=== PATIENT | female | born 1965 | race Hispanic/Latino ===

== ENCOUNTER 2017-06-19 18:30 | Inpatient (IN) | payer OTHER, SELFPAY ==
--- OUTSIDE RECORDS SUMMARY | 2017-06-19 18:32 | XMS | Clinical Summary ---
:1965 Author Organization [facility] Address [address] [place] [address] Phone Care Team Providers Name Role Phone , Primary Care Provider Unavailable Allergies Not on File Current Medications Not on file Active Problems Not on file Social History Tobacco Use Types Packs/Day Years Used Date Never Assessed Sex Assigned at Date Recorded Not on file Last Filed Vital Signs Not on file Plan of Treatment Not on file Results Not on filefrom Last 3 Months
[2017-06-19] MEDS ORDERED: Albuterol Sulfate 2.5 mg/3 ml Neb ONE (21:19)
[2017-06-19] MEDS ORDERED: Magnesium Sulfate 2 GM/100 ML BAG ONE (21:36)
[2017-06-19] MEDS ORDERED: methylPREDNISolone Sod Succ/PF 125 MG/2 ML VIAL ONE (21:37)
[2017-06-19] MEDS ORDERED: Sterile Water 0 ML ONE (21:38)
[2017-06-19] MEDS ORDERED: Water For Inject, Bacteriostat 30 ML ONE (21:38)
[2017-06-19 21:39] LABS: #Eosinphils 0.2 thou/uL (0.0-0.7); #Lymphocytes 1.5 thou/uL (1.20-3.40); #Monocytes 0.5 thou/uL (0.11-0.59); #Neutrophils 4.4 thou/uL (1.40-6.50); %Basophils 0.4 % (0.0-1.0); %Eosinophils 2.8 % (0.0-10.0); %Lymphocytes 22.6 % (21.0-51.0); %Monocytes 7.9 % (0.0-10.0); Mean Platelet Volume 8.4 fL (7.4-10.4); Red Blood Cell (RBC) Count 5.31 mill/uL (4.20-5.40); White Blood Cell (WBC) Count 6.6 thou/uL (4.8-10.8)
[2017-06-19 22:03] LABS: ALT (SGPT) 18 U/L (8-55); AST (SGOT) 8 U/L (5-34); Alkaline Phosphatase 103 U/L (40-150); Anion Gap 15 mmol/L (10-20); BUN (Urea Nitrogen) 7 mg/dL (9.8-20.1); Bilirubin, Total 0.6 mg/dL (0.2-1.2); Calc. Creatinine Clearance 0 mL/min (70-130); Calcium 9.9 mg/dL (7.8-10.44); Carbon Dioxide 27 mmol/L (22-29); Chloride 104 mmol/L (98-107); Estimated GFR-MDRD 79; Globulin 3.3 g/dL (2.4-3.5); Magnesium 1.9 mg/dL (1.6-2.6); Protein, Total 7.3 g/dL (6.0-8.3)
[2017-06-19 22:07] LABS: Troponin I Less than 0.010 ng/mL (< 0.028)
--- NOTE | 2017-06-19 22:16 | RAD ---
PORTABLE AP CHEST: Date: 06-19-17 History: Cough, dyspnea, wheezing. Comparison: 01-02-17 FINDINGS: Cardiac silhouette is stable in size. Post-surgical changes related to CABG are again noted. Pulmona ry vasculature is within normal limits and the lungs are clear. There has been resolution of bilater al pleural and parenchymal changes on the prior study, likely related to resolution of bilateral ple ural effusions. No other interval change. IMPRESSION: No acute cardiopulmonary process. POS: MIRIAM
[2017-06-20] MEDS ORDERED: Acetaminophen 325 MG TAB ONE (01:14)
[2017-06-20 01:25] LABS: Troponin I Less than 0.010 ng/mL (< 0.028)
[2017-06-20] MEDS ORDERED: Ondansetron HCl/PF 4 MG/2 ML Vial IVP PRN ×2 (02:23→03:30)
[2017-06-20] MEDS ORDERED: Acetaminophen 325 MG TAB PO PRN (02:23)
[2017-06-20] MEDS ORDERED: Ondansetron ODT 4 MG TAB SL PRN (02:23)
[2017-06-20] MEDS ORDERED: Albuterol Sulfate 2.5 mg/3 ml Neb NEB PRN (02:24)
[2017-06-20] MEDS ORDERED: Dextrose 5% in Water 1,000 ML IV PRN (03:22)
[2017-06-20] MEDS ORDERED: Dextrose 50% Abboject 50 ML SYRINGE SLOW IVP PRN (03:22)
[2017-06-20] MEDS ORDERED: Nitroglycerin 0.4 MG TAB (25 Tab Bottle) PO PRN (03:22)
[2017-06-20] MEDS ORDERED: Calcium Carbonate 500 MG ChewTAB PO PRN (03:26)
[2017-06-20] MEDS ORDERED: Eucerin (Mineral Oil/Petrolatum,White) 30 gm Jar TOP PRN (03:26)
[2017-06-20] MEDS ORDERED: cloNIDine HCl 0.1 MG TAB PO PRN (03:26)
[2017-06-20] MEDS ORDERED: Polyethylene Glycol 3350 17 GM Packet PO PRN (03:26)
[2017-06-20] MEDS ORDERED: Diabetic Tussin 200 MG/10 ML UDCUP PO PRN (03:26)
[2017-06-20] MEDS ORDERED: Ondansetron ODT 4 MG TAB PO PRN (03:30)
[2017-06-20] MEDS ORDERED: Mag-Al 1200 mg/1200 mg/30 ML UDCUP PO PRN (03:30)
[2017-06-20] MEDS ORDERED: Senokot 8.6 MG TAB PO PRN (03:30)
--- NOTE | 2017-06-20 04:04 | HP ---
DATE OF ADMISSION: 06/20/2017 PRIMARY CARE PHYSICIAN: Ida Nascimento. CHIEF COMPLAINT: Shortness of breath of 2 days duration. HISTORY OF PRESENT ILLNESS: Patient is a 52-year-old female with COPD, coronary artery disease stat us post CABG, diabetes, and hypertension, who presented to the emergency room with above complaints. Over the last two days, the patient has gradual worsening shortness of breath along with chest tight ness and wheezing. This started after getting a flu shot. Shortness of breath has progressively go t worse to the extent that patient was short of breath at rest. She denies any fever; however, had chills. She also felt generally weak and fatigued. She had some cough, which was essentially nonpr oductive. She denies any sick contacts. She has a history of asthma/COPD and uses an inhaler, mayb e once in 1-2 weeks. She had a similar episode in November of this year when she was admitted at [facility]. In the emergency room, her initial vital signs showed a temperature of 98.1, respiration of 22, puls e rate of 94, blood pressure of 130/92 with O2 saturation of 98% on 2 liters nasal cannula. The pat ient was in moderate respiratory distress in the emergency room. Chest x-ray was negative for infil trate. EKG showed sinus rhythm with some nonspecific ST-T wave changes in the lateral leads. She r eceived DuoNebs, Tylenol, 2 grams magnesium, and 125 Solu-Medrol in the emergency room. PAST MEDICAL HISTORY: 1. Asthma/COPD. 2. Former smoker. 3. Coronary artery disease status post CABG (3-vessel 4 years ago). 4. History of myocardial infarction. 5. Diabetes mellitus, type 2. 6. Hypertension. PAST SURGICAL HISTORY: 1. Coronary artery bypass grafting x3. 2. Cholecystectomy. 3. 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 4. Colonoscopy. ALLERGIES: No known drug allergies. CURRENT HOME MEDICATIONS: 1. Aspirin 81 mg daily. 2. Lipitor 10 mg at bedtime. 3. Plavix 75 mg daily. 4. Flexeril 5 mg 3 times daily as needed. 5. Lasix 40 mg daily. 6. Gabapentin 300 mg b.i.d. 7. Methocarbamol 750 mg every 8 hourly as needed. 8. Niacin 500 mg daily. 9. Omeprazole 20 mg daily. 10. Potassium chloride 20 mEq daily. 11. Zocor 40 mg daily. 12. Metformin 500 mg b.i.d. SOCIAL HISTORY: Patient is a former smoker. She currently lives at home with family. Drinks alcoh ol socially. FAMILY HISTORY: Negative for premature coronary artery disease. REVIEW OF SYSTEMS: The following complete review of systems was negative, unless otherwise mentione d in the HPI or below: Constitutional: Weight loss or gain, ability to conduct usual activities. Skin: Rash, itching. Eyes: Double vision, pain. ENT/Mouth: Nose bleeding, neck stiffness, pain, tenderness. Cardiovascular: Palpitations, dyspnea on exertion, orthopnea. Respiratory: Shortness of breath, wheezing, cough, hemoptysis, fever or night sweats. Gastrointestinal: Poor appetite, abdominal pain, heartburn, nausea, vomiting, constipation, or diar sybil. Genitourinary: Urgency, frequency, dysuria, nocturia. Musculoskeletal: Pain, swelling. Neurologic/Psychiatric: Anxiety, depression. Allergy/Immunologic: Skin rash, bleeding tendency. PHYSICAL EXAMINATION: VITAL SIGNS: As discussed above. GENERAL: A 52-year-old female in moderate respiratory distress. Able to complete short phrases. HEENT: Head atraumatic, normocephalic. Sclerae are anicteric. Moist mucous membrane, no oral lesi on. NECK: Supple, no JVD, no carotid bruit. LUNGS: Showed diffuse expiratory wheezing with rhonchi. No definite rales appreciated. Lungs were symmetrical. HEART: S1, S2 present. Regular rate and rhythm. Healed midline scar from previous CABG. No rubs or gallops. ABDOMEN: Soft, nontender, bowel sounds present. EXTREMITIES: No edema or calf tenderness. NEUROLOGIC: Grossly nonfocal, moves all four extremities. PSYCHIATRY: Alert, awake, oriented x3. SKIN: Warm and dry. LYMPH NODES: No palpable lymph nodes in the neck. PERIPHERAL VASCULAR: Radial pulses palpable bilaterally. MUSCULOSKELETAL: No joint swelling or tenderness. LABORATORY FINDINGS: 1. CBC showed WBC of 6.6 with hemoglobin 16.6, hematocrit 50, platelet count of 204. 2. test was negative. 3. Chemistries showed sodium 142, potassium 4, chloride 104, bicarbonate 27, BUN 7, creatinine 0.77 . 4. Cardiac enzymes were normal. EKG and chest x-ray by my review as discussed above. 5. Influenza testing was negative. IMPRESSION: 1. Chronic obstructive pulmonary disease/asthma exacerbation. 2. Suspected community-acquired pneumonia. 3. Diabetes mellitus, type 2. 4. Hypertension. 5. Coronary artery disease, status post myocardial infarction and coronary artery bypass grafting. 6. Hypertension. 7. Chronic kidney disease, stage 2. 8. Former smoker. 9. Dyslipidemia. 10. Obesity with a BMI of 32.5. PLAN: 1. The patient will be monitored on the telemetry unit. We will continue to monitor her closely. If she deteriorates, we will transfer her to intermediate care unit. We will continue oxygen, nebul izer treatment, steroids with addition of antibiotics. We will also consult Pulmonary, Dr. Kim. We will start her on insulin sliding scale. Resume other selected home medications. 2. The patient will require at least 2-3 days for stabilization.
[2017-06-20] MEDS: cefTRIAXone\\ROCEPHIN 1 GM in Sodium Chloride 0.9% 100 ML IVPB SCH (04:05)
[2017-06-20] MEDS: Azithromycin 500 MG in Sodium Chloride 0.9% 250 ML 250 ML IVPB SCH (05:22)
[2017-06-20 06:01] LABS: Troponin I Less than 0.010 ng/mL (< 0.028)
[2017-06-20] MEDS: Insulin Regular 300 UNITS/3 ML VIAL SC PRN ×4 (06:05→21:21)
[2017-06-20] MEDS: Acetaminophen 325 MG TAB PO PRN (08:47)
[2017-06-20] MEDS: Calcium Carbonate + Vit D 1 TAB PO SCH ×2 (08:48→16:26)
[2017-06-20] MEDS: Furosemide 40 MG TAB PO SCH (08:48)
[2017-06-20] MEDS: guaiFENesin ER 600 MG TAB PO SCH ×2 (08:48→21:12)
[2017-06-20] MEDS: Clopidogrel Bisulfate 75 MG TAB PO SCH (08:48)
[2017-06-20] MEDS: Heparin 5,000 UNITS/ML VIAL SC SCH ×2 (08:48→21:15)
[2017-06-20] MEDS: Aspirin 81 mg Enteric Coated Tablet PO SCH (08:48)
[2017-06-20] MEDS: Gabapentin 300 MG CAP PO SCH ×2 (08:48→21:12)
[2017-06-20] MEDS: Potassium Chloride 20 MEQ TAB PO SCH (08:49)
[2017-06-20] MEDS ORDERED: Famotidine 20 MG TAB PO SCH (09:00)
[2017-06-20] MEDS ORDERED: Magnesium Sulfate 4 GM in Sodium Chloride 0.9% 250 ML 250 ML IVPB SCH (09:30)
[2017-06-20] MEDS ORDERED: Magnesium 2 GM/NS 0.9% 100 ML 4 GM in Premix Bag 1 BAG IVPB SCH (09:30)
--- NOTE | 2017-06-20 12:03 | CON ---
DATE OF CONSULTATION: 06/20/2017 CONSULTING PHYSICIAN: Dr. Fitzpatrick. REASON FOR CONSULTATION: Asthma exacerbation. HISTORY OF PRESENT ILLNESS: This is a 52-year-old female, who says she became congestion and shortn ess of breath after getting a flu shot on Monday. She has had difficulty with shortness of breath, wheezing, and she has had a productive cough. She is a smoker, still smoking intermittently previously pack per day. She has an asthma inhaler at home but has not been using them. PAST MEDICAL HISTORY: 1. Asthma/COPD. 2. Coronary artery disease. 2. Myocardial infarction. 3. Diabetes mellitus type 2. 4. Hypertension. PAST SURGICAL HISTORY: 1. Coronary artery bypass grafting surgery. 2. Cholecystectomy. 3. Laparoscopic right colectomy for a cecal tumor. 4. Colonoscopy. ALLERGIES: None. MEDICATIONS PRIOR TO ADMISSION: Aspirin 81 mg daily, Lipitor 10 mg daily, Plavix 75 mg daily, Flexe ril 5 mg 3 times daily as needed, Lasix 40 mg daily, gabapentin 300 mg b.i.d., Soma 750 mg every 8 h ours as needed, niacin 500 mg daily, omeprazole 20 mg daily, potassium chloride 20 mEq daily, Zocor 40 mg daily, metformin 500 mg b.i.d. She is also on albuterol as needed. SOCIAL HISTORY: Formerly smoked heavily, but is now intermittently smoking. She drinks alcohol gian ly. FAMILY MEDICAL HISTORY: Unremarkable for asthma or emphysema. REVIEW OF SYSTEMS: She denies fever or chills. She has had some nausea, no vomiting. No hematemes is, melena or hematochezia. No hematuria or dysuria. PHYSICAL EXAMINATION: VITAL SIGNS: Temperature 97.4, pulse 74, respirations 24, O2 sat 95% on 2 liters, blood pressure 10 9/71. HEENT: Unremarkable. LUNGS: Coarse breath sounds audible from her lungs after that region. Lungs have diffused bilatera l expiratory wheezing with prolonged expiratory phase. CARDIOVASCULAR: S1, S2 regular. No murmur. ABDOMEN: Soft and nontender. EXTREMITIES: No clubbing, cyanosis, or edema. Her chest x-ray shows no profound infiltrate that I can visualize. LABORATORY DATA: Sodium 142, potassium 4.0, chloride 104, CO2 27, BUN 7, creatinine 0.7, glucose 10 9. BNP was 46. White blood cell count 6.6, hematocrit 50.0, platelet count 204. ASSESSMENT: 1. Chronic obstructive pulmonary disease/asthma with exacerbation. 2. Acute respiratory failure secondary to #1. 3. History of coronary artery disease. 4. Tobacco abuse. PLAN: 1. Oxygen. 2. Intravenous steroids. 3. IV antibiotics. 4. Aggressive nebulization therapy. 5. Smoking cessation has been advised.
--- NOTE | 2017-06-20 13:04 | PDOC.PN ---
- Subjective Encounter Start Date: 06/20/17 Encounter Start Time: 13:00 Subjective: Feels SOB with non-productive cough. No fever or chills. Admits to recent -: Influenza vax in last 4 days. - Objective Resuscitation Status: Resuscitation Status FULL:Full Resuscitation MAR Reviewed: Yes Vital Signs & Weight: Vital Signs (12 hours) Temp Pulse Resp BP Pulse Ox 06/20/17 11:33 97.5 F L 77 24 H 110/69 97 06/20/17 10:10 77 16 97 06/20/17 08:00 97.4 F L 74 24 H 109/71 95 06/20/17 06:12 99 06/20/17 06:09 81 16 99 06/20/17 04:22 98.2 F 64 18 100/57 L 95 06/20/17 03:22 96 06/20/17 02:26 97.8 F 81 16 99 I&O: 06/19/17 06/20/17 06/21/17 06:59 06:59 06:59 Intake Total 350 Balance 350 Result Diagrams: 06/19/17 21:25 06/19/17 21:25 Additional Labs: Accuchecks 06/20/17 06/20/17 10:50 05:59 POC Glucose 256 H 229 H EKG Reviewed by me: Yes (Tele - SR in 80's) Phys Exam - Physical Examination Constitutional: NAD HEENT: PERRLA, oral pharynx no lesions Neck: no JVD, supple coarse bilaterally, exp wheezing Cardiovascular: RRR Gastrointestinal: soft, non-tender, no distention, positive bowel sounds Musculoskeletal: no edema, pulses present Neurological: normal sensation, moves all 4 limbs Psychiatric: A&O x 3 Skin: normal turgor, cap refill <2 seconds Dx/Plan (1) Acute exacerbation of chronic obstructive pulmonary disease (COPD) Code(s): J44.1 - CHRONIC OBSTRUCTIVE PULMONARY DISEASE W (ACUTE) EXACERBATION Status: Acute Comment: Continue bronchodilators, Add Dulera 2 puffs BID, continue Solumedrol, Zithromax and Rocephin (2) Acute respiratory failure with hypoxia Code(s): J96.01 - ACUTE RESPIRATORY FAILURE WITH HYPOXIA Status: Acute Comment: See #1 above (3) CAD (coronary artery disease) Code(s): I25.10 - ATHSCL HEART DISEASE OF [place] CORONARY ARTERY W/O ANG PCTRS Status: Chronic Qualifiers: Coronary Disease-Associated Artery/Lesion type: bypass graft [place] vs. 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
[2017-06-20] MEDS ORDERED: Montelukast Sodium 10 mg Tablet PO SCH (13:15)
[2017-06-20] MEDS: Mometasone/Formoterol 120 PUFF INHALER INH SCH ×2 (14:29→19:27)
[2017-06-20] MEDS ORDERED: Ketorolac Tromethamine 30 MG/ML VIAL IVP PRN (19:27)
[2017-06-20] MEDS ORDERED: Atorvastatin Calcium 10 MG TAB PO SCH (21:00)
[2017-06-20] MEDS: Simvastatin 40 MG TAB PO SCH (21:13)
[2017-06-21] MEDS: cefTRIAXone\\ROCEPHIN 1 GM in Sodium Chloride 0.9% 100 ML IVPB SCH (03:08)
[2017-06-21] MEDS: Azithromycin 500 MG in Sodium Chloride 0.9% 250 ML 250 ML IVPB SCH (04:03)
[2017-06-21 05:30] LABS: #Lymphocytes 0.6 thou/uL (1.20-3.40); #Monocytes 0.3 thou/uL (0.11-0.59); #Neutrophils 11.2 thou/uL (1.40-6.50); %Basophils 0.3 % (0.0-1.0); %Eosinophils 0.1 % (0.0-10.0); %Lymphocytes 4.8 % (21.0-51.0); %Monocytes 2.3 % (0.0-10.0); Hematocrit 41.9 % (36.0-47.0); Mean Platelet Volume 9.1 fL (7.4-10.4); Red Blood Cell (RBC) Count 4.43 mill/uL (4.20-5.40); White Blood Cell (WBC) Count 12.1 thou/uL (4.8-10.8)
[2017-06-21 05:48] LABS: Anion Gap 15 mmol/L (10-20); BUN (Urea Nitrogen) 16 mg/dL (9.8-20.1); BUN/Creatinine Ratio 19.51; Calc. Creatinine Clearance 109 mL/min (70-130); Calcium 9.5 mg/dL (7.8-10.44); Carbon Dioxide 21 mmol/L (22-29); Chloride 103 mmol/L (98-107); Estimated GFR-MDRD 73; Phosphorus 3.6 mg/dL (2.3-4.7)
[2017-06-21] MEDS: Insulin Regular 300 UNITS/3 ML VIAL SC PRN ×4 (06:05→21:43)
[2017-06-21] MEDS: Mometasone/Formoterol 120 PUFF INHALER INH SCH ×2 (06:18→19:10)
[2017-06-21] MEDS: Potassium Chloride 20 MEQ TAB PO SCH (08:56)
[2017-06-21] MEDS: Furosemide 40 MG TAB PO SCH (08:56)
[2017-06-21] MEDS: Clopidogrel Bisulfate 75 MG TAB PO SCH (08:56)
[2017-06-21] MEDS: Gabapentin 300 MG CAP PO SCH ×2 (08:56→21:44)
[2017-06-21] MEDS: Calcium Carbonate + Vit D 1 TAB PO SCH ×2 (08:56→16:45)
[2017-06-21] MEDS: Aspirin 81 mg Enteric Coated Tablet PO SCH (08:56)
[2017-06-21] MEDS: guaiFENesin ER 600 MG TAB PO SCH ×2 (08:56→21:44)
[2017-06-21] MEDS: Heparin 5,000 UNITS/ML VIAL SC SCH ×2 (08:57→21:43)
[2017-06-21] MEDS ORDERED: Benzonatate 100 MG CAP PO PRN (09:42)
--- NOTE | 2017-06-21 09:46 | PDOC.PN ---
- Subjective Encounter Start Date: 06/21/17 Encounter Start Time: 09:45 still wheezing and coughing no f/c no n/v - Objective Resuscitation Status: Resuscitation Status FULL:Full Resuscitation MAR Reviewed: Yes Vital Signs & Weight: Vital Signs (12 hours) Temp Pulse Resp BP Pulse Ox 06/21/17 07:57 97.8 F 67 18 103/57 L 97 06/21/17 06:27 97 06/21/17 06:18 84 24 H 98 06/21/17 06:16 84 24 H 98 06/21/17 04:00 97.5 F L 61 20 101/51 L 98 06/21/17 03:46 78 18 99 06/21/17 01:00 76 20 97 06/21/17 00:00 97.5 F L 89 20 106/61 97 06/20/17 22:09 80 22 H 98 Weight Weight 189 lb 9.561 oz I&O: 06/20/17 06/21/17 06/22/17 06:59 06:59 06:59 Intake Total 350 1833 Balance 350 1833 Result Diagrams: 06/21/17 05:08 06/21/17 05:08 Additional Labs: Accuchecks 06/21/17 06/20/17 06/20/17 05:34 21:12 16:55 POC Glucose 259 H 271 H 270 H 06/20/17 10:50 POC Glucose 256 H Phys Exam - Physical Examination Constitutional: NAD HEENT: PERRLA Neck: no JVD Respiratory: wheezing present Cardiovascular: no significant murmur Gastrointestinal: non-tender Musculoskeletal: pulses present Neurological: normal sensation Psychiatric: A&O x 3 Dx/Plan (1) Tobacco abuse Code(s): Z72.0 - TOBACCO USE Status: Acute (2) Acute exacerbation of chronic obstructive pulmonary disease (COPD) Code(s): J44.1 - CHRONIC OBSTRUCTIVE PULMONARY DISEASE W (ACUTE) EXACERBATION Status: Acute Comment: Continue bronchodilators, Add Dulera 2 puffs BID, continue Solumedrol, Zithromax and Rocephin (3) Acute respiratory failure with hypoxia Code(s): J96.01 - ACUTE RESPIRATORY FAILURE WITH HYPOXIA Status: Acute Comment: See #1 above (4) CAD (coronary artery disease) Code(s): I25.10 - ATHSCL HEART DISEASE OF [place] CORONARY ARTERY W/O ANG PCTRS Status: Chronic Qualifiers: Coronary Disease-Associated Artery/Lesion type: bypass graft [place] vs. transplanted heart: [place] heart Associated angina: without angina Qualified Code(s): I25.810 - Atherosclerosis of coronary artery bypass graft(s) without angina pectoris Comment: cabg 2014, resume home meds, stable currently (5) DM type 2 (diabetes mellitus, type 2) Status: Chronic Qualifiers: Diabetes mellitus complication status: without complication Diabetes mellitus jail insulin use: without jail use Qualified Code(s): E11.9 - Type 2 diabetes mellitus without complications Comment: Resume Metformin 500mg BID, ISS (6) Dyslipidemia Code(s): E78.5 - HYPERLIPIDEMIA, UNSPECIFIED Status: Chronic (7) Obesity (BMI 30-39.9) Code(s): E66.9 - OBESITY, UNSPECIFIED Status: Chronic - Plan * cont current mx * pulm input appreciated
--- NOTE | 2017-06-21 14:05 | PRG ---
DATE OF SERVICE: 06/21/2017 She says she feels a little better than yesterday. She is still quite bronchospastic. She says it started approximately 3 days after getting a flu shot. She said this did not happen last year with the flu shot. PHYSICAL EXAMINATION: VITAL SIGNS: She is afebrile, heart rate 82, respiratory rate 24, oximetry is 100%. Blood pressure 131/65. LUNGS: Remarkable for diffuse wheezes. HEART: Regular rhythm. ABDOMEN: Soft. IMPRESSION: 1. Asthma exacerbation with ? of chronic obstructive pulmonary disease. 2. History of coronary disease. 3. History of diabetes. 4. History of hypertension. 5. History of coronary artery bypass grafting. PLAN: Continue current care. She is not a candidate to be discharged at this point. She will prob ably be in the hospital several more days. She has no evidence of a pneumonia. I would switch her to p.o. antimicrobial therapy.
[2017-06-21] MEDS: Acetaminophen 325 MG TAB PO PRN (14:13)
[2017-06-21] MEDS: Simvastatin 40 MG TAB PO SCH (21:44)
[2017-06-21] MEDS: Montelukast Sodium 10 mg Tablet PO SCH (21:44)
[2017-06-21] MEDS: Cefuroxime Axetil 250 MG TAB PO SCH (21:44)
[2017-06-21] MEDS: Ketorolac Tromethamine 30 MG/ML VIAL IVP PRN (22:21)
[2017-06-22] MEDS: Ketorolac Tromethamine 30 MG/ML VIAL IVP PRN ×3 (04:47→23:53)
[2017-06-22] MEDS: Azithromycin 500 MG in Sodium Chloride 0.9% 250 ML 250 ML IVPB SCH (04:47)
[2017-06-22] MEDS: Mometasone/Formoterol 120 PUFF INHALER INH SCH ×2 (06:10→19:04)
[2017-06-22] MEDS ORDERED: glipiZIDE 5 MG TAB PO SCH (08:15)
--- NOTE | 2017-06-22 08:24 | PRG ---
DATE OF SERVICE: 06/22/2017 SUMMARY: A 52-year-old female with asthma/questionable COPD, presented on 06/20/2017 with shortness of breath of 2 days duration. Her workup was consistent with asthma/questionable COPD exacerbation . She was started on broad spectrum antibiotics along with steroids. Pulmonary team was consulted. SUBJECTIVE: The patient continues to have shortness of breath and wheezing. She is coughing up sma ll amount of thick phlegm. She denies any other symptoms. No fevers or chills reported. CURRENT MEDICATIONS: Reviewed. The patient is currently on IV steroids with azithromycin IV and or al Ceftin. She is also on her home medications including aspirin and Plavix. Heparin 5000 b.i.d. f or DVT prophylaxis. She is also on Dulera and Singulair that was started this hospitalization. PHYSICAL EXAMINATION: VITAL SIGNS: Temperature 97.7, respirations of 20, pulse of 77, O2 saturation of 99% on 2 liter magdaleno al cannula, blood pressure 113/61. Intake of 730, output unavailable. GENERAL: A 52-year-old female in mild respiratory distress. Audible wheezing heard. NECK: Supple. No JVD, no carotid bruit. LUNGS: Showed expiratory wheezing with rhonchi. HEART: S1, S2 present. Regular rate and rhythm. ABDOMEN: Soft, nontender, bowel sounds present. EXTREMITIES: No edema or calf tenderness. NEUROLOGIC: Grossly nonfocal. LABORATORY DATA AND X-RAY FINDINGS: 1. Sodium yesterday was 135 with BUN 16 and creatinine 0.82. 2. Accu-Chek yesterday was 259, 260, 259, and 237. 3. Chest x-ray on admission was negative for infiltrate. IMPRESSION: 1. Asthma/questionable chronic obstructive pulmonary disease exacerbation. We will continue antibi otics, steroids with nebulizer treatments. Pulmonary team is following. 2. Questionable community-acquired pneumonia. 3. Diabetes mellitus type 2. We will continue sliding scale. We will add low dose glipizide while on steroids. 4. Hypertension. We will continue to monitor. 5. Hyperlipidemia. We will continue statins. 6. Former smoker. 7. Dyslipidemia. 8. Chronic kidney disease stage 2. 9. Obesity with a body mass index of 32.5. DISPOSITION: Probably in next 2-3 days. We will discontinue telemetry and transfer to medical. I reviewed the telemetry strips for the last 2-3 days. No significant arrhythmias were noted.
[2017-06-22] MEDS: Gabapentin 300 MG CAP PO SCH ×2 (08:31→21:10)
[2017-06-22] MEDS: guaiFENesin ER 600 MG TAB PO SCH ×2 (08:31→21:11)
[2017-06-22] MEDS: Potassium Chloride 20 MEQ TAB PO SCH (08:31)
[2017-06-22] MEDS: Calcium Carbonate + Vit D 1 TAB PO SCH ×2 (08:31→16:39)
[2017-06-22] MEDS: Furosemide 40 MG TAB PO SCH (08:31)
[2017-06-22] MEDS: Cefuroxime Axetil 250 MG TAB PO SCH ×2 (08:32→21:10)
[2017-06-22] MEDS: Aspirin 81 mg Enteric Coated Tablet PO SCH (08:32)
[2017-06-22] MEDS: Heparin 5,000 UNITS/ML VIAL SC SCH (08:32)
[2017-06-22] MEDS: Clopidogrel Bisulfate 75 MG TAB PO SCH (08:32)
[2017-06-22] MEDS: Insulin Regular 300 UNITS/3 ML VIAL SC PRN ×2 (16:41→21:12)
[2017-06-22] MEDS: Acetaminophen 325 MG TAB PO PRN (16:42)
[2017-06-22] MEDS ORDERED: Magnesium Sulfate 3 GM in Sodium Chloride 0.9% 100 ML IVPB SCH (18:30)
--- NOTE | 2017-06-22 19:29 | PRG ---
DATE OF SERVICE: 06/22/2017 SUBJECTIVE: Rudi Tolentino says she feels a little better. OBJECTIVE: VITAL SIGNS: She is afebrile, heart rate 87, respiratory rate 16, oximetry is 93. Blood pressure 1 50/72. LUNGS: Still remarkable for diffuse coarse, wheezes. HEART: Regular rhythm. ABDOMEN: Soft. She has a good call for clearing her secretions. IMPRESSION: 1. Asthma, ? chronic obstructive pulmonary disease. 2. History of coronary artery bypass grafting. 3. Ongoing bronchospasm. PLAN: We would encourage her to drink fluids and we will try a dose of magnesium IV to see if this helps. She is complaining of headaches, the tramadol was not helping. We would avoid high dose opi ates. She may continue with her diabetes medicines. She probably several days away been stable enough to consider discharge.
[2017-06-22] MEDS: HYDROcodone/Acetaminophen 5/325 mg Tablet PO PRN (19:42)
[2017-06-22] MEDS ORDERED: Sterile Water 10 ML ONE (20:58)
[2017-06-22] MEDS: Montelukast Sodium 10 mg Tablet PO SCH (21:11)
[2017-06-22] MEDS: Simvastatin 40 MG TAB PO SCH (21:11)
[2017-06-22] MEDS: guaiFENesin/Codeine Phosphate 200 mg/20 mg 10 ml UD Cup PO PRN (23:54)
[2017-06-23] MEDS ORDERED: Sterile Water 10 ML ONE ×2 (04:07→21:23)
[2017-06-23 04:09] LABS: #Lymphocytes 0.8 thou/uL (1.20-3.40); #Monocytes 0.6 thou/uL (0.11-0.59); #Neutrophils 11.5 thou/uL (1.40-6.50); %Eosinophils 0.1 % (0.0-10.0); %Lymphocytes 6.2 % (21.0-51.0); %Monocytes 4.3 % (0.0-10.0); Mean Platelet Volume 9.1 fL (7.4-10.4); Red Blood Cell (RBC) Count 4.24 mill/uL (4.20-5.40); White Blood Cell (WBC) Count 12.9 thou/uL (4.8-10.8)
[2017-06-23] MEDS: HYDROcodone/Acetaminophen 5/325 mg Tablet PO PRN ×3 (04:17→18:30)
[2017-06-23 04:34] LABS: Anion Gap 13 mmol/L (10-20); BUN (Urea Nitrogen) 18 mg/dL (9.8-20.1); Calc. Creatinine Clearance 113 mL/min (70-130); Calcium 9.1 mg/dL (7.8-10.44); Carbon Dioxide 25 mmol/L (22-29); Chloride 102 mmol/L (98-107); Estimated GFR-MDRD 76
[2017-06-23] MEDS: Azithromycin 500 MG in Sodium Chloride 0.9% 250 ML 250 ML IVPB SCH (05:06)
[2017-06-23] MEDS: Insulin Regular 300 UNITS/3 ML VIAL SC PRN ×4 (05:13→21:54)
[2017-06-23] MEDS: guaiFENesin/Codeine Phosphate 200 mg/20 mg 10 ml UD Cup PO PRN ×3 (05:55→19:03)
[2017-06-23] MEDS: Ketorolac Tromethamine 30 MG/ML VIAL IVP PRN ×3 (05:57→19:03)
[2017-06-23] MEDS: Mometasone/Formoterol 120 PUFF INHALER INH SCH ×2 (07:19→19:11)
[2017-06-23] MEDS ORDERED: glipiZIDE 5 MG TAB PO SCH (07:30)
[2017-06-23] MEDS: Clopidogrel Bisulfate 75 MG TAB PO SCH (08:34)
[2017-06-23] MEDS: Gabapentin 300 MG CAP PO SCH ×2 (08:35→20:44)
[2017-06-23] MEDS: glipiZIDE 5 MG TAB PO SCH ×2 (08:35→16:41)
[2017-06-23] MEDS: Aspirin 81 mg Enteric Coated Tablet PO SCH (08:35)
[2017-06-23] MEDS: Furosemide 40 MG TAB PO SCH (08:36)
[2017-06-23] MEDS: Potassium Chloride 20 MEQ TAB PO SCH (08:36)
[2017-06-23] MEDS: guaiFENesin ER 600 MG TAB PO SCH ×2 (08:37→20:44)
[2017-06-23] MEDS: Calcium Carbonate + Vit D 1 TAB PO SCH ×2 (08:38→16:41)
--- NOTE | 2017-06-23 08:54 | PRG ---
DATE OF SERVICE: 06/23/2017 SUBJECTIVE: She says she feels a little bit better. PHYSICAL EXAMINATION: VITAL SIGNS: She is afebrile, heart rate is 71, respiratory rate 16, oximetry is 94%, blood pressur e 141/69. LUNGS: She has more air movement, but still has bilateral diffuse coarse wheezes. HEART: Regular rhythm. ABDOMEN: Soft. NEUROLOGY: She is speaking in longer sentences now. LABORATORY DATA: White count is 12.9, hemoglobin is 13.2, platelets 193. Electrolytes are normal. Glucose is elevated at 329. IMPRESSION: 1. Asthma exacerbation/chronic obstructive pulmonary disease. 2. History of coronary artery bypass grafting in the past at a young age. 3. Diabetes. 4. History of tobacco use, up until earlier this year. PLAN: Continue steroids, nebulizer treatments, truly no reason for her to be on Zithromax and p.o. cephalosporins. We have stopped her Zithromax. Her steroid dose can probably be decreased, and thi s hopefully will help facilitate better glucose control. She needs to remain in the hospital.
[2017-06-23] MEDS: Cefuroxime Axetil 250 MG TAB PO SCH ×2 (11:03→20:44)
[2017-06-23] MEDS ORDERED: Chloraseptic Spray 180 ml Bottle PO PRN (13:03)
--- NOTE | 2017-06-23 13:18 | PDOC.PN ---
- Subjective Encounter Start Date: 06/23/17 Encounter Start Time: 09:00 Patient seen and examined. Intractable cough +. No overnight events - Objective Resuscitation Status: Resuscitation Status FULL:Full Resuscitation MAR Reviewed: Yes Vital Signs & Weight: Vital Signs (12 hours) Temp Pulse Resp BP Pulse Ox 06/23/17 13:07 66 16 06/23/17 10:06 96 20 06/23/17 07:25 97.6 F 71 16 141/69 H 94 L 06/23/17 07:19 72 20 06/23/17 07:13 98 06/23/17 07:09 72 20 06/23/17 04:03 72 20 98 06/23/17 03:35 97.7 F 77 24 H 142/75 H 100 06/23/17 01:16 100 Weight Weight 189 lb I&O: 06/22/17 06/23/17 06/24/17 06:59 06:59 06:59 Intake Total 730 740 Balance 730 740 Result Diagrams: 06/23/17 03:42 06/23/17 03:42 Additional Labs: Accuchecks 06/23/17 06/23/17 06/22/17 10:43 05:05 20:13 POC Glucose 173 H 268 H 250 H 06/22/17 16:17 POC Glucose 165 H Phys Exam - Physical Examination Constitutional: NAD Respiratory: no rhonchi, wheezing present Cardiovascular: RRR, no rub Gastrointestinal: soft, non-tender, positive bowel sounds Musculoskeletal: no edema Neurological: moves all 4 limbs Dx/Plan - Plan IMPRESSION: 1. Asthma/questionable chronic obstructive pulmonary disease exacerbation. 2. Questionable community-acquired pneumonia. 3. Diabetes mellitus type 2. on sliding scale. 4. Hypertension. 5. Hyperlipidemia. 6. Former smoker. 7. Dyslipidemia. 8. Chronic kidney disease stage 2. 9. Obesity with a body mass index of 32.5. PLAN: * Cont nebs/antitussives/antibiotic * Pulmonary following * Cont current meds as below Review of Systems - Review of Systems Constitutional: negative: Fever, Chills, Sweats, Weakness, Malaise, Other Respiratory: Cough, Dry, SOB with Excertion, Wheezing. negative: Shortness of Breath, Hemoptysis, Pleuritic Pain, Sputum Cardiovascular: negative: Chest Pain, Palpitations, Orthopnea, Paroxysmal Noc. Dyspnea, Edema, Light Headedness, Other Gastrointestinal: negative: Nausea, Vomiting, Abdominal Pain, Diarrhea, Constipation, Melena, Hematochezia, Other Neurological: negative: Weakness, Numbness, Incoordination, Change in Speech, Confusion, Seizures, Other - Medications/Allergies Allergies/Adverse Reactions: Allergies Allergy/AdvReac Type Severity Reaction Status Date / Time No Known Drug Allergies Allergy Verified 06/20/17 02:57 Medications: Current Medications Acetaminophen (Tylenol) 650 mg PO Q4H PRN PRN Reason: Headache/Fever or Pain Last Admin: 06/22/17 16:42 Dose: 650 mg Hydrocodone Bitart/Acetaminophen ([place] 5/325) 1 tab PO Q6H PRN PRN Reason: Moderate Pain (4-6) Last Admin: 06/23/17 11:17 Dose: 1 tab Al Hydroxide/Mg Hydroxide (Maalox) 30 ml PO Q6H PRN PRN Reason: Heartburn or Indigestion Albuterol/Ipratropium (Duoneb) 3 ml NEB [id number] PRN PRN Reason: SOB &/or Wheezing Albuterol/Ipratropium (Duoneb) 3 ml NEB [id number] [facility] Last Admin: 06/23/17 13:07 Dose: 3 ml Aspirin (Ecotrin) 81 mg PO DAILY [facility] Last Admin: 06/23/17 08:35 Dose: 81 mg Benzonatate (Tessalon) 200 mg PO TID PRN PRN Reason: Cough Calcium Carbonate (Tums) 1,000 mg PO Q4H PRN PRN Reason: Heartburn or Indigestion Calcium/Vitamin D (Caltrate 600 + Vit D) 1 tab PO BID-WM [facility] Last Admin: 06/23/17 08:38 Dose: 1 tab Cefuroxime Axetil (Ceftin) 250 mg PO Q12HR [facility] Last Admin: 06/23/17 11:03 Dose: 250 mg Clonidine HCl (Catapres) 0.1 mg PO Q4H PRN PRN Reason: Systolic BP > 180/ DBP >100 Clopidogrel Bisulfate (Plavix) 75 mg PO DAILY [facility] Last Admin: 06/23/17 08:34 Dose: 75 mg Cyclobenzaprine HCl (Flexeril) 5 mg PO TIDPRN PRN PRN Reason: Muscle Spasm Dextrose/Water (Dextrose 50%) 25 gm SLOW IVP PRN PRN PRN Reason: Hypoglycemia Furosemide (Lasix) 20 mg PO DAILY [facility] Gabapentin (Neurontin) 300 mg PO BID [facility] Last Admin: 06/23/17 08:35 Dose: 300 mg Glipizide (Glucotrol) 5 mg PO BID-AC [facility] Last Admin: 06/23/17 08:35 Dose: 5 mg Guaifenesin (Robitussin Sf) 200 mg PO Q4H PRN PRN Reason: Cough Guaifenesin (Mucinex) 600 mg PO Q12HR [facility] Last Admin: 06/23/17 08:37 Dose: 600 mg Guaifenesin/Codeine Phosphate (Robitussin Ac) 10 ml PO Q6H PRN PRN Reason: Cough Last Admin: 06/23/17 12:58 Dose: 10 ml Hydralazine HCl (Apresoline) 10 mg SLOW IVP Q4H PRN PRN Reason: SBP Greater Than 180 Dextrose/Water (D5w) 1,000 mls @ 0 mls/hr IV .Q0M PRN; As Directed PRN Reason: Hypoglycemia Insulin Human Regular (Humulin R) 0 units SC .MILD SLIDING SCALE PRN PRN Reason: Mild Correctional Scale Last Admin: 06/23/17 12:28 Dose: 2 units Insulin Human Regular (Humulin R) 0 units SC .BEDTIME SLIDING SC PRN PRN Reason: Bedtime Correctional Scale Last Admin: 06/22/17 21:12 Dose: 2 unit Ketorolac Tromethamine (Toradol) 15 mg IVP Q6H PRN PRN Reason: PAIN 4-6 Stop: 06/26/17 22:13 Last Admin: 06/23/17 12:58 Dose: 15 mg Metformin HCl (Glucophage) 500 mg PO BID-WM [facility] Last Admin: 06/23/17 08:35 Dose: 500 mg Methylprednisolone Sodium Succinate (Solu-Medrol) 20 mg IVP 0400,1000,1600, 2200 [facility] Last Admin: 06/23/17 11:03 Dose: 20 mg Mineral Oil/White Petrolatum (Eucerin Cream) 0 gm TOP BIDPRN PRN PRN Reason: Dry Skin Mometasone Furoate/Formoterol Fumar (Dulera 200 Mcg/5 Mcg Inhaler) 2 puff INH BID-RT [facility] Last Admin: 06/23/17 07:19 Dose: 2 puff Montelukast Sodium (Singulair) 10 mg PO QPM [facility] Last Admin: 06/22/17 21:11 Dose: 10 mg Nitroglycerin (Nitrostat) 0.4 mg PO Q5MIN PRN PRN Reason: Chest Pain Ondansetron HCl (Zofran Odt) 4 mg PO Q6H PRN PRN Reason: Nausea/Vomiting Ondansetron HCl (Zofran) 4 mg IVP Q6H PRN PRN Reason: Nausea/Vomiting Pantoprazole Sodium (Protonix) 40 mg PO DAILY [facility] Last Admin: 06/23/17 08:36 Dose: 40 mg Phenol (Chloraseptic [place] 180 Ml Bot) 0 ml PO BIDPRN PRN PRN Reason: Sore Throat Polyethylene Glycol (Miralax) 17 gm PO DAILY PRN PRN Reason: Constipation Senna (Senokot) 2 tab PO HSPRN PRN PRN Reason: Constipation Simvastatin (Zocor) 40 mg PO QPM [facility] Last Admin: 06/22/17 21:11 Dose: 40 mg Sodium Chloride (Flush - Normal Saline) 10 ml IVF Q12HR [facility] Last Admin: 06/23/17 08:37 Dose: 10 ml Sodium Chloride (Flush - Normal Saline) 10 ml IVF PRN PRN PRN Reason: Saline Flush Last Admin: 06/21/17 03:08 Dose: 10 ml Throat Lozenges (Cepastat Lozenges) 1 tripp PO Q2H PRN PRN Reason: Sore Throat
--- NOTE | 2017-06-23 14:59 | EKG ---
Test Reason : SOB Blood Pressure : / mmHG Vent. Rate : 092 BPM Atrial Rate : 092 BPM P-R Int : 126 ms QRS Dur : 088 ms QT Int : 372 ms P-R-T Axes : 040 016 040 degrees QTc Int : 460 ms Normal sinus rhythm Inferior infarct , age undetermined Possible Anterolateral infarct , age undetermined Q waves II, III, aVF, old T wave inversion V3-V5, old Abnormal ECG Confirmed by ANGELA CRANE D.O. ([id number]), editor & co founder LUCI URENA ([id number] on 06/23/2017 2:59:02 PM Referred By: ROSA MARIA Confirmed By:ANGELA CRANE D.O.
[2017-06-23] MEDS: Cepastat Lozenges 1 LOZ PO PRN ×2 (16:31→21:58)
[2017-06-23] MEDS: Montelukast Sodium 10 mg Tablet PO SCH (20:44)
[2017-06-23] MEDS: Simvastatin 40 MG TAB PO SCH (20:45)
[2017-06-24] MEDS: guaiFENesin/Codeine Phosphate 200 mg/20 mg 10 ml UD Cup PO PRN ×3 (01:19→14:09)
[2017-06-24] MEDS: HYDROcodone/Acetaminophen 5/325 mg Tablet PO PRN ×3 (01:19→19:25)
[2017-06-24] MEDS: Ketorolac Tromethamine 30 MG/ML VIAL IVP PRN ×3 (04:22→21:09)
[2017-06-24] MEDS: Insulin Regular 300 UNITS/3 ML VIAL SC PRN ×2 (06:12→17:43)
[2017-06-24] MEDS: Cepastat Lozenges 1 LOZ PO PRN (06:13)
[2017-06-24] MEDS: glipiZIDE 5 MG TAB PO SCH ×2 (07:56→17:46)
[2017-06-24] MEDS: Aspirin 81 mg Enteric Coated Tablet PO SCH (07:57)
[2017-06-24] MEDS: Calcium Carbonate + Vit D 1 TAB PO SCH ×2 (07:57→17:45)
[2017-06-24] MEDS: Clopidogrel Bisulfate 75 MG TAB PO SCH (07:58)
[2017-06-24] MEDS: guaiFENesin ER 600 MG TAB PO SCH ×2 (07:59→20:27)
[2017-06-24] MEDS: Furosemide 20 MG TAB PO SCH (08:00)
[2017-06-24] MEDS: Gabapentin 300 MG CAP PO SCH ×2 (08:00→20:27)
[2017-06-24] MEDS: Mometasone/Formoterol 120 PUFF INHALER INH SCH ×2 (08:01→19:37)
--- NOTE | 2017-06-24 09:02 | PDOC.PN ---
- Subjective Encounter Start Date: 06/24/17 Encounter Start Time: 08:59 Patient seen and examined. Cough +. Foot pain. No overnight events - Objective Resuscitation Status: Resuscitation Status FULL:Full Resuscitation MAR Reviewed: Yes Vital Signs & Weight: Vital Signs (12 hours) Temp Pulse Resp BP Pulse Ox 06/24/17 08:01 96 16 06/24/17 08:00 97.9 F 96 20 06/24/17 07:42 86 20 96 06/24/17 07:28 97.9 F 64 20 145/70 H 97 06/24/17 04:04 74 16 99 06/24/17 04:00 97.9 F 60 16 130/60 98 06/24/17 01:04 87 20 99 06/24/17 00:58 100 06/23/17 23:29 98.2 F 75 12 123/65 99 06/23/17 22:15 61 16 100 Weight Weight 192 lb 5 oz I&O: 06/23/17 06/24/17 06/25/17 06:59 06:59 06:59 Intake Total 740 950 Balance 740 950 Result Diagrams: 06/23/17 03:42 06/23/17 03:42 Additional Labs: Accuchecks 06/24/17 06/23/17 06/23/17 06:03 21:49 16:20 POC Glucose 208 H 209 H 179 H 06/23/17 10:43 POC Glucose 173 H Phys Exam - Physical Examination Constitutional: NAD Respiratory: no rales, wheezing present Cardiovascular: RRR, no rub Gastrointestinal: soft, non-tender, positive bowel sounds Musculoskeletal: no edema Neurological: moves all 4 limbs Dx/Plan - Plan IMPRESSION: 1. Asthma/questionable chronic obstructive pulmonary disease exacerbation. slowly improving. 2. Questionable community-acquired pneumonia. 3. Diabetes mellitus type 2. on sliding scale. on Glipizide. 4. Hypertension. 5. Hyperlipidemia. 6. Former smoker. 7. Dyslipidemia. 8. Chronic kidney disease stage 2. 9. Obesity with a body mass index of 32.5. PLAN: * Cont nebs/antitussives/antibiotic * Pulmonary following * Cont current meds as below * Consult wound care * Change Tessalon to scheduled Review of Systems - Review of Systems Respiratory: Cough, Dry, Wheezing. negative: Shortness of Breath, Hemoptysis, SOB with Excertion, Pleuritic Pain, Sputum Cardiovascular: negative: Chest Pain, Palpitations, Orthopnea, Paroxysmal Noc. Dyspnea, Edema, Light Headedness, Other Gastrointestinal: negative: Nausea, Vomiting, Abdominal Pain, Diarrhea, Constipation, Melena, Hematochezia, Other - Medications/Allergies Allergies/Adverse Reactions: Allergies Allergy/AdvReac Type Severity Reaction Status Date / Time No Known Drug Allergies Allergy Verified 06/20/17 02:57 Medications: Current Medications Acetaminophen (Tylenol) 650 mg PO Q4H PRN PRN Reason: Headache/Fever or Pain Last Admin: 06/22/17 16:42 Dose: 650 mg Hydrocodone Bitart/Acetaminophen ([place] 5/325) 1 tab PO Q6H PRN PRN Reason: Moderate Pain (4-6) Last Admin: 06/24/17 01:19 Dose: 1 tab Al Hydroxide/Mg Hydroxide (Maalox) 30 ml PO Q6H PRN PRN Reason: Heartburn or Indigestion Albuterol/Ipratropium (Duoneb) 3 ml NEB [id number] PRN PRN Reason: SOB &/or Wheezing Albuterol/Ipratropium (Duoneb) 3 ml NEB [id number] [facility] Last Admin: 06/24/17 07:42 Dose: 3 ml Aspirin (Ecotrin) 81 mg PO DAILY [facility] Last Admin: 06/24/17 07:57 Dose: 81 mg Benzonatate (Tessalon) 200 mg PO TID PRN PRN Reason: Cough Last Admin: 06/24/17 07:59 Dose: 200 mg Calcium Carbonate (Tums) 1,000 mg PO Q4H PRN PRN Reason: Heartburn or Indigestion Calcium/Vitamin D (Caltrate 600 + Vit D) 1 tab PO BID-[facility] Last Admin: 06/24/17 07:57 Dose: 1 tab Cefuroxime Axetil (Ceftin) 250 mg PO Q12HR [facility] Last Admin: 06/23/17 20:44 Dose: 250 mg Clonidine HCl (Catapres) 0.1 mg PO Q4H PRN PRN Reason: Systolic BP > 180/ DBP >100 Clopidogrel Bisulfate (Plavix) 75 mg PO DAILY [facility] Last Admin: 06/24/17 07:58 Dose: 75 mg Cyclobenzaprine HCl (Flexeril) 5 mg PO TIDPRN PRN PRN Reason: Muscle Spasm Dextrose/Water (Dextrose 50%) 25 gm SLOW IVP PRN PRN PRN Reason: Hypoglycemia Furosemide (Lasix) 20 mg PO DAILY [facility] Last Admin: 06/24/17 08:00 Dose: 20 mg Gabapentin (Neurontin) 300 mg PO BID [facility] Last Admin: 06/24/17 08:00 Dose: 300 mg Glipizide (Glucotrol) 5 mg PO BID-AC [facility] Last Admin: 06/24/17 07:56 Dose: 5 mg Guaifenesin (Robitussin Sf) 200 mg PO Q4H PRN PRN Reason: Cough Guaifenesin (Mucinex) 600 mg PO Q12HR [facility] Last Admin: 06/24/17 07:59 Dose: 600 mg Guaifenesin/Codeine Phosphate (Robitussin Ac) 10 ml PO Q6H PRN PRN Reason: Cough Last Admin: 06/24/17 08:03 Dose: 10 ml Hydralazine HCl (Apresoline) 10 mg SLOW IVP Q4H PRN PRN Reason: SBP Greater Than 180 Dextrose/Water (D5w) 1,000 mls @ 0 mls/hr IV .Q0M PRN; As Directed PRN Reason: Hypoglycemia Insulin Human Regular (Humulin R) 0 units SC .MILD SLIDING SCALE PRN PRN Reason: Mild Correctional Scale Last Admin: 06/24/17 06:12 Dose: 3 units Insulin Human Regular (Humulin R) 0 units SC .BEDTIME SLIDING SC PRN PRN Reason: Bedtime Correctional Scale Last Admin: 06/23/17 21:54 Dose: 2 unit Ketorolac Tromethamine (Toradol) 15 mg IVP Q6H PRN PRN Reason: PAIN 4-6 Stop: 06/26/17 22:13 Last Admin: 06/24/17 04:22 Dose: 15 mg Metformin HCl (Glucophage) 500 mg PO BID-[facility] Last Admin: 06/24/17 07:56 Dose: 500 mg Methylprednisolone Sodium Succinate (Solu-Medrol) 20 mg IVP 0400,1000,1600, 2200 [facility] Last Admin: 06/24/17 04:23 Dose: 20 mg Mineral Oil/White Petrolatum (Eucerin Cream) 0 gm TOP BIDPRN PRN PRN Reason: Dry Skin Mometasone Furoate/Formoterol Fumar (Dulera 200 Mcg/5 Mcg Inhaler) 2 puff INH BID-RT [facility] Last Admin: 06/24/17 08:01 Dose: 2 puff Montelukast Sodium (Singulair) 10 mg PO QPM [facility] Last Admin: 06/23/17 20:44 Dose: 10 mg Nitroglycerin (Nitrostat) 0.4 mg PO Q5MIN PRN PRN Reason: Chest Pain Ondansetron HCl (Zofran Odt) 4 mg PO Q6H PRN PRN Reason: Nausea/Vomiting Ondansetron HCl (Zofran) 4 mg IVP Q6H PRN PRN Reason: Nausea/Vomiting Pantoprazole Sodium (Protonix) 40 mg PO DAILY [facility] Last Admin: 06/24/17 07:59 Dose: 40 mg Phenol (Chloraseptic [place] 180 Ml Bot) 0 ml PO BIDPRN PRN PRN Reason: Sore Throat Polyethylene Glycol (Miralax) 17 gm PO DAILY PRN PRN Reason: Constipation Senna (Senokot) 2 tab PO HSPRN PRN PRN Reason: Constipation Simvastatin (Zocor) 40 mg PO QPM [facility] Last Admin: 06/23/17 20:45 Dose: 40 mg Sodium Chloride (Flush - Normal Saline) 10 ml IVF Q12HR [facility] Last Admin: 06/24/17 08:01 Dose: 10 ml Sodium Chloride (Flush - Normal Saline) 10 ml IVF PRN PRN PRN Reason: Saline Flush Last Admin: 06/23/17 19:03 Dose: 10 ml Throat Lozenges (Cepastat Lozenges) 1 tripp PO Q2H PRN PRN Reason: Sore Throat Last Admin: 06/24/17 06:13 Dose: 1 tripp
--- NOTE | 2017-06-24 10:54 | PRG ---
DATE OF SERVICE: 06/24/2017 SUBJECTIVE: She is still having difficulty with shortness of breath and wheezing. PHYSICAL EXAMINATION: VITAL SIGNS: Temperature is 97.9, pulse 96, respirations 16, O2 sat 96% on 2 liters, blood pressure 145/70. HEENT: Unremarkable. NECK: No JVD. CHEST: With diffuse wheezing. CARDIAC: S1 and S2 regular. ABDOMEN: Soft. EXTREMITIES: No edema. LABORATORY DATA: No new labs were obtained today. ASSESSMENT: Chronic obstructive pulmonary disease with severe exacerbation. PLAN: 1. Continue steroids and nebs. 2. Ambulate. 3. Nicotine patch. 4. Would anticipate her being in the hospital for several more days given the severity of her wheez ing.
[2017-06-24] MEDS: Cefuroxime Axetil 250 MG TAB PO SCH ×2 (12:55→20:28)
[2017-06-24] MEDS: Benzonatate 100 MG CAP PO SCH ×2 (14:09→20:27)
[2017-06-24] MEDS: Acetaminophen 325 MG TAB PO PRN (19:29)
[2017-06-24] MEDS: Montelukast Sodium 10 mg Tablet PO SCH (20:27)
[2017-06-24] MEDS: Simvastatin 40 MG TAB PO SCH (20:28)
[2017-06-25] MEDS: HYDROcodone/Acetaminophen 5/325 mg Tablet PO PRN ×3 (01:54→20:05)
[2017-06-25] MEDS: Insulin Regular 300 UNITS/3 ML VIAL SC PRN ×3 (06:23→20:13)
[2017-06-25] MEDS: Mometasone/Formoterol 120 PUFF INHALER INH SCH ×2 (07:48→19:57)
[2017-06-25] MEDS: Calcium Carbonate + Vit D 1 TAB PO SCH ×2 (08:23→17:15)
[2017-06-25] MEDS: Aspirin 81 mg Enteric Coated Tablet PO SCH (08:23)
[2017-06-25] MEDS: glipiZIDE 5 MG TAB PO SCH ×2 (08:23→17:14)
[2017-06-25] MEDS: Benzonatate 100 MG CAP PO SCH ×3 (08:25→20:08)
[2017-06-25] MEDS: Clopidogrel Bisulfate 75 MG TAB PO SCH (08:25)
[2017-06-25] MEDS: Cefuroxime Axetil 250 MG TAB PO SCH ×2 (08:25→20:06)
[2017-06-25] MEDS: Furosemide 20 MG TAB PO SCH (08:25)
[2017-06-25] MEDS: Gabapentin 300 MG CAP PO SCH ×2 (08:26→20:06)
[2017-06-25] MEDS: guaiFENesin ER 600 MG TAB PO SCH ×2 (08:26→20:06)
--- NOTE | 2017-06-25 09:24 | PDOC.PN ---
- Subjective Encounter Start Date: 06/25/17 Encounter Start Time: 09:22 Patient seen and examined. No new complaints. No overnight events. Coughing gradually improving. - Objective Resuscitation Status: Resuscitation Status FULL:Full Resuscitation MAR Reviewed: Yes Vital Signs & Weight: Vital Signs (12 hours) Temp Pulse Resp BP Pulse Ox 06/25/17 07:56 97 F L 61 18 135/71 98 06/25/17 07:48 69 20 06/25/17 07:40 97 06/25/17 07:38 69 20 06/25/17 04:30 94 L 06/25/17 04:00 97.7 F 77 14 129/71 99 06/25/17 01:48 95 06/24/17 23:50 98.0 F 81 16 136/63 99 06/24/17 23:05 95 06/24/17 23:04 95 Weight Admit Weight 189 lb 3.2 oz Weight 192 lb I&O: 06/24/17 06/25/17 06/26/17 06:59 06:59 06:59 Intake Total 950 1210 Balance 950 1210 Result Diagrams: 06/23/17 03:42 06/23/17 03:42 Additional Labs: Accuchecks 06/25/17 06/24/17 06/24/17 05:47 19:42 16:39 POC Glucose 266 H 142 H 255 H 06/24/17 11:40 POC Glucose 120 H Phys Exam - Physical Examination Constitutional: NAD Respiratory: no rales, wheezing present Cardiovascular: RRR, no rub Gastrointestinal: soft, non-tender, positive bowel sounds Musculoskeletal: no edema Neurological: non-focal, moves all 4 limbs Psychiatric: A&O x 3 Dx/Plan - Plan DVT proph w/SCDs IMPRESSION: 1. Asthma/questionable chronic obstructive pulmonary disease exacerbation. slowly improving. 2. ?Community-acquired pneumonia. on PO Atbx 3. Diabetes mellitus type 2. on sliding scale/Glipizide. 4. Hypertension. 5. Hyperlipidemia. 6. Former smoker. 7. Dyslipidemia. 8. Chronic kidney disease stage 2. 9. Obesity with a body mass index of 32.5. 10. Left arm numbness that started today morning. PLAN: * EKG and CE x 1 due to cardiac history * Cont nebs/antitussives/antibiotic/steroids * Pulmonary following * Cont current meds as below Review of Systems - Review of Systems Constitutional: negative: Fever, Chills, Sweats, Weakness, Malaise, Other Respiratory: Cough, Dry, SOB with Excertion, Wheezing. negative: Shortness of Breath, Hemoptysis, Pleuritic Pain, Sputum Cardiovascular: negative: Chest Pain, Palpitations, Orthopnea, Paroxysmal Noc. Dyspnea, Edema, Light Headedness, Other Gastrointestinal: negative: Nausea, Vomiting, Abdominal Pain, Diarrhea, Constipation, Melena, Hematochezia, Other Genitourinary: negative: Dysuria, Frequency, Incontinence, Hematuria, Retention , Other - Medications/Allergies Allergies/Adverse Reactions: Allergies Allergy/AdvReac Type Severity Reaction Status Date / Time No Known Drug Allergies Allergy Verified 06/20/17 02:57 Medications: Current Medications Acetaminophen (Tylenol) 650 mg PO Q4H PRN PRN Reason: Headache/Fever or Pain Last Admin: 06/24/17 19:29 Dose: 650 mg Hydrocodone Bitart/Acetaminophen ([place] 5/325) 1 tab PO Q6H PRN PRN Reason: Moderate Pain (4-6) Last Admin: 06/25/17 01:54 Dose: 1 tab Al Hydroxide/Mg Hydroxide (Maalox) 30 ml PO Q6H PRN PRN Reason: Heartburn or Indigestion Albuterol/Ipratropium (Duoneb) 3 ml NEB [id number] PRN PRN Reason: SOB &/or Wheezing Albuterol/Ipratropium (Duoneb) 3 ml NEB [id number] [facility] Last Admin: 06/25/17 07:38 Dose: 3 ml Aspirin (Ecotrin) 81 mg PO DAILY [facility] Last Admin: 06/25/17 08:23 Dose: 81 mg Benzonatate (Tessalon) 200 mg PO TID [facility] Last Admin: 06/25/17 08:25 Dose: 200 mg Calcium Carbonate (Tums) 1,000 mg PO Q4H PRN PRN Reason: Heartburn or Indigestion Calcium/Vitamin D (Caltrate 600 + Vit D) 1 tab PO BID-WM [facility] Last Admin: 06/25/17 08:23 Dose: 1 tab Cefuroxime Axetil (Ceftin) 250 mg PO Q12HR [facility] Last Admin: 06/25/17 08:25 Dose: 250 mg Clonidine HCl (Catapres) 0.1 mg PO Q4H PRN PRN Reason: Systolic BP > 180/ DBP >100 Clopidogrel Bisulfate (Plavix) 75 mg PO DAILY [facility] Last Admin: 06/25/17 08:25 Dose: 75 mg Cyclobenzaprine HCl (Flexeril) 5 mg PO TIDPRN PRN PRN Reason: Muscle Spasm Dextrose/Water (Dextrose 50%) 25 gm SLOW IVP PRN PRN PRN Reason: Hypoglycemia Furosemide (Lasix) 20 mg PO DAILY [facility] Last Admin: 06/25/17 08:25 Dose: 20 mg Gabapentin (Neurontin) 300 mg PO BID [facility] Last Admin: 06/25/17 08:26 Dose: 300 mg Glipizide (Glucotrol) 5 mg PO BID-AC [facility] Last Admin: 06/25/17 08:23 Dose: 5 mg Guaifenesin (Mucinex) 600 mg PO Q12HR [facility] Last Admin: 06/25/17 08:26 Dose: 600 mg Guaifenesin/Codeine Phosphate (Robitussin Ac) 10 ml PO Q6H PRN PRN Reason: Cough Last Admin: 06/24/17 14:09 Dose: 10 ml Hydralazine HCl (Apresoline) 10 mg SLOW IVP Q4H PRN PRN Reason: SBP Greater Than 180 Dextrose/Water (D5w) 1,000 mls @ 0 mls/hr IV .Q0M PRN; As Directed PRN Reason: Hypoglycemia Insulin Human Regular (Humulin R) 0 units SC .MILD SLIDING SCALE PRN PRN Reason: Mild Correctional Scale Last Admin: 06/25/17 06:23 Dose: 4 units Insulin Human Regular (Humulin R) 0 units SC .BEDTIME SLIDING SC PRN PRN Reason: Bedtime Correctional Scale Last Admin: 06/23/17 21:54 Dose: 2 unit Metformin HCl (Glucophage) 500 mg PO BID-WM [facility] Last Admin: 06/25/17 08:23 Dose: 500 mg Methylprednisolone Sodium Succinate (Solu-Medrol) 20 mg IVP 0400,1000,1600, 2200 [facility] Last Admin: 06/25/17 03:52 Dose: 20 mg Mineral Oil/White Petrolatum (Eucerin Cream) 0 gm TOP BIDPRN PRN PRN Reason: Dry Skin Mometasone Furoate/Formoterol Fumar (Dulera 200 Mcg/5 Mcg Inhaler) 2 puff INH BID-RT [facility] Last Admin: 06/25/17 07:48 Dose: 2 puff Montelukast Sodium (Singulair) 10 mg PO QPM [facility] Last Admin: 06/24/17 20:27 Dose: 10 mg Nicotine (Nicoderm Patch) 21 mg TD DAILY [facility] Nitroglycerin (Nitrostat) 0.4 mg PO Q5MIN PRN PRN Reason: Chest Pain Ondansetron HCl (Zofran Odt) 4 mg PO Q6H PRN PRN Reason: Nausea/Vomiting Ondansetron HCl (Zofran) 4 mg IVP Q6H PRN PRN Reason: Nausea/Vomiting Pantoprazole Sodium (Protonix) 40 mg PO DAILY [facility] Last Admin: 06/25/17 08:26 Dose: 40 mg Phenol (Chloraseptic [place] 180 Ml Bot) 0 ml PO BIDPRN PRN PRN Reason: Sore Throat Polyethylene Glycol (Miralax) 17 gm PO DAILY PRN PRN Reason: Constipation Senna (Senokot) 2 tab PO HSPRN PRN PRN Reason: Constipation Simvastatin (Zocor) 40 mg PO QPM [facility] Last Admin: 06/24/17 20:28 Dose: 40 mg Sodium Chloride (Flush - Normal Saline) 10 ml IVF Q12HR [facility] Last Admin: 06/25/17 08:26 Dose: 10 ml Sodium Chloride (Flush - Normal Saline) 10 ml IVF PRN PRN PRN Reason: Saline Flush Last Admin: 06/23/17 19:03 Dose: 10 ml Throat Lozenges (Cepastat Lozenges) 1 tripp PO Q2H PRN PRN Reason: Sore Throat Last Admin: 06/24/17 06:13 Dose: 1 tripp
[2017-06-25] MEDS: Nicotine 21 MG PATCH TD SCH (09:32)
[2017-06-25] MEDS: Acetaminophen 325 MG TAB PO PRN ×2 (09:41→17:21)
[2017-06-25 09:54] LABS: Troponin I Less than 0.010 ng/mL (< 0.028)
--- NOTE | 2017-06-25 10:44 | PRG ---
DATE OF SERVICE: 06/25/2017 SUBJECTIVE: She is still having difficulty with wheezing and shortness of breath. OBJECTIVE: VITAL SIGNS: Temperature 97.0, pulse 61, respirations 18, O2 sat 98% and blood pressure 135/71. HEENT: Unremarkable. NECK: No JVD. LUNGS: Diffuse expiratory wheezing. CARDIAC: S1 and S2 regular. ABDOMEN: Soft. EXTREMITIES: Trace edema. ASSESSMENT: Chronic obstructive pulmonary disease exacerbation. PLAN: Continue antibiotics, IV steroids and aggressive nebulization therapy. I think she needs sev eral more days in the hospital.
[2017-06-25] MEDS: Cyclobenzaprine 10 MG TAB PO PRN ×2 (12:37→22:40)
[2017-06-25] MEDS: guaiFENesin/Codeine Phosphate 200 mg/20 mg 10 ml UD Cup PO PRN ×2 (13:24→20:05)
[2017-06-25] MEDS: Cepastat Lozenges 1 LOZ PO PRN ×2 (14:40→17:15)
[2017-06-25] MEDS: Montelukast Sodium 10 mg Tablet PO SCH (20:06)
[2017-06-25] MEDS: Simvastatin 40 MG TAB PO SCH (20:07)
[2017-06-25] MEDS ORDERED: FLU VACC QS2017-18 36 mo. & older 0.5 ML SYRINGE IM ONE (21:00)
[2017-06-25] MEDS ORDERED: Sterile Water 10 ML ONE (22:36)
[2017-06-26] MEDS ORDERED: Sterile Water 10 ML ONE (04:13)
[2017-06-26] MEDS: Insulin Regular 300 UNITS/3 ML VIAL SC PRN ×4 (06:15→20:36)
[2017-06-26] MEDS: HYDROcodone/Acetaminophen 5/325 mg Tablet PO PRN ×3 (06:19→22:25)
[2017-06-26] MEDS: guaiFENesin/Codeine Phosphate 200 mg/20 mg 10 ml UD Cup PO PRN ×3 (06:20→22:24)
[2017-06-26] MEDS: Calcium Carbonate + Vit D 1 TAB PO SCH ×2 (07:45→16:33)
[2017-06-26] MEDS: glipiZIDE 10 MG TAB PO SCH (07:45)
[2017-06-26] MEDS: Aspirin 81 mg Enteric Coated Tablet PO SCH (07:45)
[2017-06-26] MEDS: Furosemide 20 MG TAB PO SCH (07:47)
[2017-06-26] MEDS: Mometasone/Formoterol 120 PUFF INHALER INH SCH ×2 (07:47→19:14)
[2017-06-26] MEDS: Cefuroxime Axetil 250 MG TAB PO SCH ×2 (07:48→20:35)
[2017-06-26] MEDS: Clopidogrel Bisulfate 75 MG TAB PO SCH (07:48)
[2017-06-26] MEDS: Benzonatate 100 MG CAP PO SCH ×3 (07:48→20:34)
[2017-06-26] MEDS: Gabapentin 300 MG CAP PO SCH ×2 (07:49→20:35)
[2017-06-26] MEDS: guaiFENesin ER 600 MG TAB PO SCH ×2 (07:49→20:36)
[2017-06-26] MEDS: Nicotine 21 MG PATCH TD SCH (07:51)
[2017-06-26] MEDS: Acetaminophen 325 MG TAB PO PRN ×2 (08:45→16:53)
--- NOTE | 2017-06-26 09:33 | PRG ---
DATE OF SERVICE: 06/26/2017 The patient is still having difficulty with shortness of breath. PHYSICAL EXAMINATION: VITAL SIGNS: Temperature is 98.0, pulse 61, respirations 20, O2 sat 96%, blood pressure 140/73. HEENT: Unremarkable. NECK: No JVD. LUNGS: Diffuse bilateral wheezing. CARDIAC: S1 and S2 regular. ABDOMEN: Soft. EXTREMITIES: No edema. ASSESSMENT: Asthma/chronic obstructive pulmonary disease with exacerbation. PLAN: 1. Increase steroid dose. 2. Change nebs to EzPAP. 3. Add Pulmicort to nebs. 4. Keep in the hospital until wheezing significantly better than it is right now.
[2017-06-26] MEDS: methylPREDNISolone Sod Succ/PF 125 MG/2 ML VIAL IVP SCH ×3 (10:25→22:24)
[2017-06-26] MEDS: Cyclobenzaprine 10 MG TAB PO PRN ×2 (10:29→19:00)
[2017-06-26] MEDS: Cepastat Lozenges 1 LOZ PO PRN (11:46)
--- NOTE | 2017-06-26 12:56 | PDOC.PN ---
- Subjective Encounter Start Date: 06/26/17 Encounter Start Time: 08:15 Patient seen and examined. SOB/wheezing +. Coughing slightly better. No overnight events - Objective Resuscitation Status: Resuscitation Status FULL:Full Resuscitation MAR Reviewed: Yes Vital Signs & Weight: Vital Signs (12 hours) Temp Pulse Resp BP Pulse Ox 06/26/17 11:50 98.1 F 85 18 135/76 06/26/17 10: 95 18 97 06/26/17 08:00 98.0 F 61 20 96 06/26/17 07:44 98.0 F 61 20 148/73 H 96 06/26/17 07:33 99 18 99 06/26/17 05:25 99 06/26/17 02:59 99 06/26/17 02:35 99 Weight Admit Weight 189 lb 3.2 oz Weight 185 lb I&O: 06/25/17 06/26/17 06/27/17 06:59 06:59 06:59 Intake Total 1210 730 Balance 1210 730 Result Diagrams: 06/27/17 03:46 06/27/17 03:46 Additional Labs: Accuchecks 06/26/17 06/26/17 06/25/17 11:36 05:36 20:12 POC Glucose 206 H 258 H 204 H 06/25/17 15:50 POC Glucose 261 H Trop - negative EKG Reviewed by me: Yes (No new changes) Phys Exam - Physical Examination Constitutional: NAD Respiratory: no rales, wheezing present Cardiovascular: RRR, no rub Gastrointestinal: soft, non-tender, positive bowel sounds Musculoskeletal: no edema Neurological: non-focal, moves all 4 limbs Psychiatric: A&O x 3 Dx/Plan - Plan DVT proph w/SCDs IMPRESSION: 1. Asthma/?chronic obstructive pulmonary disease exacerbation. slowly improving. 2. ?Community-acquired pneumonia. on PO Atbx 3. Diabetes mellitus type 2. on sliding scale/Glipizide. 4. Hypertension. 5. Hyperlipidemia. 6. Former smoker. 7. Dyslipidemia. 8. Chronic kidney disease stage 2. 9. Obesity with a body mass index of 32.5. PLAN: * Steroid dose increase today per Pulmonary * Cont nebs/antitussives/antibiotic/steroids * Pulmonary following * Cont current meds as below Review of Systems - Review of Systems Constitutional: negative: Fever, Chills, Sweats, Weakness, Malaise, Other Cardiovascular: negative: Chest Pain, Palpitations, Orthopnea, Paroxysmal Noc. Dyspnea, Edema, Light Headedness, Other Gastrointestinal: negative: Nausea, Vomiting, Abdominal Pain, Diarrhea, Constipation, Melena, Hematochezia, Other - Medications/Allergies Allergies/Adverse Reactions: Allergies Allergy/AdvReac Type Severity Reaction Status Date / Time No Known Drug Allergies Allergy Verified 06/20/17 02:57 Medications: Current Medications Acetaminophen (Tylenol) 650 mg PO Q4H PRN PRN Reason: Headache/Fever or Pain Last Admin: 06/26/17 08:45 Dose: 650 mg Hydrocodone Bitart/Acetaminophen ([place] 5/325) 1 tab PO Q6H PRN PRN Reason: Moderate Pain (4-6) Last Admin: 06/26/17 06:19 Dose: 1 tab Al Hydroxide/Mg Hydroxide (Maalox) 30 ml PO Q6H PRN PRN Reason: Heartburn or Indigestion Albuterol/Ipratropium (Duoneb) 3 ml NEB [id number] PRN PRN Reason: SOB &/or Wheezing Albuterol/Ipratropium (Duoneb) 3 ml EZPAP [id number] [facility] Last Admin: 06/26/17 10:17 Dose: 3 ml Aspirin (Ecotrin) 81 mg PO DAILY [facility] Last Admin: 06/26/17 07:45 Dose: 81 mg Benzonatate (Tessalon) 200 mg PO TID [facility] Last Admin: 06/26/17 07:48 Dose: 200 mg Budesonide (Pulmicort Neb Solution) 0.5 mg INH BID-RT [facility] Calcium Carbonate (Tums) 1,000 mg PO Q4H PRN PRN Reason: Heartburn or Indigestion Calcium/Vitamin D (Caltrate 600 + Vit D) 1 tab PO BID-WM [facility] Last Admin: 06/26/17 07:45 Dose: 1 tab Cefuroxime Axetil (Ceftin) 250 mg PO Q12HR [facility] Last Admin: 06/26/17 07:48 Dose: 250 mg Clonidine HCl (Catapres) 0.1 mg PO Q4H PRN PRN Reason: Systolic BP > 180/ DBP >100 Clopidogrel Bisulfate (Plavix) 75 mg PO DAILY [facility] Last Admin: 06/26/17 07:48 Dose: 75 mg Cyclobenzaprine HCl (Flexeril) 5 mg PO TIDPRN PRN PRN Reason: Muscle Spasm Last Admin: 06/26/17 10:29 Dose: 5 mg Dextrose/Water (Dextrose 50%) 25 gm SLOW IVP PRN PRN PRN Reason: Hypoglycemia Furosemide (Lasix) 20 mg PO DAILY [facility] Last Admin: 06/26/17 07:47 Dose: 20 mg Gabapentin (Neurontin) 300 mg PO BID [facility] Last Admin: 06/26/17 07:49 Dose: 300 mg Glipizide (Glucotrol) 10 mg PO DAILY-AC [facility] Last Admin: 06/26/17 07:45 Dose: 10 mg Glipizide (Glucotrol) 5 mg PO 1630 [facility] Last Admin: 06/25/17 17:14 Dose: 5 mg Guaifenesin (Mucinex) 600 mg PO Q12HR [facility] Last Admin: 06/26/17 07:49 Dose: 600 mg Guaifenesin/Codeine Phosphate (Robitussin Ac) 10 ml PO Q6H PRN PRN Reason: Cough Last Admin: 06/26/17 06:20 Dose: 10 ml Hydralazine HCl (Apresoline) 10 mg SLOW IVP Q4H PRN PRN Reason: SBP Greater Than 180 Dextrose/Water (D5w) 1,000 mls @ 0 mls/hr IV .Q0M PRN; As Directed PRN Reason: Hypoglycemia Insulin Human Regular (Humulin R) 0 units SC .BEDTIME SLIDING SC PRN PRN Reason: Bedtime Correctional Scale Last Admin: 06/25/17 20:13 Dose: 2 unit Insulin Human Regular (Humulin R) 0 units SC .MODERATE SLIDING SC PRN PRN Reason: Moderate Correctional Scale Metformin HCl (Glucophage) 500 mg PO BID-WM [facility] Last Admin: 06/26/17 07:45 Dose: 500 mg Methylprednisolone Sodium Succinate (Solu-Medrol) 60 mg IVP Q6H [facility] Last Admin: 06/26/17 10:25 Dose: 60 mg Mineral Oil/White Petrolatum (Eucerin Cream) 0 gm TOP BIDPRN PRN PRN Reason: Dry Skin Mometasone Furoate/Formoterol Fumar (Dulera 200 Mcg/5 Mcg Inhaler) 2 puff INH BID-RT [facility] Last Admin: 06/26/17 07:47 Dose: 2 puff Montelukast Sodium (Singulair) 10 mg PO QPM [facility] Last Admin: 06/25/17 20:06 Dose: 10 mg Nicotine (Nicoderm Patch) 21 mg TD DAILY [facility] Last Admin: 06/26/17 07:51 Dose: 21 mg Nitroglycerin (Nitrostat) 0.4 mg PO Q5MIN PRN PRN Reason: Chest Pain Ondansetron HCl (Zofran Odt) 4 mg PO Q6H PRN PRN Reason: Nausea/Vomiting Ondansetron HCl (Zofran) 4 mg IVP Q6H PRN PRN Reason: Nausea/Vomiting Pantoprazole Sodium (Protonix) 40 mg PO DAILY [facility] Last Admin: 06/26/17 07:49 Dose: 40 mg Phenol (Chloraseptic [place] 180 Ml Bot) 0 ml PO BIDPRN PRN PRN Reason: Sore Throat Polyethylene Glycol (Miralax) 17 gm PO DAILY PRN PRN Reason: Constipation Senna (Senokot) 2 tab PO HSPRN PRN PRN Reason: Constipation Simvastatin (Zocor) 40 mg PO QPM [facility] Last Admin: 06/25/17 20:07 Dose: 40 mg Sodium Chloride (Flush - Normal Saline) 10 ml IVF Q12HR [facility] Last Admin: 06/26/17 07:50 Dose: 10 ml Sodium Chloride (Flush - Normal Saline) 10 ml IVF PRN PRN PRN Reason: Saline Flush Last Admin: 06/26/17 04:19 Dose: 10 ml Throat Lozenges (Cepastat Lozenges) 1 tripp PO Q2H PRN PRN Reason: Sore Throat Last Admin: 06/26/17 11:46 Dose: 1 tripp
[2017-06-26] MEDS: glipiZIDE 5 MG TAB PO SCH (16:33)
[2017-06-26] MEDS: Budesonide 0.5 MG/2 ML NEB INH SCH (19:20)
[2017-06-26] MEDS: Montelukast Sodium 10 mg Tablet PO SCH (20:36)
[2017-06-26] MEDS: Insulin Detemir 100 UNITS/ML 10 UNITS in Pre-Filled Syringe 1 EACH SC SCH (20:36)
[2017-06-26] MEDS: Simvastatin 40 MG TAB PO SCH (20:36)
[2017-06-27] MEDS: Acetaminophen 325 MG TAB PO PRN (03:48)
[2017-06-27] MEDS: methylPREDNISolone Sod Succ/PF 125 MG/2 ML VIAL IVP SCH ×4 (03:49→22:03)
[2017-06-27] MEDS: guaiFENesin/Codeine Phosphate 200 mg/20 mg 10 ml UD Cup PO PRN ×3 (03:49→22:56)
[2017-06-27 04:02] LABS: #Lymphocytes 0.9 thou/uL (1.20-3.40); #Monocytes 0.4 thou/uL (0.11-0.59); #Neutrophils 10.4 thou/uL (1.40-6.50); %Basophils 0.2 % (0.0-1.0); %Eosinophils 0.1 % (0.0-10.0); %Lymphocytes 7.7 % (21.0-51.0); %Monocytes 3.4 % (0.0-10.0); Hematocrit 44.6 % (36.0-47.0); Mean Platelet Volume 8.8 fL (7.4-10.4); Red Blood Cell (RBC) Count 4.69 mill/uL (4.20-5.40); White Blood Cell (WBC) Count 11.8 thou/uL (4.8-10.8)
[2017-06-27 04:19] LABS: Anion Gap 15 mmol/L (10-20); BUN (Urea Nitrogen) 20 mg/dL (9.8-20.1); BUN/Creatinine Ratio 20.83; Calc. Creatinine Clearance 91 mL/min (70-130); Calcium 9.2 mg/dL (7.8-10.44); Carbon Dioxide 26 mmol/L (22-29); Chloride 101 mmol/L (98-107); Estimated GFR-MDRD 61; Phosphorus 3.8 mg/dL (2.3-4.7)
[2017-06-27] MEDS: Insulin Regular 300 UNITS/3 ML VIAL SC PRN ×3 (06:31→18:38)
[2017-06-27] MEDS: Budesonide 0.5 MG/2 ML NEB INH SCH ×2 (07:36→18:21)
[2017-06-27] MEDS: Mometasone/Formoterol 120 PUFF INHALER INH SCH ×2 (07:40→18:22)
[2017-06-27] MEDS: guaiFENesin ER 600 MG TAB PO SCH ×2 (08:19→20:44)
[2017-06-27] MEDS: Calcium Carbonate + Vit D 1 TAB PO SCH ×2 (08:19→18:31)
[2017-06-27] MEDS: Gabapentin 300 MG CAP PO SCH ×2 (08:19→20:44)
[2017-06-27] MEDS: Clopidogrel Bisulfate 75 MG TAB PO SCH (08:19)
[2017-06-27] MEDS: Furosemide 20 MG TAB PO SCH (08:19)
[2017-06-27] MEDS: glipiZIDE 10 MG TAB PO SCH (08:19)
[2017-06-27] MEDS: Nicotine 21 MG PATCH TD SCH (08:19)
[2017-06-27] MEDS: Aspirin 81 mg Enteric Coated Tablet PO SCH (08:20)
[2017-06-27] MEDS: Benzonatate 100 MG CAP PO SCH ×3 (08:20→20:43)
[2017-06-27] MEDS: Cefuroxime Axetil 250 MG TAB PO SCH ×2 (08:26→20:44)
[2017-06-27] MEDS: Insulin Detemir 100 UNITS/ML 10 UNITS in Pre-Filled Syringe 1 EACH SC SCH ×2 (08:30→20:44)
--- NOTE | 2017-06-27 08:46 | PRG ---
DATE OF SERVICE: 06/27/2017 She is moderately better today. PHYSICAL EXAMINATION: VITAL SIGNS: Temperature 97.6, pulse 69, respiration rate 18, O2 sat 96%, blood pressure 157/77. HEENT: Unremarkable. NECK: No JVD. LUNGS: A few expiratory wheezes. CARDIAC: S1 and S2 regular. ABDOMEN: Soft. EXTREMITIES: No edema. LABORATORY DATA: White blood cell count 11.8, hematocrit 44, platelet count 212. Sodium 130, potas sium 4.1, chloride 101, CO2 26, BUN 20, creatinine 0.9, glucose 302. ASSESSMENT: Chronic obstructive pulmonary disease/asthma with exacerbation. PLAN: Continue aggressive nebulization treatments, high-dose steroids and antibiotics. I think she will continue to need a few more days in the hospital.
[2017-06-27] MEDS ORDERED: methylPREDNISolone Sod Succ/PF 125 MG/2 ML VIAL IVP SCH (10:00)
[2017-06-27] MEDS: HYDROcodone/Acetaminophen 5/325 mg Tablet PO PRN ×2 (13:54→18:39)
[2017-06-27] MEDS: Cyclobenzaprine 10 MG TAB PO PRN ×2 (16:06→22:56)
--- NOTE | 2017-06-27 16:52 | PDOC.PN ---
- Subjective Encounter Start Date: 06/27/17 Encounter Start Time: 09:00 Patient seen and examined. SOB +. No overnight events - Objective Resuscitation Status: Resuscitation Status FULL:Full Resuscitation MAR Reviewed: Yes Vital Signs & Weight: Vital Signs (12 hours) Temp Pulse Resp BP Pulse Ox 06/27/17 16:03 90 22 H 96 06/27/17 13:00 78 16 98 06/27/17 09:29 74 16 99 06/27/17 08:00 97.6 F 66 18 98 06/27/17 07:40 18 96 06/27/17 07:38 69 18 96 06/27/17 07:36 69 18 96 06/27/17 07:17 97.6 F 66 18 157/77 H 98 Weight Admit Weight 189 lb 3.2 oz Weight 185 lb I&O: 06/26/17 06/27/17 06/28/17 06:59 06:59 06:59 Intake Total 730 1320 Balance 730 1320 Result Diagrams: 06/27/17 03:46 06/27/17 03:46 Additional Labs: Accuchecks 06/27/17 06/27/17 06/27/17 16:24 10:21 06:31 POC Glucose 223 H 309 H 279 H 06/26/17 06/26/17 19:41 16:30 POC Glucose 235 H 237 H Phys Exam - Physical Examination Constitutional: NAD Respiratory: no rhonchi, wheezing present Cardiovascular: RRR, no rub Gastrointestinal: soft, non-tender, positive bowel sounds Musculoskeletal: no edema Neurological: moves all 4 limbs Dx/Plan - Plan DVT proph w/SCDs IMPRESSION: 1. Asthma/?chronic obstructive pulmonary disease exacerbation. slowly improving. 2. ?Community-acquired pneumonia. on PO Atbx 3. Diabetes mellitus type 2. on sliding scale/Glipizide. 4. Hypertension. 5. Hyperlipidemia. 6. Former smoker. 7. Dyslipidemia. 8. Chronic kidney disease stage 2. 9. Obesity with a body mass index of 32.5. PLAN: * Pulmonary following * Cont nebs/antitussives/antibiotic/steroids * Cont current meds as below * Increase Levemir 10 units BID Review of Systems - Review of Systems Constitutional: negative: Fever, Chills, Sweats, Weakness, Malaise, Other Respiratory: Cough, Dry, Sputum, Wheezing. negative: Shortness of Breath, Hemoptysis, SOB with Excertion, Pleuritic Pain Cardiovascular: negative: Chest Pain, Palpitations, Orthopnea, Paroxysmal Noc. Dyspnea, Edema, Light Headedness, Other Gastrointestinal: negative: Nausea, Vomiting, Abdominal Pain, Diarrhea, Constipation, Melena, Hematochezia, Other - Medications/Allergies Allergies/Adverse Reactions: Allergies Allergy/AdvReac Type Severity Reaction Status Date / Time No Known Drug Allergies Allergy Verified 06/20/17 02:57 Medications: Current Medications Acetaminophen (Tylenol) 650 mg PO Q4H PRN PRN Reason: Headache/Fever or Pain Last Admin: 06/27/17 03:48 Dose: 650 mg Hydrocodone Bitart/Acetaminophen ([place] 5/325) 1 tab PO Q6H PRN PRN Reason: Moderate Pain (4-6) Last Admin: 06/27/17 13:54 Dose: 1 tab Al Hydroxide/Mg Hydroxide (Maalox) 30 ml PO Q6H PRN PRN Reason: Heartburn or Indigestion Albuterol/Ipratropium (Duoneb) 3 ml NEB [id number] PRN PRN Reason: SOB &/or Wheezing Albuterol/Ipratropium (Duoneb) 3 ml EZPAP [id number] [facility] Last Admin: 06/27/17 16:03 Dose: 3 ml Aspirin (Ecotrin) 81 mg PO DAILY [facility] Last Admin: 06/27/17 08:20 Dose: 81 mg Benzonatate (Tessalon) 200 mg PO TID [facility] Last Admin: 06/27/17 13:54 Dose: 200 mg Budesonide (Pulmicort Neb Solution) 0.5 mg INH BID-RT [facility] Last Admin: 06/27/17 07:36 Dose: 0.5 mg Calcium Carbonate (Tums) 1,000 mg PO Q4H PRN PRN Reason: Heartburn or Indigestion Calcium/Vitamin D (Caltrate 600 + Vit D) 1 tab PO BID-WM [facility] Last Admin: 06/27/17 08:19 Dose: 1 tab Cefuroxime Axetil (Ceftin) 250 mg PO Q12HR [facility] Last Admin: 06/27/17 08:26 Dose: 250 mg Clonidine HCl (Catapres) 0.1 mg PO Q4H PRN PRN Reason: Systolic BP > 180/ DBP >100 Clopidogrel Bisulfate (Plavix) 75 mg PO DAILY [facility] Last Admin: 06/27/17 08:19 Dose: 75 mg Cyclobenzaprine HCl (Flexeril) 5 mg PO TIDPRN PRN PRN Reason: Muscle Spasm Last Admin: 06/27/17 16:06 Dose: 5 mg Dextrose/Water (Dextrose 50%) 25 gm SLOW IVP PRN PRN PRN Reason: Hypoglycemia Furosemide (Lasix) 20 mg PO DAILY [facility] Last Admin: 06/27/17 08:19 Dose: 20 mg Gabapentin (Neurontin) 300 mg PO BID [facility] Last Admin: 06/27/17 08:19 Dose: 300 mg Glipizide (Glucotrol) 10 mg PO DAILY-AC [facility] Last Admin: 06/27/17 08:19 Dose: 10 mg Glipizide (Glucotrol) 5 mg PO 1630 [facility] Last Admin: 06/26/17 16:33 Dose: 5 mg Guaifenesin (Mucinex) 600 mg PO Q12HR [facility] Last Admin: 06/27/17 08:19 Dose: 600 mg Guaifenesin/Codeine Phosphate (Robitussin Ac) 10 ml PO Q6H PRN PRN Reason: Cough Last Admin: 06/27/17 11:11 Dose: 10 ml Hydralazine HCl (Apresoline) 10 mg SLOW IVP Q4H PRN PRN Reason: SBP Greater Than 180 Dextrose/Water (D5w) 1,000 mls @ 0 mls/hr IV .Q0M PRN; As Directed PRN Reason: Hypoglycemia Insulin Detemir 10 units/ (Miscellaneous Medication) 0.1 mls @ 0 mls/hr SC HS [facility] Last Admin: 06/26/17 20:36 Dose: 0.1 mls Insulin Detemir 10 units/ (Miscellaneous Medication) 0.1 mls @ 0 mls/hr SC QAM [facility] Last Admin: 06/27/17 08:30 Dose: 0.1 mls Insulin Human Regular (Humulin R) 0 units SC .BEDTIME SLIDING SC PRN PRN Reason: Bedtime Correctional Scale Last Admin: 06/26/17 20:36 Dose: 2 unit Insulin Human Regular (Humulin R) 0 units SC .MODERATE SLIDING SC PRN PRN Reason: Moderate Correctional Scale Last Admin: 06/27/17 11:11 Dose: 8 unit Metformin HCl (Glucophage) 500 mg PO BID-WM [facility] Last Admin: 06/27/17 08:19 Dose: 500 mg Methylprednisolone Sodium Succinate (Solu-Medrol) 60 mg IVP Q6H [facility] Last Admin: 06/27/17 10:55 Dose: 60 mg Mineral Oil/White Petrolatum (Eucerin Cream) 0 gm TOP BIDPRN PRN PRN Reason: Dry Skin Mometasone Furoate/Formoterol Fumar (Dulera 200 Mcg/5 Mcg Inhaler) 2 puff INH BID-RT [facility] Last Admin: 06/27/17 07:40 Dose: 2 puff Montelukast Sodium (Singulair) 10 mg PO QPM [facility] Last Admin: 06/26/17 20:36 Dose: 10 mg Nicotine (Nicoderm Patch) 21 mg TD DAILY [facility] Last Admin: 06/27/17 08:19 Dose: 21 mg Nitroglycerin (Nitrostat) 0.4 mg PO Q5MIN PRN PRN Reason: Chest Pain Ondansetron HCl (Zofran Odt) 4 mg PO Q6H PRN PRN Reason: Nausea/Vomiting Ondansetron HCl (Zofran) 4 mg IVP Q6H PRN PRN Reason: Nausea/Vomiting Pantoprazole Sodium (Protonix) 40 mg PO DAILY [facility] Last Admin: 06/27/17 08:19 Dose: 40 mg Phenol (Chloraseptic [place] 180 Ml Bot) 0 ml PO BIDPRN PRN PRN Reason: Sore Throat Polyethylene Glycol (Miralax) 17 gm PO DAILY PRN PRN Reason: Constipation Senna (Senokot) 2 tab PO HSPRN PRN PRN Reason: Constipation Simvastatin (Zocor) 40 mg PO QPM [facility] Last Admin: 06/26/17 20:36 Dose: 40 mg Sodium Chloride (Flush - Normal Saline) 10 ml IVF Q12HR [facility] Last Admin: 06/27/17 10:54 Dose: 10 ml Sodium Chloride (Flush - Normal Saline) 10 ml IVF PRN PRN PRN Reason: Saline Flush Last Admin: 06/26/17 04:19 Dose: 10 ml Throat Lozenges (Cepastat Lozenges) 1 tripp PO Q2H PRN PRN Reason: Sore Throat Last Admin: 06/26/17 11:46 Dose: 1 tripp
[2017-06-27] MEDS: glipiZIDE 5 MG TAB PO SCH (18:31)
[2017-06-27] MEDS: Simvastatin 40 MG TAB PO SCH (20:45)
[2017-06-27] MEDS: Montelukast Sodium 10 mg Tablet PO SCH (20:45)
[2017-06-27] MEDS ORDERED: Sterile Water 10 ML ONE (21:58)
[2017-06-28] MEDS ORDERED: Sterile Water 10 ML ONE ×2 (04:04→22:23)
[2017-06-28] MEDS: methylPREDNISolone Sod Succ/PF 125 MG/2 ML VIAL IVP SCH (04:10)
[2017-06-28] MEDS: HYDROcodone/Acetaminophen 5/325 mg Tablet PO PRN ×3 (04:11→18:24)
[2017-06-28] MEDS: Insulin Regular 300 UNITS/3 ML VIAL SC PRN ×3 (05:48→20:53)
[2017-06-28] MEDS: Budesonide 0.5 MG/2 ML NEB INH SCH ×2 (06:13→18:09)
[2017-06-28] MEDS: Mometasone/Formoterol 120 PUFF INHALER INH SCH ×2 (06:14→18:26)
[2017-06-28] MEDS: Calcium Carbonate + Vit D 1 TAB PO SCH ×2 (08:50→17:09)
[2017-06-28] MEDS: Aspirin 81 mg Enteric Coated Tablet PO SCH (08:50)
[2017-06-28] MEDS: Clopidogrel Bisulfate 75 MG TAB PO SCH (08:50)
[2017-06-28] MEDS: Benzonatate 100 MG CAP PO SCH ×3 (08:50→20:51)
[2017-06-28] MEDS: Nicotine 21 MG PATCH TD SCH (08:51)
[2017-06-28] MEDS: glipiZIDE 10 MG TAB PO SCH (08:51)
[2017-06-28] MEDS: Cepastat Lozenges 1 LOZ PO PRN (08:51)
[2017-06-28] MEDS: Cefuroxime Axetil 250 MG TAB PO SCH (08:51)
[2017-06-28] MEDS: guaiFENesin ER 600 MG TAB PO SCH ×2 (08:51→20:52)
[2017-06-28] MEDS: Gabapentin 300 MG CAP PO SCH ×2 (08:51→20:52)
[2017-06-28] MEDS: Furosemide 20 MG TAB PO SCH (08:51)
[2017-06-28] MEDS: guaiFENesin/Codeine Phosphate 200 mg/20 mg 10 ml UD Cup PO PRN ×2 (08:51→17:18)
--- NOTE | 2017-06-28 09:53 | PRG ---
DATE OF SERVICE: 06/28/2017 She feels a little better. She is still having some chest tightness. PHYSICAL EXAMINATION: VITAL SIGNS: Temperature 96.0, pulse 66, respiration 20, O2 sat 97, blood pressure 129/84. HEENT: Unremarkable. NECK: No JVD. LUNGS: Expiratory wheezing with better air movement than yesterday. CARDIAC: S1 and S2 regular. ABDOMEN: Soft. EXTREMITIES: No edema. ASSESSMENT: Chronic obstructive pulmonary disease exacerbation. PLAN: 1. I am going to back off on her nebs to q.4 h. 2. Increase activity as tolerated. 3. Begin to wean methylprednisolone. 4. Likely will need 1-2 more days in the hospital.
[2017-06-28] MEDS: Insulin Detemir 100 UNITS/ML 10 UNITS in Pre-Filled Syringe 1 EACH SC SCH (10:21)
[2017-06-28] MEDS: Cyclobenzaprine 10 MG TAB PO PRN ×2 (13:39→22:27)
--- NOTE | 2017-06-28 14:02 | PDOC.PN ---
- Subjective Encounter Start Date: 06/28/17 Encounter Start Time: 08:30 Patient seen and examined. SOB on exertion/ Cough. No overnight events - Objective Resuscitation Status: Resuscitation Status FULL:Full Resuscitation MAR Reviewed: Yes Vital Signs & Weight: Vital Signs (12 hours) Temp Pulse Resp BP Pulse Ox 06/28/17 13:17 72 16 99 06/28/17 10:43 63 16 99 06/28/17 08:00 96 F L 66 20 129/84 97 06/28/17 06:14 57 L 16 99 06/28/17 06:13 57 L 16 99 06/28/17 06:11 57 L 16 99 06/28/17 03:52 71 20 99 Weight Admit Weight 189 lb 3.2 oz Weight 192 lb 6.4 oz I&O: 06/27/17 06/28/17 06/29/17 06:59 06:59 06:59 Intake Total 1320 1700 Balance 1320 1700 Result Diagrams: 06/27/17 03:46 06/27/17 03:46 Additional Labs: Accuchecks 06/28/17 06/28/17 06/27/17 11:24 05:07 19:36 POC Glucose 284 H 255 H 164 H 06/27/17 16:24 POC Glucose 223 H Phys Exam - Physical Examination Constitutional: NAD Respiratory: no rales, wheezing present Cardiovascular: RRR, no rub Gastrointestinal: soft, non-tender, positive bowel sounds Musculoskeletal: no edema Neurological: moves all 4 limbs Dx/Plan - Plan cont current plan of care, DVT proph w/SCDs IMPRESSION: 1. Asthma/?chronic obstructive pulmonary disease exacerbation. slowly improving. 2. ?Community-acquired pneumonia. Atbx completed 3. Diabetes mellitus type 2. on sliding scale/Glipizide. 4. Hypertension. 5. Hyperlipidemia. 6. Former smoker. 7. Dyslipidemia. 8. Chronic kidney disease stage 2. 9. Obesity with a body mass index of 32.5. PLAN: * Pulmonary following * Steroid and Nebs dose reduced today * Cont nebs/antitussives/steroids * Cont current meds as below * Increase Levemir 15 units BID * Not stable for discharge Review of Systems - Review of Systems Constitutional: negative: Fever, Chills, Sweats, Weakness, Malaise, Other Respiratory: Cough, Dry, SOB with Excertion, Wheezing. negative: Shortness of Breath, Hemoptysis, Pleuritic Pain, Sputum Cardiovascular: negative: Chest Pain, Palpitations, Orthopnea, Paroxysmal Noc. Dyspnea, Edema, Light Headedness, Other Gastrointestinal: negative: Nausea, Vomiting, Abdominal Pain, Diarrhea, Constipation, Melena, Hematochezia, Other Neurological: negative: Weakness, Numbness, Incoordination, Change in Speech, Confusion, Seizures, Other - Medications/Allergies Allergies/Adverse Reactions: Allergies Allergy/AdvReac Type Severity Reaction Status Date / Time No Known Drug Allergies Allergy Verified 06/20/17 02:57 Medications: Current Medications Acetaminophen (Tylenol) 650 mg PO Q4H PRN PRN Reason: Headache/Fever or Pain Last Admin: 06/27/17 03:48 Dose: 650 mg Hydrocodone Bitart/Acetaminophen ([place] 5/325) 1 tab PO Q6H PRN PRN Reason: Moderate Pain (4-6) Last Admin: 06/28/17 11:32 Dose: 1 tab Al Hydroxide/Mg Hydroxide (Maalox) 30 ml PO Q6H PRN PRN Reason: Heartburn or Indigestion Albuterol/Ipratropium (Duoneb) 3 ml EZPAP [id number] [facility] Last Admin: 06/28/17 13:17 Dose: 3 ml Aspirin (Ecotrin) 81 mg PO DAILY [facility] Last Admin: 06/28/17 08:50 Dose: 81 mg Benzonatate (Tessalon) 200 mg PO TID [facility] Last Admin: 06/28/17 13:41 Dose: 200 mg Budesonide (Pulmicort Neb Solution) 0.5 mg INH BID-RT [facility] Last Admin: 06/28/17 06:13 Dose: 0.5 mg Calcium Carbonate (Tums) 1,000 mg PO Q4H PRN PRN Reason: Heartburn or Indigestion Calcium/Vitamin D (Caltrate 600 + Vit D) 1 tab PO BID-WM [facility] Last Admin: 06/28/17 08:50 Dose: 1 tab Clonidine HCl (Catapres) 0.1 mg PO Q4H PRN PRN Reason: Systolic BP > 180/ DBP >100 Clopidogrel Bisulfate (Plavix) 75 mg PO DAILY [facility] Last Admin: 06/28/17 08:50 Dose: 75 mg Cyclobenzaprine HCl (Flexeril) 5 mg PO TIDPRN PRN PRN Reason: Muscle Spasm Last Admin: 06/28/17 13:39 Dose: 5 mg Dextrose/Water (Dextrose 50%) 25 gm SLOW IVP PRN PRN PRN Reason: Hypoglycemia Furosemide (Lasix) 20 mg PO DAILY [facility] Last Admin: 06/28/17 08:51 Dose: 20 mg Gabapentin (Neurontin) 300 mg PO BID [facility] Last Admin: 06/28/17 08:51 Dose: 300 mg Glipizide (Glucotrol) 10 mg PO DAILY-AC [facility] Last Admin: 06/28/17 08:51 Dose: 10 mg Glipizide (Glucotrol) 5 mg PO 1630 [facility] Last Admin: 06/27/17 18:31 Dose: 5 mg Guaifenesin (Mucinex) 600 mg PO Q12HR [facility] Last Admin: 06/28/17 08:51 Dose: 600 mg Guaifenesin/Codeine Phosphate (Robitussin Ac) 10 ml PO Q6H PRN PRN Reason: Cough Last Admin: 06/28/17 08:51 Dose: 10 ml Hydralazine HCl (Apresoline) 10 mg SLOW IVP Q4H PRN PRN Reason: SBP Greater Than 180 Dextrose/Water (D5w) 1,000 mls @ 0 mls/hr IV .Q0M PRN; As Directed PRN Reason: Hypoglycemia Insulin Detemir 15 units/ (Miscellaneous Medication) 0.15 mls @ 0 mls/hr SC BID [facility] Insulin Human Regular (Humulin R) 0 units SC .BEDTIME SLIDING SC PRN PRN Reason: Bedtime Correctional Scale Last Admin: 06/26/17 20:36 Dose: 2 unit Insulin Human Regular (Humulin R) 0 units SC .MODERATE SLIDING SC PRN PRN Reason: Moderate Correctional Scale Last Admin: 06/28/17 11:31 Dose: 6 unit Metformin HCl (Glucophage) 500 mg PO BID-WM [facility] Last Admin: 06/28/17 08:51 Dose: 500 mg Methylprednisolone Sodium Succinate (Solu-Medrol) 40 mg IVP 0400,1000,1600, 2200 [facility] Last Admin: 06/28/17 10:25 Dose: 40 mg Mineral Oil/White Petrolatum (Eucerin Cream) 0 gm TOP BIDPRN PRN PRN Reason: Dry Skin Mometasone Furoate/Formoterol Fumar (Dulera 200 Mcg/5 Mcg Inhaler) 2 puff INH BID-RT [facility] Last Admin: 06/28/17 06:14 Dose: 2 puff Montelukast Sodium (Singulair) 10 mg PO QPM [facility] Last Admin: 06/27/17 20:45 Dose: 10 mg Nicotine (Nicoderm Patch) 21 mg TD DAILY [facility] Last Admin: 06/28/17 08:51 Dose: 21 mg Nitroglycerin (Nitrostat) 0.4 mg PO Q5MIN PRN PRN Reason: Chest Pain Ondansetron HCl (Zofran Odt) 4 mg PO Q6H PRN PRN Reason: Nausea/Vomiting Ondansetron HCl (Zofran) 4 mg IVP Q6H PRN PRN Reason: Nausea/Vomiting Pantoprazole Sodium (Protonix) 40 mg PO DAILY [facility] Last Admin: 06/28/17 08:50 Dose: 40 mg Phenol (Chloraseptic [place] 180 Ml Bot) 0 ml PO BIDPRN PRN PRN Reason: Sore Throat Polyethylene Glycol (Miralax) 17 gm PO DAILY PRN PRN Reason: Constipation Senna (Senokot) 2 tab PO HSPRN PRN PRN Reason: Constipation Simvastatin (Zocor) 40 mg PO QPM [facility] Last Admin: 06/27/17 20:45 Dose: 40 mg Sodium Chloride (Flush - Normal Saline) 10 ml IVF Q12HR [facility] Last Admin: 06/28/17 10:25 Dose: 10 ml Sodium Chloride (Flush - Normal Saline) 10 ml IVF PRN PRN PRN Reason: Saline Flush Last Admin: 06/28/17 10:25 Dose: 10 ml Throat Lozenges (Cepastat Lozenges) 1 tripp PO Q2H PRN PRN Reason: Sore Throat Last Admin: 06/28/17 08:51 Dose: 1 tripp
[2017-06-28] MEDS: glipiZIDE 5 MG TAB PO SCH (17:09)
[2017-06-28] MEDS: Insulin Detemir 100 UNITS/ML 15 UNITS in Pre-Filled Syringe 1 EACH SC SCH (20:51)
[2017-06-28] MEDS: Montelukast Sodium 10 mg Tablet PO SCH (20:52)
[2017-06-28] MEDS: Simvastatin 40 MG TAB PO SCH (20:52)
[2017-06-29] MEDS ORDERED: Sterile Water 10 ML ONE (04:05)
[2017-06-29] MEDS: HYDROcodone/Acetaminophen 5/325 mg Tablet PO PRN ×4 (04:48→23:31)
[2017-06-29] MEDS: Insulin Regular 300 UNITS/3 ML VIAL SC PRN ×4 (04:51→21:53)
[2017-06-29] MEDS: guaiFENesin/Codeine Phosphate 200 mg/20 mg 10 ml UD Cup PO PRN ×3 (05:14→21:52)
[2017-06-29] MEDS: Budesonide 0.5 MG/2 ML NEB INH SCH ×2 (07:13→19:09)
[2017-06-29] MEDS: Mometasone/Formoterol 120 PUFF INHALER INH SCH ×2 (07:14→19:06)
[2017-06-29] MEDS: Gabapentin 300 MG CAP PO SCH ×2 (09:37→21:33)
[2017-06-29] MEDS: Nicotine 21 MG PATCH TD SCH (09:37)
[2017-06-29] MEDS: Benzonatate 100 MG CAP PO SCH ×3 (09:37→21:33)
[2017-06-29] MEDS: guaiFENesin ER 600 MG TAB PO SCH ×2 (09:38→21:33)
[2017-06-29] MEDS: Furosemide 20 MG TAB PO SCH (09:38)
[2017-06-29] MEDS: Calcium Carbonate + Vit D 1 TAB PO SCH ×2 (09:38→16:38)
[2017-06-29] MEDS: Aspirin 81 mg Enteric Coated Tablet PO SCH (09:38)
[2017-06-29] MEDS: Clopidogrel Bisulfate 75 MG TAB PO SCH (09:38)
[2017-06-29] MEDS: glipiZIDE 10 MG TAB PO SCH (09:38)
[2017-06-29] MEDS: Insulin Detemir 100 UNITS/ML 15 UNITS in Pre-Filled Syringe 1 EACH SC SCH (09:45)
--- NOTE | 2017-06-29 10:02 | PRG ---
DATE OF SERVICE: 06/29/2017 The patient continues to complain of chest congestion and chest pressure. PHYSICAL EXAMINATION: VITAL SIGNS: Temperature 97.7, pulse 80, respiration 20, O2 sat 99%. HEENT: Unremarkable. NECK: No JVD. LUNGS: Bilateral harsh expiratory wheezing. CARDIAC: S1 and S2 regular. ABDOMEN: Soft. EXTREMITIES: No edema. ASSESSMENT: 1. Chronic obstructive pulmonary disease with exacerbation - very slow to resolve. 2. History of coronary bypass grafting surgery in the past. PLAN: I am going to go ahead and check an echocardiogram just to make sure we are not missing anyth ing cardiac that would suggest that maybe cardiomyopathy might be contributing to the problem. We w ill continue the steroids and nebulization treatments. I would hold discharge until she is better.
[2017-06-29 12:28] LABS: Hematocrit 49.1 % (36.0-47.0)
[2017-06-29 12:53] LABS: Anion Gap 12 mmol/L (10-20); BUN (Urea Nitrogen) 22 mg/dL (9.8-20.1); Calc. Creatinine Clearance 103 mL/min (70-130); Calcium 8.8 mg/dL (7.8-10.44); Carbon Dioxide 30 mmol/L (22-29); Chloride 96 mmol/L (98-107); Estimated GFR-MDRD 67
[2017-06-29 12:59] LABS: Troponin I Less than 0.010 ng/mL (< 0.028)
[2017-06-29] MEDS: glipiZIDE 5 MG TAB PO SCH (16:38)
[2017-06-29] MEDS: Cepastat Lozenges 1 LOZ PO PRN ×2 (16:43→21:56)
--- NOTE | 2017-06-29 18:06 | PDOC.PN ---
- Subjective Encounter Start Date: 06/29/17 Encounter Start Time: 09:00 Patient seen and examined. SOB/wheezing +. No overnight events - Objective Resuscitation Status: Resuscitation Status FULL:Full Resuscitation MAR Reviewed: Yes Vital Signs & Weight: Vital Signs (12 hours) Temp Pulse Resp BP Pulse Ox 06/29/17 13:41 89 20 99 06/29/17 09:53 96.2 F L 64 18 137/74 95 06/29/17 08:00 96.2 F L 64 18 95 06/29/17 07:14 99 Weight Admit Weight 189 lb 3.2 oz Weight 192 lb 3 oz I&O: 06/28/17 06/29/17 06/30/17 06:59 06:59 06:59 Intake Total 1700 2220 Balance 1700 2220 Result Diagrams: 06/29/17 12:13 06/29/17 12:13 Additional Labs: Accuchecks 06/29/17 06/29/17 06/29/17 16:39 11:39 04:47 POC Glucose 203 H 267 H 235 H 06/28/17 06/28/17 20:50 17:13 POC Glucose 260 H 97 Radiology Reviewed by me: No (Echo - normal EF) Phys Exam - Physical Examination Constitutional: NAD Respiratory: no rales, wheezing present Cardiovascular: RRR, no rub Gastrointestinal: soft, non-tender, positive bowel sounds Musculoskeletal: no edema Neurological: moves all 4 limbs Dx/Plan - Plan cont current plan of care, out of bed/ambulate, DVT proph w/SCDs IMPRESSION: 1. Asthma/?chronic obstructive pulmonary disease exacerbation. slowly improving. 2. ?Community-acquired pneumonia. Atbx completed 3. Diabetes mellitus type 2. on sliding scale/Glipizide. 4. Hypertension. 5. Hyperlipidemia. 6. Former smoker. 7. Dyslipidemia. 8. Chronic kidney disease stage 2. 9. Obesity with a body mass index of 32.5. PLAN: * Pulmonary following * Echo - normal EF * Labs repeated today * Cont nebs/antitussives/steroids * Cont current meds as below * Increase Levemir 18 units BID with sliding scale * Not stable for discharge Review of Systems - Review of Systems Constitutional: negative: Fever, Chills, Sweats, Weakness, Malaise, Other Respiratory: Cough, Dry, Sputum, Wheezing. negative: Shortness of Breath, Hemoptysis, SOB with Excertion, Pleuritic Pain Cardiovascular: negative: Chest Pain, Palpitations, Orthopnea, Paroxysmal Noc. Dyspnea, Edema, Light Headedness, Other Gastrointestinal: negative: Nausea, Vomiting, Abdominal Pain, Diarrhea, Constipation, Melena, Hematochezia, Other Neurological: negative: Weakness, Numbness, Incoordination, Change in Speech, Confusion, Seizures, Other - Medications/Allergies Allergies/Adverse Reactions: Allergies Allergy/AdvReac Type Severity Reaction Status Date / Time No Known Drug Allergies Allergy Verified 06/20/17 02:57 Medications: Current Medications Acetaminophen (Tylenol) 650 mg PO Q4H PRN PRN Reason: Headache/Fever or Pain Last Admin: 06/27/17 03:48 Dose: 650 mg Hydrocodone Bitart/Acetaminophen ([place] 5/325) 1 tab PO Q6H PRN PRN Reason: Moderate Pain (4-6) Last Admin: 06/29/17 11:57 Dose: 1 tab Al Hydroxide/Mg Hydroxide (Maalox) 30 ml PO Q6H PRN PRN Reason: Heartburn or Indigestion Albuterol/Ipratropium (Duoneb) 3 ml EZPAP [id number] [facility] Last Admin: 06/29/17 13:41 Dose: 3 ml Aspirin (Ecotrin) 81 mg PO DAILY [facility] Last Admin: 06/29/17 09:38 Dose: 81 mg Benzonatate (Tessalon) 200 mg PO TID [facility] Last Admin: 06/29/17 16:38 Dose: 200 mg Budesonide (Pulmicort Neb Solution) 0.5 mg INH BID-RT [facility] Last Admin: 06/29/17 07:13 Dose: Not Given Calcium Carbonate (Tums) 1,000 mg PO Q4H PRN PRN Reason: Heartburn or Indigestion Calcium/Vitamin D (Caltrate 600 + Vit D) 1 tab PO BID-WM [facility] Last Admin: 06/29/17 16:38 Dose: 1 tab Clonidine HCl (Catapres) 0.1 mg PO Q4H PRN PRN Reason: Systolic BP > 180/ DBP >100 Clopidogrel Bisulfate (Plavix) 75 mg PO DAILY [facility] Last Admin: 06/29/17 09:38 Dose: 75 mg Cyclobenzaprine HCl (Flexeril) 5 mg PO TIDPRN PRN PRN Reason: Muscle Spasm Last Admin: 06/28/17 22:27 Dose: 5 mg Dextrose/Water (Dextrose 50%) 25 gm SLOW IVP PRN PRN PRN Reason: Hypoglycemia Gabapentin (Neurontin) 300 mg PO BID [facility] Last Admin: 06/29/17 09:37 Dose: 300 mg Glipizide (Glucotrol) 10 mg PO DAILY-AC [facility] Last Admin: 06/29/17 09:38 Dose: 10 mg Guaifenesin (Mucinex) 600 mg PO Q12HR [facility] Last Admin: 06/29/17 09:38 Dose: 600 mg Guaifenesin/Codeine Phosphate (Robitussin Ac) 10 ml PO Q6H PRN PRN Reason: Cough Last Admin: 06/29/17 14:05 Dose: 10 ml Hydralazine HCl (Apresoline) 10 mg SLOW IVP Q4H PRN PRN Reason: SBP Greater Than 180 Dextrose/Water (D5w) 1,000 mls @ 0 mls/hr IV .Q0M PRN; As Directed PRN Reason: Hypoglycemia Insulin Detemir 18 units/ (Miscellaneous Medication) 0.18 mls @ 0 mls/hr SC BID [facility] Insulin Human Regular (Humulin R) 0 units SC .BEDTIME SLIDING SC PRN PRN Reason: Bedtime Correctional Scale Last Admin: 06/28/17 20:53 Dose: 3 unit Insulin Human Regular (Humulin R) 0 units SC .MILD SLIDING SCALE PRN PRN Reason: Mild Correctional Scale Last Admin: 06/29/17 11:57 Dose: 4 unit Metformin HCl (Glucophage) 500 mg PO BID-WM [facility] Last Admin: 06/29/17 16:38 Dose: 500 mg Methylprednisolone Sodium Succinate (Solu-Medrol) 40 mg IVP 0400,1000,1600, 2200 [facility] Last Admin: 06/29/17 16:38 Dose: 40 mg Mineral Oil/White Petrolatum (Eucerin Cream) 0 gm TOP BIDPRN PRN PRN Reason: Dry Skin Mometasone Furoate/Formoterol Fumar (Dulera 200 Mcg/5 Mcg Inhaler) 2 puff INH BID-RT [facility] Last Admin: 06/29/17 07:14 Dose: 2 puff Montelukast Sodium (Singulair) 10 mg PO QPM [facility] Last Admin: 10/04/17 20:52 Dose: 10 mg Nicotine (Nicoderm Patch) 21 mg TD DAILY [facility] Last Admin: 06/29/17 09:37 Dose: 21 mg Nitroglycerin (Nitrostat) 0.4 mg PO Q5MIN PRN PRN Reason: Chest Pain Ondansetron HCl (Zofran Odt) 4 mg PO Q6H PRN PRN Reason: Nausea/Vomiting Ondansetron HCl (Zofran) 4 mg IVP Q6H PRN PRN Reason: Nausea/Vomiting Pantoprazole Sodium (Protonix) 40 mg PO DAILY [facility] Last Admin: 06/29/17 09:37 Dose: 40 mg Phenol (Chloraseptic [place] 180 Ml Bot) 0 ml PO BIDPRN PRN PRN Reason: Sore Throat Polyethylene Glycol (Miralax) 17 gm PO DAILY PRN PRN Reason: Constipation Senna (Senokot) 2 tab PO HSPRN PRN PRN Reason: Constipation Simvastatin (Zocor) 40 mg PO QPM [facility] Last Admin: 06/28/17 20:52 Dose: 40 mg Sodium Chloride (Flush - Normal Saline) 10 ml IVF Q12HR [facility] Last Admin: 06/29/17 09:38 Dose: 10 ml Sodium Chloride (Flush - Normal Saline) 10 ml IVF PRN PRN PRN Reason: Saline Flush Last Admin: 06/28/17 10:25 Dose: 10 ml Throat Lozenges (Cepastat Lozenges) 1 tripp PO Q2H PRN PRN Reason: Sore Throat Last Admin: 06/29/17 16:43 Dose: 1 tripp
[2017-06-29] MEDS: Simvastatin 40 MG TAB PO SCH (21:33)
[2017-06-29] MEDS: Montelukast Sodium 10 mg Tablet PO SCH (21:33)
[2017-06-29] MEDS: Insulin Detemir 100 UNITS/ML 18 UNITS in Pre-Filled Syringe 1 EACH SC SCH (21:33)
[2017-06-29] MEDS: Cyclobenzaprine 10 MG TAB PO PRN (21:52)
[2017-06-30] MEDS: Insulin Regular 300 UNITS/3 ML VIAL SC PRN (06:06)
[2017-06-30] MEDS: Budesonide 0.5 MG/2 ML NEB INH SCH ×2 (06:40→19:08)
[2017-06-30] MEDS: Mometasone/Formoterol 120 PUFF INHALER INH SCH ×2 (06:43→19:05)
[2017-06-30] MEDS: Aspirin 81 mg Enteric Coated Tablet PO SCH (08:23)
[2017-06-30] MEDS: Gabapentin 300 MG CAP PO SCH ×2 (08:23→21:33)
[2017-06-30] MEDS: glipiZIDE 10 MG TAB PO SCH (08:23)
[2017-06-30] MEDS: guaiFENesin ER 600 MG TAB PO SCH ×2 (08:23→21:33)
[2017-06-30] MEDS: Clopidogrel Bisulfate 75 MG TAB PO SCH (08:23)
[2017-06-30] MEDS: Calcium Carbonate + Vit D 1 TAB PO SCH ×2 (08:23→16:03)
[2017-06-30] MEDS: Nicotine 21 MG PATCH TD SCH (08:24)
[2017-06-30] MEDS: Benzonatate 100 MG CAP PO SCH ×3 (08:26→21:32)
[2017-06-30] MEDS: HYDROcodone/Acetaminophen 5/325 mg Tablet PO PRN (08:35)
[2017-06-30] MEDS: Insulin Detemir 100 UNITS/ML 18 UNITS in Pre-Filled Syringe 1 EACH SC SCH (08:38)
--- NOTE | 2017-06-30 08:43 | PDOC.PN ---
- Subjective Encounter Start Date: 06/30/17 Encounter Start Time: 08:38 Patient seen and examined. No new complaints. No overnight events. - Objective Resuscitation Status: Resuscitation Status FULL:Full Resuscitation MAR Reviewed: Yes Vital Signs & Weight: Vital Signs (12 hours) Temp Pulse Resp BP Pulse Ox 06/30/17 07:15 97.7 F 56 L 16 130/63 93 L 06/30/17 06:43 66 16 97 06/30/17 06:42 66 18 97 06/30/17 06:40 66 18 97 06/30/17 03:11 96 06/29/17 23:00 98 Weight Admit Weight 189 lb 3.2 oz Weight 192 lb 3 oz I&O: 06/29/17 06/30/17 07/01/17 06:59 06:59 06:59 Intake Total 2220 1880 Balance 2220 1880 Result Diagrams: 06/29/17 12:13 06/29/17 12:13 Additional Labs: Accuchecks 06/30/17 06/29/17 06/29/17 06:03 21:31 16:39 POC Glucose 211 H 264 H 203 H 06/29/17 11:39 POC Glucose 267 H Radiology Reviewed by me: No (Echo - normal EF) Phys Exam - Physical Examination Constitutional: NAD Respiratory: no rales, wheezing present (improving) Cardiovascular: RRR, no rub Gastrointestinal: soft, non-tender, positive bowel sounds Musculoskeletal: no edema Neurological: moves all 4 limbs Dx/Plan - Plan DVT proph w/SCDs IMPRESSION: 1. Asthma/?chronic obstructive pulmonary disease exacerbation. 2. ?Community-acquired pneumonia. Atbx completed 3. Diabetes mellitus type 2. on Levemir/sliding scale/Glipizide. 4. Hypertension. 5. Hyperlipidemia. 6. Former smoker. 7. Dyslipidemia. 8. Chronic kidney disease stage 2. 9. Obesity with a body mass index of 32.5. PLAN: * Cont nebs/antitussives/steroids * Pulmonary following * Cont current meds as below * Cont Levemir 18 units BID with sliding scale Review of Systems - Review of Systems Respiratory: Cough, Dry, Wheezing. negative: Shortness of Breath, Hemoptysis, SOB with Excertion, Pleuritic Pain, Sputum Gastrointestinal: negative: Nausea, Vomiting, Abdominal Pain, Diarrhea, Constipation, Melena, Hematochezia, Other Genitourinary: negative: Dysuria, Frequency, Incontinence, Hematuria, Retention , Other - Medications/Allergies Allergies/Adverse Reactions: Allergies Allergy/AdvReac Type Severity Reaction Status Date / Time No Known Drug Allergies Allergy Verified 06/20/17 02:57 Medications: Current Medications Acetaminophen (Tylenol) 650 mg PO Q4H PRN PRN Reason: Headache/Fever or Pain Last Admin: 06/27/17 03:48 Dose: 650 mg Hydrocodone Bitart/Acetaminophen ([place] 5/325) 1 tab PO Q6H PRN PRN Reason: Moderate Pain (4-6) Last Admin: 06/30/17 08:35 Dose: 1 tab Al Hydroxide/Mg Hydroxide (Maalox) 30 ml PO Q6H PRN PRN Reason: Heartburn or Indigestion Albuterol/Ipratropium (Duoneb) 3 ml EZPAP [id number] [facility] Last Admin: 06/30/17 06:42 Dose: 3 ml Aspirin (Ecotrin) 81 mg PO DAILY [facility] Last Admin: 06/30/17 08:23 Dose: 81 mg Benzonatate (Tessalon) 200 mg PO TID [facility] Last Admin: 06/30/17 08:26 Dose: 200 mg Budesonide (Pulmicort Neb Solution) 0.5 mg INH BID-RT [facility] Last Admin: 06/30/17 06:40 Dose: 0.5 mg Calcium Carbonate (Tums) 1,000 mg PO Q4H PRN PRN Reason: Heartburn or Indigestion Calcium/Vitamin D (Caltrate 600 + Vit D) 1 tab PO BID-WM [facility] Last Admin: 06/30/17 08:23 Dose: 1 tab Clonidine HCl (Catapres) 0.1 mg PO Q4H PRN PRN Reason: Systolic BP > 180/ DBP >100 Clopidogrel Bisulfate (Plavix) 75 mg PO DAILY [facility] Last Admin: 06/30/17 08:23 Dose: 75 mg Cyclobenzaprine HCl (Flexeril) 5 mg PO TIDPRN PRN PRN Reason: Muscle Spasm Last Admin: 06/29/17 21:52 Dose: 5 mg Dextrose/Water (Dextrose 50%) 25 gm SLOW IVP PRN PRN PRN Reason: Hypoglycemia Gabapentin (Neurontin) 300 mg PO BID [facility] Last Admin: 06/30/17 08:23 Dose: 300 mg Glipizide (Glucotrol) 10 mg PO DAILY-AC [facility] Last Admin: 06/30/17 08:23 Dose: 10 mg Guaifenesin (Mucinex) 600 mg PO Q12HR [facility] Last Admin: 06/30/17 08:23 Dose: 600 mg Guaifenesin/Codeine Phosphate (Robitussin Ac) 10 ml PO Q6H PRN PRN Reason: Cough Last Admin: 06/29/17 21:52 Dose: 10 ml Hydralazine HCl (Apresoline) 10 mg SLOW IVP Q4H PRN PRN Reason: SBP Greater Than 180 Dextrose/Water (D5w) 1,000 mls @ 0 mls/hr IV .Q0M PRN; As Directed PRN Reason: Hypoglycemia Insulin Detemir 18 units/ (Miscellaneous Medication) 0.18 mls @ 0 mls/hr SC BID [facility] Last Admin: 06/29/17 21:33 Dose: 0.18 mls Insulin Human Regular (Humulin R) 0 units SC .BEDTIME SLIDING SC PRN PRN Reason: Bedtime Correctional Scale Last Admin: 06/29/17 21:53 Dose: 3 unit Insulin Human Regular (Humulin R) 0 units SC .MILD SLIDING SCALE PRN PRN Reason: Mild Correctional Scale Last Admin: 06/30/17 06:06 Dose: 3 unit Metformin HCl (Glucophage) 500 mg PO BID-WM [facility] Last Admin: 06/30/17 08:23 Dose: 500 mg Methylprednisolone Sodium Succinate (Solu-Medrol) 40 mg IVP 0400,1000,1600, 2200 [facility] Last Admin: 06/30/17 03:36 Dose: 40 mg Mineral Oil/White Petrolatum (Eucerin Cream) 0 gm TOP BIDPRN PRN PRN Reason: Dry Skin Mometasone Furoate/Formoterol Fumar (Dulera 200 Mcg/5 Mcg Inhaler) 2 puff INH BID-RT [facility] Last Admin: 06/30/17 06:43 Dose: 2 puff Montelukast Sodium (Singulair) 10 mg PO QPM [facility] Last Admin: 06/29/17 21:33 Dose: 10 mg Nicotine (Nicoderm Patch) 21 mg TD DAILY [facility] Last Admin: 06/30/17 08:24 Dose: 21 mg Nitroglycerin (Nitrostat) 0.4 mg PO Q5MIN PRN PRN Reason: Chest Pain Ondansetron HCl (Zofran Odt) 4 mg PO Q6H PRN PRN Reason: Nausea/Vomiting Ondansetron HCl (Zofran) 4 mg IVP Q6H PRN PRN Reason: Nausea/Vomiting Pantoprazole Sodium (Protonix) 40 mg PO DAILY [facility] Last Admin: 06/30/17 08:23 Dose: 40 mg Phenol (Chloraseptic [place] 180 Ml Bot) 0 ml PO BIDPRN PRN PRN Reason: Sore Throat Polyethylene Glycol (Miralax) 17 gm PO DAILY PRN PRN Reason: Constipation Senna (Senokot) 2 tab PO HSPRN PRN PRN Reason: Constipation Simvastatin (Zocor) 40 mg PO QPM [facility] Last Admin: 06/29/17 21:33 Dose: 40 mg Sodium Chloride (Flush - Normal Saline) 10 ml IVF Q12HR [facility] Last Admin: 06/30/17 08:30 Dose: 10 ml Sodium Chloride (Flush - Normal Saline) 10 ml IVF PRN PRN PRN Reason: Saline Flush Last Admin: 06/28/17 10:25 Dose: 10 ml Throat Lozenges (Cepastat Lozenges) 1 tripp PO Q2H PRN PRN Reason: Sore Throat Last Admin: 06/29/17 21:56 Dose: 1 tripp
[2017-06-30] MEDS: guaiFENesin/Codeine Phosphate 200 mg/20 mg 10 ml UD Cup PO PRN (10:05)
--- NOTE | 2017-06-30 11:18 | PDOC.EVN ---
Event Note - Event Note Event Note: Patient developed sudden onset of RUQ abd pain with lightheadedness. h/o ailyn in the past. Will get stat labs/CT ab with contrast. IVF. Pain control. Transfer to tele.
[2017-06-30] MEDS ORDERED: Sodium Chloride 0.9% 1,000 ML IV SCH (11:30)
[2017-06-30 11:53] LABS: Hematocrit 51.6 % (36.0-47.0); Mean Platelet Volume 8.2 fL (7.4-10.4); Red Blood Cell (RBC) Count 5.42 mill/uL (4.20-5.40); White Blood Cell (WBC) Count 24.6 thou/uL (4.8-10.8)
[2017-06-30 12:01] LABS: Metamyelocyte 1 % (0-0); Neutrophil 88 % (42-75); Reactive Lymphocytes 1 % (0-10)
[2017-06-30 12:03] LABS: ALT (SGPT) 115 U/L (8-55); AST (SGOT) 213 U/L (5-34); Alkaline Phosphatase 73 U/L (40-150); Anion Gap 11 mmol/L (10-20); BUN (Urea Nitrogen) 20 mg/dL (9.8-20.1); Bilirubin, Total 0.6 mg/dL (0.2-1.2); Calc. Creatinine Clearance 118 mL/min (70-130); Carbon Dioxide 28 mmol/L (22-29); Chloride 101 mmol/L (98-107); Estimated GFR-MDRD 79; Globulin 2.5 g/dL (2.4-3.5); Lipase Less than 4 U/L (8-78)
[2017-06-30 12:07] LABS: Troponin I Less than 0.010 ng/mL (< 0.028)
[2017-06-30] MEDS ORDERED: Pantoprazole 40 MG VIAL IVP SCH (12:30)
[2017-06-30] MEDS: Meropenem 1 GM in Sodium Chloride 0.9% 100 ML IVPB SCH ×2 (12:38→21:31)
[2017-06-30] MEDS: Sodium Chloride 0.9% 1,000 ML IV SCH ×2 (12:40→21:33)
[2017-06-30 13:55] LABS: Bilirubin Negative (Negative); Blood, Urine Negative (Negative); Glucose, Urine (Dipstick) 500 mg/dL (Negative); Ketone, Urine Negative (Negative); Nitrite Negative (Negative); Protein, Urine (Dipstick) Negative (Neg-Trace)
[2017-06-30 13:59] LABS: Bacteria/HPF None Seen HPF (None Seen); Hyaline Casts/LPF 0-3 HYALINE CAST LPF (0-3 Hyaline); RBC/HPF 0-3 HPF (0-3); Squamous Epithelial None Seen HPF (0-3); WBC/HPF None Seen HPF (0-3)
[2017-06-30 15:43] LABS: Troponin I Less than 0.010 ng/mL (< 0.028)
[2017-06-30] MEDS ORDERED: Sterile Water 10 ML ONE (15:44)
--- NOTE | 2017-06-30 16:00 | PRG ---
DATE OF SERVICE: 06/30/2017 SUBJECTIVE: Ms. Grijalva is still in the hospital. She was last seen by me a week ago, and my par tner has examined her while she was here. She says today she woke up feeling lightheaded when she g ot up to take a shower. She was moved to telemetry. OBJECTIVE: VITAL SIGNS: She is afebrile, heart rate in the 60s, respiratory rate is 18, oximetry is 93-100. B lood pressure 150/88, she was 130/63 this morning at 07:15. LUNGS: Dramatically improved compared to a week ago. HEART: Regular rhythm. ABDOMEN: Nondistended. She reports pain in her right upper quadrant, this started this morning, bu t she has minimal tenderness to palpation in her right upper quadrant. IMAGING DATA: CT of her abdomen was ordered by the [facility] physicians. She has seen Dr. Conroy in the past when he did colon surgery. She says her discomfort is similar to discomfort that she has had in the past prior to his operation . I have asked him to looking on her while she is here. We will await CT exam. With her history of vascular problems, I am always concerned about mesenteric vascular issues, which she certainly does not have an exam consistent with bowel at this time. She does not have an anion gap this morning on lab work that was done at 11:30. Her alkaline phosph atase is normal. She has mildly elevated liver enzymes. This is a new abnormality compared to 05/27.
[2017-06-30] MEDS ORDERED: GoLYTELY 4,000 ml Bottle PO SCH (16:45)
--- NOTE | 2017-06-30 17:24 | CT ---
CONTRAST ENHANCED CT OF THE ABDOMEN AND PELVIS: 06/30/17 HISTORY: Dizziness, abdominal pain. Contrast enhanced CT images of the abdomen obtained after the administration of IV and oral contrast . Pelvis was not performed per order of Dr. Zackery Fitzpatrick. Technologist called and was told that no pe lvis was ordered. Bibasilar areas of lung scarring seen. The liver, spleen and pancreas are unremarkable. The gallbladder has been surgically removed. Adrena l glands and kidneys are unremarkable. No evidence of periaortic lymphadenopathy seen. A larger amount of stool is seen in the entire colon filling the ascending, transverse and descendin g colon. The pelvis was not evaluated per order of referring doctor. Descending colonic diverticula are seen. IMPRESSION: 1. Large amount of stool in the colon. 2. Nonvisualization of the pelvis. POS: MIRIAM
[2017-06-30] MEDS ORDERED: Insulin Detemir 100 UNITS/ML 10 UNITS in Pre-Filled Syringe SC SCH (21:00)
[2017-06-30] MEDS: Senokot S 8.6-50 MG TAB PO SCH (21:22)
[2017-06-30] MEDS: Pantoprazole 40 MG VIAL IVP SCH (21:31)
[2017-06-30] MEDS: Montelukast Sodium 10 mg Tablet PO SCH (21:32)
[2017-06-30] MEDS: Simvastatin 40 MG TAB PO SCH (21:33)
--- NOTE | 2017-06-30 22:59 | CON ---
GI INPATIENT CONSULTATION NOTE DATE OF CONSULTATION: 06/30/2017 REQUESTING PHYSICIAN: Zackery Fitzpatrick M.D. REASON FOR CONSULTATION: Right upper quadrant pain. HISTORY OF PRESENT ILLNESS: Ms. Randa rGijalva is a 52-year-old woman whom I met earlier this lalita lawson in 12/2016. At that time, she was hospitalized with nausea, vomiting and diarrhea. She had had some hematemesis and hematochezia at that time and we performed EGD and colonoscopy. The EGD on 01/2017 was normal. The colonoscopy was also normal with the exception of a very large flat polyp i n the cecum and ascending colon. Dr. 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 The patient has been hospitalized here again for the past week since 06/20/2017 initially with short ness of breath and cough and has been treated for COPD exacerbation with antibiotics and steroids. Throughout the past week hospitalized, she had minimal improvement with her respiratory status, real ly seems to be waxing and waning. Then, this morning, she describes she felt some acute dizziness a nd nausea and then started having severe right upper quadrant pain shooting through to her back. Th is has persisted for several hours. It is a bit better at this point. Dr. Fitzpatrick ordered stat labs, which demonstrated a spike in the white count up to 24.6 and also new LFT elevation with AST 213, A LT 115. Note, alkaline phosphatase and total bilirubin are normal, but her LFTs were all normal on admission a week ago. Amylase and lipase are normal. The patient also had a CT of the abdomen perf ormed this afternoon and this demonstrates a large amount of stool in the colon, normal appearing li rachel, spleen and pancreas and absent gallbladder. The patient has been started on a GoLYTELY bowel p rep by Dr. Conroy who saw her earlier. Note, the patient had a cholecystectomy about a year and jonathan f ago. REVIEW OF SYSTEMS: Full review of systems including constitutional, head, eyes, ears, nose, throat, GI, , cardiovascular, respiratory, musculoskeletal and neurologic systems are negative except as noted in the HPI. 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 FAMILY HISTORY: Noncontributory. SOCIAL HISTORY: No drug use. Alcohol use is social. She is a tobacco user. ALLERGIES: No known drug allergies. INPATIENT MEDICATIONS: Zocor, nicotine patch, morphine p.r.n., Singulair, Dulera, IV methylpredniso lone 40 mg q.6 hours, meropenem IV, sliding scale insulin, insulin detemir, Robitussin AC, Mucinex, Neurontin, Flexeril, Plavix 75 mg daily, calcium/vitamin D, Pulmicort, Tessalon Per[place], aspirin 81 m g daily, DuoNebs, [place] and Tylenol. PHYSICAL EXAMINATION: VITAL SIGNS: Temperature 97.7, blood pressure 150/88, pulse 77 and 98% oxygen saturation on room ai r. GENERAL: A 52-year-old woman lying in bed comfortably in no distress. SKIN: No jaundice, no rashes were palpable. EYES: No scleral icterus. Extraocular movements are intact. ENT: Mucous membranes are moist. No oral lesions. LYMPH: No submandibular or supraclavicular lymphadenopathy. THYROID: Nontender to palpation. HEART: Regular rate and rhythm. LUNGS: Clear to auscultation bilaterally. ABDOMEN: Nondistended, bowel sounds present, soft, tender to palpation in the right upper quadrant. No guarding or rebound tenderness. EXTREMITIES: No peripheral edema. VESSELS: Radial pulses are 2+ bilaterally. NEUROLOGICAL: Cranial nerves II-XII intact bilaterally. No focal deficits. LABORATORY STUDIES: WBC up to 24.6, hemoglobin 16.5 and platelets 287. Troponin negative x2. Urin alysis negative. Amylase 25 and lipase 4. Total bilirubin 0.6, alkaline phosphatase 73, AST elevat ed to 13, ALT 115, albumin 3.5, BUN 20, creatinine 0.77, sodium 136 and potassium 3.8. IMAGING STUDIES: CT of the abdomen and pelvis demonstrates absent gallbladder, normal appearing sarah er, spleen and pancreas and a large amount of stool in the colon. ASSESSMENT AND PLAN: 1. Right upper quadrant pain, acute, recurrent. 2. Elevated liver function tests, acute this admission. 3. Constipation. 4. History of cholecystectomy a year and a half ago. Interestingly, the patient really denies any symptoms of constipation and says she has continued to have bowel movements daily or multiple times per day for the past several months and throughout this admission. This is despite narcotic pain me dication use. She has been started on a gallon of GoLYTELY and I agree with this. We will see how she does with her pain once she is cleaned out. I do note the liver function tests elevation, which is new since her admission a week ago. She is p ost-cholecystectomy. We will trend the liver function tests tomorrow. We will also get viral hepat itis serologies just to rule this out. If the liver function tests continue to trend up, then I wou ld probably get an MRCP tomorrow to better evaluate the bile ducts and rule out retained stone. Thank you for the consultation. Please call back with questions or concerns.
--- NOTE | 2017-06-30 23:52 | HP ---
HISTORY OF PRESENT ILLNESS: Randa Grijalva is a 52-year-old female, who I saw in December for a cec al tumor that was not endoscopically retrievable requiring laparoscopic right colectomy on 7. 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 Nodes wer e negative. I saw her postoperatively in my office and she complained of right upper quadrant pain. She reported frequent bowel movements. Stools were submitted for cultures, C. difficile, all of w hich were negative. It was recommended that she see Gastroenterology which she could not for financ ial reasons. The patient is now admitted for what she describes as flu-like symptoms. She has had intractable coughing and has been given Tylenol with codeine for that coughing as well as muscle rel axants. This led, because of recurrent chronic complaints of right upper quadrant pain with back ra diation, even though she is having 3-4 bowel movements a day, a CAT scan of abdomen was obtained, pe lvis was not included, but all of her symptoms are right upper quadrant. This CAT scan revealed sig nificant stool in the transverse left colon. Pelvis not include to assess the sigmoid colon. The jhoana shannon has been seen by Hospitalist and Dr. River. Of note is that she had pain of this nature in t he past prior to her operation endoscopically patient was found to have a cecal tumor. This probabl y did not reflect the etiology of her pain, but was an incidental finding, she continues to have the pain that she had before. She is status post cholecystectomy and on 12/27/2016 prior to her operat ion, ultrasound of the abdomen was normal. Bile duct was 5 mm. Her liver function tests continued to be normal with AST of 213, ALT of 115, patient's bilirubin is 0.6, alkaline phosphatase is normal . Lipase is normal. ALLERGIES: None. TOBACCO: None. ALCOHOL: None. PAST MEDICAL HISTORY: Asthma, COPD, past history of tobacco abuse, history of coronary artery disea se with coronary artery bypass grafting, history of myocardial infarction, diabetes mellitus and hyp ertension. PAST SURGICAL HISTORY: Coronary artery bypass grafting x3, cholecystectomy, laparoscopic right hortensia ctomy December of this year, colonoscopy by Dr. Medrano in the past. Chest x-ray on 06/19/2017, no acute pulmonary process. Dr. River seen her felt that she has COPD, a sthma exacerbation and she has been treated with steroids, oxygen, and nebulizers and he recommended tobacco cessation, the patient reports intermittent smoking. PHYSICAL EXAMINATION: VITAL SIGNS: Pulse 77, respiratory rate 20, blood pressure 150/88. HEAD, EARS, EYES, NOSE AND THROAT: Unremarkable. LUNGS: Clear to auscultation. CARDIAC: Regular rate and rhythm without murmur or gallop. ABDOMEN: Soft, well-healed incision. No hernias. Mild tenderness in the right upper quadrant. No guarding or rebound. EXTREMITIES: Unremarkable. ASSESSMENT AND PLAN: Chronic right upper quadrant pain with back radiation. She has a past history of cholecystectomy. Her bile duct has normal caliber. Haja liver function tests have been normal in the past. AST and ALT are mildly elevated this hospitalization. The patient presented with this similar pain before her surgery. The workup of her pain at that time revealed a cecal tumor, which was an incidental finding and not accounting for pain at that time. She continues with the same pa in. At this point, I am not sure the etiology of the pain. Despite her frequent bowel movements, s he is constipated on today's CAT scan. Would recommend GoLYTELY bowel prep today, resumption of her diabetic diet, increase activity, fluid consumption and observation. I have no immediate solution for her chronic pain, right upper quadrant. There is no radiological abnormality. This may be musc uloskeletal. We will treat her constipation seen on CAT scan and see if this helps, although I am n ot optimistic that this will resolve her problem. Consideration for Gastroenterology input could be given, especially in light of her AST, ALT elevation, but we will leave that to the medical service .
[2017-07-01] MEDS: HYDROcodone/Acetaminophen 5/325 mg Tablet PO PRN ×4 (00:34→22:56)
[2017-07-01] MEDS: guaiFENesin/Codeine Phosphate 200 mg/20 mg 10 ml UD Cup PO PRN ×2 (00:34→12:37)
[2017-07-01] MEDS: Meropenem 1 GM in Sodium Chloride 0.9% 100 ML IVPB SCH (04:58)
[2017-07-01 05:14] LABS: #Lymphocytes 0.9 thou/uL (1.20-3.40); #Monocytes 0.8 thou/uL (0.11-0.59); #Neutrophils 14.7 thou/uL (1.40-6.50); %Basophils 0.2 % (0.0-1.0); %Eosinophils 0.3 % (0.0-10.0); %Lymphocytes 5.2 % (21.0-51.0); %Monocytes 4.6 % (0.0-10.0); Hematocrit 44.1 % (36.0-47.0); Mean Platelet Volume 8.6 fL (7.4-10.4); Red Blood Cell (RBC) Count 4.64 mill/uL (4.20-5.40); White Blood Cell (WBC) Count 16.4 thou/uL (4.8-10.8)
[2017-07-01 05:26] LABS: ALT (SGPT) 84 U/L (8-55); AST (SGOT) 8 U/L (5-34); Alkaline Phosphatase 68 U/L (40-150); Anion Gap 12 mmol/L (10-20); BUN (Urea Nitrogen) 15 mg/dL (9.8-20.1); Bilirubin, Total 0.4 mg/dL (0.2-1.2); Calc. Creatinine Clearance 109 mL/min (70-130); Carbon Dioxide 25 mmol/L (22-29); Chloride 104 mmol/L (98-107); Estimated GFR-MDRD 72; Globulin 2.1 g/dL (2.4-3.5); Magnesium 2.1 mg/dL (1.6-2.6); Phosphorus 2.3 mg/dL (2.3-4.7)
[2017-07-01 05:31] LABS: ALT (SGPT) 83 U/L (8-55); AST (SGOT) 7 U/L (5-34); Alkaline Phosphatase 67 U/L (40-150); Bilirubin, Direct 0.2 mg/dL (0.1-0.3); Bilirubin, Total 0.4 mg/dL (0.2-1.2)
[2017-07-01] MEDS: Mometasone/Formoterol 120 PUFF INHALER INH SCH ×2 (07:35→18:54)
[2017-07-01] MEDS: Budesonide 0.5 MG/2 ML NEB INH SCH ×2 (07:37→18:52)
[2017-07-01] MEDS: Calcium Carbonate + Vit D 1 TAB PO SCH ×2 (09:11→16:35)
[2017-07-01] MEDS: Aspirin 81 mg Enteric Coated Tablet PO SCH (09:11)
[2017-07-01] MEDS: Benzonatate 100 MG CAP PO SCH ×3 (09:12→21:33)
[2017-07-01] MEDS: Senokot S 8.6-50 MG TAB PO SCH ×2 (09:12→21:34)
[2017-07-01] MEDS: Polyethylene Glycol 3350 17 GM Packet PO SCH (09:12)
[2017-07-01] MEDS: Gabapentin 300 MG CAP PO SCH ×2 (09:12→21:34)
[2017-07-01] MEDS: guaiFENesin ER 600 MG TAB PO SCH ×2 (09:12→21:34)
[2017-07-01] MEDS: Clopidogrel Bisulfate 75 MG TAB PO SCH (09:12)
[2017-07-01] MEDS: Nicotine 21 MG PATCH TD SCH (09:12)
[2017-07-01] MEDS: Pantoprazole 40 MG VIAL IVP SCH (09:13)
[2017-07-01] MEDS: Insulin Detemir 100 UNITS/ML 18 UNITS in Pre-Filled Syringe 1 EACH SC SCH ×2 (09:24→21:35)
[2017-07-01] MEDS: Sodium Chloride 0.9% 1,000 ML IV SCH (09:40)
--- NOTE | 2017-07-01 12:02 | PRG ---
DATE OF SERVICE: 07/01/2017 SUBJECTIVE: Ms. Grijalva continues to have pain in the right upper quadrant, wrapping around to th e back. She says that she has had some minimal improvement in this since yesterday. She is tolerat ing her diet. She ate normally just fine. She drank a whole gallon of GoLYTELY yesterday and had a lot of bowel movements, but says it did not really affect the pain. LFTs have significantly declin ed today from yesterday. OBJECTIVE: VITAL SIGNS: Temperature 98.7, pulse 69, blood pressure 156/70, 95% oxygen saturation on room air. GENERAL: No acute distress. HEART: Regular rate and rhythm. LUNGS: Clear to auscultation bilaterally. ABDOMEN: Bowel sounds present, soft, tender to palpation in the right upper quadrant. No guarding or rebound tenderness. EXTREMITIES: No peripheral edema. LABORATORY STUDIES: WBC down to 16.4, hemoglobin 14.1, platelets 222. Sodium 137, potassium 3.8, B UN 15, creatinine 0.83, glucose 231, phosphorus 2.3, magnesium 2.1, total bilirubin 0.4, alkaline ph osphatase 67, AST down to 7 from 213 yesterday, ALT down to 83 from 115 yesterday. ASSESSMENT AND PLAN: 1. Right upper quadrant abdominal pain. 2. Elevated liver function tests, now improving, acute. 3. Constipation, resolved. This does seem to be more chronic right upper quadrant abdominal pain w ith negative exam including ultrasound imaging several months ago. However, the acute spike in LFTs yesterday suggests possible ongoing biliary process. Sphincter of Oddi dysfunction or retained com mon bile duct stone or sludge are considerations. I would like to get better imaging of the biliary system. We will go ahead and order an MRCP and see what that shows.
[2017-07-01] MEDS: Insulin Regular 300 UNITS/3 ML VIAL SC PRN ×3 (12:43→22:56)
--- NOTE | 2017-07-01 15:58 | PRG ---
DATE OF SERVICE: 07/01/2017 SUBJECTIVE: Ms. Grijalva has no respiratory complaints. She is approaching her baseline, but not back to her baseline. OBJECTIVE: VITAL SIGNS: She is afebrile. Heart rates in the 50s to 60s, respiratory rate is in the teens and blood pressure 139/79. LUNGS: Clear. HEART: Regular rhythm. ABDOMEN: Nontender. She is currently being worked up for sphincter of Oddi dysfunction. She will have an MRCP in the [facility]. IMPRESSION: 1. Chronic obstructive pulmonary disease/asthma, clinically improved finally. 2. Chronic abdominal pain. 3. History of resection of colon cancer. 4. Elevated liver enzymes, associated with right upper quadrant pain, currently being worked up by Gastroenterology. She is still on meropenem with negative blood cultures. She had E. coli isolated, but it was a low colony count in her urine. I think she could be treated with p.o. antimicrobial therapy.
[2017-07-01] MEDS: Cyclobenzaprine 10 MG TAB PO PRN (16:41)
--- NOTE | 2017-07-01 20:22 | PDOC.PN ---
- Subjective Encounter Start Date: 07/01/17 Encounter Start Time: 13:30 Patient seen and examined. No new complaints. No overnight events. Abd pain - same as yesterday. - Objective Resuscitation Status: Resuscitation Status FULL:Full Resuscitation MAR Reviewed: Yes Vital Signs & Weight: Vital Signs (12 hours) Temp Pulse Resp BP Pulse Ox 07/01/17 18:54 66 18 97 07/01/17 18:52 66 18 97 07/01/17 16:45 98.7 F 60 16 124/59 L 95 07/01/17 14:33 63 20 07/01/17 12:55 97 F L 59 L 16 139/79 99 07/01/17 11:07 69 20 95 07/01/17 08:55 98.7 F 54 L 16 156/70 H 98 Weight Admit Weight 189 lb 3.2 oz Weight 192 lb 3 oz I&O: 06/30/17 07/01/17 07/02/17 06:59 06:59 06:59 Intake Total 1880 2700 1250 Output Total 700 Balance 1880 2000 1250 Result Diagrams: 07/01/17 04:05 07/01/17 04:05 Additional Labs: Accuchecks 07/01/17 07/01/17 07/01/17 16:21 11:03 05:28 POC Glucose 294 H 226 H 231 H 06/30/17 21:30 POC Glucose 269 H Radiology Reviewed by me: Yes (CT abd - Large amt of stool) EKG Reviewed by me: Yes (Tele SR) Phys Exam - Physical Examination Constitutional: NAD Respiratory: no wheezing, no rhonchi Cardiovascular: RRR, no rub Gastrointestinal: soft, positive bowel sounds mild RUQ tend Musculoskeletal: no edema Dx/Plan (1) Asthma exacerbation Code(s): J45.901 - UNSPECIFIED ASTHMA WITH (ACUTE) EXACERBATION Status: Acute Comment: ?COPD Exacerbation, ?CAP (2) Abdominal pain Code(s): R10.9 - UNSPECIFIED ABDOMINAL PAIN Status: Acute (3) CKD (chronic kidney disease) stage 2, GFR 60-89 ml/min Code(s): N18.2 - CHRONIC KIDNEY DISEASE, STAGE 2 (MILD) Status: Chronic (4) DM type 2 (diabetes mellitus, type 2) Status: Chronic Qualifiers: Diabetes mellitus complication status: without complication Diabetes mellitus [employer] insulin use: without penitentiary use Qualified Code(s): E11.9 - Type 2 diabetes mellitus without complications Comment: Resume Metformin 500mg BID, ISS (5) HTN (hypertension) Code(s): I10 - ESSENTIAL (PRIMARY) HYPERTENSION Status: Chronic Qualifiers: Hypertension type: essential hypertension Qualified Code(s): I10 - Essential (primary) hypertension Comment: Stable (6) CAD (coronary artery disease) Code(s): I25.10 - ATHSCL HEART DISEASE OF [place] CORONARY ARTERY W/O ANG PCTRS Status: Chronic Qualifiers: Coronary Disease-Associated Artery/Lesion type: bypass graft [place] vs. transplanted heart: [place] heart Associated angina: without angina Qualified Code(s): I25.810 - Atherosclerosis of coronary artery bypass graft(s) without angina pectoris Comment: cabg 2014, resume home meds, stable currently (7) Obesity (BMI 30-39.9) Code(s): E66.9 - OBESITY, UNSPECIFIED Status: Chronic (8) Dyslipidemia Code(s): E78.5 - HYPERLIPIDEMIA, UNSPECIFIED Status: Chronic - Plan cont current plan of care (Pt is ambulating in hallways), DVT proph w/SCDs * GI/surg input appreciated * MRCP in AM * DC Morphine IV in AM * Golyetely * Cont nebs/antitussives/steroid taper * Pulmonary following * Cont current meds as below * Increase Levemir 18 units BID with sliding scale * AM labs Review of Systems - Review of Systems Constitutional: negative: Fever, Chills, Sweats, Weakness, Malaise, Other Respiratory: SOB with Excertion, Wheezing. negative: Cough, Dry, Shortness of Breath, Hemoptysis, Pleuritic Pain, Sputum Cardiovascular: negative: Chest Pain, Palpitations, Orthopnea, Paroxysmal Noc. Dyspnea, Edema, Light Headedness - Medications/Allergies Allergies/Adverse Reactions: Allergies Allergy/AdvReac Type Severity Reaction Status Date / Time No Known Drug Allergies Allergy Verified 06/20/17 02:57 Medications: Current Medications Acetaminophen (Tylenol) 650 mg PO Q4H PRN PRN Reason: Headache/Fever or Pain Last Admin: 06/27/17 03:48 Dose: 650 mg Hydrocodone Bitart/Acetaminophen ([place] 5/325) 1 tab PO Q6H PRN PRN Reason: Moderate Pain (4-6) Last Admin: 10/07/17 16:40 Dose: 1 tab Al Hydroxide/Mg Hydroxide (Maalox) 30 ml PO Q6H PRN PRN Reason: Heartburn or Indigestion Albuterol/Ipratropium (Duoneb) 3 ml EZPAP [id number] [facility] Last Admin: 07/01/17 18:54 Dose: 3 ml Aspirin (Ecotrin) 81 mg PO DAILY [facility] Last Admin: 07/01/17 09:11 Dose: 81 mg Benzonatate (Tessalon) 200 mg PO TID [facility] Last Admin: 07/01/17 15:29 Dose: Not Given Budesonide (Pulmicort Neb Solution) 0.5 mg INH BID-RT [facility] Last Admin: 07/01/17 18:52 Dose: 0.5 mg Calcium Carbonate (Tums) 1,000 mg PO Q4H PRN PRN Reason: Heartburn or Indigestion Calcium/Vitamin D (Caltrate 600 + Vit D) 1 tab PO BID-WM [facility] Last Admin: 07/01/17 16:35 Dose: 1 tab Clonidine HCl (Catapres) 0.1 mg PO Q4H PRN PRN Reason: Systolic BP > 180/ DBP >100 Clopidogrel Bisulfate (Plavix) 75 mg PO DAILY [facility] Last Admin: 07/01/17 09:12 Dose: 75 mg Cyclobenzaprine HCl (Flexeril) 5 mg PO TIDPRN PRN PRN Reason: Muscle Spasm Last Admin: 07/01/17 16:41 Dose: 5 mg Dextrose/Water (Dextrose 50%) 25 gm SLOW IVP PRN PRN PRN Reason: Hypoglycemia Gabapentin (Neurontin) 300 mg PO BID [facility] Last Admin: 07/01/17 09:12 Dose: 300 mg Guaifenesin (Mucinex) 600 mg PO Q12HR [facility] Last Admin: 07/01/17 09:12 Dose: 600 mg Guaifenesin/Codeine Phosphate (Robitussin Ac) 10 ml PO Q6H PRN PRN Reason: Cough Last Admin: 07/01/17 12:37 Dose: 10 ml Hydralazine HCl (Apresoline) 10 mg SLOW IVP Q4H PRN PRN Reason: SBP Greater Than 180 Dextrose/Water (D5w) 1,000 mls @ 0 mls/hr IV .Q0M PRN; As Directed PRN Reason: Hypoglycemia Insulin Detemir 18 units/ (Miscellaneous Medication) 0.18 mls @ 0 mls/hr SC BID [facility] Last Admin: 07/01/17 09:24 Dose: 0.18 mls Insulin Human Regular (Humulin R) 0 units SC .BEDTIME SLIDING SC PRN PRN Reason: Bedtime Correctional Scale Last Admin: 06/29/17 21:53 Dose: 3 unit Insulin Human Regular (Humulin R) 0 units SC .MILD SLIDING SCALE PRN PRN Reason: Mild Correctional Scale Last Admin: 07/01/17 16:35 Dose: 4 unit Methylprednisolone Sodium Succinate (Solu-Medrol) 40 mg IVP Q8HR [facility] Mineral Oil/White Petrolatum (Eucerin Cream) 0 gm TOP BIDPRN PRN PRN Reason: Dry Skin Mometasone Furoate/Formoterol Fumar (Dulera 200 Mcg/5 Mcg Inhaler) 2 puff INH BID-RT [facility] Last Admin: 07/01/17 18:54 Dose: 2 puff Montelukast Sodium (Singulair) 10 mg PO QPM [facility] Last Admin: 06/30/17 21:32 Dose: 10 mg Morphine Sulfate (Morphine Sulfate) 2 mg SLOW IVP Q4H PRN PRN Reason: Pain Stop: 07/02/17 12:34 Last Admin: 07/01/17 12:44 Dose: 2 mg Nicotine (Nicoderm Patch) 21 mg TD DAILY [facility] Last Admin: 07/01/17 09:12 Dose: 21 mg Nitroglycerin (Nitrostat) 0.4 mg PO Q5MIN PRN PRN Reason: Chest Pain Ondansetron HCl (Zofran Odt) 4 mg PO Q6H PRN PRN Reason: Nausea/Vomiting Last Admin: 07/01/17 09:23 Dose: 4 mg Ondansetron HCl (Zofran) 4 mg IVP Q6H PRN PRN Reason: Nausea/Vomiting Pantoprazole Sodium (Protonix) 40 mg PO DAILY [facility] Phenol (Chloraseptic Solo 180 Ml Bot) 0 ml PO BIDPRN PRN PRN Reason: Sore Throat Polyethylene Glycol (Miralax) 17 gm PO DAILY PRN PRN Reason: Constipation Polyethylene Glycol (Miralax) 17 gm PO DAILY [facility] Last Admin: 07/01/17 09:12 Dose: 17 gm Senna (Senokot) 2 tab PO HSPRN PRN PRN Reason: Constipation Senna/Docusate Sodium (Senokot S) 1 tab PO BID [facility] Last Admin: 07/01/17 09:12 Dose: 1 tab Simvastatin (Zocor) 40 mg PO QPM [facility] Last Admin: 06/30/17 21:33 Dose: 40 mg Sodium Chloride (Flush - Normal Saline) 10 ml IVF Q12HR [facility] Last Admin: 07/01/17 09:13 Dose: Not Given Sodium Chloride (Flush - Normal Saline) 10 ml IVF PRN PRN PRN Reason: Saline Flush Last Admin: 07/01/17 09:16 Dose: 10 ml Throat Lozenges (Cepastat Lozenges) 1 tripp PO Q2H PRN PRN Reason: Sore Throat Last Admin: 06/29/17 21:56 Dose: 1 tripp
[2017-07-01] MEDS: Montelukast Sodium 10 mg Tablet PO SCH (21:34)
[2017-07-01] MEDS: Simvastatin 40 MG TAB PO SCH (21:34)
[2017-07-02] MEDS: Mometasone/Formoterol 120 PUFF INHALER INH SCH ×2 (07:56→19:47)
[2017-07-02] MEDS: Budesonide 0.5 MG/2 ML NEB INH SCH ×2 (07:57→19:48)
[2017-07-02] MEDS: Insulin Detemir 100 UNITS/ML 18 UNITS in Pre-Filled Syringe 1 EACH SC SCH ×2 (08:23→20:50)
[2017-07-02] MEDS: Benzonatate 100 MG CAP PO SCH ×3 (09:00→20:49)
[2017-07-02] MEDS: Calcium Carbonate + Vit D 1 TAB PO SCH ×2 (09:00→17:33)
[2017-07-02] MEDS: Clopidogrel Bisulfate 75 MG TAB PO SCH (09:00)
[2017-07-02] MEDS: Aspirin 81 mg Enteric Coated Tablet PO SCH (09:00)
[2017-07-02] MEDS: guaiFENesin ER 600 MG TAB PO SCH ×2 (09:00→20:49)
[2017-07-02] MEDS: Gabapentin 300 MG CAP PO SCH ×2 (09:00→20:49)
[2017-07-02] MEDS: Senokot S 8.6-50 MG TAB PO SCH ×2 (09:00→20:49)
[2017-07-02] MEDS: Nicotine 21 MG PATCH TD SCH (10:00)
[2017-07-02] MEDS: Polyethylene Glycol 3350 17 GM Packet PO SCH (15:43)
--- NOTE | 2017-07-02 16:55 | PRG ---
DATE OF SERVICE: 07/02/2017 SUBJECTIVE: Ms. Grijalva that she really has not had any improvement in her pain persists in the e pigastrium and right upper quadrant and she is due to the back. She says is fairly constant. She i s feeling hungry. She has not had any vomiting. She went for MRCP this morning, but the report is still not yet back. PHYSICAL EXAMINATION: VITAL SIGNS: Temperature 97.5, pulse 84, blood pressure 123/67, 95% oxygen saturation on room air. GENERAL: No acute distress, lying in bed comfortably, but complaining of severe pain. HEART: Regular rate and rhythm. LUNGS: Clear to auscultation bilaterally. ABDOMEN: Bowel sounds present, soft, tender to palpation in the epigastrium and right upper quadran t. No guarding, rebound tenderness. EXTREMITIES: No peripheral edema. ASSESSMENT AND PLAN: 1. Acute right upper quadrant pain. 2. LFT elevation, acute, transient. 3. Constipation, resolved. The MRCP report from this morning is still not yet transcribed. I look ed at the images myself, and I really do not see any evidence of any biliary abnormality, but jesus landry want to wait for the official report on this. I discussed with the patient that we still really not have any great explanation for her pain. It certainly seems out of proportional to all physica l and laboratory findings. The transient LFT elevation from a few days ago was suggestive of possib le biliary etiology, but will need to see what the MRCP shows. We decided to have her n.p.o. after midnight and anticipation of diagnostic EGD tomorrow morning. B y that time, we will trend LFTs and lipase tomorrow as well as see what the MRCP reports says. If t here does seem to be a biliary abnormality in the MRCP, will instead perform ERCP. I discussed this with the patient with detail and she agrees. We will have her on a regular diet tonight, but n.p.o . after midnight.
--- NOTE | 2017-07-02 17:26 | MRI ---
MRI ABDOMEN WITHOUT CONTRAST MRCP: History: Right upper quadrant pain, elevated LFTs. Status post cholecystectomy. Correlation is made with CT scan of 06-30-17. FINDINGS: A tiny right pleural effusion is seen. The liver, spleen, adrenal glands, and kidneys are normal. Th ere are mild atrophic changes and fatty infiltration of the pancreas. The patient is post cholecystectomy. Cystic duct remnant is present. No abnormal biliary dilatation is seen. The common duct measures 7 mm in diameter. No choledocholithiasis is identified. No free fluid or lymphadenopathy is seen. The bone marrow signal is normal. IMPRESSION: S/P cholecystectomy without biliary obstruction or choledocholithiasis. POS: [facility]
[2017-07-02] MEDS: Insulin Regular 300 UNITS/3 ML VIAL SC PRN (17:34)
--- NOTE | 2017-07-02 17:57 | PDOC.PN ---
- Subjective Encounter Start Date: 07/02/17 Encounter Start Time: 17:50 Subjective: f/u for abd pain with negative MRCP exam and CT abd showing large stool. -: Current plan for EGD in am. - Objective Resuscitation Status: Resuscitation Status FULL:Full Resuscitation Vital Signs & Weight: Vital Signs (12 hours) Temp Pulse Resp BP Pulse Ox 07/02/17 15:44 97.5 F L 84 16 123/67 95 07/02/17 14:32 62 16 07/02/17 12:00 76 16 129/69 95 07/02/17 10:53 74 16 92 L 07/02/17 08:00 97.2 F L 59 L 15 154/74 H 96 07/02/17 07:56 63 16 97 Weight Admit Weight 189 lb 3.2 oz Weight 185 lb 9.6 oz I&O: 07/01/17 07/02/17 07/03/17 06:59 06:59 06:59 Intake Total 2700 1750 Output Total 700 Balance 1999 1750 Result Diagrams: 07/01/17 04:05 07/01/17 04:05 Additional Labs: Accuchecks 07/02/17 07/02/17 07/01/17 11:18 06:05 20:44 POC Glucose 207 H 225 H 304 H Laboratory Tests 06/30/17 07/01/17 07/01/17 11:31 04:05 04:05 AST 213 H 8 7 ALT 115 H 84 H 83 H Radiology Reviewed by me: Yes (MR ABD - negative) EKG Reviewed by me: Yes (Tele - SR in 80's) Phys Exam - Physical Examination Constitutional: NAD HEENT: PERRLA, oral pharynx no lesions Neck: no JVD, supple few scattered exp wheezes Cardiovascular: RRR mild TTP in RUQ Gastrointestinal: soft, no distention, positive bowel sounds Musculoskeletal: no edema, pulses present Neurological: normal sensation, moves all 4 limbs Psychiatric: A&O x 3 Skin: normal turgor, cap refill <2 seconds Dx/Plan (1) Acute exacerbation of chronic obstructive pulmonary disease (COPD) Code(s): J44.1 - CHRONIC OBSTRUCTIVE PULMONARY DISEASE W (ACUTE) EXACERBATION Status: Deleted Comment: Continue bronchodilators, Add Dulera 2 puffs BID, continue Solumedrol (2) Acute respiratory failure with hypoxia Code(s): J96.01 - ACUTE RESPIRATORY FAILURE WITH HYPOXIA Status: Deleted Comment: See #1 above, resolving (3) CAD (coronary artery disease) Code(s): I25.10 - ATHSCL HEART DISEASE OF [place] CORONARY ARTERY W/O ANG PCTRS Status: Chronic Qualifiers: Coronary Disease-Associated Artery/Lesion type: bypass graft [place] vs. transplanted heart: [place] heart Associated angina: without angina Qualified Code(s): I25.810 - Atherosclerosis of coronary artery bypass graft(s) without angina pectoris Comment: cabg 2014, resume home meds, stable currently (4) DM type 2 (diabetes mellitus, type 2) Status: Chronic Qualifiers: Diabetes mellitus complication status: without complication Diabetes mellitus [facility] insulin use: without watermaster use Qualified Code(s): E11.9 - Type 2 diabetes mellitus without complications Comment: Resume Metformin 500mg BID, ISS, Levemir 18u SC BID, labile overall due to Solumedrol (5) HTN (hypertension) Code(s): I10 - ESSENTIAL (PRIMARY) HYPERTENSION Status: Chronic Qualifiers: Hypertension type: essential hypertension Qualified Code(s): I10 - Essential (primary) hypertension Comment: Stable (6) Abdominal pain Code(s): R10.9 - UNSPECIFIED ABDOMINAL PAIN Status: Acute Qualifiers: Abdominal location: right upper quadrant Qualified Code(s): R10.11 - Right upper quadrant pain Comment: Etiology unclear, MR abd negative, plan for EGD eval in am - Plan out of bed/ambulate, DVT proph w/SCDs Stable overall -: Continue clear liquids and NPO after MN -: Continue Solumedrol another 24h then convert to Prednisone -: EGD in am -: AM lab: CMP, CBC, Lipase * .
[2017-07-02] MEDS: Montelukast Sodium 10 mg Tablet PO SCH (20:49)
[2017-07-02] MEDS: Simvastatin 40 MG TAB PO SCH (20:49)
[2017-07-02] MEDS: HYDROcodone/Acetaminophen 5/325 mg Tablet PO PRN (20:49)
[2017-07-02] MEDS ORDERED: Nicotine 21 MG PATCH TD SCH (21:45)
[2017-07-02] MEDS: Cyclobenzaprine 10 MG TAB PO PRN (23:22)
[2017-07-03] MEDS: HYDROcodone/Acetaminophen 5/325 mg Tablet PO PRN ×4 (02:53→22:21)
[2017-07-03 05:12] LABS: #Lymphocytes 0.9 thou/uL (1.20-3.40); #Monocytes 0.6 thou/uL (0.11-0.59); #Neutrophils 14.1 thou/uL (1.40-6.50); %Basophils 0.3 % (0.0-1.0); %Eosinophils 0.3 % (0.0-10.0); %Lymphocytes 5.8 % (21.0-51.0); %Monocytes 3.7 % (0.0-10.0); Hematocrit 43.2 % (36.0-47.0); Mean Platelet Volume 8.5 fL (7.4-10.4); Red Blood Cell (RBC) Count 4.53 mill/uL (4.20-5.40); White Blood Cell (WBC) Count 15.7 thou/uL (4.8-10.8)
[2017-07-03 05:25] LABS: ALT (SGPT) 48 U/L (8-55); AST (SGOT) 3 U/L (5-34); Alkaline Phosphatase 61 U/L (40-150); Bilirubin, Direct 0.2 mg/dL (0.1-0.3); Bilirubin, Total 0.5 mg/dL (0.2-1.2); Lipase Less than 4 U/L (8-78); Protein, Total 5.1 g/dL (6.0-8.3)
[2017-07-03] MEDS: Budesonide 0.5 MG/2 ML NEB INH SCH ×2 (07:01→18:16)
[2017-07-03] MEDS: Mometasone/Formoterol 120 PUFF INHALER INH SCH ×2 (07:01→18:17)
[2017-07-03] MEDS ORDERED: Iothalamate Meglumine 60% 50 ML VIAL FS ONE (07:13)
[2017-07-03] MEDS: Cyclobenzaprine 10 MG TAB PO PRN ×2 (07:52→21:21)
[2017-07-03] MEDS: Benzonatate 100 MG CAP PO SCH ×3 (08:25→21:06)
[2017-07-03] MEDS: Aspirin 81 mg Enteric Coated Tablet PO SCH (08:26)
[2017-07-03] MEDS: Gabapentin 300 MG CAP PO SCH ×2 (08:26→21:06)
[2017-07-03] MEDS: Senokot S 8.6-50 MG TAB PO SCH ×2 (08:26→21:06)
[2017-07-03] MEDS: Clopidogrel Bisulfate 75 MG TAB PO SCH (08:26)
[2017-07-03] MEDS ORDERED: Midazolam HCl 2 mg/2 ml Vial ONE (08:54)
[2017-07-03] MEDS ORDERED: Propofol 200 MG/20 ML VIAL ONE (09:14)
[2017-07-03] MEDS ORDERED: Lidocaine 1% PF 5 ML VIAL ONE (09:14)
[2017-07-03] MEDS ORDERED: HYDROmorphone 2 MG/ML VIAL SLOW IVP PRN (09:39)
[2017-07-03] MEDS ORDERED: Ondansetron HCl/PF 4 MG/2 ML Vial IVP PRN (09:39)
[2017-07-03] MEDS ORDERED: Promethazine HCl 25 MG/ML VIAL SLOW IVP PRN (09:39)
[2017-07-03] MEDS ORDERED: Morphine Sulfate 2 MG/ML SYRINGE SLOW IVP PRN (09:39)
--- NOTE | 2017-07-03 09:55 | OP ---
GI ENDOSCOPY NOTE SURGEON: Earl Mon M.D. [employer] SURGEON: None. PROCEDURE: Esophagogastroduodenoscopy with biopsies. INDICATION: Right upper quadrant pain. MEDICATIONS: See anesthesia record. FINDINGS: After discussion of the risks, benefits and alternatives of the procedure, informed conse nt was obtained and witnessed. Pre-endoscopic cardiopulmonary examination was satisfactory. Timeou t was performed before sedation was achieved. Sedation was achieved with anesthesia assistance in [facility] endoscopy unit. A Pentax adult upper endoscope was placed into the oropharynx and passed through the cricopharyngeus under direct visualization. The esophageal mucosa appeared friable and edemato us with a large amount of whitish brownish plaques throughout the esophagus. This had an appearance highly suggestive of Ruchi esophagus. Multiple biopsies were taken from the esophagus for histol ogy. There were no large esophageal ulcerations. The endoscope was advanced through the GE junctio n and into the stomach. Forward and retroflexed views of the entire gastric mucosa were obtained. In the gastric antrum, there is moderate erythema and few shallow erosions. Biopsies were obtained from the gastric antrum and body to rule out H. pylori infection. The endoscope was passed through a normal appearing pylorus and into the first and second portions of the duodenum which appeared nor mal. The upper endoscope was then completely withdrawn and the patient allowed to recover. The pat ient tolerated the procedure well. There were no immediate post-procedure complications. IMPRESSION: 1. Esophagitis with plaques scattered throughout the entire esophagus, suspicious for Ruchi esoph agitis, biopsied. 2. Antral gastritis with a few small erosions, biopsied. 3. Normal duodenum. RECOMMENDATIONS: 1. We will go ahead and start her on fluconazole 200 mg IV daily while awaiting biopsy results. 2. Minimize steroids if possible. 3. We will check for HIV with morning labs. 4. Continue PPI. 5. Await pathology results. 6. Diet: As tolerated.
[2017-07-03] MEDS: guaiFENesin ER 600 MG TAB PO SCH ×2 (10:38→21:06)
[2017-07-03] MEDS: Calcium Carbonate + Vit D 1 TAB PO SCH ×2 (10:38→16:59)
[2017-07-03] MEDS: Insulin Detemir 100 UNITS/ML 18 UNITS in Pre-Filled Syringe 1 EACH SC SCH (10:38)
[2017-07-03] MEDS: Polyethylene Glycol 3350 17 GM Packet PO SCH (10:39)
--- NOTE | 2017-07-03 11:20 | PRG ---
DATE OF SERVICE: 07/03/2017 Ms. Grijalva underwent EGD this morning I am told. She was found to have a plaques which is suspicious for Ruchi. This is not surprising given that she is a diabetic and has been on steroids for quite some time. Her MRI of her abdomen did not show any biliary dilation, common duct was 7 mm. I do not feel that the Ruchi explains her right upper quadrant pain, although it definitely needs to be treated. Her lungs are clear today. We will continue to gradually decrease her steroids and continue with the nebulized treatments.
[2017-07-03] MEDS: Fluconazole In NaCl,Iso-Osm 200 MG in Premix Bag 1 BAG IVPB SCH ×2 (11:28)
[2017-07-03] MEDS: Insulin Regular 300 UNITS/3 ML VIAL SC PRN ×2 (12:16→22:20)
[2017-07-03] MEDS ORDERED: Ondansetron ODT 4 MG TAB PO PRN (12:58)
[2017-07-03] MEDS: Ondansetron HCl/PF 4 MG/2 ML Vial SLOW IVP PRN ×2 (13:13→21:07)
[2017-07-03] MEDS: diphenhydrAMINE HCl 25 MG CAP PO PRN ×2 (13:13→21:13)
--- NOTE | 2017-07-03 14:24 | PDOC.PN ---
- Subjective Encounter Start Date: 07/03/17 Encounter Start Time: 14:15 Subjective: f/u s/p EGD showing esophagitis likely candidal on Diflucan IV. Some abd -: cramping but no diarrhea or fever. - Objective Resuscitation Status: Resuscitation Status FULL:Full Resuscitation MAR Reviewed: Yes Vital Signs & Weight: Vital Signs (12 hours) Temp Pulse Resp BP BP Pulse Ox 07/03/17 14:04 89 20 94 L 07/03/17 12:00 97.9 F 61 16 112/70 96 07/03/17 08:00 97.5 F L 79 16 139/74 95 07/03/17 06:57 85 18 95 07/03/17 05:11 97.8 F 63 16 147/77 H 96 Weight Admit Weight 189 lb 3.2 oz Weight 187 lb I&O: 07/02/17 07/03/17 07/04/17 06:59 06:59 06:59 Intake Total 1750 1020 Balance 1750 1020 Result Diagrams: 07/03/17 04:32 07/01/17 04:05 Additional Labs: Accuchecks 07/03/17 07/03/17 07/02/17 11:55 06:09 20:47 POC Glucose 266 H 226 H 246 H 07/02/17 16:46 POC Glucose 391 H Laboratory Tests 06/30/17 07/01/17 07/01/17 11:31 04:05 04:05 AST 213 H 8 7 ALT 115 H 84 H 83 H Radiology Reviewed by me: Yes (EGD - candidal esophagitis) EKG Reviewed by me: Yes (Tele - SR) Phys Exam - Physical Examination Constitutional: NAD HEENT: PERRLA Neck: no JVD, supple Respiratory: no wheezing, clear to auscultation bilateral Cardiovascular: RRR Gastrointestinal: soft, non-tender, no distention, positive bowel sounds Musculoskeletal: no edema, pulses present Neurological: normal sensation, moves all 4 limbs Psychiatric: A&O x 3 Skin: normal turgor, cap refill <2 seconds Dx/Plan (1) Acute exacerbation of chronic obstructive pulmonary disease (COPD) Code(s): J44.1 - CHRONIC OBSTRUCTIVE PULMONARY DISEASE W (ACUTE) EXACERBATION Status: Deleted Comment: Continue bronchodilators, Add Dulera 2 puffs BID, continue Solumedrol likely transition to Prednisone in am (2) Acute respiratory failure with hypoxia Code(s): J96.01 - ACUTE RESPIRATORY FAILURE WITH HYPOXIA Status: Deleted Comment: See #1 above, resolving (3) CAD (coronary artery disease) Code(s): I25.10 - ATHSCL HEART DISEASE OF [place] CORONARY ARTERY W/O ANG PCTRS Status: Chronic Qualifiers: Coronary Disease-Associated Artery/Lesion type: bypass graft [place] vs. transplanted heart: [place] heart Associated angina: without angina Qualified Code(s): I25.810 - Atherosclerosis of coronary artery bypass graft(s) without angina pectoris Comment: cabg 2014, resume home meds, stable currently (4) DM type 2 (diabetes mellitus, type 2) Status: Chronic Qualifiers: Diabetes mellitus complication status: without complication Diabetes mellitus retirement insulin use: without apple packing header use Qualified Code(s): E11.9 - Type 2 diabetes mellitus without complications Comment: Resume Metformin 500mg BID, ISS, increase Levemir 25u SC BID, labile overall due to Solumedrol (5) HTN (hypertension) Code(s): I10 - ESSENTIAL (PRIMARY) HYPERTENSION Status: Chronic Qualifiers: Hypertension type: essential hypertension Qualified Code(s): I10 - Essential (primary) hypertension Comment: Stable (6) Abdominal pain Code(s): R10.9 - UNSPECIFIED ABDOMINAL PAIN Status: Acute Qualifiers: Abdominal location: right upper quadrant Qualified Code(s): R10.11 - Right upper quadrant pain Comment: Etiology unclear, MR abd negative (7) Candidal esophagitis Code(s): B37.81 - CANDIDAL ESOPHAGITIS Status: Acute Comment: Likely due to abx and steroid exposure, Diflucan 200mg IV daily, convert to po Diflucan for home - Plan respiratory therapy, incentive spirometry, out of bed/ambulate Stable overall -: Continue general pulmonary supportive measures -: Diflucan 200mg IV daily -: Convert to Prednisone in am -: Increase Levemir 25u SC BID * AM lab: HIV
[2017-07-03] MEDS: Acetaminophen 325 MG TAB PO PRN (18:30)
[2017-07-03] MEDS: Montelukast Sodium 10 mg Tablet PO SCH (21:06)
[2017-07-03] MEDS: Nicotine 21 MG PATCH TD SCH (21:08)
[2017-07-03] MEDS: Insulin Detemir 100 UNITS/ML 25 UNITS in Pre-Filled Syringe 1 EACH SC SCH (22:20)
[2017-07-03] MEDS: guaiFENesin/Codeine Phosphate 200 mg/20 mg 10 ml UD Cup PO PRN (23:38)
[2017-07-04] MEDS: HYDROcodone/Acetaminophen 5/325 mg Tablet PO PRN ×4 (04:25→23:21)
[2017-07-04] MEDS: diphenhydrAMINE HCl 25 MG CAP PO PRN (05:44)
[2017-07-04] MEDS: Budesonide 0.5 MG/2 ML NEB INH SCH ×2 (06:52→18:32)
[2017-07-04] MEDS: Mometasone/Formoterol 120 PUFF INHALER INH SCH ×2 (06:53→18:49)
[2017-07-04] MEDS: Calcium Carbonate + Vit D 1 TAB PO SCH ×2 (09:46→17:04)
[2017-07-04] MEDS: Senokot S 8.6-50 MG TAB PO SCH ×2 (09:46→21:13)
[2017-07-04] MEDS: Gabapentin 300 MG CAP PO SCH ×2 (09:46→21:14)
[2017-07-04] MEDS: Benzonatate 100 MG CAP PO SCH ×3 (09:46→21:14)
[2017-07-04] MEDS: Aspirin 81 mg Enteric Coated Tablet PO SCH (09:46)
[2017-07-04] MEDS: guaiFENesin ER 600 MG TAB PO SCH ×2 (09:48→21:14)
[2017-07-04] MEDS: Clopidogrel Bisulfate 75 MG TAB PO SCH (09:48)
[2017-07-04] MEDS: Insulin Detemir 100 UNITS/ML 25 UNITS in Pre-Filled Syringe 1 EACH SC SCH ×2 (09:49→21:15)
[2017-07-04] MEDS: Polyethylene Glycol 3350 17 GM Packet PO SCH (09:49)
--- NOTE | 2017-07-04 11:23 | PDOC.PN ---
- Subjective Encounter Start Date: 07/04/17 Encounter Start Time: 11:15 Subjective: f/u for abd pain noted with candidal esophagitis/gastritis on IV Diflucan. -: c/o abd pain but tolerated breakfast. No fever. Remains SOB this am -: without productive cough. - Objective Resuscitation Status: Resuscitation Status FULL:Full Resuscitation MAR Reviewed: Yes Vital Signs & Weight: Vital Signs (12 hours) Temp Pulse Resp BP Pulse Ox 07/04/17 10:21 75 18 94 L 07/04/17 07:45 98.1 F 61 12 127/65 92 L 07/04/17 07:35 98.1 F 61 12 07/04/17 06:50 69 18 94 L 07/04/17 03:50 99.0 F 64 18 139/64 94 L 07/04/17 01:56 79 18 92 L 07/03/17 23:40 98.7 F 74 18 136/73 97 Weight Admit Weight 189 lb 3.2 oz Weight 185 lb 9.6 oz I&O: 07/03/17 07/04/17 07/05/17 06:59 06:59 06:59 Intake Total 1020 1760 Balance 1020 1760 Result Diagrams: 07/03/17 04:32 07/01/17 04:05 Additional Labs: Accuchecks 07/04/17 07/03/17 07/03/17 06:27 21:31 17:23 POC Glucose 210 H 398 H 180 H 07/03/17 11:55 POC Glucose 266 H EKG Reviewed by me: Yes (Tele - Sinus bradycardia in 50's) Phys Exam - Physical Examination Constitutional: NAD HEENT: PERRLA, oral pharynx no lesions Neck: no JVD, supple diminished in bases with exp wheezes Cardiovascular: RRR Gastrointestinal: soft, non-tender, no distention, positive bowel sounds Musculoskeletal: no edema, pulses present Neurological: normal sensation, moves all 4 limbs Psychiatric: A&O x 3 Skin: normal turgor, cap refill <2 seconds Dx/Plan (1) Acute exacerbation of chronic obstructive pulmonary disease (COPD) Code(s): J44.1 - CHRONIC OBSTRUCTIVE PULMONARY DISEASE W (ACUTE) EXACERBATION Status: Deleted Comment: Continue bronchodilators, Add Dulera 2 puffs BID, continue Soluemedrol 40mg IV q8h, add Spiriva Handihaler 1 inh daily, OOB and ambulate (2) Acute respiratory failure with hypoxia Code(s): J96.01 - ACUTE RESPIRATORY FAILURE WITH HYPOXIA Status: Deleted Comment: See #1 above, resolved (3) CAD (coronary artery disease) Code(s): I25.10 - ATHSCL HEART DISEASE OF [place] CORONARY ARTERY W/O ANG PCTRS Status: Chronic Qualifiers: Coronary Disease-Associated Artery/Lesion type: bypass graft [place] vs. transplanted heart: [place] heart Associated angina: without angina Qualified Code(s): I25.810 - Atherosclerosis of coronary artery bypass graft(s) without angina pectoris Comment: cabg 2014, resume home meds, stable currently (4) DM type 2 (diabetes mellitus, type 2) Status: Chronic Qualifiers: Diabetes mellitus complication status: without complication Diabetes mellitus adjunct faculty for medical terminology insulin use: without adjunct faculty for medical terminology use Qualified Code(s): E11.9 - Type 2 diabetes mellitus without complications Comment: Resume Metformin 500mg BID, ISS, increase Levemir 25u SC BID, labile overall due to steroids (5) HTN (hypertension) Code(s): I10 - ESSENTIAL (PRIMARY) HYPERTENSION Status: Chronic Qualifiers: Hypertension type: essential hypertension Qualified Code(s): I10 - Essential (primary) hypertension Comment: Stable (6) Abdominal pain Code(s): R10.9 - UNSPECIFIED ABDOMINAL PAIN Status: Acute Qualifiers: Abdominal location: right upper quadrant Qualified Code(s): R10.11 - Right upper quadrant pain Comment: Suspected due to candidal esophagitis/gastritis (7) Candidal esophagitis Code(s): B37.81 - CANDIDAL ESOPHAGITIS Status: Acute Comment: Likely due to abx and steroid exposure, Diflucan 200mg IV daily, convert to po Diflucan for home - Plan PT/OT, director social welfare, out of bed/ambulate, DVT proph w/SCDs Stable overall -: Continue Solumedrol -: Add Spiriva Handihaler daily -: Continue Diflucan 200mg IV daily -: Change Protonix 40mg BID * f/u esophageal and gastric biopsies * Slow improvement
[2017-07-04] MEDS: Fluconazole In NaCl,Iso-Osm 200 MG in Premix Bag 1 BAG IVPB SCH ×2 (11:50)
[2017-07-04] MEDS: Cyclobenzaprine 10 MG TAB PO PRN ×2 (11:56→21:14)
[2017-07-04] MEDS ORDERED: Spiriva 18 MCG CAP (Box of 5 Caps) INH SCH (12:00)
[2017-07-04] MEDS ORDERED: predniSONE 20 MG TAB PO SCH (12:00)
[2017-07-04] MEDS: Insulin Regular 300 UNITS/3 ML VIAL SC PRN ×3 (12:11→21:15)
[2017-07-04] MEDS: guaiFENesin/Codeine Phosphate 200 mg/20 mg 10 ml UD Cup PO PRN ×2 (13:43→23:21)
--- NOTE | 2017-07-04 16:18 | PRG ---
DATE OF SERVICE: 07/04/2017 SUBJECTIVE: Ms. Randa Grijalva is awaken from sleep. She says she is still having abdominal mike n. Vital signs have been stable. Her lungs are remarkable only for end expiratory wheezes. Ever s lian, I have never seen in the office. I am not sure what her baseline exam is. I do feel that she started to like being in the hospital. I started talking to her about discharge and she informed m e that she was not ready to go. She does not have anything really truthfully that requires much mor e of the hospitalization and she needs to start getting out of bed. Everytime I walk in the room, s he is asleep. Probably would not be treating her abdominal discomfort with hydrocodone for much longer or any othe r opiate. I think discharge home is reasonable as long as she got a nebulizer at the house. I am n ot optimistic. She will comply with follow up, but I will offer it.
--- NOTE | 2017-07-04 17:14 | PRG ---
DATE OF SERVICE: 07/04/2017 SUBJECTIVE: Ms. Grijalva says her abdominal discomfort persists about the same. She feels a bit o f nausea, but she has not had any vomiting for a while, she tolerated her breakfast and lunch just f ine. She feels her breathing is better. PHYSICAL EXAMINATION: VITAL SIGNS: Temperature 98.4, pulse 55, blood pressure 125/69, 95% oxygen saturation on room air. GENERAL: No acute distress. HEART: Regular rate and rhythm. LUNGS: Clear to auscultation bilaterally. ABDOMEN: Soft, bowel sounds present. Mild tenderness to palpation in the epigastrium and right upp er quadrant. No guarding or rebound tenderness. EXTREMITIES: No peripheral edema. LABORATORY STUDIES: Glucose 323. HIV pending. Esophageal biopsies came back confirming Ruchi es ophagitis. Gastric biopsies came back as chronic gastritis, negative for H. pylori. ASSESSMENT AND PLAN: 1. Right upper quadrant abdominal pain. 2. Nausea. 3. Ruchi esophagitis. 4. Erosive gastritis. Continue fluconazole 200 mg daily. We would keep her on IV form while inpat ient, then transition her to 200 mg p.o. daily on hospital discharge. We would go ahead and treat f or 21 days in her case. Also, continue PPI b.i.d. dosing for now. I am not sure to what extent [place] esophagitis is contributing to her abdominal discomfort, but I certainly have had other patient s with great improvement in abdominal pain after treatment of Ruchi esophagitis, and workup really is otherwise negative including repeat LFTs, MRCP, etc.
[2017-07-04] MEDS: Montelukast Sodium 10 mg Tablet PO SCH (21:13)
[2017-07-04] MEDS: Acetaminophen 325 MG TAB PO PRN (21:14)
[2017-07-04] MEDS: Nicotine 21 MG PATCH TD SCH (21:15)
[2017-07-05] MEDS: Cyclobenzaprine 10 MG TAB PO PRN (02:32)
[2017-07-05] MEDS: Acetaminophen 325 MG TAB PO PRN (04:12)
[2017-07-05] MEDS: HYDROcodone/Acetaminophen 5/325 mg Tablet PO PRN ×3 (05:48→21:58)
[2017-07-05] MEDS: Budesonide 0.5 MG/2 ML NEB INH SCH ×2 (06:28→18:12)
[2017-07-05] MEDS: Mometasone/Formoterol 120 PUFF INHALER INH SCH ×2 (06:40→18:15)
[2017-07-05] MEDS: guaiFENesin ER 600 MG TAB PO SCH ×2 (09:45→21:56)
[2017-07-05] MEDS: Insulin Detemir 100 UNITS/ML 25 UNITS in Pre-Filled Syringe 1 EACH SC SCH ×2 (09:45→21:57)
[2017-07-05] MEDS: Polyethylene Glycol 3350 17 GM Packet PO SCH (09:45)
[2017-07-05] MEDS: Aspirin 81 mg Enteric Coated Tablet PO SCH (09:45)
[2017-07-05] MEDS: predniSONE 20 MG TAB PO SCH (09:46)
[2017-07-05] MEDS: Calcium Carbonate + Vit D 1 TAB PO SCH ×2 (09:46→16:34)
[2017-07-05] MEDS: Benzonatate 100 MG CAP PO SCH ×3 (09:46→21:56)
[2017-07-05] MEDS: Clopidogrel Bisulfate 75 MG TAB PO SCH (09:46)
[2017-07-05] MEDS: Gabapentin 300 MG CAP PO SCH ×2 (09:46→21:56)
[2017-07-05] MEDS: Senokot S 8.6-50 MG TAB PO SCH ×2 (09:47→21:57)
--- NOTE | 2017-07-05 09:58 | PRG ---
DATE OF SERVICE: 07/05/2017 SUBJECTIVE: Ms. Grijalva continues to complain of abdominal pain, unchanged. She feels [place] was not enough. No nausea or vomiting. She is tolerating her diet well. OBJECTIVE: VITAL SIGNS: Temperature 98.0, pulse 57, blood pressure 124/71, 97% oxygen saturation on room air. GENERAL: No acute distress. HEART: Regular rate and rhythm. LUNGS: Clear to auscultation bilaterally. ABDOMEN: Soft, bowel sounds present, tenderness to palpation in the epigastrium and right upper [place] drant, but no guarding or rebound tenderness. EXTREMITIES: No peripheral edema. ASSESSMENT AND PLAN: 1. Right upper quadrant abdominal pain. 2. Ruchi esophagitis. 3. Erosive gastritis. Continue fluconazole 200 mg daily, transition to oral dosing on hospital discharge and treat for 21 days. Continue the PPI b.i.d. for now. I think her opioid tolerance is likely playing into her sym ptoms here. No further GI diagnostics are planned at this time.
[2017-07-05] MEDS: Fluconazole In NaCl,Iso-Osm 200 MG in Premix Bag 1 BAG IVPB SCH ×2 (11:56)
[2017-07-05] MEDS: Insulin Regular 300 UNITS/3 ML VIAL SC PRN ×3 (12:14→21:59)
--- NOTE | 2017-07-05 13:26 | PDOC.PN ---
- Subjective Encounter Start Date: 07/05/17 Encounter Start Time: 13:20 Patient seen at bedside. No overnight events, still complains of pain in her RUQ. No other complaints. - Objective Resuscitation Status: Resuscitation Status FULL:Full Resuscitation MAR Reviewed: Yes Vital Signs & Weight: Vital Signs (12 hours) Temp Pulse Resp BP Pulse Ox 07/05/17 12:20 98.5 F 61 14 138/78 97 07/05/17 10:27 61 16 96 07/05/17 09:40 98.5 F 61 16 169/82 H 97 07/05/17 06:22 57 L 16 97 07/05/17 04:05 95 07/05/17 04:00 98.0 F 69 18 124/71 95 Weight Admit Weight 189 lb 3.2 oz Weight 184 lb 4.8 oz I&O: 07/04/17 07/05/17 07/06/17 06:59 06:59 06:59 Intake Total 1760 720 Balance 1760 720 Result Diagrams: 07/03/17 04:32 07/01/17 04:05 Additional Labs: Accuchecks 07/05/17 07/05/17 07/04/17 11:40 06:08 20:50 POC Glucose 371 H 225 H 353 H 07/04/17 17:09 POC Glucose 235 H Phys Exam - Physical Examination Constitutional: NAD HEENT: moist MMs Neck: no JVD Mild expiratory wheezing Cardiovascular: RRR Gastrointestinal: soft Tenderness Musculoskeletal: pulses present Neurological: moves all 4 limbs Psychiatric: A&O x 3 Dx/Plan (1) Abdominal pain Code(s): R10.9 - UNSPECIFIED ABDOMINAL PAIN Status: Acute Qualifiers: Abdominal location: right upper quadrant Qualified Code(s): R10.11 - Right upper quadrant pain Comment: Suspected due to candidal esophagitis/gastritis (2) Asthma exacerbation Code(s): J45.901 - UNSPECIFIED ASTHMA WITH (ACUTE) EXACERBATION Status: Resolved Comment: ?COPD Exacerbation, ?CAP (3) Candidal esophagitis Code(s): B37.81 - CANDIDAL ESOPHAGITIS Status: Acute Comment: Likely due to abx and steroid exposure, Diflucan 200mg IV daily, convert to po Diflucan upon discharge (4) Dyslipidemia Code(s): E78.5 - HYPERLIPIDEMIA, UNSPECIFIED Status: Chronic (5) HTN (hypertension) Code(s): I10 - ESSENTIAL (PRIMARY) HYPERTENSION Status: Chronic Qualifiers: Hypertension type: essential hypertension Qualified Code(s): I10 - Essential (primary) hypertension Comment: Stable - Plan cont current plan of care, continue antibiotics, social media campaign manager, respiratory therapy, DVT proph w/lovenox * D/C IV steroids and convert to PO. Would recommend short duration due to esophagitis * Continue with Diflucan * Duonebs/Pulmicort * Will trial Zanaflex. Would recommend to attempt and wean off of narcotics * OOB/Ambulate
[2017-07-05] MEDS: tiZANidine HCl 4 MG TAB PO SCH ×2 (16:33→21:58)
[2017-07-05] MEDS: Montelukast Sodium 10 mg Tablet PO SCH (21:56)
[2017-07-05] MEDS: Nicotine 21 MG PATCH TD SCH (21:57)
[2017-07-05] MEDS: guaiFENesin/Codeine Phosphate 200 mg/20 mg 10 ml UD Cup PO PRN (23:23)
[2017-07-06] MEDS: HYDROcodone/Acetaminophen 5/325 mg Tablet PO PRN ×2 (04:13→11:18)
[2017-07-06] MEDS: Budesonide 0.5 MG/2 ML NEB INH SCH (08:22)
[2017-07-06] MEDS: Mometasone/Formoterol 120 PUFF INHALER INH SCH (08:23)
[2017-07-06] MEDS: Insulin Detemir 100 UNITS/ML 25 UNITS in Pre-Filled Syringe 1 EACH SC SCH (09:36)
[2017-07-06] MEDS: guaiFENesin ER 600 MG TAB PO SCH (09:37)
[2017-07-06] MEDS: predniSONE 20 MG TAB PO SCH (09:37)
[2017-07-06] MEDS: Aspirin 81 mg Enteric Coated Tablet PO SCH (09:37)
[2017-07-06] MEDS: Polyethylene Glycol 3350 17 GM Packet PO SCH (09:37)
[2017-07-06] MEDS: Clopidogrel Bisulfate 75 MG TAB PO SCH (09:37)
[2017-07-06] MEDS: tiZANidine HCl 4 MG TAB PO SCH ×2 (09:37→16:56)
[2017-07-06] MEDS: Benzonatate 100 MG CAP PO SCH ×2 (09:37→16:56)
[2017-07-06] MEDS: Gabapentin 300 MG CAP PO SCH (09:38)
[2017-07-06] MEDS: Senokot S 8.6-50 MG TAB PO SCH (09:38)
[2017-07-06] MEDS: Calcium Carbonate + Vit D 1 TAB PO SCH ×2 (09:38→16:56)
[2017-07-06] MEDS: Fluconazole In NaCl,Iso-Osm 200 MG in Premix Bag 1 BAG IVPB SCH ×2 (11:18)
[2017-07-06] MEDS: Insulin Regular 300 UNITS/3 ML VIAL SC PRN (12:29)
[2017-07-06] MEDS ORDERED: traMADol HCl 50 MG TAB PO PRN (12:30)
[2017-07-06 12:53] VITALS: BMI 31.8
[2017-07-06] MEDS ORDERED: Iopamidol 370 76% 100 ML VIAL ONE (14:30)
--- NOTE | 2017-07-06 14:37 | CT ---
CTA OF THE ABDOMEN AND PELVIS WITH CONTRAST: Date: 07/06/17 HISTORY: Epigastric pain with nausea. Patient has an esophageal infection. Patient had colon resection in Dec. TECHNIQUE: Multiple contiguous axial images were obtained in a CTA of the abdomen and pelvis with contrast. 3D sagittal and coronal MIP reformats were performed. FINDINGS: The patient is status post cholecystectomy. The liver, kidneys, adrenal glands, spleen, and pancreas are unremarkable. No free air, free fluid, or stranding changes are seen in the abdomen or pelvis. There are a few scattered diverticula in the remaining colon. The small bowel is unremarkable. Calci fications are seen in the uterus. The reproductive organs are otherwise unremarkable. No abdominal o r pelvic lymphadenopathy seen. The aorta is normal in caliber without evidence of dissection or aneurysmal dilatation. Atherosclero tic calcifications are seen in the infrarenal aorta. The celiac trunk, SMA, and JUANI are patent. Ther e is a single renal artery on each side with mild atherosclerotic disease at the ostium of the right renal artery. The abdominal wall soft tissues are unremarkable. Degenerative changes are seen in th e spine. A calcified granuloma is seen in the right lung base. IMPRESSION: 1. No evidence of aortic dissection or aneurysmal dilatation. 2. Diverticulosis. 3. Uterine fibroid that is calcified. POS: [facility]
--- NOTE | 2017-07-06 16:41 | PRG ---
DATE OF SERVICE: 07/06/2017 SUBJECTIVE: Randa Grijalva had a CT angiogram ordered today. Atherosclerotic calcification is seen in the aorta. The celiac trunk, SMA and JUANI were patent. Sin gle renal artery on each side with mild disease was seen. No other abnormalities other than calcifi ed fibroids were seen. OBJECTIVE: LUNGS: Remarkable only for end expiratory wheezes. VITAL SIGNS: Stable. IMPRESSION: 1. Chronic obstructive pulmonary disease exacerbation, improved. 2. Chronic abdominal pain of unclear etiology. There is no evidence of obstructive mesenteric dise ase on today's CT. 3. Thrush secondary to diabetes and steroid use. I have explained to her I do not know what her tod avendano exam is. She could have been wheezing for the last 10 years. She has never been seen in the office. I do think she is stable from a pulmonary standpoint to discharge home. Her abdominal mike n issues will be followed by Gastroenterology.
[2017-07-06 17:16] VITALS: BP 132/68; TEMP 97.9
--- NOTE | 2017-07-07 02:38 | DIS ---
DATE OF ADMISSION: 06/20/2017 DATE OF DISCHARGE: 07/06/2017 DIAGNOSES AT THE TIME OF ADMISSION: 1. Chronic obstructive pulmonary disease/asthma exacerbation. 2. Suspected community-acquired pneumonia. 3. Diabetes mellitus type 2. 4. Hypertension. 5. Coronary artery disease, status post myocardial infarction and coronary artery bypass grafting. 6. Hypertension. 7. Chronic kidney disease stage II. 8. Former smoker. 9. Dyslipidemia. 10. Obesity with BMI of 32.5. DIAGNOSES AT THE TIME OF DISCHARGE: 1. Acute asthma exacerbation, resolved. 2. Candidal esophagitis. 3. Abdominal pain of unclear etiology with negative workup. 4. Dyslipidemia. 5. Hypertension. 6. Coronary artery disease status post coronary artery bypass graft. 7. History of myocardial infarction in the past. 8. Diabetes mellitus type 2. 9. Chronic kidney disease stage II. 10. Obesity with BMI of 32.5. 11. History of large tubulovillous adenoma of the cecum. CONSULTATIONS: Dr. Vern Kim and Dr. Jose J River for pulmonary services, Dr. Earl Mon for ga strointestinal services. IMAGES: 1. Chest x-ray, no acute cardiopulmonary process. 2. Echocardiogram showed normal left ventricular size. Ejection fraction of the left ventricle est imated at 50-55%; tip of apex and distal inferior wall akinetic and thin compatible with previous in farct; grade I diastolic dysfunction; mitral regurgitation, mild; normal aortic valve; tricuspid jonny ve regurgitation, trace. 3. CT of the abdomen showed large amount of stool in the colon. 4. CT angiogram of the pelvis and abdomen showed no evidence of aortic dissection or aneurysmal dil atation, diverticulosis and uterine fibroid that is calcified. HOSPITAL COURSE: The patient is a 52-year-old female with a previous history of COPD, kei nary artery disease status post CABG, diabetes mellitus type 2, hypertension who presented to the em ergency room with shortness of breath of 2 days' duration. Apparently, she had a flu shot and she s tarted feeling short of breath soon after that, which got worse the next day and she decided to come to the emergency room for further evaluation. She denied any fever; however, she had chills. She felt generally weak and fatigued and she had some cough, which was nonproductive. She denied any si ck contacts. She has a history of asthma/COPD and uses inhaler at home. She had a similar episode of shortness of breath in 11/2016 and she was admitted to [facility] in [place]. In the emergency room, her initial vital signs showed temperature of 98.1, respirations of 22, pulse was 94 , blood pressure 130/92 with O2 saturation of 98% on 2 liters by nasal cannula. She was in moderate respiratory distress in the emergency room. Her chest x-ray came back negative for any infiltrates . EKG shows normal sinus rhythm with nonspecific ST-T wave changes in the lateral leads. She recei radha DuoNeb, Tylenol, 2 g of magnesium and 125 mg of Solu-Medrol in the emergency room. Her white co unt was 6.6 with hemoglobin of 16.6, hematocrit of 50, platelet count 204. test was negat clyde. Sodium was 142, potassium 4, chloride 104, bicarbonate 27, BUN 7, creatinine 0.77. Cardiac en zymes were within normal limits and influenza testing was negative. The patient was admitted to tel emetry unit for further monitoring and treatment. She continues on her O2. She was placed on nebul izers. She was continued on steroids. Pulmonary service was consulted and Dr. Kim evaluated he r. The patient was started on insulin sliding scale and she was resumed on selected home medication s. She was continued on O2, on intravenous steroids, IV antibiotics, aggressive nebulization therap y and smoking cessation has been advised. He agreed with the current regimen. There was not any ev idence of pneumonia. She was switched to p.o. antimicrobials. She required high dose of steroids I V until her wheezing improved significantly. One of her p.o. antibiotics was stopped and she was co ntinued on the other one. Her pulmonary status was improving when she developed quite acutely right upper quadrant of the abdomen pain. The CT of the abdomen was done stat, which showed just large a mount of stool in the colon. Apparently, she has a history of chronic right upper quadrant pain and she was diagnosed with precancerous polyp just a few months ago and had part of her colon removed b ramo [place]. The patient was placed on opioids to control her abdominal pain. GI was consulted. The patient was seen by Dr. Mon who recommended since her CT of the abdomen showed significant amou nt of stool in the colon and she was placed on GoLYTELY. Her white count was up to 24.6. Urinalysi s was negative. Her LFTs were up. ALT was up to 115. Subsequently, the patient underwent MRI of t he abdomen without contrast and MRCP was done. Impression was status post cholecystectomy without b iliary obstruction or choledocholithiasis. Then, she underwent EGD with biopsies, which showed esop hagitis with plaques scattered through the entire esophagus suspicious for Ruchi esophagitis, whic h was biopsied. Also, there was some antral gastritis with few small erosions, which was biopsied t oo and she had a normal duodenum. She was started on IV fluconazole 200 mg and her steroids were gr adually tapered. She was continued on PPI and HIV testing was sent out. She gradually improved, al though her pain in the abdomen was the main problem. At this point, her pulmonary function status i mproved. She was able to eat and she had bowel movements daily while she was continued on her pulmo nary regimen with DuoNeb and inhaled steroids. Today, she underwent CT angiogram to make sure that she does not have any ischemia and there is no dissection of the aorta or aneurysmal dilatation. Th e CT angiogram showed diverticulosis and uterine fibroid that was calcified. PHYSICAL EXAMINATION: ABDOMEN: Today revealed quite soft abdomen, nondistended with some mild pain in the right epigastri c area. Bowel sounds are present. LUNGS: Showing mild wheezing at the bases. HEART: S1, S2 normal. No S3, no S4. She is able to ambulate to the bathroom, she tolerates food and she has bowel movements daily. The case was discussed with Dr. Mon and Dr. River, who recommend discharge home. She is discharged on a diabetic diet. ACTIVITIES: As tolerated. MEDICATIONS AT THE TIME OF DISCHARGE: She is placed on Levemir 25 units twice a day. She will cont inue DuoNeb 3 mL 4 times a day. She will have a prescription for fluconazole 200 mg tablets 1 table t every day for the next 20 days. She will have a prescription for Symbicort 160/4.5 inhalations 2 puffs twice a day, also Tylenol #3 one tablet every 4-6 hours p.r.n. as needed and prednisone 20 mg tablets, she will take 1 tablet twice a day for the next 5 days, then she will be switched to 1.5 ta blets daily x5 days, then 1 tablet daily x5 days, then half a tablet daily x5 days. Also, she will continue her MiraLax at home, aspirin 81 mg once a day, also gabapentin 300 mg twice a day, nicotine patch 21 mg patch change daily along with clopidogrel 75 mg once a day, furosemide 40 mg daily, met hocarbamol 750 mg q.8 hours p.r.n. for muscle spasms, niacin 500 mg daily, omeprazole 20 mg once a d ay, potassium chloride 20 mEq daily, metformin 500 mg twice a day. She is going to follow up with h er primary care physician in 1 week, with Dr. Mon in [address] River in 3 weeks. She is discharged home in good condition and her diet is ADA diet. The patient was seen and examined before she was discharged and the discharge time was more than 30 minutes.
== END 2017-07-06 17:52 | disposition home or self-care (01) | DRG 202 ==
LOC: ERS 18:30 → 2NO 06-20 02:01 → 2SE 06-20 02:09 → ONC 06-22 10:08 → 2NO 06-30 11:41
PROVIDERS: ADMIT Internal Medicine; ATTEND Internal Medicine
PROC: 0DB58ZX Excision of Esophagus, Via Natural or Artificial Opening Endoscopic, Diagnostic (ICD-10-PCS; principal; 2017-07-03)
PROC: 0DB68ZX Excision of Stomach, Via Natural or Artificial Opening Endoscopic, Diagnostic (ICD-10-PCS; 2017-07-03)
DX: J45.901 Unspecified asthma with (acute) exacerbation (principal); J96.01 Acute respiratory failure with hypoxia; B37.81 Candidal esophagitis; E11.22 Type 2 diabetes mellitus with diabetic chronic kidney disease; I08.1 Rheumatic disorders of both mitral and tricuspid valves; R10.11 Right upper quadrant pain; K29.00 Acute gastritis without bleeding; Z87.891 Personal history of nicotine dependence; I25.10 Atherosclerotic heart disease of native coronary artery without angina pectoris; Z95.1 Presence of aortocoronary bypass graft; I25.2 Old myocardial infarction; Z90.49 Acquired absence of other specified parts of digestive tract; K59.00 Constipation, unspecified; Z79.82 Long term (current) use of aspirin; Z79.01 Long term (current) use of anticoagulants; Z79.84 Long term (current) use of oral hypoglycemic drugs; I12.9 Hypertensive chronic kidney disease with stage 1 through stage 4 chronic kidney disease, or unspecified chronic kidney disease; N18.2 Chronic kidney disease, stage 2 (mild); E78.5 Hyperlipidemia, unspecified; E66.9 Obesity, unspecified; Z68.32 Body mass index [BMI] 32.0-32.9, adult; T38.0X5A Adverse effect of glucocorticoids and synthetic analogues, initial encounter; Z79.51 Long term (current) use of inhaled steroids
CPT/HCPCS: 36415; 36416; 71010; 74160; 74174; 74181; 80048; 80053; 80069; 80074; 80076; 81001; 82150; 82553; 83690; 83735; 83880; 84100; 84484; 84702; 84703; 85014; 85018; 85025; 85049; 87040; 87086; 87389; 88305; 88312; 88313; 93005; 93010; 93306; 94640; 94644; 94760; 96365; 96375; A4216; C9113; J0456; J0696; J1450; J1644; J1815; J1885; J2001; J2185; J2250; J2270; J2405; J2704; J2920; J2930; J3475; J7050; J7506; J7611; J7620; J7626; Q0162; Q9961

== ENCOUNTER 2017-10-09 11:59 | Emergency (ER) | payer OTHER, SELFPAY ==
--- NOTE | 2017-10-09 12:48 | RAD ---
LEFT KNEE 4 VIEWS: HISTORY: Pain. COMPARISON: None. FINDINGS: Moderate-sized joint effusion. Mild vascular calcifications. Surgical clips along the medial soft t issues. Small medial compartment osteophytes. IMPRESSION: Moderate-sized joint effusion without acute fracture or malalignment. Internal derangement is likely . MRI recommended. POS: [facility]
[2017-10-09] MEDS ORDERED: Ketorolac Tromethamine 60 MG/2 ML VIAL ONE (14:09)
--- NOTE | 2017-10-09 14:32 | ULT ---
LEFT LOWER EXTREMITY VENOUS ULTRASOUND: Date: 10/09/17 COMPARISON: None. HISTORY: Left knee pain and swelling for 4 days. TECHNIQUE: Multiplanar Medrano scale and color Doppler images were obtained in a left lower extremity venous ultras ound. Spectral analysis of the Doppler waveforms were performed. FINDINGS: The left common femoral vein, profunda femoral vein, superficial femoral vein, and popliteal vein are normal in appearance without visible thrombus. These vessels demonstrate normal compression, flow, a nd augmentation. The posterior tibial vein and greater saphenous vein are also patent. IMPRESSION: No evidence of deep venous thrombosis. POS: [facility]
== END 2017-10-09 16:01 | disposition home or self-care (01) ==
LOC: ERS 11:59
DX: M25.562 Pain in left knee (principal); I25.10 Atherosclerotic heart disease of native coronary artery without angina pectoris; I25.2 Old myocardial infarction; E11.9 Type 2 diabetes mellitus without complications; I10 Essential (primary) hypertension; M19.90 Unspecified osteoarthritis, unspecified site; J45.909 Unspecified asthma, uncomplicated; Z86.73 Personal history of transient ischemic attack (TIA), and cerebral infarction without residual deficits
CPT/HCPCS: 96372; J1885

== ENCOUNTER 2017-10-20 14:56 | Outpatient (CLI) | payer OTHER, SELFPAY | END 2017-10-20 14:57 | disposition home or self-care (01) | LOC: BICMAMMO 14:56 | PROVIDERS: ATTEND Family Medicine | DX: R92.1 Mammographic calcification found on diagnostic imaging of breast (principal) | CPT/HCPCS: G0279 ==

== ENCOUNTER 2017-11-14 19:31 | Emergency (ER) | payer OTHER, SELFPAY ==
--- NOTE | 2017-11-14 21:09 | ULT ---
LEFT LOWER EXTREMITY VENOUS DOPPLER ULTRASOUND 11/14/17 COMPARISON: None. HISTORY: Pain, edema, assess for DVT. TECHNIQUE: Multiplanar burroughs scale sonographic imaging of the venous structures of the left lower extremity obtai van with color flow and spectral analysis. FINDINGS: Left common femoral vein, greater saphenous, profunda femoral vein, femoral vein, popliteal vein, and posterior tibial vein are patent. There is normal blood flow, compression, and augmentation within t he deep venous system of the left lower extremity with no evidence for deep venous thrombosis. The district manager major accounts sales demonstrates a small hypoechoic area posterior to the knee within the popliteal fossa measuring in the 1.9 x 0.5 cm range which may represent small volume knee joint effusion or a small Reyes's cyst. IMPRESSION: No evidence for deep venous thrombosis of the left lower extremity. Incidental finding as above. POS: [facility]
[2017-11-14] MEDS ORDERED: HYDROcodone/Acetaminophen 10/325 mg Tablet ONE (21:30)
== END 2017-11-14 21:50 | disposition home or self-care (01) ==
LOC: ERS 19:31
DX: M71.22 Synovial cyst of popliteal space [Baker], left knee (principal); E11.9 Type 2 diabetes mellitus without complications; I10 Essential (primary) hypertension; M19.90 Unspecified osteoarthritis, unspecified site; J45.909 Unspecified asthma, uncomplicated; Z86.73 Personal history of transient ischemic attack (TIA), and cerebral infarction without residual deficits; I25.2 Old myocardial infarction; I25.10 Atherosclerotic heart disease of native coronary artery without angina pectoris; Z79.82 Long term (current) use of aspirin; Z79.84 Long term (current) use of oral hypoglycemic drugs; Z79.899 Other long term (current) drug therapy

== ENCOUNTER 2018-01-05 17:34 | Emergency (ER) | payer OTHER, SELFPAY ==
[2018-01-05 18:01] LABS: #Basophils 0.1 thou/uL (0.0-0.2); #Eosinphils 0.1 thou/uL (0.0-0.7); #Lymphocytes 1.6 thou/uL (1.20-3.40); #Monocytes 0.5 thou/uL (0.11-0.59); #Neutrophils 5.2 thou/uL (1.40-6.50); %Basophils 0.7 % (0.0-1.0); %Eosinophils 1.5 % (0.0-10.0); %Lymphocytes 21.9 % (21.0-51.0); %Monocytes 6.1 % (0.0-10.0); %Neutrophils 69.8 % (42.0-75.0); Hemoglobin 14.4 g/dL (12.0-16.0); Mean Corpuscular HGB CONC 33.4 g/dL (32.0-36.0); Mean Corpuscular Hemoglobin 30.9 pg (27.0-31.0); Mean Corpuscular Volume 92.4 fl (81.0-99.0); Mean Platelet Volume 8.8 fL (7.4-10.4); Platelet Count 210 thou/uL (130-400); RBC Distribution Width 13.4 % (11.5-14.5); Red Blood Cell (RBC) Count 4.67 mill/uL (4.20-5.40); White Blood Cell (WBC) Count 7.4 thou/uL (4.8-10.8)
--- NOTE | 2018-01-05 18:09 | RAD ---
SINGLE VIEW OF THE CHEST: 01/05/18 COMPARISON: 06/19/17 HISTORY: Nausea and dizziness since yesterday. Chest pain. FINDINGS: Single view of the chest shows a normal sized cardiomediastinal silhouette. The patient is status pos t sternotomy. There is no evidence of consolidation, mass or pleural effusion. IMPRESSION: No evidence of acute cardiopulmonary disease. POS: [facility]
[2018-01-05] MEDS ORDERED: Ondansetron ODT 4 MG TAB ONE (18:15)
[2018-01-05] MEDS ORDERED: Acetaminophen 500 MG TAB ONE (18:25)
[2018-01-05 18:33] LABS: CKMB 0.7 ng/mL (0-6.6); Troponin I Less than 0.010 ng/mL (< 0.028)
[2018-01-05 18:35] LABS: ALT (SGPT) 21 U/L (8-55); AST (SGOT) 7 U/L (5-34); Albumin 4.2 g/dL (3.5-5.0); Alkaline Phosphatase 88 U/L (40-150); Anion Gap 16 mmol/L (10-20); BUN (Urea Nitrogen) 10 mg/dL (9.8-20.1); Bilirubin, Total 0.3 mg/dL (0.2-1.2); CK (CPK) 58 U/L (29-168); Calc. Creatinine Clearance 0 mL/min (70-130); Calcium 9.6 mg/dL (7.8-10.44); Carbon Dioxide 23 mmol/L (22-29); Chloride 106 mmol/L (98-107); Estimated GFR-MDRD 76; Globulin 2.4 g/dL (2.4-3.5); Glucose 118 mg/dL (70-105); Potassium 3.8 mmol/L (3.5-5.1); Protein, Total 6.6 g/dL (6.0-8.3); Sodium 141 mmol/L (136-145)
[2018-01-05 19:23] LABS: Bilirubin Negative (Negative); Blood, Urine Negative (Negative); Clarity CLEAR (Clear); Glucose, Urine (Dipstick) Negative (Negative); Leukocyte Negative (Negative); Nitrite Negative (Negative); Protein, Urine (Dipstick) Negative (Neg-Trace); Specific Gravity, Urine 1.021 (1.002-1.036); Urobilinogen 0.2 mg/dL (0.2-1.0)
[2018-01-05] MEDS ORDERED: diphenhydrAMINE 50 MG/ML VIAL ONE (19:32)
[2018-01-05] MEDS ORDERED: Ketorolac Tromethamine 30 MG/ML VIAL ONE (19:32)
[2018-01-05] MEDS ORDERED: Metoclopramide HCl 10 MG/2 ML VIAL ONE ×2 (19:34→19:43)
[2018-01-05] MEDS ORDERED: Metoclopramide 10 MG/10 ML UDCUP ONE (19:42)
--- NOTE | 2018-01-05 20:06 | CT ---
CT OF THE BRAIN WITHOUT CONTRAST: 01/05/18 COMPARISON: None. HISTORY: Dizziness and sudden onset of headache. TECHNIQUE: Multiple contiguous axial images were obtained in a CT of the brain without contrast. FINDINGS: The brain is normal in morphology and attenuation without focal lesions or confluent areas of infarct ion. There is no evidence of hydrocephalus, intracranial hemorrhage or extra-axial fluid collection. The calvarium and overlying soft tissues are unremarkable. The visualized paranasal sinuses and mast oid air cells are well aerated. IMPRESSION: No evidence of acute intracranial abnormality. POS: [facility]
== END 2018-01-05 21:25 | disposition home or self-care (01) ==
LOC: ERS 17:34
DX: B34.9 Viral infection, unspecified (principal); I25.10 Atherosclerotic heart disease of native coronary artery without angina pectoris; I25.2 Old myocardial infarction; E11.9 Type 2 diabetes mellitus without complications; I10 Essential (primary) hypertension; M19.90 Unspecified osteoarthritis, unspecified site; J45.909 Unspecified asthma, uncomplicated; F17.200 Nicotine dependence, unspecified, uncomplicated; Z86.73 Personal history of transient ischemic attack (TIA), and cerebral infarction without residual deficits; Z79.82 Long term (current) use of aspirin; Z79.02 Long term (current) use of antithrombotics/antiplatelets; Z79.84 Long term (current) use of oral hypoglycemic drugs; Z79.899 Other long term (current) drug therapy
CPT/HCPCS: 36415; 70450; 71045; 80053; 81003; 82550; 82553; 84484; 85025; 93005; 94640; 94760; 96361; 96365; 96375; J1200; J1885; J2765; J7620; Q0162

== ENCOUNTER 2018-03-20 16:56 | Observation (INO) | payer SELFPAY ==
[2018-03-20 17:13] LABS: #Eosinphils 0.1 thou/uL (0.0-0.7); #Monocytes 0.6 thou/uL (0.11-0.59); #Neutrophils 6.3 thou/uL (1.40-6.50); %Basophils 0.5 % (0.0-1.0); %Eosinophils 0.9 % (0.0-10.0); %Lymphocytes 22.2 % (21.0-51.0); %Monocytes 6.8 % (0.0-10.0); %Neutrophils 69.6 % (42.0-75.0); Hemoglobin 15.7 g/dL (12.0-16.0); Mean Corpuscular HGB CONC 34.5 g/dL (32.0-36.0); Mean Corpuscular Hemoglobin 31.6 pg (27.0-31.0); Mean Corpuscular Volume 91.5 fL (78.0-98.0); Mean Platelet Volume 8.7 fL (7.4-10.4); Platelet Count 230 thou/uL (130-400); Red Blood Cell (RBC) Count 4.97 mill/uL (4.20-5.40)
--- NOTE | 2018-03-20 17:31 | RAD ---
RADIOGRAPH CHEST 1 VIEW: 03/20/18 HISTORY: 53-year-old female with chest pain and wheezing. FINDINGS: There are no air space densities, pulmonary edema, pneumothorax, or cardiomegaly. The lateral costop hrenic angles are sharp. IMPRESSION: 1. No acute cardiopulmonary findings. 2. Status post coronary artery bypass graft surgery is evidence for coronary atherosclerotic dis ease. philipp [] POS: [facility]
[2018-03-20 17:45] LABS: CKMB 1.1 ng/mL (0-6.6); Troponin I Less than 0.010 ng/mL (< 0.028)
[2018-03-20 17:47] LABS: ALT (SGPT) 20 U/L (8-55); AST (SGOT) 8 U/L (5-34); Albumin 4.6 g/dL (3.5-5.0); Alkaline Phosphatase 84 U/L (40-150); Anion Gap 19 mmol/L (10-20); BUN (Urea Nitrogen) 14 mg/dL (9.8-20.1); Bilirubin, Total 0.5 mg/dL (0.2-1.2); CK (CPK) 70 U/L (29-168); Calc. Creatinine Clearance 0 mL/min (70-130); Calcium 10.1 mg/dL (7.8-10.44); Carbon Dioxide 18 mmol/L (22-29); Chloride 105 mmol/L (98-107); Estimated GFR-MDRD 25; Globulin 2.7 g/dL (2.4-3.5); Glucose 146 mg/dL (70-105); Potassium 4.6 mmol/L (3.5-5.1); Protein, Total 7.3 g/dL (6.0-8.3); Sodium 137 mmol/L (136-145)
[2018-03-20 20:52] VITALS: BMI 33.0
[2018-03-20] MEDS ORDERED: Ondansetron ODT 4 MG TAB SL PRN (21:05)
[2018-03-20] MEDS ORDERED: Ondansetron HCl/PF 4 MG/2 ML Vial IVP PRN (21:05)
[2018-03-20] MEDS ORDERED: Acetaminophen 325 MG TAB PO PRN (21:05)
[2018-03-20] MEDS ORDERED: Lactated Ringer's 1,000 ML IV SCH (21:15)
[2018-03-20] MEDS ORDERED: Nitroglycerin 0.4 MG TAB (25 Tab Bottle) PO PRN (22:09)
[2018-03-20] MEDS ORDERED: Dextrose 50% Abboject 50 ML SYRINGE SLOW IVP PRN (22:09)
[2018-03-20] MEDS ORDERED: Dextrose 5% in Water 1,000 ML IV PRN (22:09)
[2018-03-20] MEDS: Sodium Chloride 0.9% 1,000 ML IV SCH (22:27)
[2018-03-20] MEDS ORDERED: Methocarbamol 500 MG TAB PO PRN (22:29)
[2018-03-20] MEDS: Nicotine 14 MG PATCH TD SCH (22:30)
[2018-03-20 22:47] LABS: BHCG - Serum Negative (NEGATIVE); Pregs Control Background? CLEAR/WHITE (CLR/WHITE); Pregs Control Bar Appear? YES (CONTROL BAR)
--- NOTE | 2018-03-20 22:55 | HP ---
PRIMARY CARE PHYSICIAN: [facility] in [place]. CHIEF COMPLAINT: Generalized weakness. HISTORY OF PRESENT ILLNESS: Ms. Grijalva is a pleasant 53-year-old lady who was seen at [facility] on 03/20/2018. She works at [employer]. Around 2:00 p.m. today, s he had onset of generalized weakness. She reports that her whole body hurt at that time. She had ta jade her diabetes medications earlier and around 2:30, she decided to get something to eat. Around 3: 45 at 4:00 p.m., she felt dizzy. She was trying to focus on the screens, but she reports having doub le vision. She also reports having pain over her upper chest in the middle, dull, 10/10 at its worst , radiating to her jaw. She had difficulty breathing with the chest pain. She reports that the pain is on and off, but she cannot recall any aggravating or relieving factors. She reports that the mike n felt like what she had when she had her bypass surgery. Over the last 3 days, she reports having diarrhea. She also reports having black stools. She denies taking any iron preparations. She reports having multiple loose stools daily over the last 3 days. She denies any fevers or chills. She reports feeling nauseous today, but not over the last few days . She denies any vomiting. REVIEW OF SYSTEMS: All other systems reviewed and found to be negative. PAST MEDICAL HISTORY: Asthma/COPD, tobacco abuse, coronary artery bypass graft, myocardial infarctio n, diabetes mellitus type 2, hypertension. 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 ALLERGIES: No known drug allergies. CURRENT MEDICATIONS: Gabapentin 300 mg 2 times a day, Lasix 40 mg daily, methocarbamol 750 mg 3 time s a day as needed, simvastatin 40 mg daily, potassium chloride 20 mEq daily, aspirin 81 mg daily, Ever vix 75 mg daily, metformin 500 mg 2 times a day, famotidine 20 mg daily, metoprolol succinate 25 mg d aily, lisinopril 10 mg daily, tramadol 50 mg every 6 hours as needed, and Compazine 10 mg every 8 nydia rs as needed. SOCIAL HISTORY: She smokes half a pack of cigarettes a day. She reports occasional alcohol use. Sh hieu denies any recreational drug use. FAMILY HISTORY: She reports several members in her immediate and extended family with malignancies i n several body systems. PHYSICAL EXAMINATION: GENERAL: On examination, Ms. Grijalva is awake and alert, not in acute distress. She is obese, wit h a BMI of 33. VITAL SIGNS: Blood pressure is 107/54, pulse 62, respiratory rate 16, and she is saturating 100% on room air. She is afebrile. EYES: No scleral icterus, no conjunctival pallor. ENT: Moist mucosal membranes, no oropharyngeal erythema or exudates. NECK: Supple, nontender, trachea is midline. RESPIRATORY: Accessory muscles of breathing are not active. Chest wall movements are symmetric bila terally. LUNGS: Clear to auscultation without wheeze, rhonchi, or crepitations. CARDIOVASCULAR: S1 and S2 are heard, regular. Peripheral pulses palpable. No carotid bruit, no per icardial rub. ABDOMEN: Soft, distended, nontender, bowel sounds heard, no hepatomegaly, no splenomegaly. NEUROLOGIC: Cranial nerves II-XII intact. Deep tendon reflexes are 2+. MUSCULOSKELETAL: Power is 5/5 in all 4 extremities. SKIN: No rashes or subcutaneous nodules. LYMPHATIC: No cervical lymphadenopathy. PSYCHIATRIC: Normal mood, normal affect, patient is oriented to person, place, and time. LABORATORY DATA: Ms. Grijalva's labs and investigations were reviewed. She had an electrocardiogra m, which shows normal sinus rhythm, no ST changes to suggest an acute coronary syndrome. She also altamirano d a chest x-ray, which does not show any acute cardiopulmonary findings. She has an unremarkable CBC with normal hemoglobin of 15.7, normal sodium, normal potassium, normal blood urea nitrogen, elevate d creatinine of 2.04, last known creatinine 0.79 on 01/05/2018, normal liver function tests, and norm al troponin I. ASSESSMENT AND PLAN: Ms. Grijalva is a pleasant 53-year-old lady who was seen at [facility] on 03/20/2018. Her problem list includes: 1. Chest pain: She is presenting with chest pain, etiology unclear. She does have significant card iac history. She will be admitted to the hospital for telemetry monitoring, rechecking troponin leve l and for stress test. 2. Acute kidney injury: We will provide intravenous fluids and recheck her creatinine level. If no t improving, she may need Nephrology Service consultation. 3. Generalized weakness: Clear etiology not available at this time. I will also check urine studie s to rule out urinary tract infection. It is possible that her generalized weakness is secondary to renal insufficiency or due to cardiac causes. 4. Diarrhea: She reports having diarrhea with black stools. We will check stool cultures as well a s Clostridium difficile toxin test. We will also check stool for occult blood. 5. Diabetes mellitus. Start Accu-Cheks and insulin sliding scale, hold metformin because of renal i nsufficiency. 6. Tobacco abuse: Patient has been counseled regarding tobacco cessation. Start nicotine replaceme nt therapy. Many thanks for allowing me to participate in your patient's care. Please feel free to contact me wi th any questions or concerns. LEVEL OF RISK: Moderate. LEVEL OF COMPLEXITY: Moderate.
[2018-03-20 23:50] LABS: Bilirubin Negative (Negative); Blood, Urine Negative (Negative); Clarity CLEAR (Clear); Glucose, Urine (Dipstick) Negative (Negative); Leukocyte Negative (Negative); Nitrite Negative (Negative); Protein, Urine (Dipstick) Negative (Neg-Trace); Specific Gravity, Urine 1.012 (1.002-1.036); Urobilinogen 0.2 mg/dL (0.2-1.0)
[2018-03-21 02:08] LABS: Troponin I Less than 0.010 ng/mL (< 0.028)
[2018-03-21] MEDS: Benzonatate 100 MG CAP PO PRN ×2 (02:09→08:24)
[2018-03-21 05:06] LABS: #Eosinphils 0.1 thou/uL (0.0-0.7); #Lymphocytes 2.2 thou/uL (1.20-3.40); #Monocytes 0.5 thou/uL (0.11-0.59); %Basophils 0.7 % (0.0-1.0); %Eosinophils 1.9 % (0.0-10.0); %Monocytes 8.9 % (0.0-10.0); %Neutrophils 50.7 % (42.0-75.0); Hemoglobin 12.6 g/dL (12.0-16.0); Mean Corpuscular HGB CONC 34.3 g/dL (32.0-36.0); Mean Corpuscular Hemoglobin 31.9 pg (27.0-31.0); Mean Platelet Volume 8.9 fL (7.4-10.4); Platelet Count 153 thou/uL (130-400); Red Blood Cell (RBC) Count 3.96 mill/uL (4.20-5.40); White Blood Cell (WBC) Count 5.9 thou/uL (4.8-10.8)
[2018-03-21 05:15] LABS: Troponin I Less than 0.010 ng/mL (< 0.028)
[2018-03-21 05:22] LABS: Anion Gap 11 mmol/L (10-20); BUN (Urea Nitrogen) 14 mg/dL (9.8-20.1); Calc. Creatinine Clearance 104 mL/min (70-130); Calcium 8.9 mg/dL (7.8-10.44); Carbon Dioxide 23 mmol/L (22-29); Chloride 110 mmol/L (98-107); Estimated GFR-MDRD 69; Glucose 102 mg/dL (70-105); Potassium 3.8 mmol/L (3.5-5.1); Sodium 140 mmol/L (136-145)
[2018-03-21] MEDS ORDERED: Ibuprofen 200 MG TAB PO SCH (08:00)
[2018-03-21] MEDS: Potassium Chloride 20 MEQ TAB PO SCH (08:18)
[2018-03-21] MEDS: Gabapentin 300 MG CAP PO SCH ×2 (08:19→20:26)
[2018-03-21] MEDS: Aspirin 81 mg Enteric Coated Tablet PO SCH (08:19)
[2018-03-21] MEDS: Acetaminophen 325 MG TAB PO PRN (08:19)
[2018-03-21] MEDS: Famotidine 20 MG TAB PO SCH ×2 (08:19→20:26)
[2018-03-21] MEDS: Clopidogrel Bisulfate 75 MG TAB PO SCH (08:19)
[2018-03-21] MEDS: Heparin 5,000 UNITS/ML VIAL SC SCH ×2 (08:22→16:36)
[2018-03-21] MEDS: Sodium Chloride 0.9% 1,000 ML IV SCH ×3 (08:25→22:57)
[2018-03-21] MEDS ORDERED: Regadenoson 0.4 MG/5 ML SYRINGE ONE (09:34)
--- NOTE | 2018-03-21 10:22 | CT ---
CT BRAIN WITHOUT CONTRAST: History: Headache, weakness. FINDINGS: Comparison made with exam 01-05-18. No evidence of infarct, hemorrhage, midline shift, or abnormal extraaxial fluid collections seen. The ventricular size is normal and the basilar cisterns patent. The bony calvarium is intact. Visualized paranasal sinuses are well aerated. IMPRESSION: No CT evidence of acute intracranial process. POS: [facility]
[2018-03-21] MEDS: traMADol HCl 50 MG TAB PO PRN ×2 (11:45→19:31)
[2018-03-21] MEDS: HumaLOG 300 UNITS/3 ML VIAL SC PRN (13:21)
[2018-03-21] MEDS ORDERED: predniSONE 20 MG TAB PO SCH (16:15)
--- NOTE | 2018-03-21 16:17 | PDOC.PN ---
- Subjective Encounter Start Date: 03/21/18 (f/u weakness) Encounter Start Time: 16:15 Subjective: Pt reports she continues to feel poorly - weak, headache, flu-like -: sx, body aches, coughing. - Objective Vital Signs & Weight: Vital Signs (12 hours) Temp Pulse Resp BP BP Pulse Ox 03/21/18 15:34 97.0 F L 53 L 20 109/60 100 03/21/18 11:45 96.8 F L 66 20 108/62 100 03/21/18 08:25 98.2 F 57 L 20 03/21/18 07:35 97 03/21/18 07:11 98.2 F 57 L 20 109/65 99 03/21/18 04:26 97.6 F 62 16 90/54 L 97 I&O: 03/20/18 03/21/18 03/22/18 06:59 06:59 06:59 Intake Total 1272 658 Output Total 1350 Balance -78 658 Result Diagrams: 03/21/18 04:23 03/21/18 04:23 Additional Labs: Accuchecks 03/21/18 11:50 POC Glucose 250 H EKG Reviewed by me: Yes (tele - sinus 50's) Phys Exam - Physical Examination Constitutional: NAD Respiratory: no rales, no rhonchi, clear to auscultation bilateral some wheezing, fair air movement Cardiovascular: RRR, no significant murmur Gastrointestinal: soft, non-tender, no distention, positive bowel sounds Musculoskeletal: no edema Neurological: non-focal, moves all 4 limbs Psychiatric: normal affect Skin: no rash Dx/Plan (1) Chest pain Code(s): R07.9 - CHEST PAIN, UNSPECIFIED Status: Resolved Qualifiers: Chest pain type: unspecified Qualified Code(s): R07.9 - Chest pain, unspecified (2) COPD (chronic obstructive pulmonary disease) Status: Chronic Qualifiers: Emphysema type: unspecified (3) CAD (coronary artery disease) Code(s): I25.10 - ATHSCL HEART DISEASE OF [place] CORONARY ARTERY W/O ANG PCTRS Status: Chronic Qualifiers: (4) DM type 2 (diabetes mellitus, type 2) Status: Chronic Qualifiers: Diabetes mellitus complication status: with circulatory complication (5) Dyslipidemia Code(s): E78.5 - HYPERLIPIDEMIA, UNSPECIFIED Status: Chronic (6) HTN (hypertension) Code(s): I10 - ESSENTIAL (PRIMARY) HYPERTENSION Status: Chronic Qualifiers: - Plan * Pt with chest pain yesterday - awaiting results of stress test. On statin, dual anti-platelet therapy. BP on low normal side: * Resume beta-heidy with hold parameters * hold home karyn-i due to low/normal bp's * COPD hx of sx of mild exacerbation * Start prednisone, schedule nebs, monitor sx * check resp panel * JEONG - may be secondary to tx here - tx with pain meds and monitor for worsening signs/sx. CT brain report reviewed and negative. * DM - hold metformin due to studies being performed, continue SSI. Anticipate adjustments with initiation of prednisone. * * dvt prophy - change to once daily lovenox * gi prophy - not indicated * code status full * * reviewed plan of care with patient and her family member, no questions or further needs at end of eval * Per RN - pt needs resting images tomorrow for stress test, so will be here overnight and work on the above
[2018-03-21] MEDS: Atorvastatin Calcium 10 MG TAB PO SCH (20:26)
[2018-03-21] MEDS: Nicotine 14 MG PATCH TD SCH (20:27)
[2018-03-22] MEDS ORDERED: Ondansetron HCl/PF 4 MG/2 ML Vial IVP PRN (00:24)
[2018-03-22] MEDS ORDERED: Ondansetron ODT 4 MG TAB PO PRN (00:24)
[2018-03-22] MEDS: Benzonatate 100 MG CAP PO PRN ×2 (04:13→13:52)
[2018-03-22] MEDS: traMADol HCl 50 MG TAB PO PRN ×4 (04:13→23:45)
[2018-03-22 04:48] LABS: Anion Gap 11 mmol/L (10-20); BUN (Urea Nitrogen) 12 mg/dL (9.8-20.1); Calc. Creatinine Clearance 113 mL/min (70-130); Calcium 9.1 mg/dL (7.8-10.44); Carbon Dioxide 25 mmol/L (22-29); Chloride 107 mmol/L (98-107); Estimated GFR-MDRD 78; Glucose 161 mg/dL (70-105); Potassium 4.3 mmol/L (3.5-5.1); Sodium 139 mmol/L (136-145)
[2018-03-22] MEDS ORDERED: Albuterol Sulfate 2.5 mg/3 ml Neb NEB PRN (07:59)
[2018-03-22] MEDS ORDERED: methylPREDNISolone Sod Succ/PF 125 MG/2 ML VIAL IVP SCH (08:00)
[2018-03-22] MEDS: predniSONE 20 MG TAB PO SCH (09:02)
[2018-03-22] MEDS: Enoxaparin Sodium 40 MG/0.4 ML SYRINGE SC SCH (09:57)
[2018-03-22] MEDS: Potassium Chloride 20 MEQ TAB PO SCH (09:58)
[2018-03-22] MEDS: Sodium Chloride 0.9% 1,000 ML IV SCH ×2 (09:59→16:29)
[2018-03-22] MEDS: Gabapentin 300 MG CAP PO SCH ×2 (10:00→20:07)
[2018-03-22] MEDS: Aspirin 81 mg Enteric Coated Tablet PO SCH (10:00)
[2018-03-22] MEDS: Famotidine 20 MG TAB PO SCH ×2 (10:00→20:07)
[2018-03-22] MEDS: guaiFENesin ER 600 MG TAB PO SCH ×2 (10:00→20:07)
[2018-03-22] MEDS: Clopidogrel Bisulfate 75 MG TAB PO SCH (10:00)
--- NOTE | 2018-03-22 11:25 | NM ---
NUCLEAR MEDICINE CARDIAC PERFUSION EXAMINATION WITH EJECTION FRACTION: HISTORY: A 53-year-old female with chest pain. History of coronary artery disease status post catheterization and CABG. TECHNIQUE: A 2-day nuclear medicine cardiac perfusion examination was performed. Rest images were obtained usin g 30.8 mCi of Technetium 99m sestamibi. Stress images were obtained using 33 mCi of Technetium 99m s estamibi and LexiScan. FINDINGS: Tomographic images show a large size, severe intensity fixed perfusion defect of the lateral wall ext ending to the apex. This is likely secondary to a remote infarction. No reversible perfusion defect is seen. Gated images show apical hypokinesis with an ejection fraction of 53%. EDV is 133 mL. LHR is 0.6. TID is 1.0. IMPRESSION: 1. Remote infarction of the lateral wall/apex. 2. No evidence of ischemia. POS: [facility]
--- NOTE | 2018-03-22 13:07 | PDOC.PN ---
- Subjective Encounter Start Date: 03/22/18 Encounter Start Time: 07:50 -: old records requested/rev Pt seen and examined, chart reviewed in its entirety, this is my first visit with this patient No F/C, no N/V/D/C, no CP, some SOB and wheezing, before next scheduled duoneb was due.. +cough, nonproductive, no hemoptysis All systems reviewed and neg for all except as above - Objective MAR Reviewed: Yes Vital Signs & Weight: Vital Signs (12 hours) Temp Pulse Resp BP Pulse Ox 03/22/18 12:56 57 L 18 97 03/22/18 11:00 97.9 F 53 L 16 149/67 H 98 03/22/18 08:00 98.3 F 53 L 22 H 03/22/18 07:56 98.3 F 53 L 22 H 03/22/18 07:35 98.3 F 53 L 22 H 140/67 100 03/22/18 06:20 18 98 03/22/18 04:13 97.6 F 54 L 22 H 105/52 L 95 Weight Weight 187 lb I&O: 03/21/18 03/22/18 03/23/18 06:59 06:59 06:59 Intake Total 1272 1999 437 Output Total 1350 1000 400 Balance -78 999 37 Result Diagrams: 03/21/18 04:23 03/22/18 04:14 Additional Labs: Accuchecks 03/22/18 03/22/18 03/21/18 10:34 04:15 20:59 POC Glucose 195 H 150 H 146 H 03/21/18 17:02 POC Glucose 94 Radiology Reviewed by me: Yes EKG Reviewed by me: Yes Phys Exam - Physical Examination Constitutional: NAD HEENT: PERRLA, moist MMs, sclera anicteric, oral pharynx no lesions Neck: no nodes, no JVD, supple, full ROM Respiratory: no rales, no rhonchi prolonged expiration adn high pitched expiratory wheezing Cardiovascular: RRR, no significant murmur, no rub Gastrointestinal: soft, non-tender, no distention, positive bowel sounds Musculoskeletal: no edema, pulses present Neurological: non-focal, normal sensation, moves all 4 limbs Lymphatic: no nodes Psychiatric: normal affect, A&O x 3 Skin: no rash, normal turgor, cap refill <2 seconds Dx/Plan (1) Acute exacerbation of chronic obstructive pulmonary disease (COPD) Code(s): J44.1 - CHRONIC OBSTRUCTIVE PULMONARY DISEASE W (ACUTE) EXACERBATION Status: Acute Comment: steroids, nebs, mucinex and levoflox (2) Acute bronchitis Code(s): J20.9 - ACUTE BRONCHITIS, UNSPECIFIED Status: Acute Qualifiers: Bronchitis organism: unspecified organism Qualified Code(s): J20.9 - Acute bronchitis, unspecified (3) CAD (coronary artery disease) Code(s): I25.10 - ATHSCL HEART DISEASE OF [place] CORONARY ARTERY W/O ANG PCTRS Status: Chronic Qualifiers: Coronary Disease-Associated Artery/Lesion type: unspecified vessel or lesion type [place] vs. transplanted heart: [place] heart Associated angina: without angina Qualified Code(s): I25.10 - Atherosclerotic heart disease of [place] coronary artery without angina pectoris (4) CKD (chronic kidney disease) stage 2, GFR 60-89 ml/min Code(s): N18.2 - CHRONIC KIDNEY DISEASE, STAGE 2 (MILD) Status: Chronic (5) DM type 2 (diabetes mellitus, type 2) Status: Chronic Qualifiers: Diabetes mellitus fpc insulin use: without fpc use Diabetes mellitus complication status: with circulatory complication Diabetes mellitus complication detail: with other circulatory complications Qualified Code(s): E11.59 - Type 2 diabetes mellitus with other circulatory complications (6) Dyslipidemia Code(s): E78.5 - HYPERLIPIDEMIA, UNSPECIFIED Status: Chronic (7) HTN (hypertension) Code(s): I10 - ESSENTIAL (PRIMARY) HYPERTENSION Status: Chronic Qualifiers: Hypertension type: essential hypertension (8) Obesity (BMI 30-39.9) Code(s): E66.9 - OBESITY, UNSPECIFIED Status: Chronic - Plan cont current plan of care, plan discussed w/ family, continue antibiotics, respiratory therapy, out of bed/ambulate * . stress unremarkable, fixed defect stable. suspect more of a viral URI and AECOPD. increase nebs, dose with solumexdrol adn add mucinex adn levoflox
[2018-03-22] MEDS: Acetaminophen 325 MG TAB PO PRN ×3 (13:52→23:45)
[2018-03-22] MEDS: HumaLOG 300 UNITS/3 ML VIAL SC PRN (17:43)
[2018-03-22] MEDS: Atorvastatin Calcium 10 MG TAB PO SCH (20:07)
[2018-03-22] MEDS: Nicotine 14 MG PATCH TD SCH (22:10)
[2018-03-23 04:33] LABS: #Eosinphils 0.1 thou/uL (0.0-0.7); #Lymphocytes 2.1 thou/uL (1.20-3.40); #Monocytes 0.5 thou/uL (0.11-0.59); #Neutrophils 4.7 thou/uL (1.40-6.50); %Basophils 0.6 % (0.0-1.0); %Lymphocytes 27.8 % (21.0-51.0); %Monocytes 7.3 % (0.0-10.0); %Neutrophils 63.4 % (42.0-75.0); Hemoglobin 12.5 g/dL (12.0-16.0); Mean Corpuscular HGB CONC 33.5 g/dL (32.0-36.0); Mean Corpuscular Hemoglobin 31.7 pg (27.0-31.0); Mean Corpuscular Volume 94.6 fL (78.0-98.0); Mean Platelet Volume 8.9 fL (7.4-10.4); Platelet Count 172 thou/uL (130-400); RBC Distribution Width 11.9 % (11.5-14.5); Red Blood Cell (RBC) Count 3.94 mill/uL (4.20-5.40); White Blood Cell (WBC) Count 7.4 thou/uL (4.8-10.8)
[2018-03-23] MEDS: Acetaminophen 325 MG TAB PO PRN (04:53)
[2018-03-23 05:02] LABS: Anion Gap 13 mmol/L (10-20); BUN (Urea Nitrogen) 11 mg/dL (9.8-20.1); Calc. Creatinine Clearance 121 mL/min (70-130); Calcium 9.1 mg/dL (7.8-10.44); Carbon Dioxide 26 mmol/L (22-29); Chloride 108 mmol/L (98-107); Estimated GFR-MDRD 85; Glucose 111 mg/dL (70-105); Magnesium 1.5 mg/dL (1.6-2.6); Potassium 3.7 mmol/L (3.5-5.1); Sodium 143 mmol/L (136-145)
[2018-03-23 08:09] VITALS: TEMP 97.7
[2018-03-23] MEDS: Famotidine 20 MG TAB PO SCH (08:21)
[2018-03-23] MEDS: predniSONE 20 MG TAB PO SCH (08:21)
[2018-03-23] MEDS: Aspirin 81 mg Enteric Coated Tablet PO SCH (08:21)
[2018-03-23] MEDS: Gabapentin 300 MG CAP PO SCH (08:23)
[2018-03-23] MEDS: Clopidogrel Bisulfate 75 MG TAB PO SCH (08:23)
[2018-03-23] MEDS: Enoxaparin Sodium 40 MG/0.4 ML SYRINGE SC SCH (08:24)
[2018-03-23] MEDS: Potassium Chloride 20 MEQ TAB PO SCH (08:24)
[2018-03-23] MEDS: guaiFENesin ER 600 MG TAB PO SCH (08:28)
[2018-03-23] MEDS: Benzonatate 100 MG CAP PO PRN (08:40)
[2018-03-23] MEDS: traMADol HCl 50 MG TAB PO PRN ×2 (08:40→15:02)
[2018-03-23] MEDS ORDERED: Magnesium 2 GM/NS 0.9% 100 ML 2 GM in Premix Bag 1 BAG IVPB SCH (09:15)
[2018-03-23 11:53] VITALS: BP 134/63
--- NOTE | 2018-03-23 13:54 | RAD ---
CHEST TWO VIEWS: HISTORY: Chest pain. Fever. COMPARISON: 03/20/2018 FINDINGS: The cardiac silhouette and pulmonary vasculature are unremarkable. The mediastinum is midline with p ostoperative changes. No confluent air space consolidation, pneumothorax, or pleural fluid. IMPRESSION: No active cardiopulmonary abnormalities demonstrated. POS: [facility]
--- NOTE | 2018-03-23 16:14 | DIS ---
DATE OF ADMISSION: 03/20/2018 DATE OF DISCHARGE: 03/23/2018 PRIMARY CARE PHYSICIAN: Ida Esparza. DISCHARGE DIAGNOSES: 1. Acute exacerbation of chronic obstructive pulmonary disease. 2. Coronary artery disease. 3. Acute bronchitis. 4. Viral respiratory infection. 5. Chest tightness secondary to airway constriction. 6. Diabetes mellitus type 2 without mention of complications. 7. Hypertension, essential. CONSULTATIONS: None. PROCEDURES: Nuclear stress test done on 03/22/2018. HISTORY AND PHYSICAL: Ms. Grijalva is a 53-year-old female with the above history wh o presents to the emergency department with complaints of generalized weakness and upper chest tightn ess. She has been having diarrhea for several days with some possible black stools. No fevers or ch ills and seemed to resolve on its own. At 2:00 the day of admission, she was at work at [employer] and just felt generalized weakness and body aches. She had some cold sweats, but did not f eel febrile. Sugars were okay. She ate around 3:45 or 4. She started feeling somewhat dizzy and ca me to the emergency department when she developed double vision. In the emergency department, she was found to have normal CBC, she had a creatinine 2.04, which is mo re than twice are normal limit to back in December 2017 and a normal biomarkers. EKG showed normal sinu s rhythm. Chest x-ray was negative. We were subsequently called for admission. HOSPITAL COURSE: The patient was seen and examined by Dr. Shahid. The patient was placed in the hosp ital on observation status for chest pain and telemetry monitoring. Serial cardiac biomarkers were o rdered. Overnight 03/20/2018 to 03/21/2018, patient had no further chest tightness. She was having more cough that was nonproductive and some shortness of breath. She was scheduled for nuclear stress test which was on 03/21/2018. She had the initial portion done on the late and the resting por tion and on the and came back negative, but when I took over the case on 03/22/2018, she had mor e expiratory wheezing. She was redosed with Solu-Medrol, she was continued on prednisone and her neb ulizers were adjusted. Overnight 03/22/2018 to 03/23/2018, she seemed to do better would not being w atched. When being watch she would forcibly exhale and caused her to have some upper respiratory whe ezing. When breathing normally, her lungs were clear and chest x-ray today showed no evidence of pne umonia. She was subsequently discharged home in stable condition. PHYSICAL EXAMINATION: The patient was seen and examined at the bedside. Discharge plan disposition was discussed with the patient face to face. DISCHARGE MEDICATIONS: 1. Levofloxacin 750 mg, dispensed #5, 1 p.o. daily until gone. 2. Prednisone 40 mg daily to decrease by 10 mg daily every other day until tapered off. 3. DuoNeb 3 mL q.6 hours, prescription sent. 4. Albuterol sulfate 2.5 mg nebulized q.2 hours p.r.n. shortness of breath or wheezing. 5. Benzonatate 100 mg p.o. t.i.d. p.r.n. cough, new prescription sent. 6. Mucinex ER 1200 mg p.o. b.i.d. DISCHARGE DIET: Heart healthy diabetic diet recommended. DISCHARGE ACTIVITY: As tolerated. DISCHARGE CONDITION: Stable. DISPOSITION: Discharged home via private vehicle. FOLLOWUP APPOINTMENTS: [facility] within a week.
--- NOTE | 2018-03-24 12:58 | EKG ---
Test Reason : Blood Pressure : / mmHG Vent. Rate : 086 BPM Atrial Rate : 086 BPM P-R Int : 134 ms QRS Dur : 084 ms QT Int : 350 ms P-R-T Axes : 045 030 027 degrees QTc Int : 418 ms Normal sinus rhythm Possible Left atrial enlargement Possible Inferior infarct , age undetermined Possible Anterior infarct , age undetermined Abnormal ECG Confirmed by LESLEY CONWAY, MICHELE ([id number]), field map editor HALIE MATTA ([id number]) on 03/24/2018 12:57:37 PM Referred By: Confirmed By:MICHELE SUTTON MD
== END 2018-03-23 16:38 | disposition home or self-care (01) ==
LOC: ERS 16:56 → 2SW 19:15
PROVIDERS: ADMIT Emergency Medicine; ATTEND Emergency Medicine
DX: R53.1 Weakness (principal); R19.7 Diarrhea, unspecified; F17.210 Nicotine dependence, cigarettes, uncomplicated; R07.89 Other chest pain; E78.5 Hyperlipidemia, unspecified; J44.1 Chronic obstructive pulmonary disease with (acute) exacerbation; I12.9 Hypertensive chronic kidney disease with stage 1 through stage 4 chronic kidney disease, or unspecified chronic kidney disease; E11.22 Type 2 diabetes mellitus with diabetic chronic kidney disease; N18.2 Chronic kidney disease, stage 2 (mild); N17.9 Acute kidney failure, unspecified; I25.2 Old myocardial infarction; E66.9 Obesity, unspecified; Z68.32 Body mass index [BMI] 32.0-32.9, adult; Z95.1 Presence of aortocoronary bypass graft; Z79.82 Long term (current) use of aspirin; Z79.84 Long term (current) use of oral hypoglycemic drugs; Z79.02 Long term (current) use of antithrombotics/antiplatelets; Z79.899 Other long term (current) drug therapy
CPT/HCPCS: 36415; 36416; 70450; 71045; 71046; 78452; 80048; 80053; 81003; 82274; 82550; 82553; 83735; 84484; 84703; 85025; 87045; 87046; 87081; 87324; 87449; 87633; 87798; 87899; 93005; 93017; 94640; 94760; 96360; 96361; 96365; 96366; 96372; 96375; 96376; 99406; A4216; A9500; G0378; J1644; J1650; J2270; J2785; J2930; J3475; J7506; J7611; J7620; Q0162

== ENCOUNTER 2018-03-25 12:02 | Emergency (ER) | payer SELFPAY ==
[2018-03-25] MEDS ORDERED: Ondansetron ODT 4 MG TAB ONE (12:34)
[2018-03-25 13:02] LABS: #Basophils 0.1 thou/uL (0.0-0.2); #Eosinphils 0.1 thou/uL (0.0-0.7); #Monocytes 0.7 thou/uL (0.11-0.59); #Neutrophils 7.4 thou/uL (1.40-6.50); %Basophils 0.6 % (0.0-1.0); %Eosinophils 0.8 % (0.0-10.0); %Lymphocytes 19.7 % (21.0-51.0); %Monocytes 7.2 % (0.0-10.0); %Neutrophils 71.7 % (42.0-75.0); Hemoglobin 14.5 g/dL (12.0-16.0); Mean Corpuscular HGB CONC 34.3 g/dL (32.0-36.0); Mean Corpuscular Hemoglobin 32.2 pg (27.0-31.0); Mean Platelet Volume 8.5 fL (7.4-10.4); Platelet Count 173 thou/uL (130-400); Red Blood Cell (RBC) Count 4.51 mill/uL (4.20-5.40); White Blood Cell (WBC) Count 10.3 thou/uL (4.8-10.8)
[2018-03-25 13:19] LABS: ALT (SGPT) 17 U/L (8-55); AST (SGOT) 9 U/L (5-34); Albumin 3.8 g/dL (3.5-5.0); Alkaline Phosphatase 66 U/L (40-150); Anion Gap 13 mmol/L (10-20); BUN (Urea Nitrogen) 15 mg/dL (9.8-20.1); Bilirubin, Total 0.5 mg/dL (0.2-1.2); CK (CPK) 21 U/L (29-168); Calc. Creatinine Clearance 0 mL/min (70-130); Calcium 9.1 mg/dL (7.8-10.44); Carbon Dioxide 22 mmol/L (22-29); Chloride 105 mmol/L (98-107); Estimated GFR-MDRD 80; Globulin 2.1 g/dL (2.4-3.5); Glucose 115 mg/dL (70-105); Lipase 4 U/L (8-78); Potassium 3.2 mmol/L (3.5-5.1); Protein, Total 5.9 g/dL (6.0-8.3); Sodium 137 mmol/L (136-145)
[2018-03-25 13:22] LABS: CKMB 0.5 ng/mL (0-6.6); Troponin I Less than 0.010 ng/mL (< 0.028)
[2018-03-25] MEDS ORDERED: ISOVUE-370 76%-LOCM 1 ML ONE (13:33)
[2018-03-25] MEDS ORDERED: Ketorolac Tromethamine 30 MG/ML VIAL ONE (13:33)
--- NOTE | 2018-03-25 14:12 | RAD ---
PORTABLE CHEST: Date: 03/25/18 HISTORY: Chest pain. COMPARISON: 03/20/18. FINDINGS: Lungs remain clear. No infiltrate or vascular congestion. Heart is mildly enlarged with postop sterno maryann change noted. IMPRESSION: No evidence of acute process. POS: [facility]
[2018-03-25 14:40] LABS: Bilirubin Negative (Negative); Blood, Urine Negative (Negative); Clarity CLEAR (Clear); Glucose, Urine (Dipstick) Negative (Negative); Leukocyte Negative (Negative); Nitrite Negative (Negative); Protein, Urine (Dipstick) Negative (Neg-Trace); Urobilinogen 0.2 mg/dL (0.2-1.0); pH, Urine 5.5 (5.0-9.0)
--- NOTE | 2018-03-25 14:41 | CT ---
ABDOMEN AND PELVIC CT SCAN WITH IV CONTRAST: Date: 03/25/18 HISTORY: 53-year-old female with history of right upper quadrant pain with vomiting and diaphoresis. COMPARISON: 05/13/17. FINDINGS: Small calcified granuloma in the right lower lobe of the lung with some minimal pleural based parench ymal changes in both bases and dependent portion of the lungs which may well be related to dependent positioning. This is somewhat more prominent than on the prior study. Stable right florecita hepatis lymp h node. Status post cholecystectomy. Common bile duct 0.9 cm. Fatty replacement changes are noted in the pancreas. Adrenal glands are unremarkable. Spleen is unremarkable. No renal calculi or obstruc tion. Postop changes in the region of the cecum with what appears to be status post appendectomy. Sma ll periumbilical fat-containing hernia, which appears to be new when compared to the 05/13/17 study. No evidence of abscess, adenopathy, abnormal fluid collection, or other acute process. No bowel obstr uction. Unremarkable uterus and adnexal regions with small incidental uterine calcification, probably a very small uterine fibroid. IMPRESSION: 1. Status post cholecystectomy with ductal dilatation, stable. 2. Small, stable right florecita hepatis lymph node. 3. Small, fat-containing periumbilical hernia, new from the prior study. 4. Posterior positional changes in the posterior aspect of both lungs. 5. No other significant process in the abdomen or pelvis. POS: [facility]
[2018-03-25 14:44] LABS: Specific Gravity, Urine 1.054 (1.002-1.036)
== END 2018-03-25 14:32 | disposition home or self-care (01) ==
LOC: ERS 12:02
DX: R10.11 Right upper quadrant pain (principal); I25.2 Old myocardial infarction; E11.9 Type 2 diabetes mellitus without complications; I10 Essential (primary) hypertension; Z86.73 Personal history of transient ischemic attack (TIA), and cerebral infarction without residual deficits; I25.10 Atherosclerotic heart disease of native coronary artery without angina pectoris; J45.909 Unspecified asthma, uncomplicated; F17.200 Nicotine dependence, unspecified, uncomplicated; Z79.899 Other long term (current) drug therapy; Z79.82 Long term (current) use of aspirin; Z79.84 Long term (current) use of oral hypoglycemic drugs
CPT/HCPCS: 36415; 71045; 74177; 80053; 81003; 82274; 82553; 83690; 83880; 84484; 85025; 93005; 96361; 96374; 96375; 96376; J1885; J2270; Q0162

== ENCOUNTER 2018-03-26 17:57 | Emergency (ER) | payer OTHER, SELFPAY ==
[2018-03-26 19:03] LABS: #Lymphocytes 0.9 thou/uL (1.20-3.40); #Monocytes 0.4 thou/uL (0.11-0.59); #Neutrophils 6.2 thou/uL (1.40-6.50); %Basophils 0.5 % (0.0-1.0); %Eosinophils 0.5 % (0.0-10.0); %Lymphocytes 12.1 % (21.0-51.0); %Monocytes 4.9 % (0.0-10.0); %Neutrophils 82.1 % (42.0-75.0); Hemoglobin 15.6 g/dL (12.0-16.0); Mean Corpuscular HGB CONC 33.9 g/dL (32.0-36.0); Mean Corpuscular Hemoglobin 31.8 pg (27.0-31.0); Mean Corpuscular Volume 93.8 fL (78.0-98.0); Mean Platelet Volume 8.5 fL (7.4-10.4); Platelet Count 199 thou/uL (130-400); RBC Distribution Width 12.2 % (11.5-14.5); White Blood Cell (WBC) Count 7.5 thou/uL (4.8-10.8)
[2018-03-26 19:23] LABS: ALT (SGPT) 179 U/L (8-55); AST (SGOT) 31 U/L (5-34); Albumin 4.2 g/dL (3.5-5.0); Alkaline Phosphatase 99 U/L (40-150); Anion Gap 11 mmol/L (10-20); BUN (Urea Nitrogen) 10 mg/dL (9.8-20.1); Bilirubin, Total 0.6 mg/dL (0.2-1.2); Calc. Creatinine Clearance 0 mL/min (70-130); Calcium 9.7 mg/dL (7.8-10.44); Carbon Dioxide 28 mmol/L (22-29); Chloride 107 mmol/L (98-107); Estimated GFR-MDRD 72; Globulin 2.5 g/dL (2.4-3.5); Glucose 133 mg/dL (70-105); Lipase Less than 4 U/L (8-78); Potassium 4.2 mmol/L (3.5-5.1); Protein, Total 6.7 g/dL (6.0-8.3); Sodium 142 mmol/L (136-145)
== END 2018-03-26 21:10 | disposition home or self-care (01) ==
LOC: ERS 17:57
DX: R10.11 Right upper quadrant pain (principal); R10.31 Right lower quadrant pain; E11.9 Type 2 diabetes mellitus without complications; I10 Essential (primary) hypertension; I25.2 Old myocardial infarction; J45.909 Unspecified asthma, uncomplicated; F17.200 Nicotine dependence, unspecified, uncomplicated; Z86.73 Personal history of transient ischemic attack (TIA), and cerebral infarction without residual deficits; Z79.899 Other long term (current) drug therapy; Z79.82 Long term (current) use of aspirin; Z79.84 Long term (current) use of oral hypoglycemic drugs
CPT/HCPCS: 36415; 80053; 83690; 85025; 99283

== ENCOUNTER 2018-09-24 18:24 | Inpatient (IN) | payer OTHER ==
--- NOTE | 2018-09-24 18:45 | RAD ---
PA AND LATERAL CHEST X-RAY: 09/24/2018 HISTORY: Cough for several days. COMPARISON: 03/23/2018 FINDINGS: Post surgical changes related to CABG are again noted. The cardiac silhouette and pulmonary vasculat ure are within normal limits. The lungs are clear. There has been no interval change when compared to the prior exam. IMPRESSION: No acute cardiopulmonary process. POS: [facility]
[2018-09-24] MEDS ORDERED: predniSONE 20 MG TAB ONE (19:53)
[2018-09-24 20:20] LABS: #Basophils 0.1 thou/uL (0.0-0.2); #Eosinphils 0.1 thou/uL (0.0-0.7); #Lymphocytes 1.9 thou/uL (1.20-3.40); #Monocytes 0.5 thou/uL (0.11-0.59); #Neutrophils 3.1 thou/uL (1.40-6.50); %Basophils 1.1 % (0.0-1.0); %Eosinophils 2.4 % (0.0-10.0); %Monocytes 7.9 % (0.0-10.0); %Neutrophils 55.6 % (42.0-75.0); Hemoglobin 14.7 g/dL (12.0-16.0); Mean Corpuscular HGB CONC 34.4 g/dL (32.0-36.0); Mean Corpuscular Hemoglobin 33.1 pg (27.0-31.0); Mean Corpuscular Volume 96.3 fL (78.0-98.0); Mean Platelet Volume 9.8 fL (7.4-10.4); Platelet Count 179 thou/uL (130-400); Red Blood Cell (RBC) Count 4.43 mill/uL (4.20-5.40); White Blood Cell (WBC) Count 5.6 thou/uL (4.8-10.8)
[2018-09-24 20:29] LABS: Bilirubin Negative (Negative); Blood, Urine Negative (Negative); Clarity CLEAR (Clear); Glucose, Urine (Dipstick) Negative (Negative); Leukocyte Negative (Negative); Nitrite Negative (Negative); Protein, Urine (Dipstick) Negative (Neg-Trace); Specific Gravity, Urine 1.013 (1.002-1.036); Urobilinogen 0.2 mg/dL (0.2-1.0); pH, Urine 5.5 (5.0-9.0)
[2018-09-24 20:29] LABS: Actual Bicarbonate (HCO3a) 17.7 mEq/L (22-28); Analyzer IN Cardio ER; Base Excess (BEa) -3.8 mEq/L (-2.0 to +3.0); Calcium, Ionized 1.09 mmol/L (1.12-1.30); Carboxyhemoglobin (COHb) 2.6 gm% (0.0-3.0); Potassium - ABG Lab 3.76 mmol/L (3.70-5.30); pH, Arterial 7.48 (7.35-7.45)
[2018-09-24] MEDS ORDERED: Albuterol Sulfate 2.5 mg/3 ml Neb ONE (20:29)
[2018-09-24 20:33] LABS: ALT (SGPT) 50 U/L (8-55); AST (SGOT) 13 U/L (5-34); Albumin 3.8 g/dL (3.5-5.0); Alkaline Phosphatase 75 U/L (40-150); Anion Gap 14 mmol/L (10-20); BUN (Urea Nitrogen) 13 mg/dL (9.8-20.1); Bilirubin, Total 0.3 mg/dL (0.2-1.2); Calc. Creatinine Clearance 0 mL/min (70-130); Calcium 8.9 mg/dL (7.8-10.44); Carbon Dioxide 20 mmol/L (22-29); Chloride 108 mmol/L (98-107); Estimated GFR-MDRD 75; Globulin 2.8 g/dL (2.4-3.5); Glucose 88 mg/dL (70-105); Magnesium 2.1 mg/dL (1.6-2.6); Potassium 4.1 mmol/L (3.5-5.1); Protein, Total 6.6 g/dL (6.0-8.3); Sodium 138 mmol/L (136-145)
[2018-09-24] MEDS ORDERED: Aspirin Chewable 81 MG TAB ONE (20:36)
[2018-09-24] MEDS ORDERED: Magnesium 2 GM/50 ML BAG (IN WATER) ONE (20:36)
[2018-09-24 20:41] LABS: CO2 Tension 24.4 mmHg (35.0-45.0); Puncture Site LBA
[2018-09-24] MEDS ORDERED: Furosemide 20 MG/2 ML VIAL ONE (22:07)
[2018-09-24] MEDS ORDERED: Bisacodyl 10 MG SUPP PR PRN (22:29)
[2018-09-24] MEDS ORDERED: Calcium Carbonate 500 MG ChewTAB PO PRN (22:29)
[2018-09-24] MEDS ORDERED: Bisacodyl 5 MG TAB PO PRN (22:29)
[2018-09-24] MEDS ORDERED: Senokot S 8.6-50 MG TAB PO PRN (22:29)
[2018-09-24] MEDS ORDERED: Acetaminophen 650 MG Suppository PR PRN (22:29)
[2018-09-24] MEDS ORDERED: Zolpidem Tartrate 5 MG TAB PO PRN (22:29)
[2018-09-24] MEDS ORDERED: Sodium Chloride 0.9% 1,000 ML IV SCH (22:30)
[2018-09-24] MEDS ORDERED: Dextrose 50% Abboject 50 ML SYRINGE SLOW IVP PRN (22:35)
[2018-09-24] MEDS ORDERED: Dextrose 5% in Water 1,000 ML IV PRN (22:35)
[2018-09-24] MEDS ORDERED: LEVAQUIN Pharmacy to Dose 1 EACH IVPB PRN (22:36)
[2018-09-24 23:22] LABS: Troponin I Less than 0.010 ng/mL (< 0.028)
[2018-09-24] MEDS ORDERED: Morphine 4 MG/ML VIAL ONE (23:35)
[2018-09-24] MEDS ORDERED: methylPREDNISolone Sod Succ 40 MG VIAL IVP SCH (23:59)
[2018-09-25] MEDS ORDERED: methylPREDNISolone Sod Succ/PF 125 MG/2 ML VIAL IVP SCH (01:30)
[2018-09-25 02:25] LABS: #Lymphocytes 0.4 thou/uL (1.20-3.40); #Monocytes 0.1 thou/uL (0.11-0.59); #Neutrophils 4.1 thou/uL (1.40-6.50); %Eosinophils 0.3 % (0.0-10.0); %Lymphocytes 8.3 % (21.0-51.0); %Monocytes 1.1 % (0.0-10.0); %Neutrophils 90.3 % (42.0-75.0); Hemoglobin 14.1 g/dL (12.0-16.0); Mean Corpuscular HGB CONC 33.5 g/dL (32.0-36.0); Mean Corpuscular Hemoglobin 32.4 pg (27.0-31.0); Mean Corpuscular Volume 96.9 fL (78.0-98.0); Mean Platelet Volume 9.5 fL (7.4-10.4); Platelet Count 159 thou/uL (130-400); RBC Distribution Width 12.1 % (11.5-14.5); Red Blood Cell (RBC) Count 4.36 mill/uL (4.20-5.40); White Blood Cell (WBC) Count 4.6 thou/uL (4.8-10.8)
[2018-09-25 02:47] LABS: Anion Gap 18 mmol/L (10-20); BUN (Urea Nitrogen) 15 mg/dL (9.8-20.1); Calc. Creatinine Clearance 0 mL/min (70-130); Calcium 8.7 mg/dL (7.8-10.44); Carbon Dioxide 18 mmol/L (22-29); Chloride 104 mmol/L (98-107); Estimated GFR-MDRD 66; Glucose 260 mg/dL (70-105); Potassium 3.6 mmol/L (3.5-5.1); Sodium 136 mmol/L (136-145)
[2018-09-25 02:48] LABS: Troponin I Less than 0.010 ng/mL (< 0.028)
[2018-09-25] MEDS: Acetaminophen 325 MG TAB PO PRN ×4 (03:37→18:03)
[2018-09-25] MEDS: HumaLOG 300 UNITS/3 ML VIAL SC PRN ×4 (06:18→22:25)
[2018-09-25] MEDS: Mometasone/Formoterol 120 PUFF INHALER INH SCH ×2 (06:59→18:41)
[2018-09-25] MEDS: Famotidine/PF 20 mg/2ml Vial SLOW IVP SCH ×2 (07:44→21:05)
[2018-09-25] MEDS: Furosemide 40 MG TAB PO SCH (07:47)
[2018-09-25] MEDS: Gabapentin 300 MG CAP PO SCH ×2 (07:47→20:07)
[2018-09-25] MEDS: guaiFENesin ER 600 MG TAB PO SCH ×2 (07:47→20:07)
[2018-09-25] MEDS: Clopidogrel Bisulfate 75 MG TAB PO SCH (07:47)
[2018-09-25] MEDS: Famotidine 20 MG TAB PO SCH ×2 (07:47→20:07)
[2018-09-25] MEDS: Aspirin 81 mg Enteric Coated Tablet PO SCH (07:47)
[2018-09-25] MEDS: methylPREDNISolone Sod Succ 40 MG VIAL IVP SCH ×3 (07:48→20:08)
[2018-09-25] MEDS: Enoxaparin Sodium 40 MG/0.4 ML SYRINGE SC SCH (07:48)
[2018-09-25] MEDS: Loratadine 10 MG TAB PO SCH (07:48)
[2018-09-25] MEDS: Potassium Chloride 20 MEQ TAB PO SCH (07:48)
[2018-09-25] MEDS: Guaifenesin DM 100-10/5 ML UDCUP PO PRN ×3 (07:58→18:03)
[2018-09-25] MEDS: Benzonatate 100 MG CAP PO PRN ×2 (09:56→16:42)
[2018-09-25] MEDS: traMADol HCl 50 MG TAB PO PRN ×2 (10:38→16:41)
--- NOTE | 2018-09-25 12:52 | PDOC.PN ---
- Subjective Encounter Start Date: 09/25/18 Encounter Start Time: 07:00 Pt seen for followup re: acute respiratory failure. c/o cough, wheezing. - Objective Resuscitation Status - Order Detail: 09/24/18 22:29 Resuscitation Status Routine Resuscitation Status: FULL: Full Resuscitation MAR Reviewed: Yes Vital Signs & Weight: Vital Signs (12 hours) Temp Pulse Resp BP Pulse Ox 09/25/18 11:52 97.2 F L 85 22 H 115/61 98 09/25/18 10:00 80 19 99 09/25/18 07:38 98.3 F 78 22 H 114/74 97 09/25/18 06:57 75 20 99 09/25/18 03:15 97.5 F L 86 24 H 126/76 97 09/25/18 02:21 80 20 100 Weight Weight 6.155 oz I&O: 09/24/18 09/25/18 09/26/18 06:59 06:59 06:59 Intake Total 500 300 Balance 500 300 Result Diagrams: 09/25/18 02:17 09/25/18 02:17 Additional Labs: Accuchecks 09/25/18 09/25/18 10:56 05:39 POC Glucose 390 H 243 H EKG Reviewed by me: Yes (Tele: NSR) Phys Exam - Physical Examination Constitutional: NAD HEENT: moist MMs, sclera anicteric, oral pharynx no lesions, 2+ tonsils Neck: no nodes, no JVD, supple, full ROM Respiratory: no rales, no rhonchi, wheezing present Cardiovascular: RRR, no rub S1, s2 Gastrointestinal: soft, non-tender, no distention, positive bowel sounds Neurological: moves all 4 limbs Psychiatric: normal affect, A&O x 3 Dx/Plan (1) Acute respiratory failure Code(s): J96.00 - ACUTE RESPIRATORY FAILURE, UNSP W HYPOXIA OR HYPERCAPNIA Status: Acute Comment: secondary to COPD exacerbation (2) Acute exacerbation of chronic obstructive pulmonary disease (COPD) Code(s): J44.1 - CHRONIC OBSTRUCTIVE PULMONARY DISEASE W (ACUTE) EXACERBATION Status: Acute Comment: continue oxygen, steroids, bronchodilators and antibiotics (3) DM type 2 (diabetes mellitus, type 2) Status: Chronic Qualifiers: Diabetes mellitus senior care insulin use: without senior care use Diabetes mellitus complication status: with circulatory complication Diabetes mellitus complication detail: with other circulatory complications Qualified Code(s): E11.59 - Type 2 diabetes mellitus with other circulatory complications Comment: continue accuchecks, insulin sliding scale (4) Dyslipidemia Code(s): E78.5 - HYPERLIPIDEMIA, UNSPECIFIED Status: Chronic Comment: continue statin (5) HTN (hypertension) Code(s): I10 - ESSENTIAL (PRIMARY) HYPERTENSION Status: Chronic Qualifiers: Hypertension type: essential hypertension Comment: controlled - Plan * . Review of Systems - Review of Systems Constitutional: negative: fever, chills, sweats, weakness, malaise Respiratory: Cough, SOB with Excertion, Sputum, Wheezing. negative: Dry, Shortness of Breath, Hemoptysis, Pleuritic Pain Cardiovascular: negative: chest pain, palpitations, orthopnea, paroxysmal nocturnal dyspnea, edema, light headedness Gastrointestinal: negative: Nausea, Vomiting, Abdominal Pain, Diarrhea, Constipation, Melena, Hematochezia Musculoskeletal: Back Pain Skin: negative: Rash, Lesions, Jorge, Bruising - Medications/Allergies Allergies/Adverse Reactions: Allergies Allergy/AdvReac Type Severity Reaction Status Date / Time No Known Drug Allergies Allergy Verified 03/20/18 20:44 Medications: Current Medications Acetaminophen (Tylenol) 650 mg PO Q4H PRN PRN Reason: Headache/Fever/Mild Pain (1-3) Last Admin: 09/25/18 07:48 Dose: 650 mg Acetaminophen (Tylenol) 650 mg [place] Q4H PRN PRN Reason: Headache/Fever/Mild Pain (1-3) Albuterol/Ipratropium (Duoneb) 3 ml NEB [id number] [facility] Last Admin: 09/25/18 10:00 Dose: 3 ml Aspirin (Ecotrin) 81 mg PO DAILY [facility] Last Admin: 09/25/18 07:47 Dose: 81 mg Atorvastatin Calcium (Lipitor) 10 mg PO [facility] Benzonatate (Tessalon) 100 mg PO TIDPRN PRN PRN Reason: Cough Last Admin: 09/25/18 09:56 Dose: 100 mg Bisacodyl (Dulcolax) 10 mg PO DAILYPRN PRN PRN Reason: Constipation Bisacodyl (Dulcolax) 10 mg [place] DAILYPRN PRN PRN Reason: Constipation Calcium Carbonate (Tums) 1,000 mg PO Q4H PRN PRN Reason: Heartburn or Indigestion Clopidogrel Bisulfate (Plavix) 75 mg PO DAILY [facility] Last Admin: 09/25/18 07:47 Dose: 75 mg Dextrose/Water (Dextrose 50%) 25 gm SLOW IVP PRN PRN PRN Reason: Hypoglycemia Enoxaparin Sodium (Lovenox) 40 mg SC 0900 [facility] Last Admin: 09/25/18 07:48 Dose: 40 mg Famotidine (Pepcid) 20 mg SLOW IVP Q12HR [facility] Last Admin: 09/25/18 07:44 Dose: Not Given Famotidine (Pepcid) 20 mg PO BID [facility] Last Admin: 09/25/18 07:47 Dose: 20 mg Furosemide (Lasix) 40 mg PO DAILY [facility] Last Admin: 09/25/18 07:47 Dose: 40 mg Gabapentin (Neurontin) 300 mg PO BID [facility] Last Admin: 09/25/18 07:47 Dose: 300 mg Glucagon (Glucagon) 1 mg IM PRN PRN PRN Reason: Hypoglycemia Guaifenesin (Mucinex) 1,200 mg PO Q12HR [facility] Last Admin: 09/25/18 07:47 Dose: 1,200 mg Guaifenesin/Dextromethorphan (Robitussin Dm) 15 ml PO Q4H PRN PRN Reason: Cough Last Admin: 09/25/18 07:58 Dose: 15 ml Dextrose/Water (D5w) 1,000 mls @ 0 mls/hr IV .Q0M PRN PRN Reason: Hypoglycemia Levofloxacin 750 mg/ Device 150 mls @ 100 mls/hr IVPB Q24HR [facility] Insulin Human Lispro (Humalog) 0 units SC .MILD SLIDING SCALE PRN PRN Reason: Mild Correctional Scale Last Admin: 09/25/18 11:14 Dose: 6 unit Insulin Human Lispro (Humalog) 0 units SC .BEDTIME SLIDING SC PRN PRN Reason: Bedtime Correctional Scale Loratadine (Claritin) 10 mg PO DAILY [facility] Last Admin: 09/25/18 07:48 Dose: 10 mg Methylprednisolone Sodium Succinate (Solu-Medrol) 40 mg IVP 0200,0800,1400, 2000 [facility] Last Admin: 09/25/18 07:48 Dose: 40 mg Mometasone Furoate/Formoterol Fumar (Dulera 100 Mcg/5 Mcg Inhaler) 1 puff INH BID-RT [facility] Last Admin: 09/25/18 06:59 Dose: 1 puff Potassium Chloride (K-Dur) 20 meq PO DAILY [facility] Last Admin: 09/25/18 07:48 Dose: 20 meq Senna/Docusate Sodium (Senokot S) 2 tab PO BIDPRN PRN PRN Reason: Constipation Sodium Chloride (Flush - Normal Saline) 10 ml IVF Q12HR [facility] Last Admin: 09/25/18 07:48 Dose: 10 ml Sodium Chloride (Flush - Normal Saline) 10 ml IVF PRN PRN PRN Reason: Saline Flush Tramadol HCl (Ultram) 50 mg PO Q6H PRN PRN Reason: Mild Pain (1-3) Tramadol HCl (Ultram) 100 mg PO Q6H PRN PRN Reason: Moderate Pain (4-6) Last Admin: 09/25/18 10:38 Dose: 100 mg Zolpidem Tartrate (Ambien) 5 mg PO HSPRN PRN PRN Reason: Insomnia
[2018-09-25 13:01] LABS: Potassium 3.6 mmol/L (3.5-5.1)
--- NOTE | 2018-09-25 15:01 | CON ---
DATE OF CONSULTATION: HISTORY OF PRESENT ILLNESS: Randa Grijalva is a 53-year-old female. She says she sees Dr. River, presented with increased shortness of breath, coughing, and wheezing, unresponsive to usual medication. She called her primary care doctor, Dr. Martines several days ago for cough and congestion, for which she took Mucinex. Initially, she was feeling better. As of yesterday, she got worse generalized aches and pains, body aches, fever, chills, and her cough unresponsive to a medication. X-ray was taken in the ER, which shows no acute infiltrates. She is still smoking unfortunately. PAST MEDICAL HISTORY: Positive for COPD, chronic asthma, tobacco abuse, coronary artery disease, hypertension, diabetes. PAST SURGICAL HISTORY: Previous surgeries including a bypass surgery in the past. Multiple admissions several times in a year. Cholecystectomy, cecal tumor, laparotomy, colectomy. Chronic pain. MEDICATIONS: From home include; 1. Glucophage 500 twice a day. 2. Mucinex. 3. Potassium. 4. Niacin. 5. DuoNeb. 6. Gabapentin 300 b.i.d. 7. Lasix 40. 8. Flexeril 5. 9. Plavix 75. 10. Cough syrup. ALLERGIES: NONE. SOCIAL HISTORY: Otherwise unremarkable. REVIEW OF SYSTEMS: 10-point negative. To note, still smoking. No alcohol abuse. PHYSICAL EXAMINATION: VITAL SIGNS: Temperature 97, pulse 76, respiratory rate 18, saturations are 90% on room air, blood pressure 115/61. CHEST: Diffuse wheezing. CARDIAC: Normal S1 and S2. No gallops. ABDOMEN: No masses. LABORATORY DATA: Lytes are normal. White count 14,000. Chest x-ray, normal. IMPRESSION: 1. Chronic obstructive pulmonary disease, bronchial asthma, exacerbation. 2. Ongoing tobacco abuse. 3. Diabetes. PLAN: I agree with present neb treatments, steroids. Pain relief. We will follow. 70 minute consultation, 50% direct patient care. Job ID: [id number]
[2018-09-25] MEDS: Nicotine 21 MG PATCH TOP SCH (16:10)
[2018-09-25] MEDS: Atorvastatin Calcium 10 MG TAB PO SCH (20:07)
[2018-09-25] MEDS: HYDROcodone/Acetaminophen 5/325 mg Tablet PO PRN (22:22)
[2018-09-26] MEDS: methylPREDNISolone Sod Succ 40 MG VIAL IVP SCH ×4 (01:48→21:36)
[2018-09-26] MEDS: HYDROcodone/Acetaminophen 5/325 mg Tablet PO PRN ×3 (04:44→21:46)
[2018-09-26] MEDS: Mometasone/Formoterol 120 PUFF INHALER INH SCH ×2 (06:08→19:03)
[2018-09-26] MEDS: HumaLOG 300 UNITS/3 ML VIAL SC PRN ×4 (06:21→21:50)
[2018-09-26] MEDS: Gabapentin 300 MG CAP PO SCH ×2 (09:30→21:33)
[2018-09-26] MEDS: Enoxaparin Sodium 40 MG/0.4 ML SYRINGE SC SCH (09:30)
[2018-09-26] MEDS: guaiFENesin ER 600 MG TAB PO SCH ×2 (09:31→21:33)
[2018-09-26] MEDS: Aspirin 81 mg Enteric Coated Tablet PO SCH (09:31)
[2018-09-26] MEDS: Potassium Chloride 20 MEQ TAB PO SCH (09:31)
[2018-09-26] MEDS: Furosemide 40 MG TAB PO SCH (09:31)
[2018-09-26] MEDS: Clopidogrel Bisulfate 75 MG TAB PO SCH (09:32)
[2018-09-26] MEDS: Loratadine 10 MG TAB PO SCH (09:32)
[2018-09-26] MEDS: Famotidine 20 MG TAB PO SCH ×2 (09:32→21:33)
[2018-09-26] MEDS: Famotidine/PF 20 mg/2ml Vial SLOW IVP SCH ×2 (09:33→21:57)
[2018-09-26] MEDS ORDERED: Cyclobenzaprine 10 MG TAB PO SCH (12:45)
--- NOTE | 2018-09-26 13:22 | PDOC.PN ---
- Subjective Encounter Start Date: 09/26/18 Encounter Start Time: 07:20 Pt seen for followup re: acute respiratory failure. c/o pain over her left upper back. Cough, wheezing. - Objective Resuscitation Status - Order Detail: 09/24/18 22:29 Resuscitation Status Routine Resuscitation Status: FULL: Full Resuscitation MAR Reviewed: Yes Vital Signs & Weight: Vital Signs (12 hours) Temp Pulse Resp BP Pulse Ox 09/26/18 11:57 99.4 F 82 16 130/79 94 L 09/26/18 08:00 98 09/26/18 07:52 97.9 F 91 16 118/84 98 09/26/18 06:06 86 18 09/26/18 04:00 97.8 F 83 20 129/79 96 09/26/18 02:42 80 16 Weight Weight 6.155 oz I&O: 09/25/18 09/26/18 09/27/18 06:59 06:59 06:59 Intake Total 500 900 240 Output Total 1600 Balance 500 -700 240 Result Diagrams: 09/27/18 04:49 09/27/18 04:50 Additional Labs: Accuchecks 09/26/18 09/26/18 09/25/18 11:06 05:53 20:43 POC Glucose 246 H 210 H 244 H 09/25/18 15:48 POC Glucose 232 H EKG Reviewed by me: Yes (Tele: NSR) Phys Exam - Physical Examination Constitutional: NAD HEENT: moist MMs, sclera anicteric, oral pharynx no lesions, 2+ tonsils Neck: no nodes, no JVD, supple, full ROM Respiratory: wheezing present Cardiovascular: RRR, no rub S1, S2 Gastrointestinal: soft, non-tender, no distention, positive bowel sounds reproducible tenderness scapular area left side Neurological: moves all 4 limbs Psychiatric: normal affect, A&O x 3 Dx/Plan (1) Acute respiratory failure Code(s): J96.00 - ACUTE RESPIRATORY FAILURE, UNSP W HYPOXIA OR HYPERCAPNIA Status: Acute Comment: secondary to COPD exacerbation, continue to treat (2) Acute exacerbation of chronic obstructive pulmonary disease (COPD) Code(s): J44.1 - CHRONIC OBSTRUCTIVE PULMONARY DISEASE W (ACUTE) EXACERBATION Status: Acute Comment: Improving with oxygen, steroids, bronchodilators and antibiotics (3) DM type 2 (diabetes mellitus, type 2) Status: Chronic Qualifiers: Diabetes mellitus care home insulin use: without terminologist use Diabetes mellitus complication status: with circulatory complication Diabetes mellitus complication detail: with other circulatory complications Qualified Code(s): E11.59 - Type 2 diabetes mellitus with other circulatory complications Comment: on accuchecks, insulin sliding scale (4) Dyslipidemia Code(s): E78.5 - HYPERLIPIDEMIA, UNSPECIFIED Status: Chronic Comment: on statin (5) HTN (hypertension) Code(s): I10 - ESSENTIAL (PRIMARY) HYPERTENSION Status: Chronic Qualifiers: Hypertension type: essential hypertension Qualified Code(s): I10 - Essential (primary) hypertension Comment: controlled - Plan * . trial benazepril for probable muscle spasm. continue nicotine patch. Review of Systems - Review of Systems Constitutional: negative: fever, chills, sweats, weakness, malaise Respiratory: Cough, SOB with Excertion, Sputum, Wheezing. negative: Dry, Shortness of Breath, Hemoptysis, Pleuritic Pain Cardiovascular: negative: chest pain, palpitations, orthopnea, paroxysmal nocturnal dyspnea, edema, light headedness Gastrointestinal: negative: Nausea, Vomiting, Abdominal Pain, Diarrhea, Constipation, Melena, Hematochezia Musculoskeletal: Back Pain. negative: Neck Pain, Shoulder Pain, Arm Pain, Hand Pain, Leg Pain, Foot Pain - Medications/Allergies Allergies/Adverse Reactions: Allergies Allergy/AdvReac Type Severity Reaction Status Date / Time No Known Drug Allergies Allergy Verified 03/20/18 20:44 Medications: Current Medications Acetaminophen (Tylenol) 650 mg PO Q4H PRN PRN Reason: Headache/Fever/Mild Pain (1-3) Last Admin: 09/25/18 18:03 Dose: 650 mg Acetaminophen (Tylenol) 650 mg [place] Q4H PRN PRN Reason: Headache/Fever/Mild Pain (1-3) Hydrocodone Bitart/Acetaminophen ([place] 5/325) 1 tab PO Q4H PRN PRN Reason: Moderate Pain (4-6) Last Admin: 09/26/18 09:52 Dose: 1 tab Albuterol/Ipratropium (Duoneb) 3 ml NEB [id number] [facility] Last Admin: 09/26/18 10:00 Dose: 3 ml Aspirin (Ecotrin) 81 mg PO DAILY [facility] Last Admin: 09/26/18 09:31 Dose: 81 mg Atorvastatin Calcium (Lipitor) 10 mg PO HS [facility] Last Admin: 09/25/18 20:07 Dose: 10 mg Benzonatate (Tessalon) 100 mg PO TIDPRN PRN PRN Reason: Cough Last Admin: 09/25/18 16:42 Dose: 100 mg Bisacodyl (Dulcolax) 10 mg PO DAILYPRN PRN PRN Reason: Constipation Bisacodyl (Dulcolax) 10 mg [place] DAILYPRN PRN PRN Reason: Constipation Calcium Carbonate (Tums) 1,000 mg PO Q4H PRN PRN Reason: Heartburn or Indigestion Clopidogrel Bisulfate (Plavix) 75 mg PO DAILY [facility] Last Admin: 09/26/18 09:32 Dose: 75 mg Cyclobenzaprine HCl (Flexeril) 10 mg PO NOW [facility] Stop: 09/26/18 14:45 Cyclobenzaprine HCl (Flexeril) 10 mg PO TID PRN PRN Reason: Muscle Spasm Dextrose/Water (Dextrose 50%) 25 gm SLOW IVP PRN PRN PRN Reason: Hypoglycemia Enoxaparin Sodium (Lovenox) 40 mg SC 0900 [facility] Last Admin: 09/26/18 09:30 Dose: 40 mg Famotidine (Pepcid) 20 mg SLOW IVP Q12HR [facility] Last Admin: 09/26/18 09:33 Dose: Not Given Famotidine (Pepcid) 20 mg PO BID [facility] Last Admin: 09/26/18 09:32 Dose: 20 mg Furosemide (Lasix) 40 mg PO DAILY [facility] Last Admin: 09/26/18 09:31 Dose: 40 mg Gabapentin (Neurontin) 300 mg PO BID [facility] Last Admin: 09/26/18 09:30 Dose: 300 mg Glucagon (Glucagon) 1 mg IM PRN PRN PRN Reason: Hypoglycemia Guaifenesin (Mucinex) 1,200 mg PO Q12HR [facility] Last Admin: 09/26/18 09:31 Dose: 1,200 mg Guaifenesin/Dextromethorphan (Robitussin Dm) 15 ml PO Q4H PRN PRN Reason: Cough Last Admin: 09/25/18 18:03 Dose: 15 ml Dextrose/Water (D5w) 1,000 mls @ 0 mls/hr IV .Q0M PRN PRN Reason: Hypoglycemia Levofloxacin 750 mg/ Device 150 mls @ 100 mls/hr IVPB Q24HR [facility] Last Admin: 09/25/18 20:07 Dose: 150 mls Insulin Human Lispro (Humalog) 0 units SC .MILD SLIDING SCALE PRN PRN Reason: Mild Correctional Scale Last Admin: 09/26/18 12:14 Dose: 3 unit Insulin Human Lispro (Humalog) 0 units SC .BEDTIME SLIDING SC PRN PRN Reason: Bedtime Correctional Scale Last Admin: 09/25/18 22:25 Dose: 2 unit Loratadine (Claritin) 10 mg PO DAILY [facility] Last Admin: 09/26/18 09:32 Dose: 10 mg Methylprednisolone Sodium Succinate (Solu-Medrol) 40 mg IVP 0200,0800,1400, 2000 [facility] Last Admin: 09/26/18 09:30 Dose: 40 mg Mometasone Furoate/Formoterol Fumar (Dulera 100 Mcg/5 Mcg Inhaler) 1 puff INH BID-RT [facility] Last Admin: 09/26/18 06:08 Dose: 1 puff Nicotine (Nicoderm Patch) 21 mg TOP Q24HR [facility] Last Admin: 09/25/18 16:10 Dose: 21 mg Potassium Chloride (K-Dur) 20 meq PO DAILY [facility] Last Admin: 09/26/18 09:31 Dose: 20 meq Senna/Docusate Sodium (Senokot S) 2 tab PO BIDPRN PRN PRN Reason: Constipation Sodium Chloride (Flush - Normal Saline) 10 ml IVF Q12HR [facility] Last Admin: 09/26/18 09:32 Dose: 10 ml Sodium Chloride (Flush - Normal Saline) 10 ml IVF PRN PRN PRN Reason: Saline Flush Tramadol HCl (Ultram) 50 mg PO Q6H PRN PRN Reason: Mild Pain (1-3) Tramadol HCl (Ultram) 100 mg PO Q6H PRN PRN Reason: Moderate Pain (4-6) Last Admin: 09/25/18 16:41 Dose: 100 mg Zolpidem Tartrate (Ambien) 5 mg PO HSPRN PRN PRN Reason: Insomnia
[2018-09-26] MEDS: Guaifenesin DM 100-10/5 ML UDCUP PO PRN (14:13)
[2018-09-26] MEDS: Nicotine 21 MG PATCH TOP SCH (18:02)
--- NOTE | 2018-09-26 18:04 | PRG ---
DATE OF SERVICE: 09/26/2018 SUBJECTIVE: Randa Grijalva has no new complaints. She says she feels a better than she felt yesterday. Unfortunately, she continues to smoke. OBJECTIVE: GENERAL: She is in no distress. She talks complete sentences. VITAL SIGNS: Her temperature maximum is 99.8, heart rate is 87, oximetry is 98 % on room air, blood pressure 129/87. LUNGS: Remarkable for only end-expiratory wheezes. She does have a forced exhalation/forced glottis closure maneuver that she does when she is not talking , but in between these events, she talks in complete sentences. HEART: Regular rhythm. S1 and S2 normal. ABDOMEN: Soft and nontender. IMPRESSION AND PLAN: 1. Chronic obstructive pulmonary disease/asthma. 2. Ongoing tobacco use. It would be nice to see if we can get a bedside spirometry on her tomorrow. We will continue to follow the other physicians caring for. Job ID: [id number] MTDD
[2018-09-26] MEDS: Acetaminophen 325 MG TAB PO PRN (19:36)
[2018-09-26] MEDS: Atorvastatin Calcium 10 MG TAB PO SCH (21:33)
[2018-09-26] MEDS: Cyclobenzaprine 10 MG TAB PO PRN (23:19)
[2018-09-27 01:32] VITALS: BMI 29.9
[2018-09-27] MEDS: methylPREDNISolone Sod Succ 40 MG VIAL IVP SCH ×4 (02:18→20:17)
[2018-09-27] MEDS: HYDROcodone/Acetaminophen 5/325 mg Tablet PO PRN ×3 (02:22→20:17)
[2018-09-27 05:22] LABS: #Lymphocytes 0.6 thou/uL (1.20-3.40); #Monocytes 0.2 thou/uL (0.11-0.59); #Neutrophils 7.2 thou/uL (1.40-6.50); %Eosinophils 0.2 % (0.0-10.0); %Lymphocytes 7.3 % (21.0-51.0); %Monocytes 2.2 % (0.0-10.0); %Neutrophils 90.3 % (42.0-75.0); Hemoglobin 14.3 g/dL (12.0-16.0); Mean Corpuscular HGB CONC 34.3 g/dL (32.0-36.0); Mean Corpuscular Hemoglobin 33.1 pg (27.0-31.0); Mean Corpuscular Volume 96.6 fL (78.0-98.0); Mean Platelet Volume 9.8 fL (7.4-10.4); Platelet Count 194 thou/uL (130-400); Red Blood Cell (RBC) Count 4.32 mill/uL (4.20-5.40)
[2018-09-27 05:46] LABS: Anion Gap 14 mmol/L (10-20); BUN (Urea Nitrogen) 15 mg/dL (9.8-20.1); Calc. Creatinine Clearance 102 mL/min (70-130); Calcium 9.4 mg/dL (7.8-10.44); Carbon Dioxide 24 mmol/L (22-29); Chloride 103 mmol/L (98-107); Estimated GFR-MDRD 75; Glucose 218 mg/dL (70-105); Potassium 3.9 mmol/L (3.5-5.1); Sodium 137 mmol/L (136-145)
[2018-09-27] MEDS: HumaLOG 300 UNITS/3 ML VIAL SC PRN ×4 (05:58→21:41)
[2018-09-27] MEDS: Mometasone/Formoterol 120 PUFF INHALER INH SCH ×2 (06:32→19:22)
[2018-09-27] MEDS: Enoxaparin Sodium 40 MG/0.4 ML SYRINGE SC SCH (08:47)
[2018-09-27] MEDS: Gabapentin 300 MG CAP PO SCH ×2 (08:48→20:18)
[2018-09-27] MEDS: Loratadine 10 MG TAB PO SCH (08:48)
[2018-09-27] MEDS: Aspirin 81 mg Enteric Coated Tablet PO SCH (08:48)
[2018-09-27] MEDS: Furosemide 40 MG TAB PO SCH (08:49)
[2018-09-27] MEDS: guaiFENesin ER 600 MG TAB PO SCH ×2 (08:49→20:17)
[2018-09-27] MEDS: Famotidine 20 MG TAB PO SCH ×2 (08:49→20:18)
[2018-09-27] MEDS: Clopidogrel Bisulfate 75 MG TAB PO SCH (08:49)
[2018-09-27] MEDS: Potassium Chloride 20 MEQ TAB PO SCH (08:50)
[2018-09-27] MEDS: Famotidine/PF 20 mg/2ml Vial SLOW IVP SCH ×2 (09:01→20:18)
[2018-09-27] MEDS: Guaifenesin DM 100-10/5 ML UDCUP PO PRN ×2 (14:16→21:25)
[2018-09-27] MEDS: Cyclobenzaprine 10 MG TAB PO PRN (14:17)
[2018-09-27] MEDS: Nicotine 21 MG PATCH TOP SCH (14:17)
--- NOTE | 2018-09-27 16:19 | PDOC.PN ---
- Subjective Encounter Start Date: 09/27/18 Encounter Start Time: 10:40 Pt seen for followup re; acute respiratory failure. feels slightly better. back pain slightly better after taking Flexeril. - Objective Resuscitation Status - Order Detail: 09/24/18 22:29 Resuscitation Status Routine Resuscitation Status: FULL: Full Resuscitation MAR Reviewed: Yes Vital Signs & Weight: Vital Signs (12 hours) Temp Pulse Resp BP Pulse Ox 09/27/18 15:41 98.3 F 81 16 138/88 93 L 09/27/18 11:54 98.1 F 100 18 116/77 95 09/27/18 08:47 96 09/27/18 07:59 98.1 F 92 16 135/85 96 09/27/18 06:30 80 18 94 L Weight Weight 174 lb 8 oz I&O: 09/26/18 09/27/18 09/28/18 06:59 06:59 06:59 Intake Total 900 1794 Output Total 1600 Balance -700 1794 Result Diagrams: 09/27/18 04:49 09/27/18 04:50 Additional Labs: Accuchecks 09/27/18 09/27/18 09/26/18 10:44 05:53 19:50 POC Glucose 224 H 226 H 386 H 09/26/18 16:58 POC Glucose 189 H labs reviewed by me Phys Exam - Physical Examination Obese HEENT: moist MMs, sclera anicteric, oral pharynx no lesions, 2+ tonsils Neck: no nodes, no JVD, supple, full ROM Respiratory: wheezing present Cardiovascular: RRR, no rub S1, s2 Gastrointestinal: soft, non-tender, no distention, positive bowel sounds Neurological: moves all 4 limbs Psychiatric: normal affect, A&O x 3 Dx/Plan (1) Acute respiratory failure Code(s): J96.00 - ACUTE RESPIRATORY FAILURE, UNSP W HYPOXIA OR HYPERCAPNIA Status: Acute Comment: secondary to COPD exacerbation (2) Acute exacerbation of chronic obstructive pulmonary disease (COPD) Code(s): J44.1 - CHRONIC OBSTRUCTIVE PULMONARY DISEASE W (ACUTE) EXACERBATION Status: Acute Comment: continue oxygen, steroids, bronchodilators and antibiotics as below (3) DM type 2 (diabetes mellitus, type 2) Status: Chronic Qualifiers: Diabetes mellitus mcc insulin use: without lobsterman use Diabetes mellitus complication status: with circulatory complication Diabetes mellitus complication detail: with other circulatory complications Qualified Code(s): E11.59 - Type 2 diabetes mellitus with other circulatory complications Comment: blood sugars high, change to moderate sliding scale (4) HTN (hypertension) Code(s): I10 - ESSENTIAL (PRIMARY) HYPERTENSION Status: Chronic Qualifiers: Hypertension type: essential hypertension Qualified Code(s): I10 - Essential (primary) hypertension Comment: controlled - Plan * . Review of Systems - Review of Systems Constitutional: negative: fever, chills, sweats, weakness, malaise Respiratory: Cough, Dry, Wheezing. negative: Shortness of Breath, Hemoptysis, SOB with Excertion, Pleuritic Pain, Sputum Cardiovascular: negative: chest pain, palpitations, orthopnea, paroxysmal nocturnal dyspnea, edema, light headedness Gastrointestinal: negative: Nausea, Vomiting, Abdominal Pain, Diarrhea, Constipation, Melena, Hematochezia Genitourinary: negative: Dysuria, Frequency, Incontinence, Hematuria, Retention Musculoskeletal: Back Pain. negative: Neck Pain, Shoulder Pain, Arm Pain, Hand Pain, Leg Pain, Foot Pain - Medications/Allergies Allergies/Adverse Reactions: Allergies Allergy/AdvReac Type Severity Reaction Status Date / Time No Known Drug Allergies Allergy Verified 03/20/18 20:44 Medications: Current Medications Acetaminophen (Tylenol) 650 mg PO Q4H PRN PRN Reason: Headache/Fever/Mild Pain (1-3) Last Admin: 09/26/18 19:36 Dose: 650 mg Acetaminophen (Tylenol) 650 mg [place] Q4H PRN PRN Reason: Headache/Fever/Mild Pain (1-3) Hydrocodone Bitart/Acetaminophen ([place] 5/325) 1 tab PO Q4H PRN PRN Reason: Moderate Pain (4-6) Last Admin: 09/27/18 09:02 Dose: 1 tab Albuterol/Ipratropium (Duoneb) 3 ml NEB [id number] Last Admin: 09/27/18 12:48 Dose: Not Given Aspirin (Ecotrin) 81 mg PO DAILY [facility] Last Admin: 09/27/18 08:48 Dose: 81 mg Atorvastatin Calcium (Lipitor) 10 mg PO HS [facility] Last Admin: 09/26/18 21:33 Dose: 10 mg Benzonatate (Tessalon) 100 mg PO TIDPRN PRN PRN Reason: Cough Last Admin: 09/25/18 16:42 Dose: 100 mg Bisacodyl (Dulcolax) 10 mg PO DAILYPRN PRN PRN Reason: Constipation Bisacodyl (Dulcolax) 10 mg [place] DAILYPRN PRN PRN Reason: Constipation Calcium Carbonate (Tums) 1,000 mg PO Q4H PRN PRN Reason: Heartburn or Indigestion Clopidogrel Bisulfate (Plavix) 75 mg PO DAILY [facility] Last Admin: 09/27/18 08:49 Dose: 75 mg Cyclobenzaprine HCl (Flexeril) 10 mg PO TID PRN PRN Reason: Muscle Spasm Last Admin: 09/27/18 14:17 Dose: 10 mg Dextrose/Water (Dextrose 50%) 25 gm SLOW IVP PRN PRN PRN Reason: Hypoglycemia Enoxaparin Sodium (Lovenox) 40 mg SC 0900 [facility] Last Admin: 09/27/18 08:47 Dose: 40 mg Famotidine (Pepcid) 20 mg SLOW IVP Q12HR [facility] Last Admin: 09/27/18 09:01 Dose: Not Given Famotidine (Pepcid) 20 mg PO BID [facility] Last Admin: 09/27/18 08:49 Dose: 20 mg Furosemide (Lasix) 40 mg PO DAILY [facility] Last Admin: 09/27/18 08:49 Dose: 40 mg Gabapentin (Neurontin) 300 mg PO BID [facility] Last Admin: 09/27/18 08:48 Dose: 300 mg Glucagon (Glucagon) 1 mg IM PRN PRN PRN Reason: Hypoglycemia Guaifenesin (Mucinex) 1,200 mg PO Q12HR [facility] Last Admin: 09/27/18 08:49 Dose: 1,200 mg Guaifenesin/Dextromethorphan (Robitussin Dm) 15 ml PO Q4H PRN PRN Reason: Cough Last Admin: 09/27/18 14:16 Dose: 15 ml Dextrose/Water (D5w) 1,000 mls @ 0 mls/hr IV .Q0M PRN PRN Reason: Hypoglycemia Levofloxacin 750 mg/ Device 150 mls @ 100 mls/hr IVPB Q24HR [facility] Last Admin: 09/26/18 21:40 Dose: 150 mls Insulin Human Lispro (Humalog) 0 units SC .MILD SLIDING SCALE PRN PRN Reason: Mild Correctional Scale Last Admin: 09/27/18 11:44 Dose: 3 unit Insulin Human Lispro (Humalog) 0 units SC .BEDTIME SLIDING SC PRN PRN Reason: Bedtime Correctional Scale Last Admin: 09/26/18 21:50 Dose: 5 unit Loratadine (Claritin) 10 mg PO DAILY [facility] Last Admin: 09/27/18 08:48 Dose: 10 mg Methylprednisolone Sodium Succinate (Solu-Medrol) 40 mg IVP 0200,0800,1400, 2000 [facility] Last Admin: 09/27/18 14:16 Dose: 40 mg Mometasone Furoate/Formoterol Fumar (Dulera 100 Mcg/5 Mcg Inhaler) 1 puff INH BID-RT [facility] Last Admin: 09/27/18 06:32 Dose: 1 puff Nicotine (Nicoderm Patch) 21 mg TOP Q24HR [facility] Last Admin: 09/27/18 14:17 Dose: 21 mg Potassium Chloride (K-Dur) 20 meq PO DAILY [facility] Last Admin: 09/27/18 08:50 Dose: 20 meq Senna/Docusate Sodium (Senokot S) 2 tab PO BIDPRN PRN PRN Reason: Constipation Sodium Chloride (Flush - Normal Saline) 10 ml IVF Q12HR [facility] Last Admin: 09/27/18 08:50 Dose: 10 ml Sodium Chloride (Flush - Normal Saline) 10 ml IVF PRN PRN PRN Reason: Saline Flush Tramadol HCl (Ultram) 50 mg PO Q6H PRN PRN Reason: Mild Pain (1-3) Tramadol HCl (Ultram) 100 mg PO Q6H PRN PRN Reason: Moderate Pain (4-6) Last Admin: 09/25/18 16:41 Dose: 100 mg Zolpidem Tartrate (Ambien) 5 mg PO HSPRN PRN PRN Reason: Insomnia
--- NOTE | 2018-09-27 16:41 | PRG ---
DATE OF SERVICE: 09/27/2018 SUBJECTIVE: Randa Grijalva is in no distress. She is sleeping comfortably, not bronchospastic, had a normal expiratory time. She is not tachycardic. Respiratory rate in the teens. Oximetry is 93 on room air. Lungs are completely clear, although when I asked her to take a deep breath, she has forced closure of her glottis and a prolonged expiratory phase. Fortunately, we did PFTs today. PFTs only show a 2% reduction in FEV1 with no change. After bronchodilators, forced vital capacity volumes and diffusion are all normal. She currently has barely abnormal pulmonary function tests. She is stable for discharge home with a steroid taper over probably a week to 10 days. She will continue with her home inhaled medications. She says she needs a new nebulizer. I will be happy to write a prescription for this, but I do believe that a large part of her current symptoms are either vocal cord dysfunction syndrome or actually intentional to escape some life stress. Job ID: [id number] MTDD
[2018-09-27] MEDS: Atorvastatin Calcium 10 MG TAB PO SCH (20:17)
[2018-09-28] MEDS: Cyclobenzaprine 10 MG TAB PO PRN ×2 (00:02→14:32)
[2018-09-28] MEDS: methylPREDNISolone Sod Succ 40 MG VIAL IVP SCH ×4 (02:07→21:22)
[2018-09-28] MEDS: Benzonatate 100 MG CAP PO PRN (02:07)
[2018-09-28] MEDS: HYDROcodone/Acetaminophen 5/325 mg Tablet PO PRN ×3 (02:12→17:18)
[2018-09-28] MEDS: HumaLOG 300 UNITS/3 ML VIAL SC PRN ×4 (07:25→22:38)
[2018-09-28] MEDS: Mometasone/Formoterol 120 PUFF INHALER INH SCH ×2 (07:30→19:04)
[2018-09-28] MEDS: Famotidine/PF 20 mg/2ml Vial SLOW IVP SCH (08:11)
[2018-09-28] MEDS: Enoxaparin Sodium 40 MG/0.4 ML SYRINGE SC SCH (08:45)
[2018-09-28] MEDS: Aspirin 81 mg Enteric Coated Tablet PO SCH (08:45)
[2018-09-28] MEDS: Loratadine 10 MG TAB PO SCH (08:45)
[2018-09-28] MEDS: Gabapentin 300 MG CAP PO SCH ×2 (08:45→21:22)
[2018-09-28] MEDS: Potassium Chloride 20 MEQ TAB PO SCH (08:46)
[2018-09-28] MEDS: guaiFENesin ER 600 MG TAB PO SCH ×2 (08:46→21:22)
[2018-09-28] MEDS: Famotidine 20 MG TAB PO SCH ×2 (08:46→21:22)
[2018-09-28] MEDS: Clopidogrel Bisulfate 75 MG TAB PO SCH (08:46)
[2018-09-28] MEDS: Furosemide 40 MG TAB PO SCH (08:46)
--- NOTE | 2018-09-28 10:12 | PRG ---
DATE OF SERVICE: 09/28/2018 SUBJECTIVE: The patient is seen and examined at bedside. She is not feeling well. She could not sleep last night. Last night, she started having a lot of congestion. She started wheezing. She cannot cough up any phlegm. OBJECTIVE: VITAL SIGNS: Blood pressure is 126/82, pulse is 70, temperature is 98.1, respiratory rate is 16, and O2 saturation is 95% on room air. HEENT: Head is atraumatic and normocephalic. Eyes are PERRLA. Sclerae nonicteric. Oral mucosa is moist. NECK: Supple. LUNGS: Bilateral rales and rhonchi present. Bilateral wheezing. HEART: S1 and S2 normal. No S3. No S4. ABDOMEN: Soft and nontender. Bowel sounds are present. No organomegaly. EXTREMITIES: No clubbing, cyanosis, or edema. NEUROLOGIC: She is alert and oriented x4. There is no any sensory or motor deficit. Cranial nerves are intact. LABORATORY DATA: None except focal asymmetries not controlled ranging from 224 to 386. IMPRESSION: 1. Acute respiratory failure. 2. Acute exacerbation of chronic obstructive pulmonary disease with recurrent episodes of wheezing. 3. Diabetes mellitus type 2. 4. Hypertension. PLAN: The patient was seen by Dr. River yesterday and her PFTs came back almost normal and he recommended discharge, but in the last 24 hours, her clinical status changed. She started having a lot of congestion and wheezing. I am going to postpone the discharge because of that. We will continue her current regimen. I am going to hold her Lasix x2 doses. We will continue DuoNebs. We will continue Mucinex and I will continue clopidogrel and levofloxacin. She is still on methylprednisolone 40 mg every 6 hours. We will continue that. We will continue nicotine patch. Job ID: [id number]
[2018-09-28] MEDS ORDERED: Insulin Glargine 20 UNITS in Pre-Filled Syringe 1 EACH SC SCH (10:30)
--- NOTE | 2018-09-28 11:18 | PRG ---
DATE OF SERVICE: 09/28/2018 SUBJECTIVE: She is feeling about the same as yesterday. OBJECTIVE: VITAL SIGNS: She is afebrile, heart rate 70, respiratory rate 16, oximetry is 95% on room air, and blood pressure 126/82. LUNGS: Clear. HEART: Regular rhythm. ABDOMEN: Soft. IMPRESSION: Asthma with pulmonary function tests yesterday that were very close to normal.Diffusionwas normal which argues against chronic obstructive pulmonary disease. PLAN: I have written a prescription for a new nebulizer for her. She should have a slow steroid taper over a couple of weeks. I will be happy to see her in followup in 3 to 4 weeks after discharge. Job ID: [id number] MTDD
[2018-09-28] MEDS: Nicotine 21 MG PATCH TOP SCH (15:30)
[2018-09-28] MEDS: Guaifenesin DM 100-10/5 ML UDCUP PO PRN (15:34)
[2018-09-28] MEDS: Atorvastatin Calcium 10 MG TAB PO SCH (21:22)
[2018-09-28] MEDS: traMADol HCl 50 MG TAB PO PRN (21:23)
[2018-09-29] MEDS: Cyclobenzaprine 10 MG TAB PO PRN (00:10)
[2018-09-29] MEDS: methylPREDNISolone Sod Succ 40 MG VIAL IVP SCH ×4 (03:36→20:20)
[2018-09-29] MEDS: traMADol HCl 50 MG TAB PO PRN ×3 (03:36→20:19)
[2018-09-29] MEDS: Guaifenesin DM 100-10/5 ML UDCUP PO PRN ×2 (03:58→16:12)
[2018-09-29] MEDS: HumaLOG 300 UNITS/3 ML VIAL SC PRN ×4 (06:47→20:24)
[2018-09-29] MEDS: Mometasone/Formoterol 120 PUFF INHALER INH SCH ×2 (08:26→19:16)
[2018-09-29] MEDS: Loratadine 10 MG TAB PO SCH (08:54)
[2018-09-29] MEDS: guaiFENesin ER 600 MG TAB PO SCH ×2 (08:54→20:18)
[2018-09-29] MEDS: Potassium Chloride 20 MEQ TAB PO SCH (08:54)
[2018-09-29] MEDS: Famotidine 20 MG TAB PO SCH ×2 (08:54→20:19)
[2018-09-29] MEDS: Aspirin 81 mg Enteric Coated Tablet PO SCH (08:54)
[2018-09-29] MEDS: Clopidogrel Bisulfate 75 MG TAB PO SCH (08:55)
[2018-09-29] MEDS: Enoxaparin Sodium 40 MG/0.4 ML SYRINGE SC SCH (08:55)
[2018-09-29] MEDS: Gabapentin 300 MG CAP PO SCH ×2 (08:55→20:18)
[2018-09-29] MEDS: Furosemide 40 MG TAB PO SCH (08:55)
[2018-09-29] MEDS: Insulin Glargine 20 UNITS in Pre-Filled Syringe 1 EACH SC SCH ×2 (08:55→20:18)
[2018-09-29] MEDS: HYDROcodone/Acetaminophen 5/325 mg Tablet PO PRN ×2 (09:12→18:10)
[2018-09-29] MEDS: Benzonatate 100 MG CAP PO PRN (13:49)
[2018-09-29] MEDS: Albuterol Sulfate 2.5 mg/3 ml Neb NEB SCH ×4 (14:45→22:25)
[2018-09-29] MEDS: Albuterol Sulfate 1.25 MG/3 ML NEB ONE (14:45)
--- NOTE | 2018-09-29 14:49 | PRG ---
DATE OF SERVICE: SUBJECTIVE: The patient complains about having some shakiness and muscle cramps in upper and lower extremities. OBJECTIVE: VITAL SIGNS: Blood pressure is 124/90, pulse is 69, respirations 20, O2 saturation 98% on room air, and temperature is 97.8. HEENT: Head is atraumatic and normocephalic. Eyes are PERRLA. Sclerae are nonicteric. Oral mucosa is moist. NECK: Supple. No lymphadenopathy. LUNGS: Wheezing significantly diminished, but still mainly in the left chest. HEART: S1 and S2 normal. No S3. No S4. No murmur. ABDOMEN: Soft, nontender. Bowel sounds are present. No organomegaly. EXTREMITIES: No clubbing, cyanosis, or edema. NEUROLOGIC: She is alert and oriented x4. There are no any sensory or motor deficits present. Cranial nerves are intact. LABORATORY DATA: Showed glycemia ranging from 201 to 400. IMPRESSION: 1. Acute respiratory failure, improved. 2. Acute exacerbation of chronic obstructive pulmonary disease with recurrent episodes of wheezing, improved on IV steroids and DuoNeb. 3. Increased nervousness and shakiness of upper and lower extremities secondary to albuterol use. 4. Diabetes mellitus, uncontrolled, secondary to IV steroids use. 5. Hypertension. PLAN: Plan is to cut back on her albuterol dose to 1.25 mg q.4 hours, stop Atrovent, decrease the dose on Solu-Medrol to 20 mg q.6 hours IV push, add additional 20 units of Lantus in the evening along with her morning dose plus sliding scale. Check her BMP, magnesium level and continue her other medications with Mucinex and Lasix. Job ID: [id number]
[2018-09-29 15:16] LABS: Anion Gap 19 mmol/L (10-20); BUN (Urea Nitrogen) 22 mg/dL (9.8-20.1); Calc. Creatinine Clearance 67 mL/min (70-130); Calcium 9.7 mg/dL (7.8-10.44); Carbon Dioxide 23 mmol/L (22-29); Chloride 94 mmol/L (98-107); Estimated GFR-MDRD 46; Glucose 377 mg/dL (70-105); Potassium 4.1 mmol/L (3.5-5.1); Sodium 132 mmol/L (136-145)
[2018-09-29] MEDS: Nicotine 21 MG PATCH TOP SCH (16:13)
[2018-09-29] MEDS: Atorvastatin Calcium 10 MG TAB PO SCH (20:20)
[2018-09-30] MEDS: Guaifenesin DM 100-10/5 ML UDCUP PO PRN ×2 (00:16→17:57)
[2018-09-30] MEDS: HYDROcodone/Acetaminophen 5/325 mg Tablet PO PRN ×3 (00:52→15:27)
[2018-09-30] MEDS: Albuterol Sulfate 2.5 mg/3 ml Neb NEB SCH ×6 (02:03→22:37)
[2018-09-30] MEDS: methylPREDNISolone Sod Succ 40 MG VIAL IVP SCH ×2 (02:05→08:39)
[2018-09-30] MEDS: HumaLOG 300 UNITS/3 ML VIAL SC PRN ×3 (06:15→17:28)
[2018-09-30] MEDS: Albuterol Sulfate 1.25 MG/3 ML NEB ONE (07:20)
[2018-09-30] MEDS: Mometasone/Formoterol 120 PUFF INHALER INH SCH ×2 (07:32→18:51)
[2018-09-30] MEDS: guaiFENesin ER 600 MG TAB PO SCH ×2 (08:42→21:49)
[2018-09-30] MEDS: Enoxaparin Sodium 40 MG/0.4 ML SYRINGE SC SCH (08:42)
[2018-09-30] MEDS: Clopidogrel Bisulfate 75 MG TAB PO SCH (08:43)
[2018-09-30] MEDS: Gabapentin 300 MG CAP PO SCH ×2 (08:43→21:50)
[2018-09-30] MEDS: Famotidine 20 MG TAB PO SCH ×2 (08:43→21:49)
[2018-09-30] MEDS: Aspirin 81 mg Enteric Coated Tablet PO SCH (08:43)
[2018-09-30] MEDS: Furosemide 40 MG TAB PO SCH (08:43)
[2018-09-30] MEDS: Loratadine 10 MG TAB PO SCH (08:43)
[2018-09-30] MEDS: Potassium Chloride 20 MEQ TAB PO SCH (08:43)
[2018-09-30 09:59] LABS: Anion Gap 16 mmol/L (10-20); BUN (Urea Nitrogen) 20 mg/dL (9.8-20.1); Calc. Creatinine Clearance 72 mL/min (70-130); Calcium 9.3 mg/dL (7.8-10.44); Carbon Dioxide 28 mmol/L (22-29); Chloride 94 mmol/L (98-107); Estimated GFR-MDRD 50; Glucose 390 mg/dL (70-105); Magnesium 2.1 mg/dL (1.6-2.6); Potassium 4.1 mmol/L (3.5-5.1); Sodium 134 mmol/L (136-145)
[2018-09-30] MEDS: Insulin Glargine 20 UNITS in Pre-Filled Syringe 1 EACH SC SCH ×2 (10:24→21:50)
[2018-09-30] MEDS: traMADol HCl 50 MG TAB PO PRN ×2 (10:34→21:54)
--- NOTE | 2018-09-30 12:13 | PRG ---
DATE OF SERVICE: 09/30/2018 SUBJECTIVE: The patient is seen and examined at the bedside. She just came back from the walk with her in the hallway. She feels better, but apparently she had 18 beats of nonsustained ventricular tachycardia, which happened this morning when she was asymptomatic. OBJECTIVE: VITAL SIGNS: Blood pressure is 140/88, pulse is 65, temperature is 97.5, respiratory rate is 16, O2 saturation 98% on room air. HEENT: Head is atraumatic and normocephalic. Eyes are PERRLA. Sclerae are nonicteric. Oral mucosa is moist. NECK: Supple. LUNGS: Bilateral rales, mostly at the left side, but improved compared to yesterday and wheezing in similar fashion [id number]. HEART: S1 and S2 normal. No S3. No S4. No any murmur. ABDOMEN: Soft, nontender, nondistended. EXTREMITIES: No clubbing, cyanosis, or edema. LABORATORY DATA: Labs showed sodium of 134, potassium 4.1, chloride 94, CO2 of 28, BUN 20, creatinine 1.13, glycemia is ranging from 213 to 390, calcium 9.3, magnesium 2.1. IMPRESSION: 1. Nonsustained run of ventricular tachycardia this morning 18 beats. The patient was asymptomatic and aware of the problem. 2. Acute respiratory failure, improved. 3. Acute exacerbation of chronic obstructive pulmonary disease with symptoms of asthma. 4. Diabetes mellitus, uncontrolled secondary to IV steroids use. 5. Hypertension. PLAN: Electrocardiogram. Cardiology consultation. Echocardiogram. Continue her 20 units of Lantus twice a day plus sliding scale. Change her Solu-Medrol to 40 mg of prednisone once a day starting tomorrow and continue her Tessalon Perles. Continue clopidogrel. Continue levofloxacin. Job ID: [id number]
[2018-09-30 14:42] LABS: Troponin I Less than 0.010 ng/mL (< 0.028)
[2018-09-30] MEDS: Nicotine 21 MG PATCH TOP SCH (17:28)
--- NOTE | 2018-09-30 21:43 | CON ---
DATE OF CONSULTATION: 09/30/2018 TYPE OF CONSULTATION: Cardiology. INDICATION FOR CONSULTATION: A 53-year-old female with history of coronary artery disease, admitted with bronchitis, possible pneumonia, asthma with COPD exacerbation, who had 19-beat runs of nonsustained ventricular tachycardia. She has been having chest pressure since being in the hospital. She does have a history of coronary artery disease, has had bypass surgery in the past. She was found to have abnormal EKG changes also today and cardiac enzymes will be repeated, they are still pending. She did have troponin I on admission, which was unremarkable. She has complained of some chest discomfort since being in the hospital. At this time, she was admitted after having worsening of coughing, shortness of breath, weakness, no energy, and then was found to have bronchitis with pneumonia. She continues to have wheezing and coughing, and has been treated with antibiotics and steroids. She has had chest tightness since being in the hospital, but today the tightness is somewhat worse when she had a nonsustained ventricular tachycardia. She was unaware of the event. She does have multiple risk factors for progression of disease and unfortunately, she continues to smoke. She has a history of diabetes which has been present for undetermined amount of time, but it was noted when she had her bypass surgery. She does have history of hypertension, hypercholesterolemia, and also has a family history of heart disease. She did have an echocardiogram in 2017, which showed an ejection fraction of 50% to 55%. She was followed by Cardiology in [place] previously, but has not seen a county engineer in the last 2 to 3 years since moving here to the [facility]. PAST MEDICAL HISTORY: Significant for coronary artery disease, myocardial infarction in the past, bypass surgery, 3-vessel bypass performed in [place] in 2013. She has a history of COPD in the form of asthma. She has had TIA in the past and possible CVA. She has had cholecystectomy, tubal ligation, colon surgery. She has some type of mass removed in the colon and then she had reversal of colostomy. SOCIAL HISTORY: She is . She has 4 children. No heart disease. She smoked until this admission. She has previously smoked a third of a pack a day on and off for about 20 years. FAMILY HISTORY: As noted above. ALLERGIES: NONE. MEDICATIONS: At this time, she has taken: 1. Insulin. 2. Levofloxacin. 3. Ventolin inhaler. 4. DuoNeb inhalers. 5. Mucinex. 6. She has a Nicoderm patch. 7. She is on aspirin 81 mg a day. 8. Lipitor 10 mg a day. 9. Plavix 75 mg a day. 10. Lovenox 40 mg b.i.d. 11. She is on Pepcid 20 mg b.i.d. 12. Lasix 40 mg a day. 13. Claritin. 14. She is also on prednisolone. 15. DuoNeb treatments. 16. Potassium. 17. Prednisone. 18. Tylenol. 19. Other p.r.n. medications. ALLERGIES: NONE. REVIEW OF SYSTEMS: Her 12-point review of systems, she continues to smoke until this admission. She had a history of syncope in the past, she said she had an episode about 2 weeks ago. She became dizzy actually yesterday when walking, but there were no acute events noted. She also complains of some claudication type symptoms when she walks in both lower calf areas. PHYSICAL EXAMINATION: GENERAL: Reveals a well-developed, well-nourished female. VITAL SIGNS: Blood pressure is 140/80, heart rates in the 60s to 80s and shows a sinus rhythm, respiratory rate 16 to 20, and O2 saturation 98%. She is afebrile. HEENT: Reveals head to be normocephalic and atraumatic. Carotid pulses are present without any bruits. There is no JVD. CHEST: Shows diffuse rales, rhonchi and wheezing bilaterally. CARDIOVASCULAR: Reveals a regular rate and rhythm. She has a well-healed midline surgical incision after median sternotomy. ABDOMEN: Soft and nontender. Femoral pulses are present, somewhat decreased, but are present. Popliteal pulses are present. It was difficult to palpate pedal pulses. Abdominal exam was unremarkable. SKIN: Warm and dry. NEUROLOGICAL: She appears to be intact. DIAGNOSTIC DATA: Her EKG shows a normal sinus rhythm with a heart rate of 84 beats per minute with evidence of an old inferior myocardial infarction. She does have some EKG changes today compared with her EKG when she was admitted. She has some nonspecific T-wave inversions and biphasic T-waves in the anterior leads, which certainly could be suspicious of ischemia. As noted before, her cardiac enzymes are negative on admission. I will repeat this from the blood that was drawn today to see whether or not her cardiac enzymes have increased. IMPRESSION: 1. Respiratory distress with chronic obstructive pulmonary disease exacerbation. She is presently on steroids, antibiotics, and nebulizer treatments. She says she still continues to have shortness of breath and appears to be slightly improved. 2. Chest discomfort, which may be ischemic in nature due to her continued smoking and multiple risk factors for progression of disease, also history of bypass surgery, when she is stable. If we can wait another day or two, it will be better once her bronchitis and pneumonia are improved. Otherwise, she may need to undergo relatively urgent cardiac catheterization to evaluate her coronary artery status or her bypass grafts. 3. History of nonsustained ventricular tachycardia, which could be indicative of underlying ischemia. She will undergo an echocardiogram today to evaluate the left ventricular systolic function and then based on the results of the echocardiogram and the results of the cardiac enzymes, we will determine whether or not she will need to undergo a more urgent cardiac catheterization. At this time, we will evaluate her medications. She is not taking her insulin. I do not see that she is on a beta heidy. We will add beta-hiedy to her regimen at this time and we will also consider adding nitrates if the blood pressure will tolerate. I would continue her on the Plavix, as well as Lovenox and aspirin. Job ID: [id number]
[2018-09-30] MEDS: Atorvastatin Calcium 10 MG TAB PO SCH (21:49)
[2018-09-30] MEDS: Enoxaparin Sodium 80 MG/0.8 ML SYRINGE SC SCH (21:51)
[2018-10-01] MEDS: Cyclobenzaprine 10 MG TAB PO PRN ×2 (00:38→23:30)
[2018-10-01] MEDS: Albuterol Sulfate 2.5 mg/3 ml Neb NEB SCH ×6 (03:51→22:54)
[2018-10-01] MEDS: Mometasone/Formoterol 120 PUFF INHALER INH SCH ×2 (06:18→19:33)
[2018-10-01] MEDS: predniSONE 20 MG TAB PO SCH (08:56)
[2018-10-01] MEDS: guaiFENesin ER 600 MG TAB PO SCH ×2 (08:57→23:44)
[2018-10-01] MEDS: Clopidogrel Bisulfate 75 MG TAB PO SCH (08:57)
[2018-10-01] MEDS: Famotidine 20 MG TAB PO SCH ×2 (08:57→23:43)
[2018-10-01] MEDS: Loratadine 10 MG TAB PO SCH (08:57)
[2018-10-01] MEDS: Aspirin 81 mg Enteric Coated Tablet PO SCH (08:58)
[2018-10-01] MEDS: Enoxaparin Sodium 80 MG/0.8 ML SYRINGE SC SCH ×2 (08:59→23:41)
[2018-10-01] MEDS: Gabapentin 300 MG CAP PO SCH ×2 (08:59→23:44)
[2018-10-01] MEDS: Insulin Glargine 20 UNITS in Pre-Filled Syringe 1 EACH SC SCH ×2 (09:00→23:45)
[2018-10-01] MEDS: traMADol HCl 50 MG TAB PO PRN ×2 (11:06→17:40)
--- NOTE | 2018-10-01 11:12 | PDOC.CTH ---
Cardiology Progress Note - Subjective The pt seen and examined. No overnight events. She cont having tightness to GINETTE chest. - Objective Vital Signs Temp Pulse Resp BP Pulse Ox 10/01/18 07:57 97.7 F 62 14 108/76 96 10/01/18 06:17 84 16 97 10/01/18 03:51 95 10/01/18 03:19 97.7 F 64 16 112/83 93 L 09/30/18 23:55 98.4 F 66 18 121/81 95 Weight 174 lb 8 oz 09/30/18 10/01/18 10/02/18 06:59 06:59 06:59 Intake Total 3575 Balance 3575 - Physical Examination General/Neuro: alert & oriented x3 Neck: no JVD present Lungs: other: (coarses with ex wheezing) Heart: RRR Abdomen: soft Extremities: other: (No edema) - Telemetry Telemetry Rhythm: SR - Labs Result Diagrams: 09/27/18 04:49 09/30/18 09:39 Troponin/CKMB Troponin I Less than 0.010 ng/mL (< 0.028) 09/30/18 09:39 - Assessment/Plan 1. s/p 19 beats of NSVTs on 09/30/2018 - Echo on 10/01/2018 showed EF 45-50%, grade I diastolic dysfunction, and akinesis to apex. Plan for LHC on [address] Baltazar. 2. COPD exacerbation - stable with RA. On IV abx. Managed by PCP 3. CAD with hx of CABG x3 in 2013 - stable; on ASA and statin. Not on BBlocker at this moment due to hypotensive. 4. HTN - stable 5. DM type 2 - managed by PCP 6. Hx of TIA - 7. Ex-smoker - smoking cessation education given to the pt. MAR reviewed Pt. seen and eval. by me. I agree with the A/P by the [facility]. She is still coughing quite a lot. Chest is cleare. The EKG was abnormal but the CIE's are still negative. Will consider stress test vs cath when the pulmonary status is improved. Review of Systems - Review of Systems Constitutional: reports: no symptoms reported EENTM: reports: no symptoms reported Respiratory: reports: see HPI Cardiac (ROS): reports: see HPI ABD/GI: reports: no symptoms reported : reports: no symptoms reported Musculoskeletal: reports: no symptoms reported Skin: reports: no symptoms reported
[2018-10-01] MEDS ORDERED: Sodium Chloride 0.45% 1,000 ML IV SCH (12:15)
[2018-10-01] MEDS: HumaLOG 300 UNITS/3 ML VIAL SC PRN ×2 (13:09→17:34)
--- NOTE | 2018-10-01 13:23 | PRG ---
DATE OF SERVICE: 10/01/2018 SUBJECTIVE: The patient is seen and examined at the bedside. Her breathing is improved. She did not have any unexpected events overnight. OBJECTIVE: VITAL SIGNS: Blood pressure is 108/76, pulse 62, temperature 97.7, respiratory rate is 14, and O2 saturation 96% on room air. HEENT: Head is atraumatic and normocephalic. Eyes are PERRLA. Sclerae nonicteric. Oral mucosa is moist. LUNGS: Wheezing and rales significantly diminished, but still present bilaterally at both bases. HEART: S1 and S2 normal. No S3. No S4. No murmur. No more nonsustained ventricular tachycardia. ABDOMEN: Soft and nontender. Bowel sounds are present. No organomegaly. EXTREMITIES: No clubbing, cyanosis, or edema. NEUROLOGIC: She is alert and oriented x4. There are no motor deficits monitoring. LABORATORY DATA: Labs showed glucose ranging from 100s to 330. Echocardiogram results showed ejection fraction of left ventricle was estimated at 45% to 50% with apex akinesis. Also, there was a flow reversal noted suggestive of diastolic dysfunction. There were normal right ventricular size and function. Left atrium was normal in size. Right atrium was normal in size. Mitral valve showed annular calcification. There was a trace mitral regurgitation. Aortic valve appeared tricuspid and there was mild tricuspid regurgitation too. IMPRESSION: 1. Acute respiratory failure, improved. 2. Acute exacerbation of chronic obstructive pulmonary disease with symptoms of asthma, improved. 3. Diabetes mellitus, uncontrolled secondary to IV/p.o. steroids use. 4. Hypertension. 5. Nonsustained ventricular tachycardia of 18 beats. The patient was asymptomatic. No more runs of ventricular tachycardia since. 6. Renal insufficiency. I suspect that she had quite a bit of diuresis from her hyperglycemia and her creatinine went up because of that. We will obtain her BMP tomorrow morning, and we will start her on small dose of IV fluids, half-normal saline 100 mL/hour and just 1 L to see whether her creatinine responds to IV hydration. Also, we will obtain sputum for Gram stain and culture since her sputum looks quite blackish. We will stop her Levaquin and change her to Omnicef. We will stop her Lasix and potassium since she is getting on the sock drier side. Cardiology will make decision whether she will need cardiac catheterization soon. Job ID: [id number]
[2018-10-01] MEDS: HYDROcodone/Acetaminophen 5/325 mg Tablet PO PRN ×2 (14:52→21:50)
[2018-10-01] MEDS: Nicotine 21 MG PATCH TOP SCH (17:34)
[2018-10-01] MEDS: Atorvastatin Calcium 10 MG TAB PO SCH (23:40)
[2018-10-01] MEDS: Cefdinir 300 MG CAP PO SCH (23:41)
[2018-10-02] MEDS: Albuterol Sulfate 2.5 mg/3 ml Neb NEB SCH ×6 (02:36→22:39)
[2018-10-02] MEDS: Guaifenesin DM 100-10/5 ML UDCUP PO PRN (03:08)
[2018-10-02] MEDS: HYDROcodone/Acetaminophen 5/325 mg Tablet PO PRN ×2 (03:08→17:37)
[2018-10-02 06:07] LABS: Anion Gap 11 mmol/L (10-20); BUN (Urea Nitrogen) 16 mg/dL (9.8-20.1); Calc. Creatinine Clearance 100 mL/min (70-130); Calcium 8.8 mg/dL (7.8-10.44); Carbon Dioxide 29 mmol/L (22-29); Chloride 101 mmol/L (98-107); Estimated GFR-MDRD 74; Glucose 115 mg/dL (70-105); Sodium 138 mmol/L (136-145)
[2018-10-02] MEDS: Mometasone/Formoterol 120 PUFF INHALER INH SCH ×2 (06:28→19:41)
[2018-10-02] MEDS: Enoxaparin Sodium 80 MG/0.8 ML SYRINGE SC SCH ×2 (09:45→21:59)
[2018-10-02] MEDS: Cefdinir 300 MG CAP PO SCH ×2 (09:45→21:57)
[2018-10-02] MEDS: Gabapentin 300 MG CAP PO SCH ×2 (09:45→21:57)
[2018-10-02] MEDS: Clopidogrel Bisulfate 75 MG TAB PO SCH (09:46)
[2018-10-02] MEDS: guaiFENesin ER 600 MG TAB PO SCH ×2 (09:46→21:57)
[2018-10-02] MEDS: Famotidine 20 MG TAB PO SCH ×2 (09:46→21:57)
[2018-10-02] MEDS: predniSONE 20 MG TAB PO SCH (09:46)
[2018-10-02] MEDS: Aspirin 81 mg Enteric Coated Tablet PO SCH (09:47)
[2018-10-02] MEDS: Loratadine 10 MG TAB PO SCH (09:47)
[2018-10-02] MEDS: Insulin Glargine 20 UNITS in Pre-Filled Syringe 1 EACH SC SCH (09:48)
--- NOTE | 2018-10-02 10:37 | PDOC.CTH ---
Cardiology Progress Note - Subjective pt. seen and eval. by me. She is still having some coughing but improved significantly. Still wheezing and has a productive cough.Occasional PVC's. - ROS chest pain (coughing.), shortness of breath - Objective Vital Signs Temp Pulse Resp BP Pulse Ox 10/02/18 07:56 97.5 F L 61 16 101/71 97 10/02/18 06:26 52 L 16 94 L 10/02/18 04:00 97.9 F 60 18 123/77 97 10/02/18 02:36 68 16 96 10/02/18 00:00 98.5 F 63 18 139/84 95 10/01/18 22:54 59 L 16 98 Weight 174 lb 8 oz 10/01/18 10/02/18 10/03/18 06:59 06:59 06:59 Intake Total 1509 Balance 1509 - Physical Examination General/Neuro: alert & oriented x3 Neck: no JVD present Lungs: other: (diffuse rhonchi,expiratory wheeze.) Heart: RRR Abdomen: NT/ND, soft - Labs Result Diagrams: 09/27/18 04:49 10/02/18 05:08 Troponin/CKMB Troponin I Less than 0.010 ng/mL (< 0.028) 09/30/18 09:39 - Assessment/Plan 1. s/p 19 beats of NSVTs on 09/30/2018.Still having occ. PVC's. - Echo on 2018 showed EF 45-50%, grade I diastolic dysfunction, and akinesis to apex. Plan for stress test. If abnormal or reversible ischemia then cardiac cath. if no reversible ischemia then follow CAD as an outpt. Risk modification. tobacco cessation. 2. COPD exacerbation, acute Bronchitis. - stable with RA. On IV abx. Managed by PCP 3. CAD with hx of CABG x3 in 2014 - stable; on ASA and statin. Not on BBlocker at this moment due to hypotensive. 4. HTN - stable 5. DM type 2 - managed by PCP 6. Hx of TIA - 7. Ex-smoker - smoking cessation education given to the pt. GIA reviewed
[2018-10-02] MEDS: traMADol HCl 50 MG TAB PO PRN ×2 (11:23→21:58)
[2018-10-02] MEDS: HumaLOG 300 UNITS/3 ML VIAL SC PRN ×3 (11:23→22:01)
[2018-10-02] MEDS ORDERED: Potassium Chloride 20 MEQ TAB PO SCH (12:00)
[2018-10-02] MEDS: Nicotine 21 MG PATCH TOP SCH (16:34)
--- NOTE | 2018-10-02 18:40 | PDOC.PN ---
- Subjective Encounter Start Date: 10/02/18 Encounter Start Time: 18:00 Patient reports cough improved slightly. Anticipates stress test tomorrow ( completed rest portion today.) Anxious about results. No fever/chills/nausea/ vomiting - Objective Resuscitation Status - Order Detail: 09/24/18 22:29 Resuscitation Status Routine Resuscitation Status: FULL: Full Resuscitation Vital Signs & Weight: Vital Signs (12 hours) Temp Pulse Resp BP Pulse Ox 10/02/18 16:00 98.1 F 69 16 114/83 97 10/02/18 15:15 61 16 95 10/02/18 12:00 98.4 F 64 14 127/78 95 10/02/18 10:50 71 16 96 10/02/18 07:56 97.5 F L 61 16 101/71 97 Weight Weight 174 lb 8 oz I&O: 10/01/18 10/02/18 10/03/18 06:59 06:59 06:59 Intake Total 1509 960 Balance 1509 960 Result Diagrams: 09/27/18 04:49 10/02/18 05:08 Additional Labs: Accuchecks 10/02/18 10/02/18 10/02/18 17:33 10:47 06:03 POC Glucose 346 H 172 H 90 10/01/18 20:09 POC Glucose 281 H Phys Exam - Physical Examination Constitutional: NAD HEENT: PERRLA, moist MMs, oral pharynx no lesions Neck: no nodes, no JVD Bilateral rhonchi Cardiovascular: RRR Gastrointestinal: soft, non-tender Musculoskeletal: no edema Neurological: non-focal, moves all 4 limbs Psychiatric: normal affect, A&O x 3 Skin: no rash Dx/Plan (1) Hypokalemia Code(s): E87.6 - HYPOKALEMIA Status: Acute Comment: 40mEq po given, recheck BMP, check Mg (2) Non-sustained ventricular tachycardia Code(s): I47.2 - VENTRICULAR TACHYCARDIA Status: Acute Comment: 19 beats NSVT on 09/30/18, for stress test (3) Tobacco dependence Code(s): F17.200 - NICOTINE DEPENDENCE, UNSPECIFIED, UNCOMPLICATED Status: Chronic Comment: Discussed cessation (4) Acute exacerbation of chronic obstructive pulmonary disease (COPD) Code(s): J44.1 - CHRONIC OBSTRUCTIVE PULMONARY DISEASE W (ACUTE) EXACERBATION Status: Acute Comment: Improving, oxygen, steroids, bronchodilators and antibiotics (5) CAD (coronary artery disease) Code(s): I25.10 - ATHSCL HEART DISEASE OF [place] CORONARY ARTERY W/O ANG PCTRS Status: Chronic Qualifiers: Coronary Disease-Associated Artery/Lesion type: unspecified vessel or lesion type [place] vs. transplanted heart: [place] heart Associated angina: without angina Qualified Code(s): I25.10 - Atherosclerotic heart disease of [place] coronary artery without angina pectoris Comment: CABG x 3 in 2013. On ASA and statin. Consider beta heidy on discharge (6) COPD (chronic obstructive pulmonary disease) Status: Chronic Qualifiers: Emphysema type: unspecified (7) DM type 2 (diabetes mellitus, type 2) Status: Chronic Qualifiers: Diabetes mellitus [employer] or [employer] principal insulin use: without alf use Diabetes mellitus complication status: with circulatory complication Diabetes mellitus complication detail: with other circulatory complications Qualified Code(s): E11.59 - Type 2 diabetes mellitus with other circulatory complications Comment: Continue sliding scale correctional insulin (8) Dyslipidemia Code(s): E78.5 - HYPERLIPIDEMIA, UNSPECIFIED Status: Chronic Comment: on statin (9) HTN (hypertension) Code(s): I10 - ESSENTIAL (PRIMARY) HYPERTENSION Status: Chronic Qualifiers: Hypertension type: essential hypertension Qualified Code(s): I10 - Essential (primary) hypertension Comment: controlled - Plan * From pulmonary standpoint patient generally seems to be improved. Appreciate cardiology care regarding NSVT, stress test, consideration for cath pending stress test.
[2018-10-02] MEDS: Atorvastatin Calcium 10 MG TAB PO SCH (21:58)
[2018-10-03] MEDS: Cyclobenzaprine 10 MG TAB PO PRN ×2 (00:29→23:12)
[2018-10-03] MEDS: Albuterol Sulfate 2.5 mg/3 ml Neb NEB SCH ×6 (02:25→22:50)
[2018-10-03] MEDS: Insulin Glargine 20 UNITS in Pre-Filled Syringe 1 EACH SC SCH ×3 (02:38→21:18)
[2018-10-03] MEDS: HYDROcodone/Acetaminophen 5/325 mg Tablet PO PRN ×4 (04:45→21:12)
[2018-10-03 06:02] LABS: Platelet Count 207 thou/uL (130-400)
[2018-10-03 06:24] LABS: Anion Gap 9 mmol/L (10-20); BUN (Urea Nitrogen) 14 mg/dL (9.8-20.1); Calc. Creatinine Clearance 111 mL/min (70-130); Calcium 8.4 mg/dL (7.8-10.44); Carbon Dioxide 26 mmol/L (22-29); Chloride 106 mmol/L (98-107); Estimated GFR-MDRD 83; Glucose 153 mg/dL (70-105); Magnesium 1.7 mg/dL (1.6-2.6); Potassium 3.3 mmol/L (3.5-5.1); Sodium 138 mmol/L (136-145)
[2018-10-03] MEDS: Mometasone/Formoterol 120 PUFF INHALER INH SCH ×2 (06:34→18:39)
[2018-10-03] MEDS: predniSONE 20 MG TAB PO SCH (11:23)
[2018-10-03] MEDS: guaiFENesin ER 600 MG TAB PO SCH ×2 (11:23→21:12)
[2018-10-03] MEDS: Cefdinir 300 MG CAP PO SCH ×2 (11:23→21:12)
[2018-10-03] MEDS: Clopidogrel Bisulfate 75 MG TAB PO SCH (11:23)
[2018-10-03] MEDS: Famotidine 20 MG TAB PO SCH ×2 (11:23→21:12)
[2018-10-03] MEDS: Gabapentin 300 MG CAP PO SCH ×2 (11:23→21:30)
[2018-10-03] MEDS: Aspirin 81 mg Enteric Coated Tablet PO SCH (11:23)
[2018-10-03] MEDS: Loratadine 10 MG TAB PO SCH (11:24)
[2018-10-03] MEDS: Enoxaparin Sodium 80 MG/0.8 ML SYRINGE SC SCH ×2 (11:24→21:18)
[2018-10-03] MEDS: HumaLOG 300 UNITS/3 ML VIAL SC PRN ×3 (11:49→21:30)
[2018-10-03] MEDS ORDERED: Mometasone/Formoterol 120 PUFF INHALER INH SCH (13:15)
--- NOTE | 2018-10-03 13:35 | PDOC.CTH ---
Cardiology Progress Note - Subjective The pt seen and examined. No overnight events. No cardiac complaints. - Objective Vital Signs Temp Pulse Resp BP Pulse Ox 10/03/18 11:44 97.6 F 63 18 115/62 99 10/03/18 11:35 62 16 95 10/03/18 08:00 97.9 F 53 L 14 96/65 97 10/03/18 06:31 59 L 16 96 10/03/18 04:00 99.2 F 67 16 108/62 97 10/03/18 02:25 62 16 94 L Weight 174 lb 8 oz 10/02/18 10/03/18 10/04/18 06:59 06:59 06:59 Intake Total 1509 1200 Balance 1509 1200 - Physical Examination General/Neuro: alert & oriented x3 Neck: no JVD present Lungs: CTA, other: (coarse and diminished at bases) Heart: RRR Abdomen: soft Extremities: other: (No edema) - Telemetry Telemetry Rhythm: SR - Labs Result Diagrams: 10/03/18 05:45 10/03/18 05:45 Troponin/CKMB Troponin I Less than 0.010 ng/mL (< 0.028) 09/30/18 09:39 - Assessment/Plan 1. S/p 19 beats of NSVTs on 09/30/2018 - Still having occ. PVC's. Echo on 2018 showed EF 45-50%, grade I diastolic dysfunction, and akinesis to apex. Stress test was done today. If abnormal or reversible ischemia then cardiac cath. if no reversible ischemia then follow CAD as an outpt. 2. COPD exacerbation/acute Bronchitis. - stable with RA. On IV abx. Managed by PCP 3. CAD with hx of CABG x3 in 2013 - stable; on ASA and statin. Not on BBlocker at this moment due to hypotensive. 4. HTN - stable 5. DM type 2 - managed by PCP 6. Hx of TIA - 7. Ex-smoker - smoking cessation education given to the pt. MAR reviewed Pt. seen and eval. by me. I agree with the A/P by the COMMUNICATIONS ADMINISTRATOR.The stress test is negative for ischemia.. There is evidence of a previous scar. No cath is indicated at this time. Okay to d/c from a cardiac standpoint. She can f/u as an outpt. Review of Systems - Review of Systems Constitutional: reports: no symptoms reported EENTM: reports: no symptoms reported Respiratory: reports: no symptoms reported Cardiac (ROS): reports: no symptoms reported ABD/GI: reports: no symptoms reported : reports: no symptoms reported Musculoskeletal: reports: no symptoms reported
--- NOTE | 2018-10-03 13:45 | NM ---
NUCLEAR MEDICINE CARDIAC PERFUSION EXAMINATION WITH EJECTION FRACTION: COMPARISON: 03/21/18. HISTORY: Chest pain. History of CABG and myocardial infarction. TECHNIQUE: A two day nuclear medicine cardiac perfusion examination was performed. Rest images were obtained usi ng 27.6 mCi of technetium-99m sestamibi. Stress images were obtained using 30.5 mCi of technetium-99m sestamibi and Lexiscan. FINDINGS: There is a large size, severe intensity, fixed perfusion defect of the posterolateral wall/apex consi stent with a remote infarction. No reversible perfusion defect is seen. Gated images show apical hypokinesis with an ejection fraction of 58%. EDV: 126 mL LHR: 0.4 TID: 1.3 IMPRESSION: Remote apical infarction without evidence of ischemia. POS: [facility]
[2018-10-03] MEDS ORDERED: Potassium Chloride 20 MEQ TAB PO SCH (14:30)
--- NOTE | 2018-10-03 14:44 | PDOC.PN ---
- Subjective Encounter Start Date: 10/03/18 Encounter Start Time: 14:43 Subjective: still easily winded,cough slightly better -: wheezing still - Objective Resuscitation Status - Order Detail: 09/24/18 22:29 Resuscitation Status Routine Resuscitation Status: FULL: Full Resuscitation MAR Reviewed: Yes Vital Signs & Weight: Vital Signs (12 hours) Temp Pulse Resp BP Pulse Ox 10/03/18 11:44 97.6 F 63 18 115/62 99 10/03/18 11:35 62 16 95 10/03/18 08:00 97.9 F 53 L 14 96/65 97 10/03/18 06:31 59 L 16 96 10/03/18 04:00 99.2 F 67 16 108/62 97 Weight Weight 174 lb 8 oz I&O: 10/02/18 10/03/18 10/04/18 06:59 06:59 06:59 Intake Total 1509 1200 240 Balance 1509 1200 240 Result Diagrams: 10/03/18 05:45 10/03/18 05:45 Additional Labs: Accuchecks 10/03/18 10/03/18 10/02/18 11:37 05:31 20:36 POC Glucose 169 H 139 H 208 H 10/02/18 17:33 POC Glucose 346 H Microbiology 09/24/18 19:50 Nasal swab Influenza Types A,B Direct EIA - Final 10/01/18 09:30 Sputum Respiratory Culture - Final 10/02/18 Unknown Sputum Respiratory Culture - Preliminary Phys Exam - Physical Examination Constitutional: NAD HEENT: PERRLA, moist MMs, sclera anicteric, TM's clear, oral pharynx no lesions , 2+ tonsils Neck: no nodes, no JVD, supple, full ROM Respiratory: wheezing present Cardiovascular: RRR, no significant murmur Gastrointestinal: soft, non-tender, no distention, positive bowel sounds Musculoskeletal: no edema, pulses present Neurological: non-focal, normal sensation, moves all 4 limbs Psychiatric: normal affect, A&O x 3 Skin: no rash Dx/Plan (1) Acute respiratory failure Code(s): J96.00 - ACUTE RESPIRATORY FAILURE, UNSP W HYPOXIA OR HYPERCAPNIA Status: Acute Comment: secondary to COPD exacerbation (2) Hypokalemia Code(s): E87.6 - HYPOKALEMIA Status: Acute Comment: 40mEq po given, recheck BMP, check Mg (3) Non-sustained ventricular tachycardia Code(s): I47.2 - VENTRICULAR TACHYCARDIA Status: Acute Comment: 19 beats NSVT on 09/30/18, for stress test (4) Tobacco dependence Code(s): F17.200 - NICOTINE DEPENDENCE, UNSPECIFIED, UNCOMPLICATED Status: Chronic Comment: Discussed cessation (5) Acute bronchitis Code(s): J20.9 - ACUTE BRONCHITIS, UNSPECIFIED Status: Acute Qualifiers: Bronchitis organism: unspecified organism Qualified Code(s): J20.9 - Acute bronchitis, unspecified (6) Acute exacerbation of chronic obstructive pulmonary disease (COPD) Code(s): J44.1 - CHRONIC OBSTRUCTIVE PULMONARY DISEASE W (ACUTE) EXACERBATION Status: Acute Comment: Improving, oxygen, steroids, bronchodilators and antibiotics (7) CKD (chronic kidney disease) stage 2, GFR 60-89 ml/min Code(s): N18.2 - CHRONIC KIDNEY DISEASE, STAGE 2 (MILD) Status: Chronic (8) DM type 2 (diabetes mellitus, type 2) Status: Chronic Qualifiers: Diabetes mellitus superintendent container terminal insulin use: without residential use Diabetes mellitus complication status: with circulatory complication Diabetes mellitus complication detail: with other circulatory complications Qualified Code(s): E11.59 - Type 2 diabetes mellitus with other circulatory complications Comment: Continue sliding scale correctional insulin (9) Dyslipidemia Code(s): E78.5 - HYPERLIPIDEMIA, UNSPECIFIED Status: Chronic Comment: on statin (10) HTN (hypertension) Code(s): I10 - ESSENTIAL (PRIMARY) HYPERTENSION Status: Chronic Qualifiers: Hypertension type: essential hypertension Qualified Code(s): I10 - Essential (primary) hypertension Comment: controlled (11) Obesity (BMI 30-39.9) Code(s): E66.9 - OBESITY, UNSPECIFIED Status: Chronic - Plan continue antibiotics, respiratory therapy, incentive spirometry, out of bed/ ambulate, DVT proph w/SCDs increase dulera. add IS.cont mucinex,steroids and PO ABx. -: add singulair. pt gives h/o asthma but can't afford it -: Stress test results pending * . Review of Systems - Review of Systems Constitutional: weakness, malaise Respiratory: Cough, Shortness of Breath, SOB with Excertion, Sputum, Wheezing Cardiovascular: negative: chest pain, palpitations, orthopnea, paroxysmal nocturnal dyspnea, edema, light headedness, other Gastrointestinal: negative: Nausea, Vomiting, Abdominal Pain, Diarrhea, Constipation, Melena, Hematochezia, Other Genitourinary: negative: Dysuria, Frequency, Incontinence, Hematuria, Retention , Other Musculoskeletal: negative: Neck Pain, Shoulder Pain, Arm Pain, Back Pain, Hand Pain, Leg Pain, Foot Pain, Other Neurological: negative: Weakness, Numbness, Incoordination, Change in Speech, Confusion, Seizures, Other - Medications/Allergies Allergies/Adverse Reactions: Allergies Allergy/AdvReac Type Severity Reaction Status Date / Time No Known Drug Allergies Allergy Verified 03/20/18 20:44 Medications: Current Medications Acetaminophen (Tylenol) 650 mg PO Q4H PRN PRN Reason: Headache/Fever/Mild Pain (1-3) Last Admin: 09/26/18 19:36 Dose: 650 mg Acetaminophen (Tylenol) 650 mg MN Q4H PRN PRN Reason: Headache/Fever/Mild Pain (1-3) Hydrocodone Bitart/Acetaminophen (Emerson 5/325) 1 tab PO Q4H PRN PRN Reason: Moderate Pain (4-6) Last Admin: 10/03/18 11:57 Dose: 1 tab Albuterol Sulfate (Ventolin) 1.25 mg NEB [id number] [facility] Last Admin: 10/03/18 11:35 Dose: 1.25 mg Aspirin (Ecotrin) 81 mg PO DAILY [facility] Last Admin: 10/03/18 11:23 Dose: 81 mg Atorvastatin Calcium (Lipitor) 10 mg PO HS [facility] Last Admin: 10/02/18 21:58 Dose: 10 mg Benzonatate (Tessalon) 100 mg PO TIDPRN PRN PRN Reason: Cough Last Admin: 09/29/18 13:49 Dose: 100 mg Bisacodyl (Dulcolax) 10 mg PO DAILYPRN PRN PRN Reason: Constipation Bisacodyl (Dulcolax) 10 mg MN DAILYPRN PRN PRN Reason: Constipation Calcium Carbonate (Tums) 1,000 mg PO Q4H PRN PRN Reason: Heartburn or Indigestion Cefdinir (Omnicef) 300 mg PO BID [facility] Last Admin: 10/03/18 11:23 Dose: 300 mg Clopidogrel Bisulfate (Plavix) 75 mg PO DAILY [facility] Last Admin: 10/03/18 11:23 Dose: 75 mg Cyclobenzaprine HCl (Flexeril) 10 mg PO TID PRN PRN Reason: Muscle Spasm Last Admin: 10/03/18 00:29 Dose: 10 mg Dextrose/Water (Dextrose 50%) 25 gm SLOW IVP PRN PRN PRN Reason: Hypoglycemia Enoxaparin Sodium (Lovenox) 80 mg SC 0900,2100 [facility] Last Admin: 10/03/18 11:24 Dose: 80 mg Famotidine (Pepcid) 20 mg PO BID [facility] Last Admin: 10/03/18 11:23 Dose: 20 mg Gabapentin (Neurontin) 300 mg PO BID [facility] Last Admin: 10/03/18 11:23 Dose: 300 mg Glucagon (Glucagon) 1 mg IM PRN PRN PRN Reason: Hypoglycemia Guaifenesin (Mucinex) 1,200 mg PO Q12HR [facility] Last Admin: 10/03/18 11:23 Dose: 1,200 mg Guaifenesin/Dextromethorphan (Robitussin Dm) 15 ml PO Q4H PRN PRN Reason: Cough Last Admin: 10/02/18 03:08 Dose: 15 ml Dextrose/Water (D5w) 1,000 mls @ 0 mls/hr IV .Q0M PRN PRN Reason: Hypoglycemia Insulin Glargine 20 units/ (Miscellaneous Medication) 0.2 mls @ 0 mls/hr SC QAM [facility] Last Admin: 10/03/18 11:24 Dose: 0.2 mls Insulin Glargine 20 units/ (Miscellaneous Medication) 0.2 mls @ 0 mls/hr SC HS [facility] Last Admin: 10/03/18 02:38 Dose: Not Given Insulin Human Lispro (Humalog) 0 units SC .BEDTIME SLIDING SC PRN PRN Reason: Bedtime Correctional Scale Last Admin: 10/02/18 22:01 Dose: 2 unit Insulin Human Lispro (Humalog) 0 units SC .MODERATE SLIDING SC PRN PRN Reason: Moderate Correctional Scale Last Admin: 10/03/18 11:49 Dose: 2 unit Loratadine (Claritin) 10 mg PO DAILY [facility] Last Admin: 10/03/18 11:24 Dose: 10 mg Mometasone Furoate/Formoterol Fumar (Dulera 200 Mcg/5 Mcg Inhaler) 2 puff INH BID-RT [facility] Nicotine (Nicoderm Patch) 21 mg TOP Q24HR [facility] Last Admin: 10/02/18 16:34 Dose: Not Given Potassium Chloride (K-Dur) 40 meq PO 1430 [facility] Stop: 10/03/18 16:30 Prednisone (Prednisone) 40 mg PO QAM-WM [facility] Last Admin: 10/03/18 11:23 Dose: 40 mg Senna/Docusate Sodium (Senokot S) 2 tab PO BIDPRN PRN PRN Reason: Constipation Sodium Chloride (Flush - Normal Saline) 10 ml IVF Q12HR [facility] Last Admin: 10/03/18 11:25 Dose: Not Given Sodium Chloride (Flush - Normal Saline) 10 ml IVF PRN PRN PRN Reason: Saline Flush Tramadol HCl (Ultram) 50 mg PO Q6H PRN PRN Reason: Mild Pain (1-3) Last Admin: 10/01/18 11:06 Dose: 50 mg Tramadol HCl (Ultram) 100 mg PO Q6H PRN PRN Reason: Moderate Pain (4-6) Last Admin: 10/02/18 21:58 Dose: 100 mg Zolpidem Tartrate (Ambien) 5 mg PO HSPRN PRN PRN Reason: Insomnia
[2018-10-03] MEDS ORDERED: Regadenoson 0.4 MG/5 ML SYRINGE ONE (16:43)
[2018-10-03] MEDS: Nicotine 21 MG PATCH TOP SCH (16:51)
[2018-10-03] MEDS: Atorvastatin Calcium 10 MG TAB PO SCH (21:12)
[2018-10-03] MEDS: traMADol HCl 50 MG TAB PO PRN (23:12)
[2018-10-04] MEDS: Albuterol Sulfate 2.5 mg/3 ml Neb NEB SCH ×3 (02:52→11:07)
[2018-10-04] MEDS: Guaifenesin DM 100-10/5 ML UDCUP PO PRN (03:33)
[2018-10-04] MEDS: HYDROcodone/Acetaminophen 5/325 mg Tablet PO PRN ×2 (03:36→09:03)
[2018-10-04 06:29] LABS: Anion Gap 12 mmol/L (10-20); BUN (Urea Nitrogen) 10 mg/dL (9.8-20.1); Calc. Creatinine Clearance 123 mL/min (70-130); Calcium 8.3 mg/dL (7.8-10.44); Carbon Dioxide 22 mmol/L (22-29); Chloride 109 mmol/L (98-107); Estimated GFR-MDRD Greater than 90; Glucose 144 mg/dL (70-105); Potassium 3.5 mmol/L (3.5-5.1); Sodium 139 mmol/L (136-145)
[2018-10-04] MEDS: Mometasone/Formoterol 120 PUFF INHALER INH SCH (08:01)
[2018-10-04] MEDS: Gabapentin 300 MG CAP PO SCH (09:02)
[2018-10-04] MEDS: Famotidine 20 MG TAB PO SCH (09:03)
[2018-10-04] MEDS: guaiFENesin ER 600 MG TAB PO SCH (09:03)
[2018-10-04] MEDS: predniSONE 20 MG TAB PO SCH (09:03)
[2018-10-04] MEDS: Enoxaparin Sodium 80 MG/0.8 ML SYRINGE SC SCH (09:04)
[2018-10-04] MEDS: Loratadine 10 MG TAB PO SCH (09:04)
[2018-10-04] MEDS: Clopidogrel Bisulfate 75 MG TAB PO SCH (09:04)
[2018-10-04] MEDS: Cefdinir 300 MG CAP PO SCH (09:04)
[2018-10-04] MEDS: Aspirin 81 mg Enteric Coated Tablet PO SCH (09:04)
[2018-10-04] MEDS: Insulin Glargine 20 UNITS in Pre-Filled Syringe 1 EACH SC SCH (09:08)
--- NOTE | 2018-10-04 09:08 | PDOC.CTH ---
Cardiology Progress Note - Subjective The pt seen and examined. No overnight events. No cardiac complaints. Stated she has less cough now. - Objective Vital Signs Temp Pulse Resp BP Pulse Ox 10/04/18 07:58 54 L 16 10/04/18 07:51 97.9 F 54 L 16 130/76 98 10/04/18 04:00 97.8 F 64 18 107/67 98 10/04/18 02:52 80 16 98 10/04/18 00:00 97.7 F 81 19 108/70 97 10/03/18 22:50 74 16 96 10/03/18 21:10 98.1 F 68 20 128/69 97 Weight 174 lb 8 oz 10/03/18 10/04/18 10/05/18 06:59 06:59 06:59 Intake Total 1200 480 Balance 1200 480 - Physical Examination General/Neuro: alert & oriented x3 Neck: no JVD present Lungs: other: (diminished at bases) Extremities: other: (No edema) - Telemetry Telemetry Rhythm: SR - Labs Result Diagrams: 10/03/18 05:45 10/04/18 04:36 Troponin/CKMB Troponin I Less than 0.010 ng/mL (< 0.028) 09/30/18 09:39 - Assessment/Plan 1. S/p 19 beats of NSVTs on 09/30/2018 - Still having occ. PVC's. Echo on 2018 showed EF 45-50%, grade I diastolic dysfunction, and akinesis to apex. 2. COPD exacerbation/acute Bronchitis. - stable with RA. On IV abx. Managed by PCP 3. CAD with hx of CABG x3 in 2013 - stable; on ASA and statin. Not on BBlocker 2 /2 Hx of COPD. 4. HTN - stable 5. DM type 2 - managed by PCP 6. Hx of TIA - 7. Ex-smoker - smoking cessation education given to the pt. MAR reviewed * The stress test is negative for ischemia. There is evidence of a previous scar. No cath is indicated at this time. * From Cardiac standpoint, the pt is stable to d/c from a cardiac standpoint. She can f/u as an outpt within 2-4wks. Review of Systems - Review of Systems Constitutional: reports: no symptoms reported EENTM: reports: no symptoms reported Respiratory: reports: see HPI Cardiac (ROS): reports: no symptoms reported ABD/GI: reports: no symptoms reported : reports: no symptoms reported Musculoskeletal: reports: no symptoms reported Skin: reports: no symptoms reported
[2018-10-04 12:08] VITALS: BP 148/97; TEMP 98.3
--- NOTE | 2018-10-04 19:29 | EKG ---
Test Reason : Blood Pressure : / mmHG Vent. Rate : 074 BPM Atrial Rate : 074 BPM P-R Int : 128 ms QRS Dur : 100 ms QT Int : 418 ms P-R-T Axes : 015 008 -19 degrees QTc Int : 463 ms Sinus rhythm with occasional Premature ventricular complexes Inferior infarct (cited on or before 20-MAR-2018) Anterolateral infarct (cited on or before 20-MAR-2018) Abnormal ECG Confirmed by SAMAN CAMERON ([id number]) on 10/04/2018 7:28:36 PM Referred By: TARAS Confirmed By:SAMAN CAMERON
--- NOTE | 2018-10-05 03:24 | DIS ---
DATE OF ADMISSION: 09/24/2018 DATE OF DISCHARGE: 10/04/2018 Please note that the admission H and P is still not available at the time of discharge. DISCHARGE DIAGNOSES: 1. Acute chronic obstructive pulmonary disease exacerbation with bronchitis. 2. History of coronary artery disease. 3. Nonsustained ventricular tachycardia. 4. Diabetes mellitus. 5. Hypertension. 6. History of transient ischemic attack. 7. Ex smoker. DISCHARGE MEDICATIONS: 1. Advair Diskus b.i.d. 2. Albuterol inhaler as needed. 3. Cefdinir 300 p.o. b.i.d. for 5 more days. 4. DuoNeb p.r.n. 5. Nicotine patch daily. 6. Medrol Dosepak as instructed. Resume home medications includin. Zocor. 2. Zestril. 3. Methocarbamol. 4. Metformin. 5. Omeprazole. 6. Niacin. 7. Aspirin. 8. Gabapentin. 9. Lasix. 10. Plavix. No changes were made in the dosages. IN-HOUSE CONSULTATION: 1. Pulmonary Medicine. 2. Cardiology, Dr. Baltazar. PROCEDURES DONE IN THE HOSPITAL: 1. Transthoracic echocardiogram, which shows ejection fraction of 45% to 50% with apical akinesis and diastolic dysfunction. 2. Nuclear medicine stress test which shows no reversible ischemia. There is apical infarction which is remote in nature. HISTORY OF PRESENTING ILLNESS: Ms. Grijalva is a 53-year-old female with a known history of coronary artery disease and possibly asthma, who presented to the emergency room with complaints of cough, wheezing, shortness of breath. She was diagnosed with acute COPD and bronchial asthma and was started on IV steroids, IV antibiotics, nebulizers, etc., and was admitted. Pulmonary Medicine was consulted. HOSPITAL COURSE: The patient had slow improvement in her symptoms and there was doubt that her symptoms can be secondary to cardiac disease as she has a history of coronary artery disease and she was noticed to have nonsustained ventricular tachycardia in the hospital. Cardiology was consulted and Pulmonary Medicine followed along. She underwent echocardiogram which was unremarkable without any specific changes from her prior echocardiograms. It was recommended that she undergo nuclear medicine stress test and if it is positive, to undergo cardiac catheterization. Nuclear medicine stress test was negative. She was cleared for discharge from Cardiology team. As of this morning, she is back to her baseline. New medication prescriptions were provided and she is instructed to follow up Dr. River in the outpatient setting. She was seen and examined this morning. PHYSICAL EXAMINATION: VITAL SIGNS: Vital signs temperature 98.3, pulse of 69, respirations 18, saturating 96% on room air. Blood pressure 148/97. GENERAL: No acute distress. CHEST: Clear to auscultation bilaterally. No wheezing. HEART: Rate and rhythm are regular. No edema. TIME SPENT: Time spent in the discharge, 35 minutes. DISCHARGE PLAN: Discharge plan was discussed with the patient and family members in the room, who verbalized understanding. The patient reports has having no insurance, but states that she can get medications at discount through her primary care physician at [facility]. PRIMARY CARE PHYSICIAN: Dr. Fabián Martines. Job ID: [id number]
--- NOTE | 2018-10-06 19:20 | EKG ---
Test Reason : Blood Pressure : / mmHG Vent. Rate : 066 BPM Atrial Rate : 066 BPM P-R Int : 138 ms QRS Dur : 086 ms QT Int : 412 ms P-R-T Axes : 046 019 039 degrees QTc Int : 431 ms Normal sinus rhythm Poor R wave progression Abnormal ECG Confirmed by ESTELA WADE ([id number]), metropolitan editor LUCI URENA ([id number]) on 10/06/2018 7:20:23 PM Referred By: Confirmed By:ESTELA WADE
--- NOTE | 2018-10-10 08:11 | PFT ---
PATIENT HISTORY: HEIGHT: 64 WEIGHT:174 SMOKER: YES HOW LON YRS PACKS PER DAY: 1 PRODUCTIVE COUGH: LUNG DISEASE: PHYSICIAN INTERPRETATION FINAL REPORT: There is mild reduction in Expiratory Flows. Vital Capacity is normal. Following Bronchodilator Therapy, there was no further improvement of Flows or Vital Capacity. RV was hyper inflated RV/TLC was hyper-expanded; gas transfer is normal. IMPRESSION: Obstructive ventilatory impairment, and normal Diffusion capacity. Life Trainer: KENDALL Vacation Planner: KENDALL JAIME
--- NOTE | 2018-10-17 23:01 | STRESS ---
Acquisition Time: 2018-10-03 10:03:27 Total Exercise Time: 00:01:00 Test Indications: CHEST PAIN Medications: Protocol: LEXISCAN Max HR: 107 BPM 64% of Pred: 167 BPM Max BP: 118/062 mmHG Max Work Load: 1.0 METS RESTING ECG: NORMAL SINUS RHYTHM AT 63 BPM WITH RARE PVC, OLD INFERIOR NJ, AND OLD ANTEROLATERAL NJ SYMPTOMS: NONE NORMAL BP RESPONSE ECTOPY: NONE ECG STRESS: PRONOUNCED T-WAVE CHANGES WITH LEXISCAN INFUSION INTERPRETATION: INDETERMINATE ECG/AWAIT NUCLEAR IMAGES FOR DEFINITIVE DIAGNOSIS Confirmed by ERIK FREEMAN M.D. ([id number]) on 10/17/2018 11:00:41 PM Referred By: MD Campos ADAMS Confirmed By:ERIK FREEMAN M.D.
== END 2018-10-04 12:26 | disposition home or self-care (01) | DRG 191 ==
LOC: ERS 18:24 → 2SE 22:20
PROVIDERS: ADMIT Internal Medicine; ATTEND Internal Medicine
DX: J44.1 Chronic obstructive pulmonary disease with (acute) exacerbation (principal); I47.2 Ventricular tachycardia; I25.10 Atherosclerotic heart disease of native coronary artery without angina pectoris; Z86.73 Personal history of transient ischemic attack (TIA), and cerebral infarction without residual deficits; Z87.891 Personal history of nicotine dependence; J45.998 Other asthma; Z95.1 Presence of aortocoronary bypass graft; E87.6 Hypokalemia; N18.2 Chronic kidney disease, stage 2 (mild); E11.22 Type 2 diabetes mellitus with diabetic chronic kidney disease; I12.9 Hypertensive chronic kidney disease with stage 1 through stage 4 chronic kidney disease, or unspecified chronic kidney disease; E78.5 Hyperlipidemia, unspecified; E66.9 Obesity, unspecified; J20.9 Acute bronchitis, unspecified; Z79.899 Other long term (current) drug therapy; Z79.02 Long term (current) use of antithrombotics/antiplatelets
CPT/HCPCS: 36415; 36416; 71046; 78452; 80048; 80053; 81003; 82550; 82805; 83735; 83880; 84484; 85014; 85018; 85025; 85049; 87070; 87205; 87804; 90471; 90686; 90732; 93005; 93010; 93017; 93306; 94060; 94640; 94660; 94727; 94729; 96365; 96366; 96367; 96375; 99406; A9500; G0008; G0009; J1650; J1825; J1940; J1956; J2270; J2785; J2920; J2930; J7611; J7620; S0028

== ENCOUNTER 2018-10-11 15:25 | Emergency (ER) | payer OTHER, SELFPAY ==
[2018-10-11 16:32] LABS: #Basophils 0.1 thou/uL (0.0-0.2); #Eosinphils 0.1 thou/uL (0.0-0.7); #Lymphocytes 1.6 thou/uL (1.20-3.40); #Monocytes 0.8 thou/uL (0.11-0.59); #Neutrophils 7.3 thou/uL (1.40-6.50); %Basophils 0.9 % (0.0-1.0); %Eosinophils 1.2 % (0.0-10.0); %Lymphocytes 15.9 % (21.0-51.0); %Monocytes 8.4 % (0.0-10.0); %Neutrophils 73.7 % (42.0-75.0); Mean Corpuscular HGB CONC 33.3 g/dL (32.0-36.0); Mean Corpuscular Hemoglobin 33.2 pg (27.0-31.0); Mean Corpuscular Volume 99.8 fL (78.0-98.0); Mean Platelet Volume 8.6 fL (7.4-10.4); Platelet Count 172 thou/uL (130-400); RBC Distribution Width 12.2 % (11.5-14.5)
--- NOTE | 2018-10-11 16:49 | RAD ---
2 VIEWS CHEST: Date: 10/11/18 HISTORY: Chest pain. FINDINGS: PA and lateral views of chest obtained. Comparison made to previous exam from 09/24/18. Two views of the chest demonstrate sternotomy wires seen. The lungs are well aerated. No evidence of active intrathoracic disease seen. No evidence of effusions, pneumonia, or pneumothorax seen. IMPRESSION: Unremarkable 2 views chest. POS: [facility]
[2018-10-11 16:53] LABS: ALT (SGPT) 44 U/L (8-55); AST (SGOT) 7 U/L (5-34); Albumin 3.7 g/dL (3.5-5.0); Alkaline Phosphatase 70 U/L (40-150); Anion Gap 14 mmol/L (10-20); BUN (Urea Nitrogen) 27 mg/dL (9.8-20.1); Bilirubin, Total 0.7 mg/dL (0.2-1.2); Calc. Creatinine Clearance 0 mL/min (70-130); Carbon Dioxide 23 mmol/L (22-29); Chloride 102 mmol/L (98-107); Estimated GFR-MDRD 49; Globulin 2.6 g/dL (2.4-3.5); Glucose 96 mg/dL (70-105); Lipase 5 U/L (8-78); Potassium 4.2 mmol/L (3.5-5.1); Protein, Total 6.3 g/dL (6.0-8.3); Sodium 135 mmol/L (136-145)
[2018-10-11] MEDS ORDERED: Meclizine HCl 25 MG TAB ONE (17:54)
[2018-10-11 18:05] LABS: Bilirubin Negative (Negative); Blood, Urine Small (Negative); Clarity CLEAR (Clear); Glucose, Urine (Dipstick) Negative (Negative); Leukocyte Moderate (Negative); Nitrite Negative (Negative); Protein, Urine (Dipstick) Negative (Neg-Trace); Specific Gravity, Urine 1.006 (1.002-1.036); Urobilinogen 0.2 mg/dL (0.2-1.0)
[2018-10-11 18:08] LABS: Bacteria/HPF None Seen HPF (None Seen); Hyaline Casts/LPF 0-3 HYALINE CAST LPF (0-3 Hyaline); Pathc Cast-AUWi Flag 0.58 (0-2.49); RBC/HPF 0-3 HPF (0-3); Squamous Epithelial 0-3 HPF (0-3)
--- NOTE | 2018-10-13 11:29 | EKG ---
Test Reason : Blood Pressure : / mmHG Vent. Rate : 066 BPM Atrial Rate : 326 BPM P-R Int : 000 ms QRS Dur : 078 ms QT Int : 372 ms P-R-T Axes : 036 018 013 degrees QTc Int : 389 ms Atrial flutter with 5:1 A-V conduction Inferior infarct , age undetermined Possible Anterior infarct , age undetermined Abnormal ECG Confirmed by LESLEY CONWAY, MICHELE ([id number]), graphic editor HALIE MATTA ([id number]) on 10/13/2018 11:28:57 AM Referred By: Confirmed By:MICHELE SUTTON MD
== END 2018-10-11 19:54 | disposition home or self-care (01) ==
LOC: ERS 15:25
DX: E86.0 Dehydration (principal); R42 Dizziness and giddiness; I25.2 Old myocardial infarction; E11.9 Type 2 diabetes mellitus without complications; I10 Essential (primary) hypertension; Z86.73 Personal history of transient ischemic attack (TIA), and cerebral infarction without residual deficits; J45.909 Unspecified asthma, uncomplicated; F17.200 Nicotine dependence, unspecified, uncomplicated
CPT/HCPCS: 36415; 71046; 80053; 81003; 81015; 83690; 83880; 84484; 85025; 93005; 96360; 96361

== ENCOUNTER 2018-10-16 16:01 | Emergency (ER) | payer SELFPAY ==
[2018-10-16] MEDS ORDERED: Ibuprofen 800 MG TAB ONE (16:40)
[2018-10-16] MEDS ORDERED: traMADol HCl 50 MG TAB ONE (16:40)
--- NOTE | 2018-10-16 18:53 | RAD ---
FOUR VIEWS LEFT KNEE: 10/16/18 HISTORY: Trauma with pain. AP, lateral and both oblique views left knee is obtained. Four views left knee demonstrates some osteophytes seen in the medial compartment of the left knee. N o evidence of acute fracture is seen. IMPRESSION: No evidence of acute left knee pathology. Osteoarthritis seen in the medial compartment. POS: [facility]
--- NOTE | 2018-10-16 18:57 | RAD ---
THREE VIEWS LEFT SHOULDER: 10/16/18 HISTORY: Fall with pain. AP, internally, externally and scapular Y-view left shoulder obtained. Three views left shoulder demonstrates no evidence of left shoulder fractures, subluxations, or bony lesions. IMPRESSION: Normal three views left shoulder. POS: [facility]
--- NOTE | 2018-10-16 19:03 | RAD ---
FOUR VIEWS LEFT ELBOW: 10/16/18 HISTORY: Fall with left elbow pain. AP, lateral and both oblique views left elbow obtained. Four views left elbow demonstrate no evidence of left elbow fractures, subluxations, or bony lesions. IMPRESSION: Normal four views left elbow. POS: [facility]
== END 2018-10-16 17:30 | disposition home or self-care (01) ==
LOC: ERS 16:01
DX: S40.012A Contusion of left shoulder, initial encounter (principal); S80.02XA Contusion of left knee, initial encounter; S50.02XA Contusion of left elbow, initial encounter; I25.2 Old myocardial infarction; E11.9 Type 2 diabetes mellitus without complications; I10 Essential (primary) hypertension; Z86.73 Personal history of transient ischemic attack (TIA), and cerebral infarction without residual deficits; J45.909 Unspecified asthma, uncomplicated; F17.200 Nicotine dependence, unspecified, uncomplicated; Z79.899 Other long term (current) drug therapy; Z79.82 Long term (current) use of aspirin; W19.XXXA Unspecified fall, initial encounter

== ENCOUNTER 2019-01-03 19:21 | Observation (INO) | payer SELFPAY ==
[~2019-01-03 19:21] MED LIST: ISOVUE-370 76%-LOCM 1 ML ONE
--- NOTE | 2019-01-03 20:30 | RAD ---
PORTABLE CHEST ONE VIEW: 01/03/19 at 9:20 p.m. HISTORY: Right sided chest pain and left upper extremity numbness. FINDINGS: Comparison is made with the exam of 03/25/18. The changes of median sternotomy are again seen. The heart size is borderline. The lungs are well exp anded without focal areas of consolidation, pneumothoraces, joey pulmonary edema or pleural effusio ns. IMPRESSION: No acute process. POS: [facility]
[2019-01-03 20:31] LABS: #Basophils 0.1 thou/uL (0.0-0.2); #Eosinphils 0.1 thou/uL (0.0-0.7); #Lymphocytes 1.7 thou/uL (1.20-3.40); #Monocytes 0.5 thou/uL (0.11-0.59); %Basophils 0.8 % (0.0-1.0); %Eosinophils 1.6 % (0.0-10.0); %Lymphocytes 22.7 % (21.0-51.0); %Monocytes 7.1 % (0.0-10.0); %Neutrophils 67.8 % (42.0-75.0); Hemoglobin 14.1 g/dL (12.0-16.0); Mean Corpuscular HGB CONC 33.1 g/dL (32.0-36.0); Mean Corpuscular Hemoglobin 31.9 pg (27.0-31.0); Mean Corpuscular Volume 96.2 fL (78.0-98.0); Mean Platelet Volume 8.8 fL (7.4-10.4); Platelet Count 216 thou/uL (130-400); RBC Distribution Width 12.1 % (11.5-14.5); Red Blood Cell (RBC) Count 4.44 mill/uL (4.20-5.40); White Blood Cell (WBC) Count 7.4 thou/uL (4.8-10.8)
[2019-01-03 20:54] LABS: ALT (SGPT) 17 U/L (8-55); AST (SGOT) 6 U/L (5-34); Albumin 4.1 g/dL (3.5-5.0); Alkaline Phosphatase 81 U/L (40-150); Anion Gap 14 mmol/L (10-20); BUN (Urea Nitrogen) 11 mg/dL (9.8-20.1); Bilirubin, Total 0.3 mg/dL (0.2-1.2); Calc. Creatinine Clearance 0 mL/min (70-130); Calcium 9.6 mg/dL (7.8-10.44); Carbon Dioxide 23 mmol/L (22-29); Chloride 105 mmol/L (98-107); Estimated GFR-MDRD 71; Globulin 2.3 g/dL (2.4-3.5); Glucose 95 mg/dL (70-105); Lipase 10 U/L (8-78); Potassium 3.9 mmol/L (3.5-5.1); Protein, Total 6.4 g/dL (6.0-8.3); Sodium 138 mmol/L (136-145)
[2019-01-03] MEDS ORDERED: Ondansetron PF 4 MG/2 ML Vial ONE (21:35)
--- NOTE | 2019-01-03 22:03 | CT ---
CT BRAIN WITHOUT CONTRAST: 01/03/19 HISTORY: Headache. FINDINGS: Comparison made with exam of 03/21/18. No evidence of acute infarct, hemorrhage, midline shift, or abnormal extra-axial fluid collections ar e seen. The ventricular size is normal and the basilar cisterns patent. The bony calvarium is intact. The visualized paranasal sinuses and mastoid air cells are well aerated. IMPRESSION: No CT evidence of acute intracranial process. POS: [facility]
--- NOTE | 2019-01-03 22:21 | CT ---
CTA CHEST WITH IV CONTRAST AND 3D POSTPROCESSING CTA ABDOMEN WITH IV CONTRAST AND 3D POSTPROCESSIN01/03/19 HISTORY: 52-year-old female with chest pain and left upper extremity numbness, concern for aortic dissection. FINDINGS: There are vascular calcifications without evidence of aneurysmal dilatation of the thoracoabdominal a charles. There is good opacification on the aortic lumen without intimal flap to suggest dissection. The re is calcified plaque causing moderate stenosis at the origin of the right renal artery. There is go od flow in the left renal artery, celiac axis, SMA and JUANI. No pleural or pericardial effusions are seen. There are scattered tiny parenchymal nodules in the lalo g jones bilaterally measuring up to 3 mm. Dependent changes are seen in the lung bases. There is a c alcified granuloma at the right lung base. The patient is post cholecystectomy. No free air or free fluid is seen in the abdomen. There is colon ic diverticulosis. A small fat containing ventral hernia is present. There are degenerative changes i n the spine. Evaluation of solid organs is suboptimal due to imaging during the arterial phase of contrast opacifi cation. The pancreas, adrenal gland and kidneys however, have fairly normal appearance. IMPRESSION: 1. No CT evidence of aortic dissection. 2. Indeterminate tiny pulmonary nodules. A followup CT scan of the chest is recommended in [facility]. Code T Code LN POS: [facility]
[2019-01-04 00:07] LABS: Troponin I Less than 0.010 ng/mL (< 0.028)
[2019-01-04] MEDS ORDERED: Acetaminophen 325 MG TAB ONE (01:28)
[2019-01-04] MEDS ORDERED: Ondansetron ODT 4 MG TAB PO PRN (02:22)
[2019-01-04] MEDS ORDERED: Acetaminophen 325 MG TAB PO PRN (02:22)
[2019-01-04] MEDS ORDERED: Cyclobenzaprine 10 MG TAB PO PRN (02:29)
[2019-01-04] MEDS ORDERED: Dextrose 50% Abboject 50 ML SYRINGE SLOW IVP PRN (02:40)
[2019-01-04] MEDS ORDERED: HumaLOG 300 UNITS/3 ML VIAL SC PRN (02:40)
[2019-01-04] MEDS ORDERED: Dextrose 5% in Water 1,000 ML IV PRN (02:40)
[2019-01-04 03:00] LABS: Troponin I Less than 0.010 ng/mL (< 0.028)
[2019-01-04 04:36] LABS: #Eosinphils 0.1 thou/uL (0.0-0.7); #Lymphocytes 1.8 thou/uL (1.20-3.40); #Monocytes 0.5 thou/uL (0.11-0.59); #Neutrophils 3.9 thou/uL (1.40-6.50); %Basophils 0.8 % (0.0-1.0); %Eosinophils 2.1 % (0.0-10.0); %Lymphocytes 28.8 % (21.0-51.0); %Neutrophils 60.4 % (42.0-75.0); Hemoglobin 12.8 g/dL (12.0-16.0); Mean Corpuscular HGB CONC 32.9 g/dL (32.0-36.0); Mean Corpuscular Hemoglobin 31.7 pg (27.0-31.0); Mean Corpuscular Volume 96.3 fL (78.0-98.0); Mean Platelet Volume 8.6 fL (7.4-10.4); Platelet Count 210 thou/uL (130-400); RBC Distribution Width 12.1 % (11.5-14.5); Red Blood Cell (RBC) Count 4.04 mill/uL (4.20-5.40); White Blood Cell (WBC) Count 6.4 thou/uL (4.8-10.8)
[2019-01-04 04:59] LABS: Anion Gap 13 mmol/L (10-20); BUN (Urea Nitrogen) 11 mg/dL (9.8-20.1); Calc. Creatinine Clearance 0 mL/min (70-130); Calcium 9.5 mg/dL (7.8-10.44); Carbon Dioxide 24 mmol/L (22-29); Chloride 105 mmol/L (98-107); Estimated GFR-MDRD 81; Glucose 95 mg/dL (70-105); Potassium 3.7 mmol/L (3.5-5.1); Sodium 138 mmol/L (136-145)
--- NOTE | 2019-01-04 05:29 | HP ---
CHIEF COMPLAINT: Left-sided weakness and numbness. HISTORY OF PRESENT ILLNESS: This patient is a 53-year-old female with a history of COPD, ongoing tobacco abuse, coronary artery disease, hypertension, and diabetes. She presented to the emergency department with some left-sided weakness, headache, and vomiting. The patient reports that yesterday she started developing some numbness type sensation in her left mid calf area that subsequently extended down to the foot and today, she had some additional numbness in her left upper extremity, none of that was enough to prompt her to come to the emergency department, but she had gone out to eat and when she got home, developed nausea and decided that she needed to come to the hospital for these. She did have some vomiting while in the waiting area at the emergency department. She also now reports that she has headache that is primarily central and periorbital. She reports she has not had any of these symptoms previously. She indicated to the emergency room providers that she had previous strokes, but on further discussion, she reports that one of them occurred while she was in the ambulance going to the hospital. At that time, she required her coronary artery bypass and she had received some sedation, so she does not actually remember having a stroke and she reports that she had no residual symptoms. She also reported that she had a stroke around the time of her CABG, but again was sedated and does not remember the events and had no residual symptoms. REVIEW OF SYSTEMS: All other systems were reviewed. The patient denies any fevers, chills, chest pain, or cough. She does report that she is starting to have some discomfort in her left lower extremity and that it has caused her to walk with a limp, although she is capable of walking. All other systems reviewed and pertinent positives and negatives noted in the history of present illness. PAST MEDICAL HISTORY: Notable for COPD, asthma, tobacco abuse, coronary artery disease, hypertension, diabetes mellitus. She reports that her blood sugars are generally good and gave an example of an average around 108. FAMILY HISTORY: Reviewed, noncontributory. PAST SURGICAL HISTORY: Coronary artery bypass graft, cholecystectomy, cecal tumor resection. SOCIAL HISTORY: She denies alcohol. She continues to smoke. She has recently been started on bupropion in an effort to discontinue smoking and reports she has cut back. She is not . She is full code and her mother is her surrogate decision maker. ALLERGIES: NONE. CURRENT MEDICATIONS: 1. Omeprazole 20 mg daily. 2. Famotidine 20 mg daily. 3. Gabapentin 300 mg b.i.d. 4. Potassium 20 mEq daily. 5. Simvastatin 40 daily. 6. Aspirin 81 mg daily. 7. Cyclobenzaprine 5 mg q.6 p.r.n. 8. Lisinopril 10 mg daily. 9. Metoprolol 25 mg daily. 10. Motrin p.r.n. 11. Lasix 40 mg, dosing regimen not known. 12. Plavix 75 mg daily. PHYSICAL EXAMINATION: VITAL SIGNS: BP 110/67, pulse 75, respirations 19, O2 sats 95% on room air. GENERAL APPEARANCE: Age-appropriate female. She is in no distress. She is awake, alert, oriented, pleasant, and cooperative. HEENT: PERRL. She has no OP lesions. NECK: Supple and symmetric. HEART: Regular rate and rhythm without murmurs, gallops, or rubs. LUNGS: Clear to auscultation bilaterally with good chest wall expansion and air exchange. ABDOMEN: Soft, nontender, and nondistended. Positive bowel sounds. No masses and no organomegaly. EXTREMITIES: No cyanosis, clubbing, or edema. NEUROLOGICAL: She reports some decreased sensation to light touch in her distal left lower extremity. Otherwise, she has good range of motion and good strength throughout. The patient was witnessed getting up and ambulating from her hospital room to the bathroom, did not appear to have a significant limp. LABORATORY RESULTS: White count 7.4, hemoglobin 14.1, platelets 216. Sodium 138, potassium 3.9, chloride 105, BUN 11, creatinine 0.84, glucose 95, AST 6, ALT 17, alkaline phosphatase 81. Troponin less than 0.01 x2. BNP 74. Albumin 4.1. Chest x-ray is negative. CT dissection protocol negative. CT brain negative. EKG; normal sinus rhythm, some anterior abnormalities which cannot rule out infarct of indeterminate age. Prior workup includes an echocardiogram in September, which revealed an EF of 45% to 50% with apical akinesis and a suggestion of diastolic dysfunction and a nuclear medicine stress test showing apical scar with no evidence of ischemia. IMPRESSION AND PLAN: 1. Left-sided paresthesias starting initially in the left lower extremity, now the upper extremity. Certainly, the patient has multiple risk factors for transient ischemic attack or stroke and this certainly appears concerning, however, her symptoms have been present for over 24 hours. She had no findings on her CT scan and a TIA would have likely resolved by this time. We will continue with her Plavix, aspirin, and statin. We will keep her in observation and check an MRI. Consult PT and Neurology. We will get a carotid Doppler. We will not repeat her echocardiogram. This was done fairly recently. 2. Diabetes mellitus. Accu-Cheks and a sliding scale insulin. 3. Hyperlipidemia. Continue with her statin. 4. Hypertension. Continue metoprolol and lisinopril. Job ID: [id number]
[2019-01-04] MEDS: HYDROcodone/Acetaminophen 5/325 mg Tablet PO PRN ×3 (05:45→16:32)
[2019-01-04 06:30] VITALS: BMI 32.1
[2019-01-04] MEDS ORDERED: Potassium Chloride 20 MEQ TAB PO SCH (09:00)
[2019-01-04] MEDS ORDERED: Gabapentin 300 MG CAP PO SCH (09:00)
[2019-01-04] MEDS ORDERED: Clopidogrel Bisulfate 75 MG TAB PO SCH (09:00)
[2019-01-04] MEDS ORDERED: Aspirin 81 mg Enteric Coated Tablet PO SCH (09:00)
--- NOTE | 2019-01-04 10:07 | MRI ---
MRI BRAIN WITHOUT CONTRAST: HISTORY: Left weakness and numbness COMPARISON: None CORRELATION: CT scan from 01/03/2019. FINDINGS: No restricted diffusion is seen. The ventricular size is appropriate and the basilar cisterns are pat ent. No evidence of acute infarct, hemorrhage, midline shift or abnormal extra-axial fluid collections is seen. The visualized paranasal sinuses and mastoid air cells are well-aerated. IMPRESSION: No evidence of acute intracranial process.
[2019-01-04] MEDS: Lisinopril 10 MG TAB PO SCH ×2 (10:26→10:30)
--- NOTE | 2019-01-04 10:27 | ULT ---
BILATERAL CAROTID DUPLEX ULTRASOUND: HISTORY: Left-sided weakness and numbness TECHNIQUE: Grayscale, color-flow and spectral Doppler ultrasound imaging of the extracranial carotid artery syst ems was performed bilaterally. FINDINGS: There is plaque formation at the carotid bulbs on both sides. The peak systolic velocity in the right ICA measures 185 cm/s with an end-diastolic velocity of 56 cm /s and a systolic ratio of 1.97. The peak systolic velocity in the left ICA measures 78 cm/s with an end-diastolic velocity of 28 cm/s and a systolic ratio of 0.71. Flow in both vertebral arteries remains antegrade. IMPRESSION: Moderate (50-69%) stenosis of the right ICA
--- NOTE | 2019-01-04 14:51 | CON ---
DATE OF CONSULTATION: 01/04/2019 CONSULTING PHYSICIAN: Hospitalist Service. IMPRESSION: 1. Questionable small vessel stroke with more subjective complaints than any objective findings of weakness or numbness on the left side. 2. Diabetes. 3. Hypertension. 4. Hyperlipidemia. 5. Current aspirin and Plavix treatment. PLAN: 1. MRI of the brain to determine whether there has been an ischemic event. 2. Consider changing to Aggrenox if she rules in for stroke. 3. Carotid ultrasound. 4. Echocardiogram. HISTORY OF PRESENT ILLNESS: Ms. Grijalva is a 53-year-old female with ongoing medical problems including COPD, tobacco use, coronary artery disease, hypertension, and diabetes, who reports developing some numbness in her left leg 2 days ago. She ignored the symptoms and yesterday felt like the situation worsen. She started noticing some numbness and weakness in her left arm. It was not associated with any slurred speech or other focal symptoms. She decided to come to the emergency room last night. She had a CT of the brain done, which was unremarkable. Laboratory studies including a CBC and serum chemistry panel were all unremarkable as well. She is admitted for further evaluation. She reports her symptoms are ongoing this morning, pretty much unchanged from yesterday. PAST MEDICAL HISTORY: As listed above. ALLERGIES: NONE. SOCIAL HISTORY: She is ongoing, attempting to quit smoking. No drug abuse. FAMILY HISTORY: Noncontributory. MEDICATIONS: Medication list was reviewed. REVIEW OF SYSTEMS: Ten system review of systems is otherwise negative. PHYSICAL EXAMINATION: VITAL SIGNS: Blood pressure 95/50, pulse 55, respirations 17, and temperature 98.1. HEENT: Pupils are equal and reactive. Conjunctivae are clear. Oropharynx clear. Cranium, normocephalic and atraumatic. NECK: Supple. No lymphadenopathy. EXTREMITIES: No cyanosis, clubbing, or edema. NEUROLOGIC: She was alert and cooperative. Her speech was fluent and clear. Cranial nerves II through XII were intact other than subjective decreased light touch on the left side of the face. Motor exam showed symmetric movement in both upper extremities without fix or drift. Sensation was subjectively decreased in the left arm and leg to light touch. She could sit and stand independently. Reflexes were 1+ and symmetric. Plantar responses were downgoing. SUMMARY: Middle-aged woman with risk factors, although her findings on exam were fairly unremarkable. We will see if her MRI reveals anything significant. If she rules out, I will just continue her aspirin and Plavix. If she rules in, Aggrenox will be a good option. Job ID: [id number]
[2019-01-04 15:44] VITALS: TEMP 98.1
--- NOTE | 2019-01-04 18:40 | DIS ---
DATE OF ADMISSION: 01/03/2019 DATE OF DISCHARGE: 01/04/2019 ALLERGIES: NO KNOWN DRUG ALLERGIES. CHIEF COMPLAINT: Left-sided weakness and numbness. FINAL DIAGNOSES: 1. Questionable small vessel stroke versus transient ischemic attack. MRI negative. 2. Carotid artery stenosis with nonocclusive 50% to 69% stenosis per carotid Doppler in the right internal carotid artery. 3. Coronary artery disease, status post coronary artery bypass grafting. Negative stress test in 09/2018, follows with Dr. Baltazar. 4. Hypertension. 5. Hyperlipidemia. 6. Chronic obstructive pulmonary disease, stable. PROCEDURES PERFORMED: None. LABORATORY RESULTS: White blood cell count 6.4, hemoglobin 12.8, hematocrit 38.9, and platelets 210. Sodium 138, potassium 3.7, chloride 105, carbon dioxide 24, anion gap 13, BUN 11, creatinine 0.75, glucose 95, and calcium 9.5. Troponin negative x2. Lipase was 10. BNP was 74. IMAGING RESULTS: Brain CT, no CT evidence of acute intracranial process. CTA of the chest with IV contrast and abdomen using aortic dissection protocol showed no CT evidence of aortic dissection. Indeterminate tiny pulmonary nodules with a followup CT scan of the chest recommended in 6 months. Carotid Doppler, moderate 50% to 69% stenosis of the right ICA. Brain MRI, no evidence of acute intracranial process. HOSPITAL COURSE: The patient is a 53-year-old female with history of COPD and ongoing tobacco abuse; coronary artery disease, status post CABG; hypertension; and diabetes mellitus, who presented to the emergency department with complaints of left-sided weakness, headache, and vomiting. The day prior to her admission, she began having some numbness sensation in the left mid calf area that began to extend down to the foot, and the following day, she noticed numbness in the left upper extremity. At that time, she did not seek medical care, but she then developed some nausea and vomiting after going out to eat, and so presented to the ED for further workup. She did have an associated headache on arrival. Her vomiting was controlled with antiemetics. Her imaging was largely negative except for nonocclusive plaque noted in her right internal carotid artery. She was seen in consultation with Dr. Ribeiro, who felt that her complaints were more subjective than any focal findings of weakness or numbness on the left side. He advised continued aspirin, Plavix, and statin therapy along with tobacco cessation. Upon my interview, the patient has worked with Physical Therapy, who has recommended continued outpatient physical therapy. She has no chest pain at this time. She has no nausea or vomiting. She has no shortness of breath. She continues to complain of some numbness, however, she has no focal findings on exam. Per Dr. Ribeiro, she could be discharged on continued aspirin and Plavix therapy. PHYSICAL EXAMINATION: VITAL SIGNS: Blood pressure 108/69, O2 saturation 98% on room air, pulse 55, and temperature 98.1. GENERAL: This is an obese female, resting comfortably in bed, in no acute distress. HEENT: Head is atraumatic and normocephalic. Extraocular eye movements are intact. CV: S1 and S2. Regular rate and rhythm. No appreciable murmurs, rubs, or gallops. LUNGS: Regular respiratory rate and pattern. No crackles, rhonchi, or wheezes. Somewhat poor vesicular breath sounds. ABDOMEN: Positive bowel sounds. Soft, obese. EXTREMITIES: No edema. Lower extremities are warm and well perfused. PSYCHIATRIC: Alert and oriented x3. Appropriate affect. NEURO: Cranial nerves 2 through 12 are intact. Otherwise, she is nonfocal on my exam. SKIN: Warm and dry. No rashes. CONDITION AT DISCHARGE: Stable. DISCHARGE MEDICATIONS: 1. Acetaminophen 500 mg tablet one daily. 2. Aspirin 81 mg daily. 3. Cetirizine 10 mg tab one tab daily. 4. Vitamin D3 supplement one 5000 unit capsule daily. 5. Cyclobenzaprine 5 mg p.o. daily p.r.n. 6. Pepcid 20 mg tab daily. 7. Lasix 40 mg tab daily. 8. Gabapentin 300 mg p.o. b.i.d. 9. Lisinopril 10 mg tab. 10. Metformin 500 mg b.i.d. 11. Methocarbamol 750 mg tab q.8 p.r.n. 12. Niacin 500 mg tab daily. 13. Potassium 20 mEq daily. 14. Simvastatin 40 mg at bedtime. 15. Albuterol rescue inhaler p.r.n. 16. Plavix 75 mg daily. 17. DuoNeb (ipratropium/albuterol) p.r.n. wheezing. DISCHARGE DISPOSITION: Home with outpatient physical therapy. PLAN: The patient will continue aggressive risk factor modification, including tobacco cessation. Interestingly, she was recently placed on Wellbutrin, and her nausea and vomiting started soon after that, so I have advised her to talk to her primary care physician regarding other methods of tobacco cessation medical therapy. She will continue physical therapy in the outpatient setting. Per Dr. Ribeiro, she will continue her aspirin, Plavix, and statin. All questions were answered to the patient's satisfaction. Job ID: [id number]
[2019-01-04] MEDS ORDERED: Simvastatin 40 MG TAB PO SCH (21:00)
[2019-01-04 21:27] VITALS: BP 121/77
--- NOTE | 2019-01-05 14:22 | EKG ---
Test Reason : Blood Pressure : / mmHG Vent. Rate : 074 BPM Atrial Rate : 074 BPM P-R Int : 152 ms QRS Dur : 088 ms QT Int : 380 ms P-R-T Axes : 038 029 016 degrees QTc Int : 421 ms Normal sinus rhythm Cannot rule out Inferior infarct , age undetermined Anterior infarct , age undetermined Abnormal ECG Confirmed by JOSEP JARRETT DO ([id number]), assistant film editor HALIE MATTA ([id number]) on 01/05/2019 2:22:17 PM Referred By: Confirmed By:JOSEP JARRETT DO
== END 2019-01-04 16:53 | disposition home or self-care (01) ==
LOC: ERS 19:21 → ERHOLD 23:00 → 2SE 01-04 00:08
PROVIDERS: ADMIT Internal Medicine; ATTEND Internal Medicine
DX: R53.1 Weakness (principal); R20.0 Anesthesia of skin; I25.10 Atherosclerotic heart disease of native coronary artery without angina pectoris; I65.21 Occlusion and stenosis of right carotid artery; I10 Essential (primary) hypertension; E78.5 Hyperlipidemia, unspecified; J44.9 Chronic obstructive pulmonary disease, unspecified; E11.9 Type 2 diabetes mellitus without complications; F17.200 Nicotine dependence, unspecified, uncomplicated; Z79.02 Long term (current) use of antithrombotics/antiplatelets; Z79.82 Long term (current) use of aspirin; Z79.899 Other long term (current) drug therapy; Z90.49 Acquired absence of other specified parts of digestive tract; Z95.1 Presence of aortocoronary bypass graft
CPT/HCPCS: 36415; 36416; 70450; 70551; 71045; 71275; 80048; 80053; 83690; 83880; 84484; 85025; 93005; 93880; 96374; G0378; J2405; Q0162; Q9966

== ENCOUNTER 2019-03-13 13:23 | Emergency (ER) | payer SELFPAY ==
[2019-03-13 14:02] LABS: #Eosinphils 0.1 thou/uL (0.0-0.7); #Lymphocytes 1.7 thou/uL (1.20-3.40); #Monocytes 0.5 thou/uL (0.11-0.59); #Neutrophils 4.7 thou/uL (1.40-6.50); %Basophils 0.6 % (0.0-1.0); %Eosinophils 1.9 % (0.0-10.0); %Lymphocytes 24.2 % (21.0-51.0); %Monocytes 7.3 % (0.0-10.0); %Neutrophils 65.9 % (42.0-75.0); Hemoglobin 14.2 g/dL (12.0-16.0); Mean Corpuscular HGB CONC 33.2 g/dL (32.0-36.0); Mean Corpuscular Hemoglobin 30.3 pg (27.0-31.0); Mean Corpuscular Volume 91.2 fL (78.0-98.0); Platelet Count 216 thou/uL (130-400); RBC Distribution Width 12.7 % (11.5-14.5); White Blood Cell (WBC) Count 7.1 thou/uL (4.8-10.8)
[2019-03-13 14:30] LABS: ALT (SGPT) 17 U/L (8-55); AST (SGOT) 9 U/L (5-34); Albumin 4.2 g/dL (3.5-5.0); Alkaline Phosphatase 94 U/L (40-150); Anion Gap 14 mmol/L (10-20); BUN (Urea Nitrogen) 12 mg/dL (9.8-20.1); Bilirubin, Total 0.6 mg/dL (0.2-1.2); Calc. Creatinine Clearance 0 mL/min (70-130); Calcium 9.8 mg/dL (7.8-10.44); Carbon Dioxide 23 mmol/L (22-29); Chloride 104 mmol/L (98-107); Estimated GFR-MDRD 77; Globulin 2.6 g/dL (2.4-3.5); Glucose 111 mg/dL (70-105); Potassium 3.8 mmol/L (3.5-5.1); Protein, Total 6.8 g/dL (6.0-8.3); Sodium 137 mmol/L (136-145)
[2019-03-13 16:24] LABS: Bilirubin Negative (Negative); Blood, Urine Negative (Negative); Clarity CLEAR (Clear); Glucose, Urine (Dipstick) Negative (Negative); Leukocyte Negative (Negative); Nitrite Negative (Negative); Protein, Urine (Dipstick) Negative (Neg-Trace); Specific Gravity, Urine 1.012 (1.002-1.036); Urobilinogen 0.2 mg/dL (0.2-1.0)
--- NOTE | 2019-03-13 17:05 | RAD ---
RADIOGRAPH CHEST 1 VIEW: 03/13/19 HISTORY: 54-year-old female with chest pain and malaise. FINDINGS: There are no air space densities, pulmonary edema, pneumothorax, or cardiomegaly. The lateral costop hrenic angles are sharp. There are a few surgical clips overlying the left side of the cardiac shadow , and multiple midline sternotomy wires. IMPRESSION: 1. No acute cardiopulmonary findings. 2. Status post coronary artery bypass graft surgery is evidence for coronary atherosclerotic dis ease. jn [] POS: [facility]
== END 2019-03-13 16:22 | disposition home or self-care (01) ==
LOC: ERS 13:23
DX: E11.52 Type 2 diabetes mellitus with diabetic peripheral angiopathy with gangrene (principal); I73.9 Peripheral vascular disease, unspecified; I25.2 Old myocardial infarction; I10 Essential (primary) hypertension; J45.909 Unspecified asthma, uncomplicated; F17.210 Nicotine dependence, cigarettes, uncomplicated; Z79.82 Long term (current) use of aspirin; Z86.73 Personal history of transient ischemic attack (TIA), and cerebral infarction without residual deficits; Z79.899 Other long term (current) drug therapy
CPT/HCPCS: 36415; 71045; 80053; 81003; 83605; 84484; 85025; 93005; 94760

== ENCOUNTER 2019-09-15 16:05 | Emergency (ER) | payer SELFPAY ==
[~2019-09-15 16:05] MED LIST changes: -ISOVUE-370 76%-LOCM 1 ML ONE; +Iopamidol-370 76% 500 ML 1 ML ONE
[2019-09-15] MEDS ORDERED: Ondansetron PF 4 MG/2 ML Vial ONE (16:39)
[2019-09-15] MEDS ORDERED: Morphine 4 MG/ML VIAL ONE ×2 (16:39→18:33)
[2019-09-15 16:59] LABS: Bilirubin Negative (Negative); Blood, Urine Negative (Negative); Clarity Clear (Clear); Glucose, Urine (Dipstick) Normal (Negative); Leukocyte Negative Leu/uL (Negative); Nitrite Negative (Negative); Protein, Urine (Dipstick) Negative (Neg-Trace); Urobilinogen Normal mg/dL (Less than 2)
[2019-09-15 17:00] LABS: Pregnancy Test - Urine (BHCG) Negative (Negative); Pregu Control Background? CLEAR/WHITE (CLR/WHITE); Pregu Control Bar Appear? YES (CONTROL BAR); Specific Gravity 1.007 (1.002-1.036)
[2019-09-15 17:05] LABS: #Basophils 0.1 thou/uL (0.0-0.2); #Eosinphils 0.1 thou/uL (0.0-0.7); #Lymphocytes 1.9 thou/uL (1.20-3.40); #Monocytes 0.6 thou/uL (0.11-0.59); #Neutrophils 4.7 thou/uL (1.40-6.50); %Lymphocytes 25.9 % (21.0-51.0); %Monocytes 8.1 % (0.0-10.0); Hemoglobin 13.9 g/dL (12.0-16.0); Mean Corpuscular HGB CONC 34.5 g/dL (32.0-36.0); Mean Corpuscular Hemoglobin 31.7 pg (27.0-31.0); Mean Corpuscular Volume 91.9 fL (78.0-98.0); Platelet Count 210 thou/uL (130-400); RBC Distribution Width 11.8 % (11.5-14.5); Red Blood Cell (RBC) Count 4.39 mill/uL (4.20-5.40); White Blood Cell (WBC) Count 7.5 thou/uL (4.8-10.8)
[2019-09-15 17:28] LABS: ALT (SGPT) 18 U/L (8-55); AST (SGOT) 8 U/L (5-34); Albumin 4.1 g/dL (3.5-5.0); Alkaline Phosphatase 92 U/L (40-110); Anion Gap 11 mmol/L (10-20); BUN (Urea Nitrogen) 12 mg/dL (9.8-20.1); Bilirubin, Total 0.3 mg/dL (0.2-1.2); Calc. Creatinine Clearance 0 mL/min (70-130); Calcium 9.2 mg/dL (7.8-10.44); Carbon Dioxide 28 mmol/L (22-29); Chloride 104 mmol/L (98-107); Estimated GFR-MDRD 66; Globulin 2.5 g/dL (2.4-3.5); Glucose 102 mg/dL (70-105); Lipase 10 U/L (8-78); Potassium 3.8 mmol/L (3.5-5.1); Protein, Total 6.6 g/dL (6.0-8.3); Sodium 139 mmol/L (136-145)
[2019-09-15] MEDS ORDERED: Ketorolac Tromethamine 30 MG/ML VIAL ONE (18:52)
--- NOTE | 2019-09-15 18:56 | CT ---
CT OF ABDOMEN AND PELVIS PERFORMED WITH INTRAVENOUS CONTRAST ENHANCEMENT: History: Right lower quadrant abdomen pain with radiation to right flank. Comparison: 03-25-18 FINDINGS: The lung bases show stable reticular changes probably on the basis of scarring in both lung bases. Liver shows fatty change. It measures 18.4 cm in length. The spleen and pancreas regions appear unrem arkable. The gallbladder has been removed. Right and left adrenal glands and right and left kidneys are normal in size. There is no significant periaortic or mesenteric adenopathy. CT OF PELVIS PERFORMED WITH CONTRAST ENHANCEMENT: Changes within the cecum appear to be related to a previous appendectomy. A fat containing paraumbili carmina hernia is seen. Calcified uterine fibroid is noted. No pelvic lymphadenopathy or mass. Review of osseous structures show no significant findings. IMPRESSION: 1. No acute findings in the abdomen or pelvis. 2. Post op cholecystectomy change with stable [id number] node and some mild fatty change of the l iver. 3. Fat containing paraumbilical hernia. 4. Uterine fibroid. POS: [facility]
--- NOTE | 2019-09-17 15:39 | EKG ---
Test Reason : Blood Pressure : / mmHG Vent. Rate : 064 BPM Atrial Rate : 064 BPM P-R Int : 136 ms QRS Dur : 088 ms QT Int : 440 ms P-R-T Axes : 056 032 036 degrees QTc Int : 453 ms Normal sinus rhythm Possible Left atrial enlargement Possible Inferior infarct , age undetermined Cannot rule out Anterior infarct , age undetermined Abnormal ECG No change from 03/13/2019 Confirmed by JOSEP JARRETT DO ([id number]), editor & co founder HALIE MATTA ([id number]) on 09/17/2019 3:39:10 PM Referred By: Confirmed By:JOSEP JARRETT DO
== END 2019-09-15 19:10 | disposition home or self-care (01) ==
LOC: ERS 16:05
DX: K76.0 Fatty (change of) liver, not elsewhere classified (principal); R10.11 Right upper quadrant pain; R10.31 Right lower quadrant pain; E11.9 Type 2 diabetes mellitus without complications; I10 Essential (primary) hypertension; Z86.73 Personal history of transient ischemic attack (TIA), and cerebral infarction without residual deficits; J45.909 Unspecified asthma, uncomplicated; F17.210 Nicotine dependence, cigarettes, uncomplicated; Z79.82 Long term (current) use of aspirin; Z79.899 Other long term (current) drug therapy
CPT/HCPCS: 74177; 80053; 81003; 81025; 83690; 84484; 85025; 93005; 96361; 96374; 96375; J1885; J2270; J2405; Q9967

== ENCOUNTER 2019-09-30 16:57 | Emergency (ER) | payer SELFPAY ==
[2019-09-30 18:07] LABS: #Basophils 0.1 thou/uL (0.0-0.2); #Eosinphils 0.1 thou/uL (0.0-0.7); #Lymphocytes 1.7 thou/uL (1.20-3.40); #Monocytes 0.7 thou/uL (0.11-0.59); #Neutrophils 6.4 thou/uL (1.40-6.50); %Basophils 1.1 % (0.0-1.0); %Eosinophils 1.4 % (0.0-10.0); %Lymphocytes 18.9 % (21.0-51.0); %Monocytes 8.1 % (0.0-10.0); %Neutrophils 70.6 % (42.0-75.0); Hemoglobin 14.3 g/dL (12.0-16.0); Mean Corpuscular HGB CONC 33.5 g/dL (32.0-36.0); Mean Corpuscular Hemoglobin 30.5 pg (27.0-31.0); Mean Platelet Volume 9.1 fL (7.4-10.4); Platelet Count 199 thou/uL (130-400); RBC Distribution Width 11.9 % (11.5-14.5); White Blood Cell (WBC) Count 9.1 thou/uL (4.8-10.8)
[2019-09-30 18:28] LABS: ALT (SGPT) 14 U/L (8-55); AST (SGOT) 5 U/L (5-34); Alkaline Phosphatase 98 U/L (40-110); Anion Gap 11 mmol/L (10-20); BUN (Urea Nitrogen) 19 mg/dL (9.8-20.1); Bilirubin, Total 0.3 mg/dL (0.2-1.2); Calc. Creatinine Clearance 0 mL/min (70-130); Calcium 9.1 mg/dL (7.8-10.44); Carbon Dioxide 30 mmol/L (22-29); Chloride 101 mmol/L (98-107); Estimated GFR-MDRD 55; Globulin 2.6 g/dL (2.4-3.5); Glucose 96 mg/dL (70-105); Lipase 9 U/L (8-78); Potassium 3.8 mmol/L (3.5-5.1); Protein, Total 6.6 g/dL (6.0-8.3); Sodium 138 mmol/L (136-145)
[2019-09-30 18:43] LABS: Bacteria/HPF None Seen HPF (None Seen); Bilirubin Negative (Negative); Blood, Urine Negative (Negative); Clarity Clear (Clear); Glucose, Urine (Dipstick) Normal (Negative); Leukocyte 25 Leu/uL (Negative); Nitrite Negative (Negative); Protein, Urine (Dipstick) Negative (Neg-Trace); RBC/HPF 0-3 HPF (0-3); Squamous Epithelial 0-3 HPF (0-3); Urobilinogen Normal mg/dL (Less than 2); WBC/HPF 0-3 HPF (0-3)
[2019-09-30] MEDS ORDERED: diphenhydrAMINE 50 MG/ML VIAL ONE (19:32)
[2019-09-30] MEDS ORDERED: Haloperidol Lactate 5 MG/ML VIAL ONE (19:32)
== END 2019-09-30 20:36 | disposition home or self-care (01) ==
LOC: ERS 16:57
DX: R10.13 Epigastric pain (principal); G89.29 Other chronic pain; I25.2 Old myocardial infarction; I10 Essential (primary) hypertension; F17.210 Nicotine dependence, cigarettes, uncomplicated; J45.909 Unspecified asthma, uncomplicated; Z86.73 Personal history of transient ischemic attack (TIA), and cerebral infarction without residual deficits; Z79.899 Other long term (current) drug therapy; Z79.82 Long term (current) use of aspirin
CPT/HCPCS: 36415; 80053; 81003; 81015; 83690; 85025; 96372; 99284; J1200; J1630

== ENCOUNTER 2019-11-08 11:52 | Inpatient (IN) | payer SELFPAY ==
--- NOTE | 2019-11-08 13:41 | RAD ---
XR Chest Pa Lat STANDARD HISTORY: Cough, chest pain COMPARISON: 03/13/2019 FINDINGS: The heart size is normal. Changes of median sternotomy are again seen. The lungs are well e xpanded without focal areas of consolidation, pneumothorax or pleural effusions. IMPRESSION: No radiographic evidence of acute cardiopulmonary process.
[2019-11-08] MEDS ORDERED: Magnesium 2 GM/50 ML BAG (IN WATER) ONE (15:37)
[2019-11-08] MEDS ORDERED: Dexamethasone 4 mg/ml Vial ONE (15:37)
[2019-11-08] MEDS ORDERED: cefTRIAXone\\ROCEPHIN 1 GM VIAL ONE (15:37)
[2019-11-08] MEDS ORDERED: Albuterol Sulfate 2.5 mg/0.5 ml Neb ONE (15:41)
[2019-11-08] MEDS ORDERED: Albuterol Sulfate 2.5 mg/3 ml Neb ONE ×2 (15:41→19:19)
[2019-11-08 15:43] LABS: #Basophils 0.1 thou/uL (0.0-0.2); #Eosinphils 0.1 thou/uL (0.0-0.7); #Lymphocytes 3.8 thou/uL (1.20-3.40); #Monocytes 1.2 thou/uL (0.11-0.59); #Neutrophils 7.6 thou/uL (1.40-6.50); %Basophils 0.8 % (0.0-1.0); %Eosinophils 0.8 % (0.0-10.0); %Lymphocytes 29.6 % (21.0-51.0); %Monocytes 9.2 % (0.0-10.0); %Neutrophils 59.6 % (42.0-75.0); Hemoglobin 16.5 g/dL (12.0-16.0); Mean Corpuscular HGB CONC 34.7 g/dL (32.0-36.0); Mean Corpuscular Hemoglobin 32.3 pg (27.0-31.0); Mean Corpuscular Volume 93.4 fL (78.0-98.0); Mean Platelet Volume 9.2 fL (7.4-10.4); Platelet Count 243 thou/uL (130-400); RBC Distribution Width 13.4 % (11.5-14.5); White Blood Cell (WBC) Count 12.7 thou/uL (4.8-10.8)
[2019-11-08 16:03] LABS: ALT (SGPT) 18 U/L (8-55); AST (SGOT) 5 U/L (5-34); Alkaline Phosphatase 102 U/L (40-110); Anion Gap 18 mmol/L (10-20); BUN (Urea Nitrogen) 28 mg/dL (9.8-20.1); Bilirubin, Total 0.8 mg/dL (0.2-1.2); Calc. Creatinine Clearance 0 mL/min (70-130); Calcium 10.3 mg/dL (7.8-10.44); Carbon Dioxide 26 mmol/L (22-29); Chloride 99 mmol/L (98-107); Estimated GFR-MDRD 36; Glucose 107 mg/dL (70-105); Potassium 3.5 mmol/L (3.5-5.1); Sodium 139 mmol/L (136-145)
[2019-11-08 16:05] LABS: Analyzer IN Cardio ER; Base Excess (BEa) -2.5 mEq/L (-2.0 to +3.0); CO2 Tension 29.3 mmHg (35.0-45.0); Calcium, Ionized 1.15 mmol/L (1.12-1.30); Carboxyhemoglobin (COHb) 1.5 gm% (0.0-3.0); Hemoglobin (Hb) 15.6 g/dL (12.0-16.0); pH, Arterial 7.45 (7.35-7.45)
[2019-11-08 16:06] LABS: Puncture Site LRA
[2019-11-08 16:07] LABS: ALV-art Gradient 42.105 (0-20)
[2019-11-08] MEDS ORDERED: Ondansetron PF 4 MG/2 ML Vial ONE (16:48)
[2019-11-08] MEDS ORDERED: Azithromycin 500 MG VIAL ONE (17:44)
[2019-11-08] MEDS ORDERED: Bisacodyl 5 MG TAB PO PRN (19:27)
[2019-11-08] MEDS ORDERED: CCU Electrolyte Replacement 1 EACH IVPB ONE (19:27)
[2019-11-08] MEDS ORDERED: Dextrose 50% Abboject 50 ML SYRINGE SLOW IVP PRN (19:32)
[2019-11-08] MEDS ORDERED: Dextrose 5% in Water 1,000 ML IV PRN (19:32)
[2019-11-08 19:45] LABS: Bilirubin Negative (Negative); Blood, Urine Negative (Negative); Clarity Clear (Clear); Glucose, Urine (Dipstick) Normal (Negative); Leukocyte Negative Leu/uL (Negative); Nitrite Negative (Negative); Protein, Urine (Dipstick) Negative (Neg-Trace); Urobilinogen Normal mg/dL (Less than 2)
[2019-11-08] MEDS ORDERED: Bacteriostatic Water 30 ML VIAL FS PRN (19:49)
[2019-11-08] MEDS ORDERED: Magnesium Oxide 400 MG TAB PO PRN ×2 (19:53)
[2019-11-08] MEDS ORDERED: Potassium Chloride 40 MEQ in Sodium Chloride 0.9% 250 ML 250 ML IVPB PRN (19:53)
[2019-11-08] MEDS ORDERED: CCU ELECTROLYTE REPLACEMENT PROTOCOL FS PRN (19:53)
[2019-11-08] MEDS ORDERED: PHOS-NAK 1 PKT PACK PO PRN ×2 (19:53)
[2019-11-08] MEDS ORDERED: Potassium Chloride 20 MEQ TAB PO PRN (19:53)
[2019-11-08] MEDS ORDERED: Potassium Phosphate 9 MMOL in Sodium Chloride 0.9% 100 ML IVPB PRN (19:53)
[2019-11-08] MEDS ORDERED: Potassium Phosphate 15 MMOL in Sodium Chloride 0.9% 250 ML 250 ML IV PRN (19:53)
[2019-11-08] MEDS ORDERED: Potassium Phosphate 12 MMOL in Sodium Chloride 0.9% 250 ML 250 ML IV PRN (19:53)
[2019-11-08] MEDS ORDERED: Potassium Chloride 40 MEQ in Premix Bag 1 BAG IVPB PRN (19:53)
[2019-11-08] MEDS ORDERED: Magnesium 2 GM/50 ML 2 GM in Premix Bag 1 BAG IVPB PRN (19:53)
[2019-11-08] MEDS ORDERED: Piperacillin/Tazobactam 3.375 GM in Sodium Chloride 0.9% 100 ML IVPB SCH (20:00)
[2019-11-08] MEDS ORDERED: methylPREDNISolone Sod Succ/PF 125 MG/2 ML VIAL IVP SCH (20:00)
--- NOTE | 2019-11-08 20:35 | RAD ---
Exam: Chest one view HISTORY:Status post central line placement Comparison: 03/13/2019 FINDINGS: Cardiac silhouette:Normal cardiac silhouette. Sternotomy wires are identified. Lines and tubes: Right-sided internal jugular central venous catheter terminates in the cavoatrial ju nction. Aorta: Unremarkable Pulmonary vessels: Normal Costophrenic angles: Clear LUNGS: Parenchymal changes in the left lung base, partially obscuring the left hemidiaphragm. Pneumothorax: No pneumothorax. Osseous abnormalities: None IMPRESSION: 1. Left lower lobe parenchymal changes 2. Right-sided vascular catheter as above. No pneumothorax. Transcribed Date/Time: 11/08/2019 9:10 PM
[2019-11-08] MEDS ORDERED: Acetaminophen/Codeine 30-300mg Tablet ONE (20:54)
[2019-11-08] MEDS ORDERED: Ibuprofen 200 MG TAB ONE (20:54)
[2019-11-08] MEDS ORDERED: Vancomycin HCl 1.5 GM in Sodium Chloride 0.9% 250 ML 300 ML IVPB SCH (21:00)
[2019-11-08 21:57] VITALS: BMI 32.9
[2019-11-09] MEDS: Sodium Chloride 0.9% 1,000 ML IV SCH ×2 (00:02→10:01)
[2019-11-09] MEDS: Famotidine/PF 20 mg/2ml Vial SLOW IVP SCH ×2 (00:02→22:00)
[2019-11-09] MEDS: Acetaminophen/Codeine 30-300mg Tablet PO PRN ×2 (00:11→10:11)
--- NOTE | 2019-11-09 01:03 | HP ---
CHIEF COMPLAINT: Shortness of breath and cough. HISTORY OF PRESENT ILLNESS: The patient is a 54-year-old female with a history of CAD, status post bypass back in 2013, and also hypertension and smoker, who presents to the hospital with shortness of breath and cough. The patient stated that she initially went on a physical examination on Monday to her primary care, where she was noted to have expiratory wheezing. At this time, she was given inhalers and neb treatments as an outpatient and also was put on a steroid taper. The patient stated that she continued to worsen as the time went on. The patient also states that she has been taking care of her mother who recently had a knee surgery and her mother has been not doing well with outpatient rehab. At this time, her mom was put in an inpatient rehab, and at this time flu was checked and it was positive. She does not recall the type of flu, but the flu was positive. The patient states that today she has been having a significant headache and some nausea. She has not been eating or drinking for the past couple of days. She denies any fevers, but has been having sweats and body cramping all over. PAST MEDICAL HISTORY: Noted for COPD. I am not sure if she has ever been tested for this. Has a history of CAD, hypertension, diabetes, and smoker. FAMILY HISTORY: No history of heart disease or stroke. PAST SURGICAL HISTORY: She has had a bypass in 2013, cholecystectomy, and a cecal tumor resection. SOCIAL HISTORY: She denies any alcohol use. She continues to smoke. She used to smoke a pack a day. She has been down to a pack every 3 to 4 days and she recently denies any drug use. CODE STATUS: She is a full code. ALLERGIES: NO KNOWN ALLERGIES. MEDICATIONS: She is on: 1. Aspirin 81 mg daily. 2. Metformin 500 mg daily. 3. Plavix 75 mg daily. 4. Lasix 40 mg daily. 5. Lisinopril 20 mg daily. 6. Metoprolol 25 mg daily. REVIEW OF SYSTEMS: All negative except for the ones mentioned above in the HPI. PHYSICAL EXAMINATION: VITAL SIGNS: As of the following. Temperature of 97.8, respirations of 22, pulse of 78, 134/85. GENERAL: She is awake, alert, and oriented x3. Appears in mild distress. CV: S1 and S2 present. No murmurs, rubs, or gallops. LUNGS: Expiratory wheezing all over. ABDOMEN: Soft. Mild pain upon epigastric area and some right lower quadrant; however, no guarding noted. EXTREMITIES: No edema. Pedal pulses are present x2. NEUROVASCULAR: There are no focal deficits noted. SKIN: No cuts, lesions, or bruises noted. LABORATORY DATA: Her laboratory results are as of the following; WBCs of 12.7, hemoglobin of 16.5, hematocrit of 47.6. Her platelets are 243. Her chemistry; sodium of 139, potassium of 3.5, BUN of 28, creatinine of 1.52, her baseline is 1.04. Her lactic acid was 1.2. Her urine indicated just trace ketones. Her chest x-ray that was done indicated no radiographic evidence of acute cardiopulmonary process. EKG was normal sinus. I did review that also her flu was negative. ASSESSMENT AND PLAN: The patient is a 54-year-old female, who presents to the hospital with complaints of shortness of breath. 1. Acute hypoxic respiratory failure, most likely secondary to possible viral versus bacterial pneumonia. Her flu swab was negative; however, we will go ahead and order a respiratory viral panel. She needs a PCR. Her mother was diagnosed with flu. We will treat her with broad-spectrum antibiotics since she has recently been in and out of a facility, and while evaluating her in the ER, her blood pressure was very labile. Her MAPs at point were below 65. She has been upgraded to IMCU. She has received 3 L of normal saline. We will start her on some steroids and continue to monitor her. 2. Sepsis, possibly most likely secondary to either pneumonia. We will continue broad-spectrum antibiotics and continue to monitor. Blood cultures have been done. If she does have a sputum, we will get a sputum culture. 3. Acute kidney injury. We will continue hydration and continue to monitor. 4. Coronary artery disease. We will continue her home medications. 5. Mild leukocytosis. Again, this could be most likely secondary to her pneumonia. 6. Smoking cessation. I did educate her about smoking cessation. She understands and she currently does not want a patch. Job ID: [id number]
[2019-11-09] MEDS: Piperacillin/Tazobactam 3.375 GM in Sodium Chloride 0.9% 100 ML IVPB SCH ×4 (03:20→21:59)
[2019-11-09] MEDS: Ondansetron PF 4 MG/2 ML Vial SLOW IVP PRN (03:21)
[2019-11-09 05:04] LABS: Anion Gap 14 mmol/L (10-20); BUN (Urea Nitrogen) 26 mg/dL (9.8-20.1); Calc. Creatinine Clearance 90 mL/min (70-130); Calcium 8.4 mg/dL (7.8-10.44); Carbon Dioxide 22 mmol/L (22-29); Chloride 105 mmol/L (98-107); Estimated GFR-MDRD 59; Glucose 254 mg/dL (70-105); Potassium 3.9 mmol/L (3.5-5.1); Sodium 137 mmol/L (136-145)
[2019-11-09] MEDS: Clopidogrel Bisulfate 75 MG TAB PO SCH (10:00)
[2019-11-09] MEDS: Aspirin 81 mg Enteric Coated Tablet PO SCH (10:01)
[2019-11-09] MEDS: methylPREDNISolone Sod Succ 40 MG VIAL IVP SCH (10:02)
[2019-11-09] MEDS: HumaLOG 300 UNITS/3 ML VIAL SC PRN ×2 (11:43→17:40)
--- NOTE | 2019-11-09 14:25 | PDOC.HOSPP ---
- Subjective Encounter Date: 11/09/19 Encounter Time: 11:30 Subjective: pt up in bed still sob. - Objective Vital Signs & Weight: Vital Signs (12 hours) Temp Pulse Resp Pulse Ox 11/09/19 13:15 64 14 11/09/19 10:09 55 L 14 99 11/09/19 07:41 96.8 F L 11/09/19 03:54 97.0 F L Weight Weight 195 lb Most Recent Monitor Data Heart Rate from ECG 49 NIBP 92/49 NIBP BP-Mean 63 Respiration from ECG 14 SpO2 97 I&O: 11/08/19 11/09/19 11/10/19 06:59 06:59 06:59 Intake Total 1833 Output Total 870 Balance 963 Result Diagrams: 11/08/19 15:30 11/09/19 03:25 Additional Labs: Accuchecks 11/09/19 11/09/19 11/08/19 10:47 05:32 22:22 POC Glucose 206 H 219 H 220 H Hospitalist ROS - Review of Systems Respiratory: reports: shortness of breath Cardiovascular: denies: chest pain, palpitations, orthopnea, paroxysmal noc. dyspnea, edema, light headedness, other Gastrointestinal: denies: nausea, vomiting, abdominal pain, diarrhea, constipation, melena, hematochezia, other - Medication Medications: Active Medications Generic Name Dose Route Start Last Admin Trade Name Freq PRN Reason Stop Dose Admin Acetaminophen/Codeine Phosphate 1 tab 11/08/19 20:36 11/09/19 10:11 Tylenol #3 PO 1 tab Q8H PRN Administration Pain Albuterol/Ipratropium 3 ml 11/09/19 01:00 11/09/19 13:15 Duoneb NEB 3 ml [id number] CHRISTO Administration Aspirin 81 mg 11/09/19 09:00 11/09/19 10:01 Ecotrin PO 81 mg DAILY CHRISTO Administration Clopidogrel Bisulfate 75 mg 11/09/19 09:00 11/09/19 10:00 Plavix PO 75 mg DAILY CHRISTO Administration Famotidine 20 mg 11/08/19 21:00 11/09/19 00:02 Pepcid SLOW IVP Not Given HS CHRISTO Piperacillin Sod/Tazobactam 100 mls @ 200 mls/hr 11/09/19 02:00 11/09/19 09: 59 Sod 3.375 gm/ Sodium Chloride IVPB 100 mls 0200,0800,1400,2000 CHRISTO Administration Sodium Chloride 1,000 mls @ 75 mls/hr 11/08/19 22:30 11/09/19 10:01 Normal Saline 0.9% IV Not Given .[id number] [facility] Insulin Human Lispro 0 units 11/08/19 19:32 11/09/19 11:43 Humalog SC 3 unit .MILD SLIDING SCALE PRN Administration Mild Correctional Scale Methylprednisolone Sodium Succinate 40 mg 11/09/19 09:00 11/09/19 10:02 Solu-Medrol IVP 40 mg DAILY CHRISTO Administration Ondansetron HCl 4 mg 11/09/19 02:46 11/09/19 03:21 Zofran SLOW IVP 4 mg Q6H PRN Administration Nausea/Vomiting - Exam Neck: negative: supple, symmetric, no JVD, no thyromegaly, no lymphadenopathy, no carotid bruit, JVD Heart: negative: RRR, no murmur, no gallops, no rubs, normal peripheral pulses, irregular, diminshed peripheral pulses, murmur present, II/IV, III/IV Respiratory: rhonchi, wheezes Gastrointestinal: negative: soft, non-tender, non-distended, normal bowel sounds , no palpable masses, no hepatomegaly, no splenomegaly, no bruit, no guarding, no rigidity, tender to palpation, distended, diminished bowl sounds, voluntary guarding Hosp A/P (1) Acute exacerbation of chronic obstructive pulmonary disease (COPD) Code(s): J44.1 - CHRONIC OBSTRUCTIVE PULMONARY DISEASE W (ACUTE) EXACERBATION Status: Acute (2) CAD (coronary artery disease) Code(s): I25.10 - ATHSCL HEART DISEASE OF [place] CORONARY ARTERY W/O ANG PCTRS Status: Chronic Qualifiers: (3) DM type 2 (diabetes mellitus, type 2) Status: Chronic Qualifiers: (4) HTN (hypertension) Code(s): I10 - ESSENTIAL (PRIMARY) HYPERTENSION Status: Chronic Qualifiers: (5) Obesity (BMI 30-39.9) Code(s): E66.9 - OBESITY, UNSPECIFIED Status: Chronic - Plan pt up in bed still very sob. will continue iv steroids and duoneb. will add antitussive.
[2019-11-09] MEDS: Benzonatate 100 MG CAP PO PRN (15:47)
[2019-11-09] MEDS: Morphine 2 MG/ML SYRINGE SLOW IVP PRN (15:48)
--- NOTE | 2019-11-09 19:44 | CON ---
DATE OF CONSULTATION: 11/09/2019 HISTORY OF PRESENT ILLNESS: Randa Grijalva is a 54-year-old female. I saw her in September of 2018, when she was in the hospital with an asthma exacerbation. Pulmonary function tests were done during that admission because she was slow to clear. PFTs were near normal with the normal diffusion arguing that she simply has asthma. She has presented this admission with several days of shortness of breath. She says she is feeling a little better than she did on admission. When I saw her back in September of 2018, I thought that there may be some component of vocal cord dysfunction associated with her presenting symptoms. On September 27, I examined her while she was asleep, and she had no wheezing, respiratory rate in the teens, and she was not tachycardic. When I awakened her and examined her, she had forced closure of her glottis and a prolonged expiratory phase. That same day, we did the pulmonary function tests showing only a 2% reduction in her FEV1 with no change after bronchodilators. She presents with major life stresses right now with her mother having influenza being hospitalized in a step-down unit. She is feeling better. She was on steroids when she came in. PAST MEDICAL HISTORY: Remarkable for coronary artery disease, hypertension, diabetes, coronary artery bypass grafting in 2014, cholecystectomy, cecal tumor resection, and had multiple emergency room visits. Looking back through the medical records, in December of 2018, she had a negative MRI after presenting with symptoms suggestive of a small stroke. She had a 50% to 69% carotid stenosis on the right. She has had a negative stress test in 2019, with Dr. Baltazar. FAMILY HISTORY: Negative for lung disease in early age. REVIEW OF SYSTEMS: 10 point review of systems completed, otherwise, negative. SOCIAL HISTORY: She is actually not smoking. PHYSICAL EXAMINATION: VITAL SIGNS: Heart rate 57, blood pressure 131/78, respiratory rates in the teens, oximetry is 95%. HEAD AND NECK: Unremarkable. NECK: She has no cervical lymphadenopathy. LUNGS: Remarkable for diffuse wheezes. HEART: Regular rhythm. ABDOMEN: Soft and nontender. EXTREMITIES: Without clubbing, cyanosis, or edema. LABORATORY DATA: White count 12.7, hemoglobin 16.5. Chest x-ray yesterday was slightly hazy at the left base. This could be infectious process or could be simply associated with mucus plugging. Electrolytes are normal. BUN was 26, creatinine 0.99. IMPRESSION AND PLAN: 1. Asthma. 2. ? Pneumonia. 3. Clinical presentation consistent with vocal cord dysfunction in the past. 4. History of almost completely normal pulmonary function tests in September of 2018, with normal diffusion arguing against her having chronic obstructive pulmonary disease. At worst, she has mild asthma. I would continue with current therapy. Her antibiotics can be simplified in the morning. Very unlikely that she has a methicillin-resistant Staphylococcus infection. Her vancomycin can be discontinued. This is a 50 minute consult, with greater than 50% of time spent on unit coordinating care. Job ID: [id number] MTDD
[2019-11-09] MEDS ORDERED: Vancomycin HCl 1 GM in Premix Bag 1 BAG IVPB SCH (22:00)
[2019-11-10] MEDS: Piperacillin/Tazobactam 3.375 GM in Sodium Chloride 0.9% 100 ML IVPB SCH ×4 (02:11→20:31)
[2019-11-10] MEDS: Benzonatate 100 MG CAP PO PRN ×2 (02:11→14:04)
[2019-11-10] MEDS: guaiFENesin/Codeine Phosphate 200 mg/20 mg 10 ml UD Cup PO PRN (02:12)
[2019-11-10 04:31] LABS: Anion Gap 9 mmol/L (10-20); BUN (Urea Nitrogen) 22 mg/dL (9.8-20.1); Calc. Creatinine Clearance 102 mL/min (70-130); Calcium 8.6 mg/dL (7.8-10.44); Carbon Dioxide 29 mmol/L (22-29); Chloride 105 mmol/L (98-107); Estimated GFR-MDRD 67; Glucose 144 mg/dL (70-105); Potassium 3.3 mmol/L (3.5-5.1); Sodium 140 mmol/L (136-145)
[2019-11-10] MEDS: Morphine 2 MG/ML SYRINGE SLOW IVP PRN (07:49)
[2019-11-10] MEDS: methylPREDNISolone Sod Succ 40 MG VIAL IVP SCH (08:00)
[2019-11-10] MEDS: Aspirin 81 mg Enteric Coated Tablet PO SCH (08:01)
[2019-11-10] MEDS: Clopidogrel Bisulfate 75 MG TAB PO SCH (08:01)
[2019-11-10] MEDS: Ondansetron PF 4 MG/2 ML Vial SLOW IVP PRN (08:21)
--- NOTE | 2019-11-10 14:04 | PDOC.HOSPP ---
- Subjective Encounter Date: 11/10/19 Encounter Time: 09:45 Subjective: pt up in bed complains of headache. - Objective Vital Signs & Weight: Vital Signs (12 hours) Temp Pulse Resp Pulse Ox 11/10/19 13:19 78 19 97 11/10/19 11:14 97.4 F L 11/10/19 08:16 61 16 11/10/19 07:12 97.4 F L 11/10/19 03:59 97.6 F Weight Weight 194 lb 14.4 oz Most Recent Monitor Data Heart Rate from ECG 65 NIBP 109/73 NIBP BP-Mean 85 Respiration from ECG 16 SpO2 97 I&O: 11/09/19 11/10/19 11/11/19 06:59 06:59 06:59 Intake Total 1833 Output Total 870 Balance 963 Result Diagrams: 11/08/19 15:30 11/10/19 03:51 Additional Labs: Accuchecks 11/10/19 11/10/19 11/09/19 11:00 05:48 20:00 POC Glucose 179 H 125 H 149 H 11/09/19 16:39 POC Glucose 214 H Hospitalist ROS - Review of Systems ENT: denies: ear pain, ear discharge, nose pain, nose discharge, nose congestion , mouth pain, mouth swelling, throat pain, throat swelling, other Respiratory: reports: wheezing. denies: cough, dry, shortness of breath, hemoptysis, SOB with excertion, pleuritic pain, sputum, other Cardiovascular: denies: chest pain, palpitations, orthopnea, paroxysmal noc. dyspnea, edema, light headedness, other Gastrointestinal: denies: nausea, vomiting, abdominal pain, diarrhea, constipation, melena, hematochezia, other - Medication Medications: Active Medications Generic Name Dose Route Start Last Admin Trade Name Freq PRN Reason Stop Dose Admin Acetaminophen/Codeine Phosphate 1 tab 11/08/19 20:36 11/09/19 10:11 Tylenol #3 PO 1 tab Q8H PRN Administration Pain Albuterol/Ipratropium 3 ml 11/09/19 01:00 11/10/19 13:19 Duoneb NEB 3 ml [id number] CHRISTO Administration Aspirin 81 mg 11/09/19 09:00 11/10/19 08:01 Ecotrin PO 81 mg DAILY CHRISTO Administration Benzonatate 100 mg 11/09/19 14:26 11/10/19 02:11 Tessalon PO 100 mg TIDPRN PRN Administration Cough Clopidogrel Bisulfate 75 mg 11/09/19 09:00 11/10/19 08:01 Plavix PO 75 mg DAILY CHRISTO Administration Famotidine 20 mg 11/08/19 21:00 11/09/19 22:00 Pepcid SLOW IVP 20 mg HS CHRISTO Administration Guaifenesin/Codeine Phosphate 5 ml 11/09/19 14:26 11/10/19 02:12 Robitussin Ac PO 5 ml HS PRN Administration Cough Piperacillin Sod/Tazobactam 100 mls @ 200 mls/hr 11/09/19 02:00 11/10/19 07: 45 Sod 3.375 gm/ Sodium Chloride IVPB 100 mls 0200,0800,1400,2000 CHRISTO Administration Insulin Human Lispro 0 units 11/08/19 19:32 11/09/19 17:40 Humalog SC 3 unit .MILD SLIDING SCALE PRN Administration Mild Correctional Scale Methylprednisolone Sodium Succinate 40 mg 11/09/19 09:00 11/10/19 08:00 Solu-Medrol IVP 40 mg DAILY CHRISTO Administration Morphine Sulfate 2 mg 11/09/19 15:25 11/10/19 07:49 Morphine SLOW IVP 2 mg BID PRN Administration Moderate to Severe Pain (6-10) Ondansetron HCl 4 mg 11/09/19 02:46 11/10/19 08:21 Zofran SLOW IVP 4 mg Q6H PRN Administration Nausea/Vomiting - Exam Neck: negative: supple, symmetric, no JVD, no thyromegaly, no lymphadenopathy, no carotid bruit, JVD Heart: negative: RRR, no murmur, no gallops, no rubs, normal peripheral pulses, irregular, diminshed peripheral pulses, murmur present, II/IV, III/IV Respiratory: wheezes Gastrointestinal: negative: soft, non-tender, non-distended, normal bowel sounds , no palpable masses, no hepatomegaly, no splenomegaly, no bruit, no guarding, no rigidity, tender to palpation, distended, diminished bowl sounds, voluntary guarding Extremities: negative: no cyanosis, no clubbing, no edema, 1+ LE edema, 2+ LE edema, clubbing Hosp A/P (1) Acute exacerbation of chronic obstructive pulmonary disease (COPD) Code(s): J44.1 - CHRONIC OBSTRUCTIVE PULMONARY DISEASE W (ACUTE) EXACERBATION Status: Acute (2) CAD (coronary artery disease) Code(s): I25.10 - ATHSCL HEART DISEASE OF [place] CORONARY ARTERY W/O ANG PCTRS Status: Chronic Qualifiers: (3) DM type 2 (diabetes mellitus, type 2) Status: Chronic Qualifiers: (4) HTN (hypertension) Code(s): I10 - ESSENTIAL (PRIMARY) HYPERTENSION Status: Chronic Qualifiers: (5) Obesity (BMI 30-39.9) Code(s): E66.9 - OBESITY, UNSPECIFIED Status: Chronic - Plan pt up in bed still very sob. will continue iv steroids and duoneb. will add antitussive. 11/10 will stop vanco, will add fioricet for her headache. she still has significant wheezing.
[2019-11-10] MEDS: HumaLOG 300 UNITS/3 ML VIAL SC PRN (17:18)
--- NOTE | 2019-11-10 17:20 | PRG ---
DATE OF SERVICE: 11/10/2019 Ms. Grijalva says she is unchanged. When I walked in the room, she had a long exhale time and was talking and wheezing at the same time. This is audible on exam, but when I was walking out in very clear voice with no wheezing she told me she needed some eating utensils. Overall, it becomes very difficult to sort out what the biggest problem is. She may very well have asthma triggered by the flu, but last time she was in she had similar behavior that is more consistent with vocal cord dysfunction syndrome. She is stable to move out of a monitored bed in my opinion. We will continue to follow and we will order spirometry for tomorrow. Job ID: [id number]
[2019-11-10] MEDS: Famotidine/PF 20 mg/2ml Vial SLOW IVP SCH (20:31)
[2019-11-10 21:35] LABS: Vancomycin, Trough 4.3 ug/mL
[2019-11-11] MEDS: Benzonatate 100 MG CAP PO PRN ×3 (00:06→19:51)
[2019-11-11] MEDS: guaiFENesin/Codeine Phosphate 200 mg/20 mg 10 ml UD Cup PO PRN (00:08)
[2019-11-11] MEDS: Fioricet 325/50/40 mg Tablet PO PRN (00:30)
[2019-11-11] MEDS: Piperacillin/Tazobactam 3.375 GM in Sodium Chloride 0.9% 100 ML IVPB SCH ×4 (01:54→19:50)
[2019-11-11 06:42] LABS: Anion Gap 9 mmol/L (10-20); BUN (Urea Nitrogen) 18 mg/dL (9.8-20.1); Calc. Creatinine Clearance 123 mL/min (70-130); Calcium 8.5 mg/dL (7.8-10.44); Carbon Dioxide 28 mmol/L (22-29); Chloride 106 mmol/L (98-107); Estimated GFR-MDRD 77; Glucose 125 mg/dL (70-105); Potassium 3.3 mmol/L (3.5-5.1); Sodium 140 mmol/L (136-145)
[2019-11-11] MEDS: Aspirin 81 mg Enteric Coated Tablet PO SCH (08:30)
[2019-11-11] MEDS: Clopidogrel Bisulfate 75 MG TAB PO SCH (08:30)
[2019-11-11] MEDS: methylPREDNISolone Sod Succ 40 MG VIAL IVP SCH (08:30)
[2019-11-11] MEDS: Acetaminophen/Codeine 30-300mg Tablet PO PRN ×2 (08:39→19:51)
--- NOTE | 2019-11-11 12:32 | PRG ---
DATE OF SERVICE: 11/11/2019 SUBJECTIVE: Randa Grijalva is in no distress. OBJECTIVE: VITAL SIGNS: She is afebrile, heart rate 67, respiratory rate is 20, oximetry is 97% on room air, and blood pressure is 127/85. LUNGS: She still has wheezes bilaterally. HEART: Regular rhythm. ABDOMEN: Soft. LABORATORY DATA: There is no new lab except for electrolytes, which are unimpressive beyond a potassium of 3.3. IMPRESSION: 1. Status asthmaticus. 2. Component of vocal cord dysfunction syndrome. She will have PFTs today. Job ID: [id number]
[2019-11-11] MEDS: oxyCODONE 5 MG TAB PO PRN (14:24)
[2019-11-11] MEDS: HumaLOG 300 UNITS/3 ML VIAL SC PRN ×2 (16:19→19:53)
[2019-11-11] MEDS: Famotidine/PF 20 mg/2ml Vial SLOW IVP SCH (19:51)
[2019-11-12] MEDS: oxyCODONE 5 MG TAB PO PRN ×2 (00:20→09:03)
[2019-11-12] MEDS: guaiFENesin/Codeine Phosphate 200 mg/20 mg 10 ml UD Cup PO PRN (00:21)
[2019-11-12] MEDS: Piperacillin/Tazobactam 3.375 GM in Sodium Chloride 0.9% 100 ML IVPB SCH ×4 (01:01→20:00)
[2019-11-12] MEDS: Fioricet 325/50/40 mg Tablet PO PRN ×2 (01:01→20:00)
[2019-11-12 06:14] LABS: Anion Gap 12 mmol/L (10-20); BUN (Urea Nitrogen) 15 mg/dL (9.8-20.1); Calc. Creatinine Clearance 121 mL/min (70-130); Calcium 8.8 mg/dL (7.8-10.44); Carbon Dioxide 28 mmol/L (22-29); Chloride 105 mmol/L (98-107); Estimated GFR-MDRD 77; Glucose 109 mg/dL (70-105); Potassium 3.4 mmol/L (3.5-5.1); Sodium 142 mmol/L (136-145)
[2019-11-12] MEDS: Clopidogrel Bisulfate 75 MG TAB PO SCH (09:03)
[2019-11-12] MEDS: Aspirin 81 mg Enteric Coated Tablet PO SCH (09:03)
[2019-11-12] MEDS: Benzonatate 100 MG CAP PO PRN ×2 (09:03→20:02)
[2019-11-12] MEDS: methylPREDNISolone Sod Succ 40 MG VIAL IVP SCH (09:05)
[2019-11-12] MEDS: HumaLOG 300 UNITS/3 ML VIAL SC PRN ×2 (17:16→21:25)
--- NOTE | 2019-11-12 19:50 | PDOC.HOSPP ---
- Subjective Encounter Date: 11/11/19 Encounter Time: 10:15 Subjective: pt up in bed still has significant wheezing - Objective Vital Signs & Weight: Vital Signs (12 hours) Temp Pulse Resp BP Pulse Ox 11/12/19 19:08 98.3 F 76 20 118/77 96 11/12/19 18:05 88 20 97 11/12/19 13:36 62 18 62 L 11/12/19 08:00 97 Weight Weight 205 lb 11.06 oz Most Recent Monitor Data Heart Rate from ECG 78 NIBP 110/66 NIBP BP-Mean 80 Respiration from ECG 21 SpO2 98 I&O: 11/11/19 11/12/19 11/13/19 06:59 06:59 06:59 Intake Total 2589 1340 1000 Output Total 1200 Balance 1389 1340 1000 Result Diagrams: 11/08/19 15:30 11/12/19 05:08 Additional Labs: Accuchecks 11/12/19 11/12/19 11/12/19 16:12 11:41 04:23 POC Glucose 284 H 144 H 131 H 11/11/19 19:17 POC Glucose 249 H Hospitalist ROS - Review of Systems Respiratory: reports: shortness of breath Cardiovascular: denies: chest pain, palpitations, orthopnea, paroxysmal noc. dyspnea, edema, light headedness, other Gastrointestinal: denies: nausea, vomiting, abdominal pain, diarrhea, constipation, melena, hematochezia, other - Medication Medications: Active Medications Generic Name Dose Route Start Last Admin Trade Name Freq PRN Reason Stop Dose Admin Acetaminophen/Butalbital/Caffeine 1 tab 11/10/19 14:02 11/12/19 01:01 Fioricet PO 11/15/19 14:03 1 tab Q8H PRN Administration Headache Acetaminophen/Codeine Phosphate 1 tab 11/08/19 20:36 11/11/19 19:51 Tylenol #3 PO 1 tab Q8H PRN Administration Pain Albuterol/Ipratropium 3 ml 11/09/19 01:00 11/12/19 18:05 Duoneb NEB 3 ml [id number] CHRISTO Administration Aspirin 81 mg 11/09/19 09:00 11/12/19 09:03 Ecotrin PO 81 mg DAILY CHRISTO Administration Benzonatate 100 mg 11/09/19 14:26 11/12/19 09:03 Tessalon PO 100 mg TIDPRN PRN Administration Cough Clopidogrel Bisulfate 75 mg 11/09/19 09:00 11/12/19 09:03 Plavix PO 75 mg DAILY [facility] Administration Famotidine 20 mg 11/08/19 21:00 11/11/19 19:51 Pepcid SLOW IVP 20 mg HS CHRISTO Administration Guaifenesin/Codeine Phosphate 5 ml 11/09/19 14:26 11/12/19 00:21 Robitussin Ac PO 5 ml HS PRN Administration Cough Piperacillin Sod/Tazobactam 100 mls @ 200 mls/hr 11/09/19 02:00 11/12/19 14: 56 Sod 3.375 gm/ Sodium Chloride IVPB 100 mls 0200,0800,1400,2000 CHRISTO Administration Insulin Human Lispro 0 units 11/08/19 19:32 11/12/19 17:16 Humalog SC 4 unit .MILD SLIDING SCALE PRN Administration Mild Correctional Scale Methylprednisolone Sodium Succinate 40 mg 11/09/19 09:00 11/12/19 09:05 Solu-Medrol IVP 40 mg DAILY CHRISTO Administration Morphine Sulfate 2 mg 11/09/19 15:25 11/10/19 07:49 Morphine SLOW IVP 2 mg BID PRN Administration Moderate to Severe Pain (6-10) Ondansetron HCl 4 mg 11/09/19 02:46 11/10/19 08:21 Zofran SLOW IVP 4 mg Q6H PRN Administration Nausea/Vomiting Oxycodone HCl 5 mg 11/09/19 15:23 11/12/19 09:03 Oxycodone Ir PO 5 mg Q6H PRN Administration Pain - Exam Neck: negative: supple, symmetric, no JVD, no thyromegaly, no lymphadenopathy, no carotid bruit, JVD Heart: negative: RRR, no murmur, no gallops, no rubs, normal peripheral pulses, irregular, diminshed peripheral pulses, murmur present, II/IV, III/IV Respiratory: wheezes Gastrointestinal: negative: soft, non-tender, non-distended, normal bowel sounds , no palpable masses, no hepatomegaly, no splenomegaly, no bruit, no guarding, no rigidity, tender to palpation, distended, diminished bowl sounds, voluntary guarding Extremities: negative: no cyanosis, no clubbing, no edema, 1+ LE edema, 2+ LE edema, clubbing Hosp A/P (1) Acute exacerbation of chronic obstructive pulmonary disease (COPD) Code(s): J44.1 - CHRONIC OBSTRUCTIVE PULMONARY DISEASE W (ACUTE) EXACERBATION Status: Acute (2) CAD (coronary artery disease) Code(s): I25.10 - ATHSCL HEART DISEASE OF [place] CORONARY ARTERY W/O ANG PCTRS Status: Chronic Qualifiers: (3) DM type 2 (diabetes mellitus, type 2) Status: Chronic Qualifiers: (4) HTN (hypertension) Code(s): I10 - ESSENTIAL (PRIMARY) HYPERTENSION Status: Chronic Qualifiers: (5) Obesity (BMI 30-39.9) Code(s): E66.9 - OBESITY, UNSPECIFIED Status: Chronic - Plan pt up in bed still very sob. will continue iv steroids and duoneb. will add antitussive. 11/10 will stop vanco, will add fioricet for her headache. she still has significant wheezing. 11/11 pt's central line has been removed. will continue current tx. she still has significant wheezing.
--- NOTE | 2019-11-12 19:51 | PDOC.HOSPP ---
- Subjective Encounter Date: 11/12/19 Encounter Time: 08:45 Subjective: pt up in bed still has wheezing - Objective Vital Signs & Weight: Vital Signs (12 hours) Temp Pulse Resp BP Pulse Ox 11/12/19 19:08 98.3 F 76 20 118/77 96 11/12/19 18:05 88 20 97 11/12/19 13:36 62 18 62 L 11/12/19 08:00 97 Weight Weight 205 lb 11.06 oz Most Recent Monitor Data Heart Rate from ECG 78 NIBP 110/66 NIBP BP-Mean 80 Respiration from ECG 21 SpO2 98 I&O: 11/11/19 11/12/19 11/13/19 06:59 06:59 06:59 Intake Total 2589 1340 1000 Output Total 1200 Balance 1389 1340 1000 Result Diagrams: 11/08/19 15:30 11/12/19 05:08 Additional Labs: Accuchecks 11/12/19 11/12/19 11/12/19 16:12 11:41 04:23 POC Glucose 284 H 144 H 131 H 11/11/19 19:17 POC Glucose 249 H Hospitalist ROS - Review of Systems Respiratory: reports: shortness of breath Cardiovascular: denies: chest pain, palpitations, orthopnea, paroxysmal noc. dyspnea, edema, light headedness, other Gastrointestinal: denies: nausea, vomiting, abdominal pain, diarrhea, constipation, melena, hematochezia, other - Medication Medications: Active Medications Generic Name Dose Route Start Last Admin Trade Name Freq PRN Reason Stop Dose Admin Acetaminophen/Butalbital/Caffeine 1 tab 11/10/19 14:02 11/12/19 01:01 Fioricet PO 11/15/19 14:03 1 tab Q8H PRN Administration Headache Acetaminophen/Codeine Phosphate 1 tab 11/08/19 20:36 11/11/19 19:51 Tylenol #3 PO 1 tab Q8H PRN Administration Pain Albuterol/Ipratropium 3 ml 11/09/19 01:00 11/12/19 18:05 Duoneb NEB 3 ml [id number] CHRISTO Administration Aspirin 81 mg 11/09/19 09:00 11/12/19 09:03 Ecotrin PO 81 mg DAILY CHRISTO Administration Benzonatate 100 mg 11/09/19 14:26 02/18/20 09:03 Tessalon PO 100 mg TIDPRN PRN Administration Cough Clopidogrel Bisulfate 75 mg 11/09/19 09:00 11/12/19 09:03 Plavix PO 75 mg DAILY CHRISTO Administration Famotidine 20 mg 11/08/19 21:00 11/11/19 19:51 Pepcid SLOW IVP 20 mg HS CHRISTO Administration Guaifenesin/Codeine Phosphate 5 ml 11/09/19 14:26 11/12/19 00:21 Robitussin Ac PO 5 ml HS PRN Administration Cough Piperacillin Sod/Tazobactam 100 mls @ 200 mls/hr 11/09/19 02:00 11/12/19 14: 56 Sod 3.375 gm/ Sodium Chloride IVPB 100 mls 0200,0800,1400,2000 CHRISTO Administration Insulin Human Lispro 0 units 11/08/19 19:32 11/12/19 17:16 Humalog SC 4 unit .MILD SLIDING SCALE PRN Administration Mild Correctional Scale Methylprednisolone Sodium Succinate 40 mg 11/09/19 09:00 11/12/19 09:05 Solu-Medrol IVP 40 mg DAILY CHRISTO Administration Morphine Sulfate 2 mg 11/09/19 15:25 11/10/19 07:49 Morphine SLOW IVP 2 mg BID PRN Administration Moderate to Severe Pain (6-10) Ondansetron HCl 4 mg 11/09/19 02:46 11/10/19 08:21 Zofran SLOW IVP 4 mg Q6H PRN Administration Nausea/Vomiting Oxycodone HCl 5 mg 11/09/19 15:23 11/12/19 09:03 Oxycodone Ir PO 5 mg Q6H PRN Administration Pain - Exam Neck: negative: supple, symmetric, no JVD, no thyromegaly, no lymphadenopathy, no carotid bruit, JVD Heart: negative: RRR, no murmur, no gallops, no rubs, normal peripheral pulses, irregular, diminshed peripheral pulses, murmur present, II/IV, III/IV Respiratory: wheezes Gastrointestinal: negative: soft, non-tender, non-distended, normal bowel sounds , no palpable masses, no hepatomegaly, no splenomegaly, no bruit, no guarding, no rigidity, tender to palpation, distended, diminished bowl sounds, voluntary guarding Hosp A/P (1) Acute exacerbation of chronic obstructive pulmonary disease (COPD) Code(s): J44.1 - CHRONIC OBSTRUCTIVE PULMONARY DISEASE W (ACUTE) EXACERBATION Status: Acute (2) CAD (coronary artery disease) Code(s): I25.10 - ATHSCL HEART DISEASE OF [place] CORONARY ARTERY W/O ANG PCTRS Status: Chronic Qualifiers: (3) DM type 2 (diabetes mellitus, type 2) Status: Chronic Qualifiers: (4) HTN (hypertension) Code(s): I10 - ESSENTIAL (PRIMARY) HYPERTENSION Status: Chronic Qualifiers: (5) Obesity (BMI 30-39.9) Code(s): E66.9 - OBESITY, UNSPECIFIED Status: Chronic (6) Status asthmaticus Code(s): J45.902 - UNSPECIFIED ASTHMA WITH STATUS ASTHMATICUS Status: Acute (7) Vocal cord dysfunction Code(s): J38.3 - OTHER DISEASES OF [place] Status: Acute - Plan pt up in bed still very sob. will continue iv steroids and duoneb. will add antitussive. 11/10 will stop vanco, will add fioricet for her headache. she still has significant wheezing. 11/11 pt's central line has been removed. will continue current tx. she still has significant wheezing. 11/12 pt up in bed still has significant wheezing. she will have pft per respiratory
--- NOTE | 2019-11-12 19:53 | PRG ---
DATE OF SERVICE: 11/12/2019 SUBJECTIVE: Randa Grijalva has no new complaints. OBJECTIVE: VITAL SIGNS: Stable. She is afebrile. Heart rate is in the 60s, respiratory rate in the teens, oximetry is in the high 90s on room air. It is documented there oximetry was 62% at 1336 in the afternoon, but there is no way this is true. I rounded on her about that time and she was doing fine. She still has wheezes. Unfortunately, we do not have spirometry on her yet. IMPRESSION: 1. Asthma, clinically stable. 2. ?Vocal cord dysfunction with a history of symptoms that are way out of proportion to the almost completely normal pulmonary function tests that were done in last admission. I will await spirometry. Job ID: [id number]
[2019-11-12] MEDS: Famotidine/PF 20 mg/2ml Vial SLOW IVP SCH (19:59)
[2019-11-13] MEDS: Piperacillin/Tazobactam 3.375 GM in Sodium Chloride 0.9% 100 ML IVPB SCH ×3 (03:02→14:17)
[2019-11-13] MEDS: guaiFENesin/Codeine Phosphate 200 mg/20 mg 10 ml UD Cup PO PRN ×2 (03:06→22:35)
[2019-11-13 06:12] LABS: Anion Gap 11 mmol/L (10-20); BUN (Urea Nitrogen) 16 mg/dL (9.8-20.1); Calc. Creatinine Clearance 116 mL/min (70-130); Calcium 8.9 mg/dL (7.8-10.44); Carbon Dioxide 28 mmol/L (22-29); Chloride 107 mmol/L (98-107); Estimated GFR-MDRD 73; Glucose 131 mg/dL (70-105); Sodium 142 mmol/L (136-145)
[2019-11-13] MEDS: Benzonatate 100 MG CAP PO PRN ×2 (08:20→17:10)
[2019-11-13] MEDS: Clopidogrel Bisulfate 75 MG TAB PO SCH (08:20)
[2019-11-13] MEDS: Aspirin 81 mg Enteric Coated Tablet PO SCH (08:20)
[2019-11-13] MEDS: oxyCODONE 5 MG TAB PO PRN ×2 (08:22→14:17)
[2019-11-13] MEDS: methylPREDNISolone Sod Succ 40 MG VIAL IVP SCH (08:23)
[2019-11-13] MEDS: HumaLOG 300 UNITS/3 ML VIAL SC PRN ×2 (12:48→17:03)
--- NOTE | 2019-11-13 15:23 | PDOC.HOSPP ---
- Subjective Encounter Date: 11/13/19 Encounter Time: 10:15 Subjective: pt up in bed still has significant wheezing - Objective Vital Signs & Weight: Vital Signs (12 hours) Temp Pulse Resp BP Pulse Ox 11/13/19 12:56 62 20 100 11/13/19 11:16 98.0 F 64 18 121/79 97 11/13/19 07:01 62 18 100 Weight Weight 208 lb 1.862 oz Most Recent Monitor Data Heart Rate from ECG 78 NIBP 110/66 NIBP BP-Mean 80 Respiration from ECG 21 SpO2 98 I&O: 11/12/19 11/13/19 11/14/19 06:59 06:59 06:59 Intake Total 1340 1640 Balance 1340 1640 Result Diagrams: 11/08/19 15:30 11/13/19 05:32 Additional Labs: Accuchecks 11/13/19 11/13/19 11/12/19 11:24 03:44 19:14 POC Glucose 153 H 197 H 285 H 11/12/19 16:12 POC Glucose 284 H Hospitalist ROS - Review of Systems Cardiovascular: denies: chest pain, palpitations, orthopnea, paroxysmal noc. dyspnea, edema, light headedness, other Gastrointestinal: denies: nausea, vomiting, abdominal pain, diarrhea, constipation, melena, hematochezia, other Genitourinary: denies: dysuria, frequency, incontinence, hematuria, retention, other - Medication Medications: Active Medications Generic Name Dose Route Start Last Admin Trade Name Freq PRN Reason Stop Dose Admin Acetaminophen/Butalbital/Caffeine 1 tab 11/10/19 14:02 11/12/19 20:00 Fioricet PO 11/15/19 14:03 1 tab Q8H PRN Administration Headache Acetaminophen/Codeine Phosphate 1 tab 11/08/19 20:36 11/11/19 19:51 Tylenol #3 PO 1 tab Q8H PRN Administration Pain Albuterol/Ipratropium 3 ml 11/09/19 01:00 11/13/19 12:56 Duoneb NEB 3 ml [id number] CHRISTO Administration Aspirin 81 mg 11/09/19 09:00 11/13/19 08:20 Ecotrin PO 81 mg DAILY CHRISTO Administration Benzonatate 100 mg 11/09/19 14:26 11/13/19 08:20 Tessalon PO 100 mg TIDPRN PRN Administration Cough Clopidogrel Bisulfate 75 mg 11/09/19 09:00 11/13/19 08:20 Plavix PO 75 mg DAILY CHRISTO Administration Guaifenesin/Codeine Phosphate 5 ml 11/09/19 14:26 11/13/19 03:06 Robitussin Ac PO 5 ml HS PRN Administration Cough Insulin Human Lispro 0 units 11/08/19 19:32 11/13/19 12:48 Humalog SC 2 unit .MILD SLIDING SCALE PRN Administration Mild Correctional Scale Methylprednisolone Sodium Succinate 40 mg 11/09/19 09:00 11/13/19 08:23 Solu-Medrol IVP 40 mg DAILY CHRISTO Administration Morphine Sulfate 2 mg 11/09/19 15:25 11/10/19 07:49 Morphine SLOW IVP 2 mg BID PRN Administration Moderate to Severe Pain (6-10) Ondansetron HCl 4 mg 11/09/19 02:46 11/10/19 08:21 Zofran SLOW IVP 4 mg Q6H PRN Administration Nausea/Vomiting - Exam Heart: negative: RRR, no murmur, no gallops, no rubs, normal peripheral pulses, irregular, diminshed peripheral pulses, murmur present, II/IV, III/IV Respiratory: wheezes Gastrointestinal: negative: soft, non-tender, non-distended, normal bowel sounds , no palpable masses, no hepatomegaly, no splenomegaly, no bruit, no guarding, no rigidity, tender to palpation, distended, diminished bowl sounds, voluntary guarding Extremities: negative: no cyanosis, no clubbing, no edema, 1+ LE edema, 2+ LE edema, clubbing Hosp A/P (1) Acute exacerbation of chronic obstructive pulmonary disease (COPD) Code(s): J44.1 - CHRONIC OBSTRUCTIVE PULMONARY DISEASE W (ACUTE) EXACERBATION Status: Acute (2) CAD (coronary artery disease) Code(s): I25.10 - ATHSCL HEART DISEASE OF [place] CORONARY ARTERY W/O ANG PCTRS Status: Chronic Qualifiers: (3) DM type 2 (diabetes mellitus, type 2) Status: Chronic Qualifiers: (4) HTN (hypertension) Code(s): I10 - ESSENTIAL (PRIMARY) HYPERTENSION Status: Chronic Qualifiers: (5) Obesity (BMI 30-39.9) Code(s): E66.9 - OBESITY, UNSPECIFIED Status: Chronic (6) Status asthmaticus Code(s): J45.902 - UNSPECIFIED ASTHMA WITH STATUS ASTHMATICUS Status: Acute (7) Vocal cord dysfunction Code(s): J38.3 - OTHER DISEASES OF VOCAL CORDS Status: Acute - Plan pt up in bed still very sob. will continue iv steroids and duoneb. will add antitussive. 11/10 will stop vanco, will add fioricet for her headache. she still has significant wheezing. 11/11 pt's central line has been removed. will continue current tx. she still has significant wheezing. 11/12 pt up in bed still has significant wheezing. she will have pft per respiratory 11/13 will change abx to po for two more days then stop. she is still on iv steroids. she has been encouraged to ambulate. will start her back on her home meds.
[2019-11-13] MEDS: metFORMIN 500 MG TAB PO SCH (17:03)
[2019-11-13] MEDS: Gabapentin 300 MG CAP PO SCH (19:41)
[2019-11-13] MEDS: Cefdinir 300 MG CAP PO SCH (19:41)
[2019-11-13] MEDS: Famotidine 20 MG TAB PO SCH (19:42)
[2019-11-13] MEDS: Acetaminophen/Codeine 30-300mg Tablet PO PRN (22:33)
[2019-11-14] MEDS: Benzonatate 100 MG CAP PO PRN ×2 (01:26→08:06)
[2019-11-14] MEDS: Fioricet 325/50/40 mg Tablet PO PRN ×2 (01:26→19:49)
[2019-11-14 06:43] LABS: Anion Gap 8 mmol/L (10-20); BUN (Urea Nitrogen) 12 mg/dL (9.8-20.1); Calc. Creatinine Clearance 126 mL/min (70-130); Calcium 8.9 mg/dL (7.8-10.44); Carbon Dioxide 31 mmol/L (22-29); Chloride 107 mmol/L (98-107); Estimated GFR-MDRD 79; Glucose 107 mg/dL (70-105); Sodium 142 mmol/L (136-145)
[2019-11-14] MEDS: Saccharomyces boulardii 250 MG CAP PO SCH (08:06)
[2019-11-14] MEDS: Cefdinir 300 MG CAP PO SCH ×2 (08:06→19:48)
[2019-11-14] MEDS: metFORMIN 500 MG TAB PO SCH ×2 (08:06→17:54)
[2019-11-14] MEDS: Loratadine 10 MG TAB PO SCH (08:06)
[2019-11-14] MEDS: Clopidogrel Bisulfate 75 MG TAB PO SCH (08:06)
[2019-11-14] MEDS: Famotidine 20 MG TAB PO SCH ×2 (08:06→19:49)
[2019-11-14] MEDS: Aspirin 81 mg Enteric Coated Tablet PO SCH (08:06)
[2019-11-14] MEDS: Gabapentin 300 MG CAP PO SCH ×2 (08:06→19:49)
[2019-11-14] MEDS: methylPREDNISolone Sod Succ 40 MG VIAL IVP SCH (08:07)
[2019-11-14] MEDS ORDERED: Furosemide 40 MG TAB PO SCH (09:00)
[2019-11-14] MEDS: Acetaminophen/Codeine 30-300mg Tablet PO PRN ×2 (11:52→19:51)
--- NOTE | 2019-11-14 14:27 | PDOC.HOSPP ---
- Subjective Encounter Date: 11/14/19 Encounter Time: 11:30 Subjective: pt up in bed no felt a bit sob and stated the her lower ext felt a bit weak. - Objective Vital Signs & Weight: Vital Signs (12 hours) Temp Pulse Resp BP BP BP BP 11/14/19 13:45 80 16 11/14/19 12:01 116/80 132/90 128/84 11/14/19 07:49 97.5 F L 64 20 117/71 11/14/19 06:49 60 16 Pulse Ox 11/14/19 13:45 11/14/19 12:01 11/14/19 07:49 98 11/14/19 06:49 Weight Weight 208 lb 8.917 oz Most Recent Monitor Data Heart Rate from ECG 78 NIBP 110/66 NIBP BP-Mean 80 Respiration from ECG 21 SpO2 98 I&O: 11/13/19 11/14/19 11/15/19 06:59 06:59 06:59 Intake Total 1640 Balance 1640 Result Diagrams: 11/08/19 15:30 11/14/19 05:45 Additional Labs: Accuchecks 11/14/19 11/14/19 11/13/19 11:17 04:58 19:09 POC Glucose 178 H 105 188 H 11/13/19 16:10 POC Glucose 162 H Hospitalist ROS - Review of Systems Respiratory: denies: cough, dry, shortness of breath, hemoptysis, SOB with excertion, pleuritic pain, sputum, wheezing, other Cardiovascular: denies: chest pain, palpitations, orthopnea, paroxysmal noc. dyspnea, edema, light headedness, other Gastrointestinal: denies: nausea, vomiting, abdominal pain, diarrhea, constipation, melena, hematochezia, other Genitourinary: denies: dysuria, frequency, incontinence, hematuria, retention, other - Medication Medications: Active Medications Generic Name Dose Route Start Last Admin Trade Name Freq PRN Reason Stop Dose Admin Acetaminophen/Butalbital/Caffeine 1 tab 11/10/19 14:02 11/14/19 01:26 Fioricet PO 11/15/19 14:03 1 tab Q8H PRN Administration Headache Acetaminophen/Codeine Phosphate 1 tab 11/08/19 20:36 11/14/19 11:52 Tylenol #3 PO 1 tab Q8H PRN Administration Pain Albuterol/Ipratropium 3 ml 11/09/19 01:00 11/14/19 13:45 Duoneb NEB 3 ml [id number] CHRISTO Administration Aspirin 81 mg 11/09/19 09:00 11/14/19 08:06 Ecotrin PO 81 mg DAILY CHRISTO Administration Benzonatate 100 mg 11/09/19 14:26 11/14/19 08:06 Tessalon PO 100 mg TIDPRN PRN Administration Cough Cefdinir 300 mg 11/13/19 21:00 11/14/19 08:06 Omnicef PO 300 mg BID CHRISTO Administration Clopidogrel Bisulfate 75 mg 11/09/19 09:00 11/14/19 08:06 Plavix PO 75 mg DAILY CHRISTO Administration Famotidine 20 mg 11/13/19 21:00 11/14/19 08:06 Pepcid PO 20 mg BID CHRISTO Administration Furosemide 40 mg 11/14/19 09:00 11/14/19 08:06 Lasix PO 40 mg Q2D@0900 CHRISTO Administration Gabapentin 300 mg 11/13/19 21:00 11/14/19 08:06 Neurontin PO 300 mg BID CHRISTO Administration Guaifenesin/Codeine Phosphate 5 ml 11/09/19 14:26 11/13/19 22:35 Robitussin Ac PO 5 ml HS PRN Administration Cough Insulin Human Lispro 0 units 11/08/19 19:32 11/13/19 17:03 Humalog SC 2 unit .MILD SLIDING SCALE PRN Administration Mild Correctional Scale Loratadine 10 mg 11/14/19 09:00 11/14/19 08:06 Claritin PO 10 mg DAILY CHRISTO Administration Metformin HCl 500 mg 11/13/19 17:00 11/14/19 08:06 Glucophage PO 500 mg BID-[facility] Administration Methylprednisolone Sodium Succinate 40 mg 11/09/19 09:00 11/14/19 08:07 Solu-Medrol IVP 40 mg DAILY CHRISTO Administration Morphine Sulfate 2 mg 11/09/19 15:25 11/10/19 07:49 Morphine SLOW IVP 2 mg BID PRN Administration Moderate to Severe Pain (6-10) Ondansetron HCl 4 mg 11/09/19 02:46 11/10/19 08:21 Zofran SLOW IVP 4 mg Q6H PRN Administration Nausea/Vomiting Saccharomyces Boulardii 250 mg 11/14/19 09:00 11/14/19 08:06 Florastor PO 250 mg DAILY CHRISTO Administration - Exam Neck: negative: supple, symmetric, no JVD, no thyromegaly, no lymphadenopathy, no carotid bruit, JVD Heart: negative: RRR, no murmur, no gallops, no rubs, normal peripheral pulses, irregular, diminshed peripheral pulses, murmur present, II/IV, III/IV Respiratory: wheezes Gastrointestinal: negative: soft, non-tender, non-distended, normal bowel sounds , no palpable masses, no hepatomegaly, no splenomegaly, no bruit, no guarding, no rigidity, tender to palpation, distended, diminished bowl sounds, voluntary guarding Hosp A/P (1) Acute exacerbation of chronic obstructive pulmonary disease (COPD) Code(s): J44.1 - CHRONIC OBSTRUCTIVE PULMONARY DISEASE W (ACUTE) EXACERBATION Status: Acute (2) CAD (coronary artery disease) Code(s): I25.10 - ATHSCL HEART DISEASE OF [place] CORONARY ARTERY W/O ANG PCTRS Status: Chronic Qualifiers: (3) DM type 2 (diabetes mellitus, type 2) Status: Chronic Qualifiers: (4) HTN (hypertension) Code(s): I10 - ESSENTIAL (PRIMARY) HYPERTENSION Status: Chronic Qualifiers: (5) Obesity (BMI 30-39.9) Code(s): E66.9 - OBESITY, UNSPECIFIED Status: Chronic (6) Status asthmaticus Code(s): J45.902 - UNSPECIFIED ASTHMA WITH STATUS ASTHMATICUS Status: Acute (7) Vocal cord dysfunction Code(s): J38.3 - OTHER DISEASES OF VOCAL CORDS Status: Acute - Plan pt up in bed still very sob. will continue iv steroids and duoneb. will add antitussive. 11/10 will stop vanco, will add fioricet for her headache. she still has significant wheezing. 11/11 pt's central line has been removed. will continue current tx. she still has significant wheezing. 11/12 pt up in bed still has significant wheezing. she will have pft per respiratory 11/13 will change abx to po for two more days then stop. she is still on iv steroids. she has been encouraged to ambulate. will start her back on her home meds. 11/14 i have encourage her to ambulate in the room and will get PT to evaluate her. her bnp was checked and was normal. will encourage ambulation. she is improving slowly. will continue steroids and duonebs.
[2019-11-14] MEDS: Ondansetron PF 4 MG/2 ML Vial SLOW IVP PRN (14:46)
--- NOTE | 2019-11-14 15:37 | EKG ---
Test Reason : Blood Pressure : / mmHG Vent. Rate : 086 BPM Atrial Rate : 086 BPM P-R Int : 142 ms QRS Dur : 092 ms QT Int : 398 ms P-R-T Axes : 041 012 007 degrees QTc Int : 476 ms Normal sinus rhythm Possible Left atrial enlargement Inferior infarct , age undetermined Anterolateral infarct , age undetermined Abnormal ECG Confirmed by EMERALD CONWAY, LY (12), acquisition editor HALIE MATTA ([id number]) on 11/14/2019 3:36:46 PM Referred By: Confirmed By:LY CORBIN MD
--- NOTE | 2019-11-14 16:00 | CT ---
Neck CT without contrast: 11/14/2019 COMPARISON: None HISTORY: Evaluate vocal cord dysfunction TECHNIQUE: Axial CT imaging at 2.5 mm intervals through the neck without IV contrast. Coronal and sag ittal reformatted imaging obtained. FINDINGS: The lack of contrast limits assessment for aerodigestive tract/mucosal-based lesion. Evalua tion of the vascular structures and for lymphadenopathy is limited. Midline sternotomy wires are present. Imaged lung apices grossly unremarkable. The paranasal sinuses demonstrate scattered areas o f mucosal thickening involving bilateral ethmoid air cells, bilateral sphenoid sinuses, and bilateral axillary sinuses. The retroantral and the parapharyngeal fat appears clear bilaterally. The parotid glands and submandi bular glands are grossly unremarkable. The thyroid gland, cricoid cartilage, thyroid cartilage, level of the glottis, hyoid bone, epiglottis, preepiglottic fat, and tonsillar pillars appear grossly unremarkable. No evidence for vocal cord paralysis on either side. There is vascular calcification involving the proximal right common carotid artery, the proximal aspe ct of bilateral subclavian arteries, the distal right CCA and proximal right ICA. No acute osseous abnormality. IMPRESSION: No CT evidence of vocal cord paralysis.
--- NOTE | 2019-11-14 17:04 | PRG ---
DATE OF SERVICE: 11/14/2019 SUBJECTIVE: Ms. Grijalva continues to have expiratory wheezing. OBJECTIVE: VITAL SIGNS: She is afebrile. Heart rate 64, respiratory rate is 20, oximetry is 98% on room air, blood pressure 117/71. LUNGS: Remarkable for predominantly wheezes, but this is all upper airway mediated. LABORATORY DATA: I ordered a neck CT to make sure we are not missing a tracheal lesion. There are no tracheal lesions seen on the neck CT. Pulmonary function tests reviewed. She has no evidence of an extrathoracic airway obstruction on her flow volume loop. Her FEV1 and forced vital capacity and her mid flows were all normal. IMPRESSION: Vocal cord dysfunction syndrome. There is no reason to keep her in the hospital. She has no expiratory airflow obstruction. She has no structural abnormalities in her trachea. Job ID: [id number]
[2019-11-14] MEDS: guaiFENesin/Codeine Phosphate 200 mg/20 mg 10 ml UD Cup PO PRN (22:35)
[2019-11-15] MEDS: Acetaminophen/Codeine 30-300mg Tablet PO PRN ×2 (04:19→15:27)
[2019-11-15] MEDS: Benzonatate 100 MG CAP PO PRN ×2 (04:20→09:05)
[2019-11-15 06:25] LABS: Anion Gap 11 mmol/L (10-20); BUN (Urea Nitrogen) 18 mg/dL (9.8-20.1); Calc. Creatinine Clearance 133 mL/min (70-130); Calcium 9.3 mg/dL (7.8-10.44); Carbon Dioxide 29 mmol/L (22-29); Chloride 103 mmol/L (98-107); Estimated GFR-MDRD 81; Glucose 128 mg/dL (70-105); Potassium 3.2 mmol/L (3.5-5.1); Sodium 140 mmol/L (136-145)
[2019-11-15 07:47] VITALS: TEMP 97.8
[2019-11-15] MEDS ORDERED: Potassium Chloride 20 MEQ TAB PO SCH ×2 (09:00→13:30)
[2019-11-15] MEDS: Clopidogrel Bisulfate 75 MG TAB PO SCH (09:05)
[2019-11-15] MEDS: Aspirin 81 mg Enteric Coated Tablet PO SCH (09:05)
[2019-11-15] MEDS: Cefdinir 300 MG CAP PO SCH (09:05)
[2019-11-15] MEDS: metFORMIN 500 MG TAB PO SCH (09:05)
[2019-11-15] MEDS: Gabapentin 300 MG CAP PO SCH (09:05)
[2019-11-15] MEDS: Saccharomyces boulardii 250 MG CAP PO SCH (09:06)
[2019-11-15] MEDS: Famotidine 20 MG TAB PO SCH (09:06)
[2019-11-15] MEDS: Loratadine 10 MG TAB PO SCH (09:15)
[2019-11-15 11:47] VITALS: BP 120/84
[2019-11-15] MEDS ORDERED: guaiFENesin ER 600 MG TAB PO SCH ×2 (13:00→21:00)
[2019-11-16] MEDS ORDERED: predniSONE 20 MG TAB PO SCH (08:00)
--- NOTE | 2019-11-17 18:58 | PQF ---
[employer] Medical Sonographer Crystal Reports Winform Viewer LANIE KRUGER AALIYAHLARYJENARORENNY [id number] CLINICAL DOCUMENTATION CLARIFICATION FORM: POST DISCHARGE Addendum to original discharge summary date: ____ Late entry note date: __ DATE:11/17/19 ATTN:Renny Miles Please exercise your independent, professional judgment in responding to the clarification form. Clinical indicators are provided on the bottom of this form for your review Can you please further clarify if Sepsis is ruled in or ruled out? Sepsis [ ] Ruled in diagnosis [ x] Continue to treat [ ] Resolved [ ] Ruled out diagnosis [ ] Cannot rule out diagnosis [ ] Other diagnosis no sepsis [ ] Unable to determine In addition, please specify: Present on Admission (POA): [ x ] Yes [ ] No [ ] Unable to determine For continuity of documentation, please document condition throughout progress notes and discharge summary. Thank You. CLINICAL INDICATORS - SIGNS / SYMPTOMS / LABS ED Provider pg.5- Sepsis, Acute COPD exacerbation, acute respiratory distress, hypoxia H and P pg.1- Shortness of breath and cough H and Ppg.1- acute hypoxic respiratory failure most likely 2/2 possible viral vs bacterial pneumonia H and P pg.2- Sepsis possible secondary to either pneumonia Consult Dr. River pg.1- ? Pneumonia H and P pg.3- mild leukocytosis, could be secondary to her pneumonia RISK FACTORS COPD- H and P pg.1 Smoker- H and P pg.1 CAD- H and P pg.1 MARGARITO- H and P pg.2 Pneumonia- H and P pg.2 TREATMENTS Chest X ray 11/[address] River 11/09 IV fluids- MAR IV Antibiotics MAR Albuterol sulfate 2.5mg NEB- MAR (This form is maintained as a part of the permanent medical record) 2014 [employer]. All Rights Reserved [email or web address]
--- NOTE | 2019-11-17 19:01 | PQF ---
[employer] Transport Tank Technician Crystal Reports Winform Viewer LANIE KRUGER KARISHMA [id number] CLINICAL DOCUMENTATION CLARIFICATION FORM: POST DISCHARGE Addendum to original discharge summary date: ____ Late entry note date: __ DATE:11/17/19 ATTN:AALIYAHBRAULIO LAWSON Please exercise your independent, professional judgment in responding to the clarification form. Clinical indicators are provided on the bottom of this form for your review Can you please further clarify if Acute hypoxic respiratory failure is ruled in or ruled out? Acute hypoxic respiratory failure [ ] Ruled in diagnosis [ ]x Continue to treat [ ] Resolved [ ] Ruled out diagnosis [ ] Cannot rule out diagnosis [ ] Other diagnosis [ ] Unable to determine In addition, please specify: Present on Admission (POA): [ x] Yes [ ] No [ ] Unable to determine For continuity of documentation, please document condition throughout progress notes and discharge summary. Thank You. CLINICAL INDICATORS - SIGNS / SYMPTOMS / LABS ED Provider pg.5- Sepsis, Acute COPD exacerbation, acute respiratory distress, hypoxia H and P pg.1- Shortness of breath and cough H and Ppg.1- acute hypoxic respiratory failure most likely 2/2 possible viral vs bacterial pneumonia H and P pg.2- Sepsis possible secondary to either pneumonia Consult Dr. River pg.1- ? Pneumonia H and P pg.3- mild leukocytosis, could be secondary to her pneumonia RISK FACTORS COPD- H and P pg.1 Smoker- H and P pg.1 CAD- H and P pg.1 MARGARITO- H and P pg.2 Pneumonia- H and P pg.2 status asthmaticus- Hospitalist PN TREATMENTS Chest X ray 11/[address] River 11/09 IV fluids- MAR IV Antibiotics MAR Albuterol sulfate 2.5mg NEB- MAR O2 supplementation (This form is maintained as a part of the permanent medical record) 2014 [employer]. All Rights Reserved [email or web address]
--- NOTE | 2019-11-17 19:04 | PQF ---
[employer] Stem Cutter Crystal Reports Winform Viewer LANIE KRUGER KARISHMA [id number] CLINICAL DOCUMENTATION CLARIFICATION FORM: POST DISCHARGE Addendum to original discharge summary date: ____ Late entry note date: __ DATE: 11/17/19 ATTN:Vanessa Miles Please exercise your independent, professional judgment in responding to the clarification form. Clinical indicators are provided on the bottom of this form for your review Can you please further clarify if Pneumonia is ruled in or ruled out? Pneumonia [ ] Ruled in diagnosis [ x ] Continue to treat [ ] Resolved [ ] Ruled out diagnosis [ ] Cannot rule out diagnosis [ ] Other diagnosis [ ] Unable to determine In addition, please specify: Present on Admission (POA): [x ] Yes [ ] No [ ] Unable to determine For continuity of documentation, please document condition throughout progress notes and discharge summary. Thank You. CLINICAL INDICATORS - SIGNS / SYMPTOMS / LABS H and P pg.3- mild leukocytosis, could be secondary to her pneumonia Consult Dr. River pg.1- ? Pneumonia H and P pg.2- Sepsis possible secondary to either pneumonia H and P pg.1- acute hypoxic respiratory failure most likely 2/2 possible viral vs bacterial pneumonia H and P pg.1- Shortness of breath and cough ED Provider pg.5- Sepsis, Acute COPD exacerbation, acute respiratory distress, hypoxia RISK FACTORS COPD- H and P pg.1 Smoker- H and P pg.1 CAD- H and P pg.1 MARGARITO- H and P pg.2 Status asthmaticus- Hospitalist PN TREATMENTS Chest X ray 11/[address] River 11/09 IV fluids- MAR IV Antibiotics MAR Albuterol sulfate 2.5mg NEB- MAR (This form is maintained as a part of the permanent medical record) 2014 [employer]. All Rights Reserved [email or web address]
== END 2019-11-15 15:44 | disposition home or self-care (01) | DRG 871 ==
LOC: ERS 11:52 → IMCU/EMU 17:50 → T4-B 21:25
PROVIDERS: ADMIT Internal Medicine; ATTEND Internal Medicine
DX: A41.9 Sepsis, unspecified organism (principal); J18.9 Pneumonia, unspecified organism; J96.01 Acute respiratory failure with hypoxia; J45.902 Unspecified asthma with status asthmaticus; J44.1 Chronic obstructive pulmonary disease with (acute) exacerbation; N17.9 Acute kidney failure, unspecified; J44.0 Chronic obstructive pulmonary disease with (acute) lower respiratory infection; E11.9 Type 2 diabetes mellitus without complications; I10 Essential (primary) hypertension; F17.210 Nicotine dependence, cigarettes, uncomplicated; J38.3 Other diseases of vocal cords; I25.10 Atherosclerotic heart disease of native coronary artery without angina pectoris; E66.9 Obesity, unspecified; Z79.84 Long term (current) use of oral hypoglycemic drugs; Z68.37 Body mass index [BMI] 37.0-37.9, adult; Z95.1 Presence of aortocoronary bypass graft; Z98.51 Tubal ligation status; Z90.49 Acquired absence of other specified parts of digestive tract; Z86.73 Personal history of transient ischemic attack (TIA), and cerebral infarction without residual deficits; I25.2 Old myocardial infarction; Z79.82 Long term (current) use of aspirin; Z79.01 Long term (current) use of anticoagulants; Z79.899 Other long term (current) drug therapy; Z79.51 Long term (current) use of inhaled steroids
CPT/HCPCS: 36415; 36416; 36556; 70490; 71045; 71046; 80048; 80053; 80202; 81003; 82550; 82805; 83605; 83880; 84484; 85025; 87040; 87633; 87798; 87804; 93005; 94640; 94644; 96361; 96365; 96367; 96375; 99292; J0456; J0696; J1100; J2270; J2405; J2543; J2920; J2930; J3370; J3475; J3490; J7050; J7611; J7620; S0028

== ENCOUNTER 2021-05-10 13:04 | Outpatient (CLI) | payer SELFPAY ==
[2021-05-10 13:56] LABS: Hemoglobin 14.2 g/dL (12.0-15.5); Mean Corpuscular HGB CONC 32.7 g/dL (32.0-36.0); Mean Corpuscular Hemoglobin 30.6 pg (27.0-33.0); Mean Corpuscular Volume 93.5 fl (81.6-98.3); Mean Platelet Volume 11.6 fl (7.4-10.4); Platelet Count 206 10x3/uL (150-450); RBC Distribution Width 12.6 % (11.5-14.5); Red Blood Cell (RBC) Count 4.64 10x6/uL (3.90-5.03); White Blood Cell (WBC) Count 7.1 10x3/uL (3.5-10.5)
[2021-05-10 14:17] LABS: Anion Gap 14 mmol/L (10-20); BUN (Urea Nitrogen) 7 mg/dL (9.8-20.1); Calc. Creatinine Clearance 0 mL/min (70-130); Calcium 9.9 mg/dL (7.8-10.44); Carbon Dioxide 22 mmol/L (22-29); Chloride 109 mmol/L (98-107); Glucose 95 mg/dL (70-105); Potassium 4.3 mmol/L (3.5-5.1); Sodium 141 mmol/L (136-145)
[2021-05-11 08:01] LABS: SARS-CoV-2 PCR by NAA Not Detected (NotDetected)
== END 2021-05-10 13:05 | disposition home or self-care (01) ==
LOC: LABBT 13:04
PROVIDERS: ATTEND Orthopaedic Surgery
DX: Z01.818 Encounter for other preprocedural examination (principal); M65.341 Trigger finger, right ring finger; G56.02 Carpal tunnel syndrome, left upper limb; Z20.822 Contact with and (suspected) exposure to COVID-19
CPT/HCPCS: 80048; 85027; 93005; 93010; U0003; U0005

== ENCOUNTER 2021-05-20 11:15 | Day surgery (SDC) | payer OTHER ==
[2021-05-19 14:30] VITALS: BMI 34.1
[2021-05-20] MEDS ORDERED: Fentanyl 100 MCG/2 ML VIAL ONE ×4 (12:51→17:29)
[2021-05-20] MEDS ORDERED: Midazolam HCl 2 mg/2 ml Vial ONE (12:51)
[2021-05-20] MEDS ORDERED: Bupivacaine HCl 0.5%/Epinephrine 1:200,000/PF 30 ml Vial ONE (14:58)
[2021-05-20] MEDS ORDERED: PROPOFOL 200 MG/20 ML VIAL ONE (14:58)
[2021-05-20] MEDS ORDERED: Ketorolac Tromethamine 30 MG/ML VIAL ONE (14:58)
[2021-05-20] MEDS ORDERED: Lidocaine 1% PF 5 ML VIAL ONE (14:58)
[2021-05-20] MEDS ORDERED: Ondansetron PF 4 MG/2 ML Vial ONE ×2 (14:58→17:56)
[2021-05-20] MEDS ORDERED: Dexamethasone 20 MG/5 ML VIAL ONE (14:58)
[2021-05-20] MEDS ORDERED: Bupivacaine PF 0.5% 30 ML VIAL ONE (15:19)
== END 2021-05-20 19:00 | disposition home or self-care (01) ==
LOC: SDC 11:15
PROVIDERS: ATTEND Orthopaedic Surgery
PROC: 0LN70ZZ Release Right Hand Tendon, Open Approach (ICD-10-PCS; principal; 2021-05-20)
PROC: 0LX80ZZ Transfer Left Hand Tendon, Open Approach (ICD-10-PCS; principal; 2021-05-20)
PROC: 0LU807Z Supplement Left Hand Tendon with Autologous Tissue Substitute, Open Approach (ICD-10-PCS; principal; 2021-05-20)
DX: M18.12 Unilateral primary osteoarthritis of first carpometacarpal joint, left hand (principal); M65.341 Trigger finger, right ring finger; J45.909 Unspecified asthma, uncomplicated; E11.9 Type 2 diabetes mellitus without complications; I11.9 Hypertensive heart disease without heart failure; F17.210 Nicotine dependence, cigarettes, uncomplicated; Z79.02 Long term (current) use of antithrombotics/antiplatelets; Z79.84 Long term (current) use of oral hypoglycemic drugs; Z79.899 Other long term (current) drug therapy; Z95.1 Presence of aortocoronary bypass graft
CPT/HCPCS: C1776; J0690; J1100; J1885; J2250; J2405; J2704; J3010; S0020

== ENCOUNTER 2023-05-12 15:10 | Observation (INO) | payer SELFPAY ==
[~2023-05-12 15:10] MED LIST changes: -Iopamidol-370 76% 500 ML 1 ML ONE; +Iopamidol-370 76% 500 ML MDV (1 ML CHARGE) ONE
[2023-05-12] MEDS ORDERED: Morphine 4 MG/ML VIAL ONE (15:50)
[2023-05-12] MEDS ORDERED: Dicyclomine 20 MG/2 ML VIAL ONE (15:50)
[2023-05-12] MEDS ORDERED: Ondansetron PF 4 MG/2 ML Vial ONE (15:50)
[2023-05-12 16:10] LABS: #Basophils 0.1 thou/uL (0.0-0.2); #Eosinphils 0.1 thou/uL (0.0-0.7); #Monocytes 0.6 thou/uL (0.11-0.59); %Basophils 0.5 % (0.0-1.0); %Eosinophils 0.7 % (0.0-10.0); %Lymphocytes 21.3 % (21.0-51.0); %Monocytes 5.8 % (0.0-10.0); %Neutrophils 71.2 % (42.0-75.0); Hematocrit 44.6 % (36.0-47.0); Hemoglobin 15.2 g/dL (12.0-16.0); Mean Corpuscular HGB CONC 34.1 g/dL (32.0-36.0); Mean Corpuscular Hemoglobin 31.2 pg (27.0-31.0); Mean Corpuscular Volume 91.6 fl (78.0-98.0); Mean Platelet Volume 11.3 fL (7.4-10.4); Platelet Count 227 10x3/uL (130-400); Red Blood Cell (RBC) Count 4.87 mill/uL (4.20-5.40); White Blood Cell (WBC) Count 9.8 10x3/uL (4.8-10.8)
[2023-05-12 16:15] LABS: Bacteria/HPF None Seen HPF (None Seen); Bilirubin Negative (Negative); Blood, Urine Negative (Negative); CAUTI Indications for Culture Dysuria,urgency,freq; Clarity Clear (Clear); Glucose, Urine (Dipstick) 500 mg/dL (Negative); Ketone, Urine Negative (Negative); Leukocyte Negative Leu/uL (Negative); Nitrite Negative (Negative); Protein, Urine (Dipstick) Negative (Neg-Trace); RBC/HPF 0-3 HPF (0-3); Specific Gravity, Urine 1.018 (1.002-1.036); Squamous Epithelial 0-3 HPF (0-3); Urobilinogen Normal mg/dL (Less than 2); WBC/HPF 0-3 HPF (0-3); pH, Urine 5.5 (5.0-9.0)
[2023-05-12 16:20] LABS: Urine Culture Reflex No No
[2023-05-12 16:34] LABS: ALT (SGPT) 46 U/L (8-55); AST (SGOT) 13 U/L (5-34); Albumin 4.3 g/dL (3.5-5.0); Alkaline Phosphatase 73 U/L (40-110); Anion Gap 15 mmol/L (10-20); BUN (Urea Nitrogen) 12 mg/dL (9.8-20.1); Bilirubin, Total 0.6 mg/dL (0.2-1.2); Calc. Creatinine Clearance 0 mL/min (70-130); Calcium 9.8 mg/dL (7.8-10.44); Carbon Dioxide 25 mmol/L (22-29); Chloride 100 mmol/L (98-107); Estimated GFR 88; Globulin 2.9 g/dL (2.4-3.5); Glucose 194 mg/dL (70-105); Lipase 8 U/L (8-78); Potassium 3.8 mmol/L (3.5-5.1); Protein, Total 7.2 g/dL (6.0-8.3); Sodium 136 mmol/L (136-145)
[2023-05-12 16:36] LABS: Troponin I Less than 0.010 ng/mL (< 0.028)
[2023-05-12 17:51] LABS: Magnesium 1.1 mg/dL (1.6-2.6)
[2023-05-12] MEDS ORDERED: Acetaminophen 325 MG TAB PO PRN (18:49)
[2023-05-12] MEDS ORDERED: Ondansetron PF 4 MG/2 ML Vial IVP PRN (18:49)
[2023-05-12] MEDS ORDERED: Ondansetron ODT 4 MG TAB PO PRN (18:49)
[2023-05-12] MEDS ORDERED: Magnesium Sulfate 3 GM in Sodium Chloride 0.9% 100 ML IVPB SCH (19:00)
[2023-05-12 19:30] LABS: Troponin I Less than 0.010 ng/mL (< 0.028)
[2023-05-12] MEDS ORDERED: HumaLOG 300 UNITS/3 ML VIAL SC PRN (20:53)
[2023-05-12] MEDS ORDERED: Dextrose 5% in Water 1,000 ML IV PRN (20:53)
[2023-05-12] MEDS ORDERED: Glucagon 1 MG/ML KIT IM PRN (20:53)
[2023-05-12] MEDS ORDERED: Dextrose 50% Abboject 50 ML SYRINGE SLOW IVP PRN (20:53)
[2023-05-12 21:21] LABS: SARS-CoV-2 NAA Rapid Test Not Detected (NotDetected)
[2023-05-12] MEDS: Dicyclomine 10 MG/5 ML ORAL SOLN PO PRN (21:45)
[2023-05-12 22:20] VITALS: BMI 34.8
[2023-05-12 22:26] LABS: Troponin I 0.011 ng/mL (< 0.028)
[2023-05-13] MEDS: Dicyclomine 10 MG/5 ML ORAL SOLN PO PRN ×2 (05:06→12:53)
[2023-05-13 05:23] LABS: Anion Gap 12 mmol/L (10-20); BUN (Urea Nitrogen) 9 mg/dL (9.8-20.1); Calc. Creatinine Clearance 131 mL/min (70-130); Calcium 8.8 mg/dL (7.8-10.44); Carbon Dioxide 26 mmol/L (22-29); Chloride 105 mmol/L (98-107); Estimated GFR 101; Glucose 173 mg/dL (70-105); Magnesium 1.7 mg/dL (1.6-2.6); Potassium 3.5 mmol/L (3.5-5.1); Sodium 139 mmol/L (136-145)
[2023-05-13 08:01] VITALS: TEMP 97.8
[2023-05-13] MEDS ORDERED: Aspirin 81 mg Enteric Coated Tablet PO SCH (09:00)
[2023-05-13 13:16] LABS: Magnesium 1.5 mg/dL (1.6-2.6)
[2023-05-13] MEDS ORDERED: Magnesium 2 GM/50 ML(in water) 2 GM in Premix Bag 1 BAG IVPB SCH (14:45)
[2023-05-13 15:41] VITALS: BP 135/69
[2023-05-13 17:58] LABS: Magnesium 2.2 mg/dL (1.6-2.6)
== END 2023-05-13 18:45 | disposition home or self-care (01) ==
LOC: ERS 15:10 → 2SW 18:11
PROVIDERS: ADMIT Internal Medicine; ATTEND Internal Medicine
DX: R00.1 Bradycardia, unspecified (principal); R19.7 Diarrhea, unspecified; R10.9 Unspecified abdominal pain; E11.9 Type 2 diabetes mellitus without complications; I10 Essential (primary) hypertension; I25.10 Atherosclerotic heart disease of native coronary artery without angina pectoris; E83.42 Hypomagnesemia; F17.200 Nicotine dependence, unspecified, uncomplicated; Z86.73 Personal history of transient ischemic attack (TIA), and cerebral infarction without residual deficits; Z79.82 Long term (current) use of aspirin; Z79.84 Long term (current) use of oral hypoglycemic drugs; Z79.899 Other long term (current) drug therapy; Z95.1 Presence of aortocoronary bypass graft; Z90.49 Acquired absence of other specified parts of digestive tract
CPT/HCPCS: 36415; 36416; 71045; 74177; 80048; 80053; 81001; 83605; 83690; 83735; 83880; 84484; 85025; 93005; 96375; 96376; G0378; J1815; J2270; J2405; J3475; J3490; Q9967; U0002